=== PATIENT | female | born 1950 | race Caucasian/White ===

== ENCOUNTER → 2021-06-18 | Outpatient (CLI) | payer OTHER ==
[2021-06-18 11:56] LABS: SODIUM 138 MMOL/L (135-145)
[2021-06-18 11:59] LABS: CARBON DIOXIDE 14 MMOL/L (21-32)
== END ==
LOC: GIR 11:50
DX: Z53.9 Procedure and treatment not carried out, unspecified reason (principal)
CPT/HCPCS: 82374; 84295

== ENCOUNTER 2021-07-03 21:09 | Inpatient (IN) | payer MEDICARE, OTHER ==
[~2021-07-03] VITALS: Ht 160 cm; Wt 83.5 kg
[2021-07-03] MEDS ORDERED: VANCOMYCIN INJECTION 1,000 MG in NS (IVPB) 250 ML IV SCH (21:45)
[2021-07-03] MEDS ORDERED: MEROPENEM 1,000 MG in WATER (STERILE) FOR INJECTION 20 ML IV SCH (21:45)
--- NOTE | 2021-07-03 21:58 | Progress Note ---
Progress Note 70yoWF known to me from recent COVID [place] [facility]. She had a long course with initial N/V and dehydration and JILL and it transitioned to PNA and hypoxia requiring abx, steroids, O2 and ICU stay. Lovenox maintained along with IV abx resulted in improved status. Patient ultimately DC home in improved condition and was up ad sandy in room and PT OT did not require treating patient but she did go home on 2L/min O2. Apparently she went home and did not really ambulate and all she did was remain in bed and a chair. Her family insisted on her coming to [place] [facility] and was assessed to be profoundly dehydrated with creat 1.7 requiring IVF and hypoxia with tachycardia and elevated d-dimer and CRP and interestingly her alkaline phosphotase was 510 with ALT 46 so uncertain etiology on that elevation and I was planning on obtain ed USG in morning and order CT angiogram when creatinine had improved but she became more tachypneic and tachycardic and was unable to tolerate biPAP and was desating on Vapotherm 40L/min at 100% so I made the decision to electively intubate and called Juliann Real in who graciously provide intubation skills. I updated Ezio soon after admit and then updated him on the need to urgently intubate. I also informed him that anyone intubated had a very poor prognosis with COVID and he is aware she could pass away but remains a full code at this time. He is vaccinated and she is unvaccinated. Meropenem ordered along with Vanc and Decadron and gently IVF along with Lovenox 80mg SQ [id number]. Dr Yao has been notified and he will place central line. Very poor prognosis and I did update her on this fact multiple times. OGT in place along with Barb. NASRIN LAGUERRE DO Jul 03, 2021 21:58
[2021-07-03] MEDS: PROPOFOL DRIP (ICU) 100 ML IV SCH (22:55)
--- OUTSIDE RECORDS SUMMARY | 2021-07-03 22:58 | XMS REPORT ---
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 10/12/17 at 8 am 10/12/2017 12:00 AM Medications Active Name Start Date Estimated Completion Date SIG Co mments tramadol 50 mg oral tablet 03/05/2020 TAKE 1 TABLET BY MOUTH EVERY 4 TO 6 HOURS NEEDED pravastatin 40 mg oral tablet 07/26/2020 07/21/2021 ta ke 1 tablet (40 mg) by oral route once daily at bedtime for 90 days Pantoprazole Sodium 40 MG Oral Tablet Delayed Release 08/20/2020 11/13/2021 Take 1 tablet by mouth once daily lisinopril-hydrochlorothiazide 20-12.5 mg oral tablet 08/20/2020 11/13/2021 Take 1 tablet by mouth once daily ondansetron HCl 4 mg oral tablet 01/07/2021 take 1 tablet by oral route 3 times a day (before meals) paroxetine HCl 20 mg oral tablet 01/22/2021 10/19/2021 Take 1 tablet by mouth once daily sucralfate 1 gram tablet 05/05/2021 take 1 tablet (1 gram) by oral route 2 times per day on an empty stomach metformin 500 mg tablet 05/05/2021 04/30/2022 take 1 t ablet (500 mg) by oral route 2 times per day with morning and evening meals for 90 days ProAir HFA 90 mcg/actuation inhalation HFA aerosol inhaler 021 inhale 1 - 2 puffs (90 - 180 mcg) by inhalation route every 6 hours as needed glimepiride 2 mg tablet 05/06/2021 take 1 tablet by oral route 2 times a day promethazine-codeine 6.25-10 mg/5 mL oral syrup 06/17/2021 take 5 milliliters by oral route every 6 hours as needed, not to exceed 30 mL in 24 hours Name Start Date Expiration Date SIG Comments Zithromax Z-Kelechi 250 mg oral tablet 11/29/2011 12/04/2011 take 2 tablets (500 mg) by oral route once daily for 1 day then 1 tablet (250 mg) by oral route once daily for 4 days Flexeril 10 mg oral tablet 02/28/2012 05/28/2012 take 1 tablet by oral route 2 times a day as needed for 30 days tramadol 50 mg oral tablet 09/17/2012 10/02/2012 TAKE ONE TABLET BY MOUTH EVERY 4 TO 6 HOURS NEEDED Protonix 40 mg oral tablet,delayed release (DR/EC) 11/04/2013 12/04/2013 take 1 tablet (40 mg) by oral route once daily for 30 days Zithromax Z-Kelechi 250 mg oral tablet 11/04/2013 11/09/2013 take 2 tablets (500 mg) by oral route once daily for 1 day then 1 tablet (250 mg) by oral route once daily for 4 days Zithromax Z-Kelechi 250 mg oral tablet 05/07/2014 05/05/2014 take 2 tablets (500 mg) by oral route once daily for 1 day then 1 tablet (250 mg) by oral route once daily for 4 days azithromycin 250 mg oral tablet 05/05/2014 TAKE TWO TABLETS BY MOUTH ON DAY 1, THEN ONE TABLET ON DAYS 2-5 valacyclovir 1 gram oral tablet 06/11/2014 06/18/2014 take 1 tablet (1,000 mg) by oral route 3 times per day for 7 days prednisone 10 mg oral tablet 04/12/2015 04/17/2015 vignesh e 1 tablet (10 mg) by oral route once daily for 5 days azithromycin 250 mg oral tablet 01/21/2016 01/26/2016 take 2 tablets (500 mg) by oral route once daily for 1 day then 1 tablet (250 mg) by oral route once daily for 4 days prednisone 20 mg oral tablet 01/21/2016 01/26/2016 vignesh e 1 tablet (20 mg) by oral route once daily for 5 days sulfamethoxazole-trimethoprim 800-160 mg oral tablet 02/21/2016 02/28/2016 take 1 tablet by oral route every 12 hours for 7 days pantoprazole 40 mg oral tablet,delayed release (DR/EC) 05/12/2016 TAKE ONE TABLET BY MOUTH ONCE DAILY amitriptyline 25 mg oral tablet 10/09/2016 01/07/2017 take 1 tablet (25 mg) by oral route once daily at bedtime for 30 days promethazine-codeine 6.25-10 mg/5 mL oral syrup 11/28/2016 take 5 milliliters by oral route every 6 hours as needed, not to exceed 30 mL in 24 hours ranitidine HCl 150 mg oral capsule 02/17/2017 02/27/2017 take 1 capsule (150 mg) by oral route 2 times per day for 10 days doxycycline hyclate 100 mg oral tablet 02/17/2017 02/24/2017 take 1 tablet (100 mg) by oral route 2 times per day for 7 days paroxetine HCl 20 mg oral tablet 10/01/2017 10/01/2017 TAKE ONE TABLET BY MOUTH ONCE DAILY change to Cymbalta doxycycline hyclate 100 mg oral tablet 12/12/2017 take 1 tablet (100 mg) by oral route 2 times per day for 10 days guaifenesin 600 mg oral tablet extended release 12hr 12/12/2017 take 1 tablet (600 mg) by oral route every 12 hours as needed Bactrim DS 800-160 mg oral tablet 04/23/2018 04/30/2018 take 1 tablet by oral route every 12 hours for 7 days pantoprazole 40 mg oral tablet,delayed release (DR/EC) 07/29/2019 TAKE ONE TABLET BY MOUTH ONCE DAILY Discontinued Name Start Date Discontinued Date SIG Comments aspirin 81 mg oral tablet,delayed release (DR/EC) 02/17/2017 take 1 tablet by oral route daily Premarin 0.625 mg/gram vaginal cream 12/27/2012 apply 2 gram by topical route once weekly Lipitor 20 mg oral tablet 11/29/2011 10/07/2012 take 1 tablet (20 mg) by oral route once daily for 30 days Prevacid 15 mg oral capsule,delayed release(DR/EC) 11/29/2011 12/27/2012 take 1 capsule by oral route daily Xanax 0.25 mg oral tablet 10/07/2012 04/30/2014 take 1 tablet by oral route 3 times a day as needed paroxetine HCl 40 mg oral tablet 09/08/2015 04/05/2016 take 1 tablet (40 mg) by oral route once daily for 90 days prednisone 20 mg oral tablet 02/21/2016 04/05/2016 vignesh e 1 tablet (20 mg) by oral route once daily for 4 days then 0.5 tablet for 3 days Carafate 1 gram oral tablet 04/05/2016 05/12/2016 take 1 tablet (1 gram) by oral route 2 times per day on an empty stomach for 30 days "making her sick" Xanax 0.25 mg oral tablet 05/12/2016 07/29/2019 take 1 tablet by oral route 2 times a day as needed Dexilant 60 mg oral capsule,biphase delayed releas 05/12/2016 10/09/2016 take 1 capsule (60 mg) by oral route once daily taking pantoprazole clindamycin HCl 300 mg oral capsule 11/28/2016 11/30/2016 take 1 capsule (300 mg) by oral route 2 times per day for 7 days Vomiting promethazine-codeine 6.25-10 mg/5 mL oral syrup 02/17/2017 10/09/2017 take 5 milliliters by oral route every 6 hours as needed, not to exceed 30 mL in 24 hours Medrol (Kelechi) 4 mg oral tablets,dose pack 06/17/2017 10/09/2017 take as directed amitriptyline 25 mg oral tablet 07/29/2019 take 1 tablet (25 mg) by oral route once daily at bedtime Zyrtec-D 5-120 mg oral tablet extended release 12 hr 04/23/2018 07/29/2019 take 1 tablet by oral route every 12 hours Cymbalta 30 mg oral capsule,delayed release(DR/EC) 04/23/2018 07/29/2019 take 1 capsule (30 mg) by oral route once daily for 30 days glyburide 5 mg tablet 05/05/2021 05/06/2021 take 1 tab let (5 mg) by oral route 2 times per day before meals On [place] [employer] Problem List Description Status Onset Depression Active Gastroesophageal Reflux Active Hyperlipidemia Active Essential hypertension Active 09/08/2015 Anxiety Active 09/08/2015 Hyperlipidemia Active 09/08/2015 Gastroesophageal reflux disease without esophagitis Active 09/08/2015 Vital Signs Date Time BP-Sys(mm[Hg] BP-Teresa(mm[Hg]) HR(bpm) RR(rpm) Temp WT HT HC BMI BSA BMI Percentile O2 Sat(%) 05/05/2021 8:23:00 AM 142 mm[Hg] 84 mm[Hg] 78 {beats}/min 20 rpm 97.3 F 174 lbs 63 in 30.8224 kg/m2 1.873 m2 98 % 04/12/2021 2:41:00 PM 148 mm[Hg] 82 mm[Hg] 95 {beats}/min 20 rpm 98.1 F 174 lbs 63 in 30.82 kg/m2 1.87 m2 97 % 04/08/2021 1:35:00 PM 118 mm[Hg] 84 mm[Hg] 102 {beats}/min 18 rpm 98.2 F 171 lbs 63 in 30.291 kg/m2 1.8568 m2 98 % 07/09/2020 10:13:00 AM 130 mm[Hg] 82 mm[Hg] 78 {beats}/min 18 rpm 97.7 F 194 lbs 63 in 34.37 kg/m2 1.98 m2 98 % 09/07/2019 2:14:00 PM 136 mm[Hg] 82 mm[Hg] 77 {beats}/min 18 rpm 97.9 F 197.375 lbs 63 in 34.9631 kg/m2 1.9949 m2 98 % 07/29/2019 9:23:00 AM 144 mm[Hg] 84 mm[Hg] 61 {beats}/min 18 rpm 98.1 F 194.562 lbs 63 in 34.46 kg/m2 1.98 m2 99 % 04/23/2018 9:27:00 AM 126 mm[Hg] 68 mm[Hg] 65 {beats}/min 18 rpm 98.1 F 189 lbs 63 in 33.4795 kg/m2 1.9521 m2 99 % 12/12/2017 8:57:00 AM 132 mm[Hg] 78 mm[Hg] 67 {beats}/min 20 rpm 98 F 197 lbs 63 in 34.90 kg/m2 1.99 m2 97 % 10/09/2017 9:03:00 AM 142 mm[Hg] 70 mm[Hg] 70 {beats}/min 16 rpm 97 F 189 lbs 63 in 33.4795 kg/m2 1.9521 m2 99 % 06/17/2017 1:22:00 PM 124 mm[Hg] 70 mm[Hg] 97 {beats}/min 14 rpm 95.7 F 189.5 lbs 63 in 33.57 kg/m2 1.95 m2 96 % 06/12/2017 9:35:00 AM 130 mm[Hg] 64 mm[Hg] 73 {beats}/min 18 rpm 98.3 F 192 lbs 63 in 34.0109 kg/m2 1.9675 m2 99 % 02/17/2017 11:15:00 AM 124 mm[Hg] 84 mm[Hg] 81 {beats}/min 18 rpm 97.6 F 193.25 lbs 63 in 34.23 kg/m2 1.97 m2 97 % 11/28/2016 10:41:00 AM 142 mm[Hg] 88 mm[Hg] 104 {beats}/min 22 rpm 98.9 F 189 lbs 63 in 33.4795 kg/m2 1.9521 m2 100 % 2016 12:28:00 PM 110 mm[Hg] 76 mm[Hg] 88 {beats}/min 18 rpm 97.2 F 196 lbs 62 in 35.85 kg/m2 1.97 m2 95 % 10/09/2016 9:47:00 AM 130 mm[Hg] 76 mm[Hg] 80 {beats}/min 20 rpm 98.6 F 194 lbs 63 in 34.3652 kg/m2 1.9777 m2 96 % 05/12/2016 1:58:00 PM 130 mm[Hg] 62 mm[Hg] 85 {beats}/min 18 rpm 96.6 F 200 lbs 63 in 35.43 kg/m2 2.01 m2 98 % 04/05/2016 9:12:00 AM 142 mm[Hg] 82 mm[Hg] 80 {beats}/min 16 rpm 97.9 F 202 lbs 63 in 35.7823 kg/m2 2.0181 m2 98 % 02/21/2016 10:10:00 AM 146 mm[Hg] 82 mm[Hg] 88 {beats}/min 20 rpm 97.9 F 205 lbs 63 in 36.31 kg/m2 2.03 m2 98 % 01/21/2016 7:58:00 PM 170 mm[Hg] 62 mm[Hg] 89 {beats}/min 18 rpm 97 F 199.375 lbs 63 in 35.3173 kg/m2 2.005 m2 99 % 09/08/2015 2:44:00 PM 142 mm[Hg] 88 mm[Hg] 80 {beats}/min 18 rpm 97.2 F 199.125 lbs 63 in 35.27 kg/m2 2.00 m2 98 % 04/12/2015 8:52:00 AM 114 mm[Hg] 60 mm[Hg] 72 {beats}/min 16 rpm 96.9 F 196.5 lbs 63 in 34.8081 kg/m2 1.9904 m2 96 % 02/25/2015 2:29:00 PM 154 mm[Hg] 80 mm[Hg] 84 {beats}/min 18 rpm 97.8 F 204.5 lbs 63 in 36.23 kg/m2 2.03 m2 97 % 06/11/2014 9:49:00 AM 158 mm[Hg] 94 mm[Hg] 88 {beats}/min 18 rpm 97.8 F 206.375 lbs 63 in 36.5573 kg/m2 2.0399 m2 97 % 04/30/2014 2:19:00 PM 128 mm[Hg] 64 mm[Hg] 82 {beats}/min 18 rpm 97.2 F 205 lbs 63 in 36.31 kg/m2 2.03 m2 97 % 11/04/2013 10:24:00 AM 140 mm[Hg] 80 mm[Hg] 71 {beats}/min 16 rpm 98.1 F 198 lbs 98 % 06/24/2013 10:14:00 AM 138 mm[Hg] 76 mm[Hg] 73 {beats}/min 18 rpm 98.4 F 197 lbs 63 in 34.90 kg/m2 1.993 m2 97 % 12/27/2012 9:56:00 AM 122 mm[Hg] 70 mm[Hg] 90 {beats}/min 16 rpm 96.7 F 199.25 lbs 98 % 10/15/2012 10:11:00 AM 142 mm[Hg] 82 mm[Hg] 96 {beats}/min 16 rpm 97.4 F 195.25 lbs 96 % 10/07/2012 8:16:00 AM 139 mm[Hg] 88 mm[Hg] 79 {beats}/min 18 rpm 195.2 lbs 63 in 34.5778 kg/m2 1.9839 m2 02/28/2012 1:21:00 PM 136 mm[Hg] 72 mm[Hg] 78 {beats}/min 16 rpm 96.6 F 190.5 lbs 97 % 01/09/2012 3:16:00 PM 148 mm[Hg] 64 mm[Hg] 97 {beats}/min 16 rpm 96.2 F 187.125 lbs 97 % 11/29/2011 10:35:00 AM 182 mm[Hg] 84 mm[Hg] 96 {beats}/min 16 rpm 96.7 F 185.375 lbs 63 in 32.8374 kg/m2 1.9333 m2 97 % Social History Name Description Comments High school graduate Tobacco Never smoker Alcohol Use - Rare Denies illicit substance abuse Active but no formal exercise Homemaker Did not serve in Children Lives with spouse History of Procedures Date Ordered Description Order Status 09/08/2015 12:00 AM COMPLETE CBC W/AUTO DIFF WBC Reviewed 09/08/2015 12:00 AM COMPREHEN METABOLIC PANEL Reviewed 09/08/2015 12:00 AM ASSAY THYROID STIM HORMONE Reviewed 09/08/2015 12:00 AM ASSAY OF TROPONIN QUANT Reviewed 09/08/2015 12:00 AM ELECTROCARDIOGRAM COMPLETE Reviewed 09/08/2015 12:00 AM HT MUSCLE IMAGE SPECT MULT Reviewed 04/06/2016 12:00 AM HT MUSCLE IMAGE SPECT MULT Reviewed 11/29/2011 12:00 AM COMPREHEN METABOLIC PANEL Reviewed 11/29/2011 12:00 AM LIPID PANEL Reviewed 11/29/2011 12:00 AM ASSAY THYROID STIM HORMONE Reviewed 11/29/2011 12:00 AM COMPLETE CBC W/AUTO DIFF WBC Reviewed 2016 12:00 AM THER/PROPH/DIAG INJ SC/IM Reviewed 2016 12:00 AM Decadron 4mg Injection Reviewed 2016 12:00 AM Depo Medrol 40mg Injection, C Medicai d Reviewed 02/28/2012 12:00 AM COMPREHEN METABOLIC PANEL Reviewed 02/28/2012 12:00 AM LIPID PANEL Reviewed 02/28/2012 12:00 AM ASSAY THYROID STIM HORMONE Reviewed 02/28/2012 12:00 AM COMPLETE CBC W/AUTO DIFF WBC Reviewed 06/12/2017 12:00 AM Decadron 4mg Injection Reviewed 06/12/2017 12:00 AM Depo-Medrol 40mg Injection Reviewed 08/09/2012 12:00 AM IMMUNIZATION ADMIN Reviewed 08/09/2012 12:00 AM FLU VACCINE 3 YRS & > IM Reviewed 06/24/2013 12:00 AM THER/PROPH/DIAG INJ SC/IM Reviewed 06/24/2013 12:00 AM Decadron, Per 1 Mg [facility]# [address]-24 Re viewed 06/24/2013 12:00 AM Depo-Medrol, Per 80 Mg [facility]#5605-1169-42 Reviewed 12/13/2018 12:00 AM [facility] - flu vaccine administratio n Reviewed 12/13/2018 12:00 AM INFLUENZA VACCINE SPLT PRSRV FREE INC AN TIGEN IM Reviewed 08/05/2013 12:00 AM IMMUNIZATION ADMIN Reviewed 08/05/2013 12:00 AM FLU VACCINE 3 YRS & > IM Reviewed 07/29/2019 12:00 AM TDAP VACCINE 7 YRS/> IM Reviewed 09/07/2019 12:00 AM Decadron 4mg Injection Reviewed 09/07/2019 12:00 AM Depo-Medrol 40mg Injection Reviewed 09/07/2019 12:00 AM THER/PROPH/DIAG INJ SC/IM Reviewed 07/09/2020 12:00 AM COMPREHEN METABOLIC PANEL Reviewed 07/09/2020 12:00 AM LIPID PANEL Reviewed 07/23/2020 12:00 AM BREAST TOMOSYNTHESIS BI Reviewed 07/09/2020 12:00 AM PNEUMOCOCCAL VACC 13 ANIA IM Reviewed 04/08/2021 12:00 AM COMPLETE CBC W/AUTO DIFF WBC Reviewed 04/08/2021 12:00 AM COMPREHEN METABOLIC PANEL Reviewed 04/08/2021 12:00 AM ASSAY THYROID STIM HORMONE Reviewed 04/08/2021 12:00 AM VITAMIN B-12 Reviewed 04/08/2021 12:00 AM ASSAY OF FOLIC ACID SERUM Reviewed 04/08/2021 12:00 AM VITAMIN D 25 HYDROXY Reviewed 04/08/2021 12:00 AM ROUTINE VENIPUNCTURE Reviewed 04/08/2021 12:00 AM GLYCOSYLATED HEMOGLOBIN TEST Reviewed 06/14/2021 12:00 AM COVID-19 Testing Reviewed 04/30/2014 12:00 AM THER/PROPH/DIAG INJ SC/IM Reviewed 04/30/2014 12:00 AM Decadron, Per 1 Mg [facility]# [address]-87 Re viewed 04/30/2014 12:00 AM Depo-Medrol 40mg Reviewed 08/19/2014 12:00 AM FLU VAC NO PRSV 4 ANIA 3 YRS+ Reviewed Results Summary Date and Description Results 11/29/2011 10:45 AM Colonoscopy-Women and Men ov er 50 Declined Mammogram -Women over 40 Declined Pap Smear Negative 10/07/2012 7:44 AM GLUCOSE 108.0 mg/dLSODIUM 13 8.0 mmol/LPOTASSIUM 4.10 mmol/LCHLORIDE 106.0 mmol/LCO2 24.0 mmol/LBUN 10.0 mg/dLCREATININE 0.70 mg/dLSGOT/AST 27.0 IU/LSGPT/ALT 35.0 IU/LALK PHOS 208.0 IU/LTOTAL PROTEIN 7.80 g/dLALBUMIN 3.90 g/dLTOTAL BILI 1.20 mg/dLCALCIUM 9.20 mg/dLAGE 61 GFR NonAA 85 GFR AA 103 eGFR 60 eGFR AA* 60 WBC 5.2 RBC 4.35 HGB 12.80 g/dLHCT 39.80 %MCV 92.0 fLMCH 29.40 pgMCHC 32.20 g/dLRDW SD 45 RDW CV 13.50 %MPV 9.40 fLPLT 236 NRBC# 0.00 NRBC% 0.0 %NEUT 42.30 %%LYMP 45.70 %%MONO 6.0 %%EOS 5.80 %%BASO 0.20 %#NEUT 2.20 #LYMP 2.37 #MONO 0.31 #EOS 0.30 #BASO 0.01 MANUAL DIFF NOT IND TRIGLYCERIDES 238.0 mg/dLCHOLESTEROL 272.0 mg/dLHDL 45.0 mg/dLTOT CHOL/HDL 6.0 LDL (CALC) 179.0 mg/dLTSH 2.190 uIU/mL 09/08/2015 4:00 PM WBC 7.2 RBC 4.24 HGB 12.90 g /dLHCT 39.10 %MCV 92.0 fLMCH 30.40 pgMCHC 33.0 g/dLRDW SD 44 RDW CV 13.0 %MPV 9.0 fLPLT 224 NRBC# 0.00 NRBC% 0.0 %NEUT 53.90 %%LYMP 35.0 %%MONO 6.10 %%EOS 4.70 %%BASO 0.30 %#NEUT 3.89 #LYMP 2.52 #MONO 0.44 #EOS 0.34 #BASO 0.02 MANUAL DIFF NOT IND GLUCOSE 97.0 mg/dLSODIUM 139.0 mmol/LPOTASSIUM 3.80 mmol/LCHLORIDE 103.0 mmol/LCO2 27.0 mmol/LBUN 16.0 mg/dLCREATININE 0.80 mg/dLSGOT/AST 29.0 IU/LSGPT/ALT 48.0 IU/LALK PHOS 239.0 IU/LTOTAL PROTEIN 7.70 g/dLALBUMIN 4.0 g/dLTOTAL BILI 1.0 mg/dLCALCIUM 9.50 mg/dLAGE 64 GFR NonAA 72 GFR AA 87 eGFR >60 mL/min/1.73 m2eGFR AA* >60 TROPONIN-I AD <0.04 ng/mLTSH 1.880 uIU/mL 07/21/2020 9:39 AM WBC 6.8 RBC 4.11 HGB 12.30 g /dLHCT 38.70 %MCV 94.0 fLMCH 29.90 pgMCHC 31.80 g/dLRDW SD 44 fLRDW CV 12.60 %MPV 8.80 fLPLT 229 x10E3/uLNRBC# 0.00 NRBC% 0.0 %NEUT 55.7 %LYMP 30.3 %MONO 6.3 %EOS 7.1 %BASO 0.3 #NEUT 3.79 #LYMP 2.06 #MONO 0.43 #EOS 0.48 #BASO 0.02 MANUAL DIFF NOT IND GLUCOSE 229 SODIUM 137 POTASSIUM 4.6 CHLORIDE 103.0 mmol/LCO2 26 BUN 32.0 mg/dLCREATININE 1.560 mg/dLSGOT/AST 19 SGPT/ALT 31 ALK PHOS 246 TOTAL PROTEIN 7.5 ALBUMIN 3.9 TOTAL BILI 1.0 CALCIUM 9.30 mg/dLAGE 69 GFR NonAA 33 GFR AA 40 eGFR 33 mL/min/1.73meGFR AA* 40 mL/min/1.73mTRIGLYCERIDES 350 CHOLESTEROL 257.0 mg/dLHDL 41 TOT CHOL/HDL 6.3 LDL (CALC) 146 04/08/2021 1:54 PM HGB A1C >14.0 %Est Avg Gluco se 406.8 TSH 1.16 VITAMIN B12 509 FOLATE 12.00 VITAMIN D 17.0 GLUCOSE 761 SODIUM 127 POTASSIUM 4.7 CHLORIDE 91.0 mmol/LCO2 26 BUN 30.0 mg/dLCREATININE 1.20 mg/dLSGOT/AST 26 SGPT/ALT 33 ALK PHOS 336 TOTAL PROTEIN 7.0 ALBUMIN 3.9 TOTAL BILI 1.3 CALCIUM 9.40 mg/dLAGE 70 GFR NonAA 44 GFR AA 53 eGFR 44 mL/min/1.73meGFR AA* 53 mL/min/1.73mWBC 6.1 RBC 4.25 HGB 13.10 g/dLHCT 39.10 %MCV 92.0 fLMCH 30.80 pgMCHC 33.50 g/dLRDW SD 41 % RDW CV 12.30 %MPV 10.0 fLPLT 220 x10E3/uLNRBC# 0.00 NRBC% 0.0 %NEUT 72.5 %LYMP 16.5 %MONO 6.7 %EOS 3.6 %BASO 0.5 #NEUT 4.45 #LYMP 1.01 #MONO 0.41 #EOS 0.22 #BASO 0.03 MANUAL DIFF NOT IND 06/14/2021 2:16 PM [id number] DETECTED History Of Immunizations Name Date Admin Mfg Name Mfg Code Trade Name Lot# Route Inj Vis Given Vis Pub CVX Influenza 08/09/2012 sanofi pasteur PMC FLUZONE [id number] Intramuscular Left Deltoid 08/09/2012 05/06/2012 141 Influenza 08/05/2013 sanofi pasteur PMC FLUZONE [id number] Intramuscular Right Deltoid 08/05/2013 05/30/2013 141 Influenza 08/19/2014 sanofi pasteur PMC Fluzone Quadrivalent [id number] Intramuscular Left Deltoid 08/19/2014 06/23/2014 141 Influenza 12/13/2018 GlaxoSmithKline SKB FLUZONE-HIGH DOSE [id number] Int ramuscular Left Deltoid 12/13/2018 11/05/2021 135 Tdap 07/29/2019 Merck [employer] MSD BOOSTRIX [id number] Intramuscul ar Left Deltoid 07/29/2019 11/05/2021 115 Influenza 09/17/2019 Not Entered NE FLUZONE-HIGH DOSE Not E ntered Not Entered 11/05/2021 11/05/2021 135 Pneumococcal 07/09/[address] PREVNAR 1 3 [id number] Intramuscular Left Deltoid 07/09/2020 11/05/2021 133 History of Past Illness Name Date of Onset Comments Hyperlipidemia Gastroesophageal Reflux Depression Essential hypertension 09/08/2015 Anxiety 09/08/2015 Hyperlipidemia 09/08/2015 Gastroesophageal reflux disease without esophagitis 09/08/20 15 Hyperlipidemia Nov 29 2011 10:47AM Gastroesophageal Reflux Nov 29 2011 10:47AM Osteoarthrosis Nov 29 2011 10:47AM Depressive Disorder Nov 29 2011 10:47AM Blood Pressure Reading Elevated Without Diagnosis Of H ypertension Nov 29 2011 10:47AM Bronchitis, Acute Nov 29 2011 10:47AM Rhinitis, Allergic Jan 09 2012 3:19PM Hyperlipidemia Feb 28 2012 1:23PM Gastroesophageal Reflux Feb 28 2012 1:23PM Osteoarthrosis Feb 28 2012 1:23PM Depressive Disorder Feb 28 2012 1:23PM Blood Pressure Reading Elevated Without Diagnosis Of H ypertension Feb 28 2012 1:23PM Flu Aug 09 2012 12:37PM Anxiety Oct 07 2012 8:22AM Dizziness Oct 07 2012 8:22AM Gastroesophageal Reflux Oct 07 2012 8:22AM Seasonal Allergies Oct 07 2012 8:22AM Bilateral Ear Pressure/Effusions Oct 07 2012 8:22AM Hyperlipidemia Oct 15 2012 10:12AM Gastroesophageal Reflux Oct 15 2012 10:12AM Osteoarthrosis Oct 15 2012 10:12AM Depressive Disorder Oct 15 2012 10:12AM Blood Pressure Reading Elevated Without Diagnosis Of H ypertension Oct 15 2012 10:12AM Hyperlipidemia Dec 27 2012 9:59AM Gastroesophageal Reflux Dec 27 2012 9:59AM Osteoarthrosis Dec 27 2012 9:59AM Depressive Disorder Dec 27 2012 9:59AM Upper Respiratory Infections Jun 24 2013 10:16AM Flu Aug 05 2013 2:54PM Sinusitis Nov 04 2013 10:27AM Upper Respiratory Infection Nov 04 2013 10:27AM Gastroesophageal Reflux Nov 04 2013 10:27AM Sinusitis, Acute Apr 30 2014 2:26PM Hot flashes Jun 11 2014 9:56AM Shingles Jun 11 2014 9:56AM Depression Jun 11 2014 9:56AM Gastroesophageal Reflux Jun 11 2014 9:56AM Hyperlipidemia Jun 11 2014 9:56AM Flu Vaccine Aug 28 2014 7:01PM Back Pain Feb 25 2015 2:32PM Hypertension Feb 25 2015 2:32PM Hyperlipidemia, unspecified Feb 25 2015 2:32PM Depression Feb 25 2015 2:32PM GERD (gastroesophageal reflux disease) Feb 25 2015 2:32PM Seasonal allergies Apr 12 2015 8:58AM Chest pain, unspecified chest pain type Sep 08 2015 2:45PM Essential hypertension Sep 08 2015 2:45PM Anxiety Sep 08 2015 2:45PM Hyperlipidemia Sep 08 2015 2:45PM Gastroesophageal reflux disease without esophagitis Sep 08 015 2:45PM Shortness of breath on exertion Sep 08 2015 2:45PM Elevated liver enzymes Sep 14 2015 7:54AM Sinusitis Jan 21 2016 8:05PM Sinusitis Feb 21 2016 10:10AM Essential Hypertension Feb 21 2016 10:10AM Hyperlipidemia Feb 21 2016 10:10AM Elevated alkaline phosphatase level Feb 21 2016 10:10AM Hot flashes Feb 21 2016 10:10AM Precordial chest pain Apr 05 2016 9:13AM Reflux esophagitis Apr 05 2016 9:13AM Palpitations Apr 05 2016 9:13AM Gastroesophageal reflux disease without esophagitis May 12 2:06PM Mild episode of recurrent major depressive disorder May 12 2 016 2:06PM Allergic rhinitis 2016 12:31PM Acute non-recurrent maxillary sinusitis Oct 09 2016 9:49AM Moderate episode of recurrent major depressive disorder Oct 09 2016 9:49AM Pain in right knee Oct 09 2016 9:49AM Other chronic pain Oct 09 2016 9:49AM Bronchitis, Acute Nov 28 2016 10:43AM Sinusitis, acute maxillary Feb 17 2017 11:19AM Cough Feb 17 2017 11:19AM Contact Dermatitis Jun 12 2017 9:37AM Contact dermatitis due to poison salvador Jun 17 2017 1:23PM Pain in right shoulder Oct 09 2017 9:05AM Acute non-recurrent maxillary sinusitis Dec 12 2017 8:59AM Acute frontal sinusitis, recurrence not specified Apr 23 201 8 9:30AM Moderate episode of recurrent major depressive disorder Apr 23 2018 9:30AM Chronic pain Apr 23 2018 9:30AM Anxiety Apr 23 2018 9:30AM Gastroesophageal reflux disease without esophagitis Apr 23 9:30AM Screening for ischemic heart disease Apr 23 2018 9:30AM Fatigue Apr 23 2018 9:30AM Flu Vaccine Dec 13 2018 10:53AM Essential Hypertension Jul 29 2019 9:26AM Hyperlipidemia Jul 29 2019 9:26AM Anxiety Disorder Jul 29 2019 9:26AM Depression Jul 29 2019 9:26AM Gastroesophageal reflux disease without esophagitis Jul 29 2 019 9:26AM Need for Tdap vaccination Jul 29 2019 9:26AM Allergic otitis media of both ears Sep 07 2019 2:17PM Allergic rhinitis Sep 07 2019 2:17PM Essential Hypertension Jul 09 2020 10:15AM Hyperlipidemia Jul 09 2020 10:15AM Anxiety Disorder Jul 09 2020 10:15AM Depression Jul 09 2020 10:15AM Gastroesophageal reflux disease without esophagitis Jul 09 2 020 10:15AM Breast cancer screening by mammogram Jul 09 2020 10:15AM Need for pneumococcal vaccine Jul 09 2020 10:15AM Colon cancer screening Jul 09 2020 10:15AM Renal insufficiency Jul 23 2020 9:53AM Hyperglycemia Jul 26 2020 8:39AM Nausea with vomiting Jan 07 2021 10:14AM Fatigue Apr 08 2021 1:49PM Multiple persistent symptoms after COVID-19 Apr 08 2021 1:4 9PM Osteopenia Apr 08 2021 1:49PM Hyperglycemia Apr 08 2021 5:33PM Fatigue Apr 08 2021 1:40PM Multiple persistent symptoms after COVID-19 Apr 08 2021 1:4 0PM Diabetes mellitus type 2, uncontrolled Apr 12 2021 2:43PM Vitamin D deficiency Apr 12 2021 2:43PM Gastroesophageal Reflux May 05 2021 8:26AM Diabetes Mellitus, Type II May 05 2021 8:26AM Cough Jun 14 2021 1:43PM Sore throat Jun 14 2021 1:43PM Diarrhea Jun 14 2021 1:43PM Cough Jun 19 2021 3:43PM Sore throat Jun 19 2021 3:43PM Hypoxia Jul 01 2021 4:57PM 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 hauler Jul 01 2021 4:57PM Weakness Jul 01 2021 4:57PM Dizziness Jul 01 2021 4:57PM Oxygen dependent Jul 01 2021 4:57PM DM type 2 (diabetes mellitus, type 2) Jul 01 2021 4:57PM Hypertension Jul 01 2021 4:57PM Payers Insurance Name Company Name Plan Name Plan Number Policy Number Marcio cy Group Number Start Date Medicare RHC Medicare RHC [id number] 2015 [employer] [id number] Saturday, 2019 [employer] [place] [id number] 2011 IHC HS IHC HS [id number] N/A [employer] UNL [id number] Tuesday, 2014 Medicare Part A zzzMedicare A Secondary [id number] N/A Medicare Part B Medicare Of [place] [id number] N/A Medicare Part A Medicare Part A [id number] N/A [employer] I ns [place] [id number] N/A Medicare Part A Medicare - Lab/Xray [id number] N/A Medicare RHC Medicare RHC [id number] N/ A [employer] UNL [id number] N/A Cigna Medicare Supplement Cigna Medicare Supplement [id number] N/A History of Encounters Visit Date Visit Type Provider 07/01/2021 Office visit Xavi Moise APR N 06/14/2021 Nurse visit Alicia ETIENNE RN 06/14/2021 Office visit Tu Valerio DO 05/05/2021 Office visit Tu Valerio DO 04/12/2021 Office visit Tu Teodoro DO 04/08/2021 Office visit Xavi Moise APR N 04/08/2021 Hospital Joce Zeng MD 01/07/2021 Office visit Tu Teodoro DO 07/09/2020 Office visit Tu Teodoro DO 09/07/2019 Office visit Melinda Everett APR N 07/29/2019 Office visit Tu Teodoor DO 12/13/2018 Nurse visit Tu Teodoro DO 04/23/2018 Office visit Cristal Haider OVERAGE SHORTAGE AND DAMAGE CLERK 12/12/2017 Office visit Tu Teodoro DO 10/09/2017 Office visit Tu Teodoro DO 06/17/2017 Office visit Piyush Schaefer PA-C 06/12/2017 Office visit Tu Teodoro DO 02/17/2017 Office visit Melinda Everett APR N 11/28/2016 Office visit Tu Valerio DO 2016 Office visit Isha Odonnell OVERAGE SHORTAGE AND DAMAGE CLERK 10/09/2016 Office visit Tu Teodoro DO 05/12/2016 Office visit Xavi Moise APR N 04/05/2016 Office visit Tu Valerio DO 03/30/2016 Hospital Joce Zeng MD 02/21/2016 Office visit Tu Valerio DO 01/21/2016 Office visit Isha Blas OVERAGE SHORTAGE AND DAMAGE CLERK 09/08/2015 [facility] Destinee Zeng MD 09/08/2015 Office visit Cristal Haider OVERAGE SHORTAGE AND DAMAGE CLERK 04/12/2015 Office visit Tu Teodoro DO 02/25/2015 Office visit Cristal Vitaly OVERAGE SHORTAGE AND DAMAGE CLERK 08/19/2014 Nurse visit Xavi Moralesran APR N 06/11/2014 Office visit Xavi Moise APR N 04/30/2014 Office visit Cristal Haider OVERAGE SHORTAGE AND DAMAGE CLERK 11/04/2013 Office visit Xavi Moise APR N 08/05/2013 Nurse visit Kristen Asif MD 06/24/2013 Office visit Cristal Haider OVERAGE SHORTAGE AND DAMAGE CLERK 12/27/2012 Office visit Kirsten Asif MD 10/15/2012 Office visit Kirsten Asif MD 10/07/2012 Office visit Alicia ETIENNE RN 08/09/2012 Nurse visit Kirsten Asif MD 08/09/2012 Voided Kirsten Asif MD 02/28/2012 Office visit Kirsten Asif MD 01/09/2012 Office visit Kirsten Asif MD 11/29/2011 Office visit Kirsten Asif MD
--- OUTSIDE RECORDS SUMMARY | 2021-07-03 22:58 | XMS REPORT ---
Author Author Rosalia Enriquez [facility] Address [address] [place], [place] [address] Care Team Providers Care Etl Application Developer Name Role Phone Alicia Enriquez PCP TeodoroTu ortega PreferredProvider Allergies and Adverse Reactions Name Reaction [...] 06/24/2013 12:00 AM Decadron, Per 1 Mg [facility]# [address]-97 Re viewed 06/24/2013 12:00 AM Depo-Medrol, Per 80 Mg [facility]#7025-0128-89 Reviewed 12/13/2018 12:00 AM [facility] MEDICARE - flu vaccine administratio n Reviewed [...] 04/30/2014 12:00 AM Decadron, Per 1 Mg [facility]# [address]-58 Re viewed 04/30/2014 12:00 AM Depo-Medrol 40mg [...] MANUAL DIFF NOT IND 06/14/2021 2:16 PM [id number] DETECTED History Of Immunizations Name Date Admin Mfg Name Mfg Code Trade Name Lot# Route Inj Vis Given Vis Pub CVX Influenza 08/09/2012 sanofi pasteur PMC FLUZONE [id number] Intramuscular Left Deltoid 08/09/2012 05/06/2012 141 Influenza 08/05/2013 sanofi pasteur PMC FLUZONE [id number] Intramuscular Right Deltoid 08/05/2013 05/30/2013 141 Influenza 08/19/2014 sanofi pasteur PMC Fluzone Quadrivalent ui2 05ab Intramuscular Left Deltoid 08/19/2014 06/23/2014 141 Influenza 12/13/2018 GlaxoSmithKline SKB FLUZONE-HIGH DOSE [id number] Int ramuscular Left Deltoid 12/13/2018 11/05/2021 135 Tdap 07/29/2019 Merck & Co., Inc. MSD BOOSTRIX 3YN2L Intramuscul ar Left Deltoid 07/29/2019 11/05/2021 115 Influenza 09/17/2019 Not Entered NE FLUZONE-HIGH DOSE Not E ntered Not Entered 11/05/2021 11/05/2021 135 Pneumococcal 07/09/[address] PREVNAR 1 3 [id number] Intramuscular Left Deltoid 07/09/2020 11/05/2021 133 History [...] 3:43PM Sore throat Jun 19 2021 3:43PM Payers Insurance Name Company Name Plan Name Plan Number Policy Number Marcio cy Group Number Start Date Medicare [facility] Medicare [facility] [id number] 2015 Old Surety Life Old [employer] Life [id number] Saturday, 2019 BCBS [facility] [id number] Deleon 2011 IHC HS IHC HS [id number] N/A [facility] [id number] Tuesday, 2014 Medicare Part A zzzMedicare A Secondary [id number] N/A Medicare Part B Medicare Of [place] [id number] N/A Medicare Part A Medicare Part A [id number] N/A [employer] [place] [employer] I ns Co [id number] N/A Medicare Part A Medicare - Lab/Xray [id number] N/A Medicare RHC Medicare RHC [id number] N/ A [facility] Life UNL [id number] N/A Cigna Medicare Supplement Cigna Medicare Supplement [id number] N/A History of Encounters Visit Date Visit Type Provider 06/14/2021 Nurse visit Alicia ETIENNE RN 06/14/2021 Office visit Tu Teodoro DO 05/05/2021 Office visit Tu Teodoro DO 04/12/2021 Office visit Tu Teodoro DO 04/08/2021 Office visit Xavi Moise APR N 04/08/2021 Hospital Joce Zeng MD 01/07/2021 Office visit Tu Teodoro DO 07/09/2020 Office visit Tu Teodoro DO 09/07/2019 Office visit Melinda Everett APR N 07/29/2019 Office visit Tu Teodoro DO 12/13/2018 Nurse visit Tu Teodoro DO 04/23/2018 Office visit Cristal Haider ETL APPLICATION DEVELOPER 12/12/2017 Office visit Tu Teodoro DO 10/09/2017 Office visit Tu Teodoro DO 06/17/2017 Office visit Piyush Schaefer PA-C 06/12/2017 Office visit Tu Teodoro DO 02/17/2017 Office visit Melinda Everett APR N 11/28/2016 Office visit Tu Teodoro DO 2016 Office visit Isha Odonnell ETL APPLICATION DEVELOPER 10/09/2016 Office visit Tu Teodoro DO 05/12/2016 Office visit Xavi Moise APR N 04/05/2016 Office visit Tu Valerio DO 03/30/2016 Hospital Joce Zeng MD 02/21/2016 Office visit Tu Valerio DO 01/21/2016 Office visit Isha Odonnell ETL APPLICATION DEVELOPER 09/08/2015 [facility] Joce Zeng MD 09/08/2015 Office visit Cristal Haider ETL APPLICATION DEVELOPER 04/12/2015 Office visit Tu Valerio DO 02/25/2015 Office visit Cristal Haider ETL APPLICATION DEVELOPER 08/19/2014 Nurse visit Xavi Moise APR N 06/11/2014 Office visit Xavi Moralesran APR N 04/30/2014 Office visit Cristal Haider ETL APPLICATION DEVELOPER 11/04/2013 Office visit Xavi Moise APR N 08/05/2013 Nurse visit Kirsten Asif MD 06/24/2013 Office visit Cristal Haider ETL APPLICATION DEVELOPER 12/27/2012 Office visit Kirsten Asif MD 10/15/2012 Office visit Kirsten Asif MD 10/07/2012 Office visit Alicia ETIENNE RN 08/09/2012 Nurse visit Kirsten Asif MD 08/09/2012 Voided Kirsten Asif MD 02/28/2012 Office visit Kirsten Asif MD 01/09/2012 Office visit Kirsten Asif MD 11/29/2011 Office visit Kirsten Asif MD
--- OUTSIDE RECORDS SUMMARY | 2021-07-03 22:58 | XMS REPORT ---
Author Author Rosalia Enriquez [facility] Address [address] [place], [place] [address] Care Team Providers Care Vehicle Maintenance Supervisor Name Role Phone Alicia Enriquez PCP TeodoroTu [...] by oral route 2 times a day Name Start Date Expiration Date SIG Comments [...] 2016 12:00 AM Depo Medrol 40mg Injection, RHC Medicai d Reviewed 02/28/2012 12:00 AM COMPREHEN [...] 06/24/2013 12:00 AM Decadron, Per [address] [facility]# [address]-79 Re viewed 06/24/2013 12:00 AM Depo-Medrol, Per [address] [facility]#[id number] Reviewed 12/13/2018 12:00 AM [facility] MEDICARE - flu vaccine administratio n Reviewed [...] 04/30/2014 12:00 AM Decadron, Per [address] [facility]# [address]-17 Re viewed 04/30/2014 12:00 AM Depo-Medrol 40mg [...] MANUAL DIFF NOT IND 06/14/2021 2:16 PM [id number] DETECTED History Of Immunizations Name Date Admin Mfg Name Mfg Code Trade Name Lot# Route Inj Vis Given Vis Pub CVX Influenza 08/09/2012 sanofi pasteur PMC FLUZONE [id number] Intramuscular Left Deltoid 08/09/2012 05/06/2012 141 Influenza 08/05/2013 sanofi pasteur PMC FLUZONE [id number] Intramuscular Right Deltoid 08/05/2013 05/30/2013 141 Influenza 08/19/2014 sanofi pasteur PMC Fluzone Quadrivalent ui2 05ab Intramuscular Left Deltoid 08/19/2014 06/23/2014 141 Influenza 12/13/2018 GlaxoSmithKline SKB FLUZONE-HIGH DOSE [id number] Int ramuscular Left Deltoid 12/13/2018 11/05/2021 135 Tdap 07/29/2019 Merck & Co., Inc. MSD BOOSTRIX 3YN2L Intramuscul ar Left Deltoid 07/29/2019 11/05/2021 115 Influenza 09/17/2019 Not Entered NE FLUZONE-HIGH DOSE Not E ntered Not Entered 11/05/2021 11/05/2021 135 Pneumococcal 07/09/2020 Pryui-Hwphek-BwjjtdzMegan [facility] PREVNAR 1 3 [id number] Intramuscular Left Deltoid 07/09/2020 11/05/2021 133 History [...] of recurrent major depressive disorder May 12 2:06PM Allergic rhinitis 2016 12:31PM Acute non-recurrent [...] Gastroesophageal reflux disease without esophagitis Apr 23 018 9:30AM Screening for ischemic heart disease Apr [...] reflux disease without esophagitis Jul 09 2 10:15AM Breast cancer screening by mammogram Jul [...] 2021 1:43PM Diarrhea Jun 14 2021 1:43PM Payers Insurance Name Company Name Plan Name Plan Number Policy Number Marcio cy Group Number Start Date Medicare RHC Medicare RHC [id number] 2015 Old [employer] Life [employer] Life [id number] Saturday, 2019 BCBS [facility]bs [facility] [id number] 2011 IHC HS IHC HS [id number] N/A [employer] UNL [id number] Tuesday, 2014 Medicare Part A zzzMedicare A Secondary [id number] N/A Medicare Part B Medicare Of [place] [id number] N/A Medicare Part A Medicare Part A [id number] N/A [employer] [place] [employer] [place] [employer] I ns Co [id number] N/A Medicare Part A Medicare - Lab/Xray [id number] N/A Medicare RHC Medicare RHC [id number] N/ A [facility] [id number] N/A Cigna Medicare Supplement Cigna Medicare Supplement [id number] N/A History of Encounters Visit Date Visit Type Provider 06/14/2021 Nurse visit Alicia ETIENNE RN 06/14/2021 Office visit Tu Teodoro DO 05/05/2021 Office visit Tu Teodoro DO 04/12/2021 Office visit Tu Teodoro DO 04/08/2021 Office visit Xavi Moise APR N 04/08/2021 [facility] Joce Zeng MD 01/07/2021 Office visit Tu Teodoro DO 07/09/2020 Office visit Tu Teodoro DO 09/07/2019 Office visit Melinda Everett APR N 07/29/2019 Office visit Tu Teodoro DO 12/13/2018 Nurse visit Tu Teodoro DO 04/23/2018 Office visit Cristal Haider PULLBOAT ENGINEER 12/12/2017 Office visit Tu Teodoro DO 10/09/2017 Office visit Tu Teodoro DO 06/17/2017 Office visit Piyush Schaefer PA-C 06/12/2017 Office visit Tu Teodoro DO 02/17/2017 Office visit Melinda Everett APR N 11/28/2016 Office visit Tu Teodoro DO 2016 Office visit Isha Odonnell PULLBOAT ENGINEER 10/09/2016 Office visit Tu Teodoro DO 05/12/2016 Office visit Xavi oMise APR N 04/05/2016 Office visit Tu Teodoro DO 03/30/2016 [facility] Joce Zeng MD 02/21/2016 Office visit Tu Teodoro DO 01/21/2016 Office visit Isha Odonnell PULLBOAT ENGINEER 09/08/2015 [facility] Joce Zeng MD 09/08/2015 Office visit Cristal Haider PULLBOAT ENGINEER 04/12/2015 Office visit Tu Valerio DO 02/25/2015 Office visit Cristal Haider PULLBOAT ENGINEER 08/19/2014 Nurse visit Xavi Moise APR N 06/11/2014 Office visit Xavi Moise APR N 04/30/2014 Office visit Cristal Haider PULLBOAT ENGINEER 11/04/2013 Office visit Xavi Moise APR N 08/05/2013 Nurse visit Kirsten Aisf MD 06/24/2013 Office visit Cristal Haider PULLBOAT ENGINEER 12/27/2012 Office visit Kirsten Asif MD 10/15/2012 Office visit Kirsten Asif MD 10/07/2012 Office visit Alicia ETIENNE RN 08/09/2012 Nurse visit Kirsten Asif MD 08/09/2012 Voided Kirsten Asif MD 02/28/2012 Office visit Kirsten Asif MD 01/09/2012 Office visit Kirsten Asif MD 11/29/2011 Office visit Kirsten Asif MD
--- OUTSIDE RECORDS SUMMARY | 2021-07-03 22:58 | XMS REPORT ---
Author Author Rosalia Moise [facility] Address [address] [place], [place] [address] Care Team Providers Care Commercial Accountant Name Role Phone Xavi Moise PCP Teodoro [...] 06/24/2013 12:00 AM Decadron, Per 1 Mg [facility]# [id number] Re viewed 06/24/2013 12:00 AM Depo-Medrol, Per 80 Mg [facility]#0724-5592-53 Reviewed 12/13/2018 12:00 AM [facility] MEDICARE - flu vaccine administratio n Reviewed [...] 04/30/2014 12:00 AM Decadron, Per 1 Mg [facility]# [address]-24 Re viewed 04/30/2014 12:00 AM Depo-Medrol 40mg [...] MANUAL DIFF NOT IND 06/14/2021 2:16 PM [id number] DETECTED History Of Immunizations Name Date Admin Mfg Name Mfg Code Trade Name Lot# Route Inj Vis Given Vis Pub CVX Influenza 08/09/2012 sanofi pasteur PMC FLUZONE [id number] Intramuscular Left Deltoid 08/09/2012 05/06/2012 141 Influenza 08/05/2013 sanofi pasteur PMC FLUZONE [id number] Intramuscular Right Deltoid 08/05/2013 05/30/2013 141 Influenza 08/19/2014 sanofi pasteur PMC Fluzone Quadrivalent ui2 05ab Intramuscular Left Deltoid 08/19/2014 06/23/2014 141 Influenza 12/13/2018 GlaxoSmithKline SKB FLUZONE-HIGH DOSE [id number] Int ramuscular Left Deltoid 12/13/2018 11/05/2021 135 Tdap 07/29/2019 Merck & Co., Inc. MSD BOOSTRIX 3YN2L Intramuscul ar Left Deltoid 07/29/2019 11/05/2021 115 Influenza 09/17/2019 Not Entered NE FLUZONE-HIGH DOSE Not E ntered Not Entered 11/05/2021 11/05/2021 135 Pneumococcal 07/09/[address] PREVNAR 1 3 [id number] Intramuscular Left Deltoid 07/09/2020 11/05/2021 133 History [...] 2021 4:57PM Hypertension Jul 01 2021 4:57PM COVID-19 Jul 01 2021 6:13PM Payers Insurance Name Company Name Plan Name Plan Number Policy Number Marcio cy Group Number Start Date Medicare RHC Medicare RHC [id number] 2015 Old Surety Life Old [employer]ty Life [id number] Saturday, 2019 BCBS [facility] [id number] Deleon nday, 2011 IHC HS IHC HS [id number] N/A [employer] UNL [id number] Tuesday, 2014 Medicare Part A zzzMedicare A Secondary [id number] N/A Medicare Part B Medicare Of [place] [id number] N/A Medicare Part A Medicare Part A [id number] N/A [employer] [place] [employer] [place] [employer] I ns Co [id number] N/A Medicare Part A Medicare - Lab/Xray [id number] N/A Medicare RHC Medicare RHC [id number] N/ A [employer] UNL [id number] N/A Cigna Medicare Supplement Cigna Medicare Supplement [id number] N/A History of Encounters Visit Date Visit Type Provider 07/01/2021 Office visit Xavi Moise APR N 06/14/2021 Nurse visit Alicia ETIENNE RN 06/14/2021 Office visit Tu Valerio DO 05/05/2021 Office visit Tu Valerio DO 04/12/2021 Office visit Tu Teodoro DO 04/08/2021 Office visit Xavi Moise APR N 04/08/2021 Keven Zeng MD 01/07/2021 Office visit Tu Teodoro DO 07/09/2020 Office visit Tu Teodoro DO 09/07/2019 Office visit Melinda Everett APR N 07/29/2019 Office visit Tu Teodoro DO 12/13/2018 Nurse visit Tu Teodoro DO 04/23/2018 Office visit Cristal Haider INSURANCE ADJUSTOR 12/12/2017 Office visit Tu Teodoro DO 10/09/2017 Office visit Tu Teodoro DO 06/17/2017 Office visit Piyush Schaefer PA-C 06/12/2017 Office visit Tu Teodoro DO 02/17/2017 Office visit Melinda Everett APR N 11/28/2016 Office visit Tu Teodoro DO 2016 Office visit Isha Odonnell INSURANCE ADJUSTOR 10/09/2016 Office visit Tu Teodoro DO 05/12/2016 Office visit Xavi Moise APR N 04/05/2016 Office visit Tu Valerio DO 03/30/2016 [facility] Joce Zeng MD 02/21/2016 Office visit Tu Teodoro DO 01/21/2016 Office visit Isha Blas INSURANCE ADJUSTOR 09/08/2015 [facility] Joce Zeng MD 09/08/2015 Office visit Cristal Haider INSURANCE ADJUSTOR 04/12/2015 Office visit Tu Teodoro DO 02/25/2015 Office visit Rcistal Vitaly INSURANCE ADJUSTOR 08/19/2014 Nurse visit Xavi Moralesran APR N 06/11/2014 Office visit Xavi Moise APR N 04/30/2014 Office visit Cristal Haider INSURANCE ADJUSTOR 11/04/2013 Office visit Xavi Moise APR N 08/05/2013 Nurse visit Kirsten Asif MD 06/24/2013 Office visit Cristal Haider INSURANCE ADJUSTOR 12/27/2012 Office visit Kirsten Asif MD 10/15/2012 Office visit Kirsten Asif MD 10/07/2012 Office visit Alicia ETIENNE RN 08/09/2012 Nurse visit Kirsten Asif MD 08/09/2012 Voided Kirsten Asif MD 02/28/2012 Office visit Kirsten Asif MD 01/09/2012 Office visit Kirsten Asif MD 11/29/2011 Office visit Kirsten Asif MD
--- OUTSIDE RECORDS SUMMARY | 2021-07-03 22:58 | XMS REPORT ---
Author Author Rosalia Enriquez [facility] Address [address] [place], [place] [address] Care Team Providers Care Hatchery Man Name Role Phone Alicia Enriquez PCP TeodoroTu [...] 12:00 AM Decadron, Per 1 Mg [facility]# [address]-36 Re viewed 06/24/2013 12:00 AM Depo-Medrol, Per 80 Mg [facility]#7094-3558-75 Reviewed 12/13/2018 12:00 AM [facility] MEDICARE - flu vaccine administratio [...] 12:00 AM Decadron, Per 1 Mg [facility]# [address]-79 Re viewed 04/30/2014 12:00 AM Depo-Medrol 40mg [...] MANUAL DIFF NOT IND 06/14/2021 2:16 PM [id number] DETECTED History Of Immunizations Name Date Admin Mfg Name Mfg Code Trade Name Lot# Route Inj Vis Given Vis Pub CVX Influenza 08/09/2012 sanofi pasteur PMC FLUZONE [id number] Intramuscular Left Deltoid 08/09/2012 05/06/2012 141 Influenza 08/05/2013 sanofi pasteur PMC FLUZONE [id number] Intramuscular Right Deltoid 08/05/2013 05/30/2013 141 Influenza 08/19/2014 sanofi pasteur PMC Fluzone Quadrivalent ui2 05ab Intramuscular Left Deltoid 08/19/2014 06/23/2014 141 Influenza 12/13/2018 GlaxoSmithKline SKB FLUZONE-HIGH DOSE [id number] Int ramuscular Left Deltoid 12/13/2018 11/05/2021 135 Tdap 07/29/2019 Merck & Co., Inc. MSD BOOSTRIX 3YN2L Intramuscul ar Left Deltoid 07/29/2019 11/05/2021 115 Influenza 09/17/2019 Not Entered NE FLUZONE-HIGH DOSE Not E ntered Not Entered 11/05/2021 11/05/2021 135 Pneumococcal 07/09/[address] PREVNAR 1 3 [id number] Intramuscular Left Deltoid 07/09/2020 11/05/2021 133 History [...] Marcio cy Group Number Start Date Medicare [facility] Medicare [facility] [id number] 2015 Old [employer]ty Life [employer] Life [id number] Saturday, 2019 BCBS [facility] [id number] Deleon 2011 IHC HS IHC HS [id number] N/A [employer] [facility] [id number] Tuesday, 2014 Medicare Part A zzzMedicare A Secondary [id number] N/A Medicare Part B Medicare Of [place] [id number] N/A Medicare Part A Medicare Part A [id number] N/A [employer] [place] [employer] I ns Co [id number] N/A Medicare Part A Medicare - Lab/Xray [id number] N/A Medicare RHC Medicare RHC [id number] N/ A [facility] [employer] UNL [id number] N/A Cigna Medicare Supplement Cigna Medicare Supplement [id number] N/A History of Encounters Visit Date Visit [...] Teodoro DO 04/23/2018 Office visit Cristal Haider LIBRARY MANAGER 12/12/2017 Office visit Tu Teodoro DO 10/09/2017 Office visit Tu Teodoro DO 06/17/2017 Office visit Piyush Schaefer PA-C 06/12/2017 Office visit Tu Teodoro DO 02/17/2017 Office visit Melinda Everett APR N 11/28/2016 Office visit Tu Teodoro DO 2016 Office visit Isha Odonnell LIBRARY MANAGER 10/09/2016 Office visit Tu Teodoro DO 05/12/2016 Office visit Xavi Moise APR N 04/05/2016 Office visit Tu Teodoro DO 03/30/2016 Hospital Joce Zeng MD 02/21/2016 Office visit Tu Teodoro DO 01/21/2016 Office visit Isha Odonnell LIBRARY MANAGER 09/08/2015 Hospital Joce Zeng MD 09/08/2015 Office visit Cristal Haider LIBRARY MANAGER 04/12/2015 Office visit Tu Valerio DO 02/25/2015 Office visit Cristal Haider LIBRARY MANAGER 08/19/2014 Nurse visit Xavi Moise APR N 06/11/2014 Office visit Xavi Moise APR N 04/30/2014 Office visit Cristal Haider LIBRARY MANAGER 11/04/2013 Office visit Xavi Moise APR N 08/05/2013 Nurse visit Kirsten Asif MD 06/24/2013 Office visit Cristal Haider LIBRARY MANAGER 12/27/2012 Office visit Kirsten Asif MD 10/15/2012 Office visit Kirsten Asif MD 10/07/2012 Office visit Alicia ETIENNE RN 08/09/2012 Nurse visit Kirsten Asif MD 08/09/2012 Voided Kirsten Asif MD 02/28/2012 Office visit Kirsten Asif MD 01/09/2012 Office visit Kirsten Asif MD 11/29/2011 Office visit Kirsten Asif MD
--- OUTSIDE RECORDS SUMMARY | 2021-07-03 22:58 | XMS REPORT ---
Author Author Rosalia Enriquez [facility] Physicians oup Address [address] [place], [place] [id number] Care Team Providers Care Engineering Vice President Name Role Phone Alicia Enriquez PCP TeodoroTu [...] 06/24/2013 12:00 AM Decadron, Per 1 Mg [facility]# [address]-00 Re viewed 06/24/2013 12:00 AM Depo-Medrol, Per 80 Mg [facility]#[id number] Reviewed 12/13/2018 12:00 AM [facility] MEDICARE - flu vaccine administratio n [...] 04/30/2014 12:00 AM Decadron, Per 1 Mg [facility]# [address]-69 Re viewed 04/30/2014 12:00 AM Depo-Medrol 40mg [...] MANUAL DIFF NOT IND 06/14/2021 2:16 PM [id number] DETECTED History Of Immunizations Name Date Admin Mfg Name Mfg Code Trade Name Lot# Route Inj Vis Given Vis Pub CVX Influenza 08/09/2012 sanofi pasteur PMC FLUZONE [id number] Intramuscular Left Deltoid 08/09/2012 05/06/2012 141 Influenza 08/05/2013 sanofi pasteur PMC FLUZONE [id number] Intramuscular Right Deltoid 08/05/2013 05/30/2013 141 Influenza 08/19/2014 sanofi pasteur PMC Fluzone Quadrivalent ui2 05ab Intramuscular Left Deltoid 08/19/2014 06/23/2014 141 Influenza 12/13/2018 GlaxoSmithKline SKB FLUZONE-HIGH DOSE [id number] Int ramuscular Left Deltoid 12/13/2018 11/05/2021 135 Tdap 07/29/2019 Merck & Co., Inc. MSD BOOSTRIX 3YN2L Intramuscul ar Left Deltoid 07/29/2019 11/05/2021 115 Influenza 09/17/2019 Not Entered NE FLUZONE-HIGH DOSE Not E ntered Not Entered 11/05/2021 11/05/2021 135 Pneumococcal 07/09/2020 Qxcai-Kdgvhm-DtgevwlMegan [facility] PREVNAR 1 3 [id number] Intramuscular Left Deltoid 07/09/2020 11/05/2021 133 History [...] Number Start Date Medicare RHC Medicare RHC [id number] 2015 Old Surety Life Old Surety Life [id number] Saturday, 2019 BCBS Bcbs [facility] [id number] 2011 IHC HS IHC HS [id number] N/A [employer] Life UNL [id number] Tuesday, 2014 Medicare Part A zzzMedicare A Secondary [id number] N/A Medicare Part B Medicare Of [place] [id number] N/A Medicare Part A Medicare Part A [id number] N/A [employer] I ns Co [id number] N/A Medicare Part A Medicare - Lab/Xray [id number] N/A Medicare RHC Medicare RHC [id number] N/ A [facility] [id number] N/A Cigna Medicare Supplement Cigna Medicare Supplement [id number] N/A History of Encounters Visit Date Visit Type Provider 06/14/2021 Nurse visit Alicia ETIENNE RN 06/14/2021 Office visit Tu Teodoro DO 05/05/2021 Office visit Tu Teodoro DO 04/12/2021 Office visit Tu Teodoro DO 04/08/2021 Office visit Xavi Moise APR N 04/08/2021 [facility] Joce Zeng MD 01/07/2021 Office visit Tu Teodoro DO 07/09/2020 Office visit Tu Teodoro DO 09/07/2019 Office visit Melinda Everett APR N 07/29/2019 Office visit Tu Teodoro DO 12/13/2018 Nurse visit Tu Teodoro DO 04/23/2018 Office visit Cristal Haider PROFESSOR OF BUSINESS ADMINISTRATION 12/12/2017 Office visit Tu Teodoro DO 10/09/2017 Office visit Tu Teodoro DO 06/17/2017 Office visit Piyush Schaefer PA-C 06/12/2017 Office visit Tu Teodoro DO 02/17/2017 Office visit Melinda Everett APR N 11/28/2016 Office visit Tu Teodoro DO 2016 Office visit Isha Odonnell PROFESSOR OF BUSINESS ADMINISTRATION 10/09/2016 Office visit Tu Teodoro DO 05/12/2016 Office visit Xavi Moise APR N 04/05/2016 Office visit Tu Teodoro DO 03/30/2016 [facility] Joce Zeng MD 02/21/2016 Office visit Tu Teodoro DO 01/21/2016 Office visit Isha Odonnell PROFESSOR OF BUSINESS ADMINISTRATION 09/08/2015 [facility] Joce Zeng MD 09/08/2015 Office visit Cristal Haider PROFESSOR OF BUSINESS ADMINISTRATION 04/12/2015 Office visit Tu Valerio DO 02/25/2015 Office visit Cristal Haider PROFESSOR OF BUSINESS ADMINISTRATION 08/19/2014 Nurse visit Xavi Moise APR N 06/11/2014 Office visit Xavi Moise APR N 04/30/2014 Office visit Cristal Haider PROFESSOR OF BUSINESS ADMINISTRATION 11/04/2013 Office visit Xavi Moise APR N 08/05/2013 Nurse visit Kirsten Asif MD 06/24/2013 Office visit Cristal Haider PROFESSOR OF BUSINESS ADMINISTRATION 12/27/2012 Office visit Kirsten Asif MD 10/15/2012 Office visit Kirsten Asif MD 10/07/2012 Office visit Alicia ETIENNE RN 08/09/2012 Nurse visit Kirsten Asif MD 08/09/2012 Voided Kirsten Asif MD 02/28/2012 Office visit Kirsten Asif MD 01/09/2012 Office visit Kirsten Asif MD 11/29/2011 Office visit Kirsten Asif MD
--- OUTSIDE RECORDS SUMMARY | 2021-07-03 22:59 | XMS REPORT ---
Author Author Rosalia Enriquez [facility] oup Address [address] [place], [place] [address] Care Team Providers Care Tack Coverer Name Role Phone Alicia Enriquez PCP TeodoroTu [...] Start Date Expiration Date SIG Comments Zithromax Z-Kelehci 250 mg oral tablet 11/29/2011 12/04/2011 take [...] 06/24/2013 12:00 AM Decadron, Per 1 Mg [facility]# [address]-40 Re viewed 06/24/2013 12:00 AM Depo-Medrol, Per 80 Mg [facility]#7195-7352-83 Reviewed 12/13/2018 12:00 AM [facility] MEDICARE - flu vaccine administratio n [...] 04/30/2014 12:00 AM Decadron, Per 1 Mg [facility]# [id number] Re viewed 04/30/2014 12:00 AM Depo-Medrol 40mg [...] MANUAL DIFF NOT IND 06/14/2021 2:16 PM [id number] DETECTED History Of Immunizations Name Date Admin Mfg Name Mfg Code Trade Name Lot# Route Inj Vis Given Vis Pub CVX Influenza 08/09/2012 sanofi pasteur PMC FLUZONE [id number] Intramuscular Left Deltoid 08/09/2012 05/06/2012 141 Influenza 08/05/2013 sanofi pasteur PMC FLUZONE [id number] Intramuscular Right Deltoid 08/05/2013 05/30/2013 141 Influenza 08/19/2014 sanofi pasteur PMC Fluzone Quadrivalent ui2 05ab Intramuscular Left Deltoid 08/19/2014 06/23/2014 141 Influenza 12/13/2018 GlaxoSmithKline SKB FLUZONE-HIGH DOSE [id number] Int ramuscular Left Deltoid 12/13/2018 11/05/2021 135 Tdap 07/29/2019 Merck & Co., Inc. MSD BOOSTRIX 3YN2L Intramuscul ar Left Deltoid 07/29/2019 11/05/2021 115 Influenza 09/17/2019 Not Entered NE FLUZONE-HIGH DOSE Not E ntered Not Entered 11/05/2021 11/05/2021 135 Pneumococcal 07/09/2020 Pbduv-Xmoagd-LmvaqonMegan [facility] PREVNAR 1 3 [id number] Intramuscular Left Deltoid 07/09/2020 11/05/2021 133 History [...] Number Start Date Medicare RHC Medicare RHC [id number] 2015 Old Surety Life [employer] Life [id number] Saturday, 2019 BCBS Bcbs [facility] [id number] 2011 IHC HS IHC HS [id number] N/A [employer] Life UNL [id number] Tuesday, 2014 Medicare Part A zzzMedicare A Secondary [id number] N/A Medicare Part B Medicare Of [place] [id number] N/A Medicare Part A Medicare Part A [id number] N/A [employer] I ns Co [id number] N/A Medicare Part A Medicare - Lab/Xray [id number] N/A Medicare RHC Medicare RHC [id number] N/ A [facility] [id number] N/A Cigna Medicare Supplement Cigna Medicare Supplement [id number] N/A History of Encounters Visit Date Visit Type Provider 06/14/2021 Nurse visit Alicia ETIENNE RN 06/14/2021 Office visit Tu Teodoro DO 05/05/2021 Office visit Tu Teodoro DO 04/12/2021 Office visit Tu Teodoro DO 04/08/2021 Office visit Xavi Moise APR N 04/08/2021 [facility] Joce Zeng MD 01/07/2021 Office visit Tu Teodoro DO 07/09/2020 Office visit Tu Teodoro DO 09/07/2019 Office visit Melinda Everett APR N 07/29/2019 Office visit Tu Teodoro DO 12/13/2018 Nurse visit Tu Teodoro DO 04/23/2018 Office visit Cristal Haider HITCHER 12/12/2017 Office visit Tu Teodoro DO 10/09/2017 Office visit Tu Teodoro DO 06/17/2017 Office visit Piyush Schaefer PA-C 06/12/2017 Office visit Tu Teodoro DO 02/17/2017 Office visit Melinda Everett APR N 11/28/2016 Office visit Tu Teodoro DO 2016 Office visit Isha Odonnell HITCHER 10/09/2016 Office visit Tu Teodoro DO 05/12/2016 Office visit Xavi Moise APR N 04/05/2016 Office visit Tu Teodoro DO 03/30/2016 [facility] Joce Zeng MD 02/21/2016 Office visit Tu Teodoro DO 01/21/2016 Office visit Isha Odonnell HITCHER 09/08/2015 [facility] Joce Zeng MD 09/08/2015 Office visit Cristal Haider HITCHER 04/12/2015 Office visit Tu Valerio DO 02/25/2015 Office visit Cristal Haider HITCHER 08/19/2014 Nurse visit Xavi Moise APR N 06/11/2014 Office visit Xavi Moise APR N 04/30/2014 Office visit Cristal Haider HITCHER 11/04/2013 Office visit Xavi Moise APR N 08/05/2013 Nurse visit Kirsten Asif MD 06/24/2013 Office visit Cristal Haider HITCHER 12/27/2012 Office visit Kirsten Asif MD 10/15/2012 Office visit Kirsten Asif MD 10/07/2012 Office visit Alicia ETIENNE RN 08/09/2012 Nurse visit Kirsten Asif MD 08/09/2012 Voided Kirsten Asif MD 02/28/2012 Office visit Kirsten Asif MD 01/09/2012 Office visit Kirsten Asif MD 11/29/2011 Office visit Kirsten Asif MD
--- OUTSIDE RECORDS SUMMARY | 2021-07-03 22:59 | XMS REPORT ---
Author Author Rosalia Valerio [facility] Physicians oup Address [address] [place], [place] [id number] Care Team Providers Care Channel Marketing Program Manager Name Role Phone Tu Valerio PCP Tu Valerio PreferredProvider Allergies and Adverse Reactions Name Reaction [...] guaifenesin 600 mg oral tablet extended release 1212/12/2017 take 1 tablet (600 mg) by oral [...] 06/24/2013 12:00 AM Decadron, Per 1 Mg [facility] 2]# [id number] Re viewed 06/24/2013 12:00 AM Depo-Medrol, Per 80 Mg [facility]NOTE 2]#[id number] Reviewed 12/13/2018 12:00 AM [facility] MEDICARE - flu vaccine administratio [...] 04/08/2021 12:00 AM GLYCOSYLATED HEMOGLOBIN TEST Reviewed 04/30/2014 12:00 AM THER/PROPH/DIAG INJ SC/IM Reviewed 04/30/2014 12:00 AM Decadron, Per 1 Mg [facility]NOTE 2]# [id number] Re viewed 04/30/2014 12:00 AM Depo-Medrol 40mg [...] 0.22 #BASO 0.03 MANUAL DIFF NOT IND History Of Immunizations Name Date Admin Mfg Name Mfg Code Trade Name Lot# Route Inj Vis Given Vis Pub CVX Influenza 08/09/2012 sanofi pasteur PMC FLUZONE [id number] Intramuscular Left Deltoid 08/09/2012 05/06/2012 141 Influenza 08/05/2013 sanofi pasteur PMC FLUZONE [id number] Intramuscular Right Deltoid 08/05/2013 05/30/2013 141 Influenza 08/19/2014 sanofi pasteur PMC Fluzone Quadrivalent ui2 05ab Intramuscular Left Deltoid 08/19/2014 06/23/2014 141 Influenza 12/13/2018 GlaxoSmithKline SKB FLUZONE-HIGH DOSE [id number] Int ramuscular Left Deltoid 12/13/2018 11/05/2021 135 Tdap 07/29/2019 Merck & Co., Inc. MSD BOOSTRIX 3YN2L Intramuscul ar Left Deltoid 07/29/2019 11/05/2021 115 Influenza 09/17/2019 Not Entered NE FLUZONE-HIGH DOSE Not E ntered Not Entered 11/05/2021 11/05/2021 135 Pneumococcal 07/09/2020 Razrh-Gktslo-Lmlqzfu-Praalvin WAL PREVNAR 1 3 [id number] Intramuscular Left Deltoid 07/09/2020 11/05/2021 133 History [...] Gastroesophageal reflux disease without esophagitis Jul 29 019 9:26AM Need for Tdap vaccination Jul [...] Mellitus, Type II May 05 2021 8:26AM Payers Insurance Name Company Name Plan Name Plan Number Policy Number Marcio cy Group Number Start Date Medicare [facility] Medicare [facility] [id number] 2015 Old Surety Life Old [employer] Life [id number] Saturday, 2019 BCBS Bcbs [facility] [id number] Deleon 2011 IHC HS IHC HS [id number] N/A [employer] UNL [id number] Tuesday, 2014 Medicare Part A zzzMedicare A Secondary [id number] N/A Medicare Part B Medicare Of [place] [id number] N/A Medicare Part A Medicare Part A [id number] N/A [employer] I ns Co [id number] N/A Medicare Part A Medicare - Lab/Xray [id number] N/A Medicare [facility] Medicare [facility] [id number] N/A [employer] UNL [id number] N/A Cigna Medicare Supplement Cigna Medicare Supplement [id number] N/A History of Encounters Visit Date Visit Type Provider 05/05/2021 Office visit Tu Valerio DO 04/12/2021 Office visit Tu Valerio DO 04/08/2021 Office visit Xavi Moralesran APR N 04/08/2021 Hospital Joce Zeng MD 01/07/2021 Office visit Tu Teodoro DO 07/09/2020 Office visit Tu Teodoro DO 09/07/2019 Office visit Melinda Everett APR N 07/29/2019 Office visit Tu Teodoro DO 12/13/2018 Nurse visit Tu Teodoro DO 04/23/2018 Office visit Cristal Vitaly SACK KEEPER 12/12/2017 Office visit Tu Teodoro DO 10/09/2017 Office visit Tu Teodoro DO 06/17/2017 Office visit Piyush Schaefer PA-C 06/12/2017 Office visit Tu Teodoro DO 02/17/2017 Office visit Melinda Everett APR N 11/28/2016 Office visit Tu Teodoro DO 2016 Office visit Isha Odonnell SACK KEEPER 10/09/2016 Office visit Tu Teodoro DO 05/12/2016 Office visit Xavi Moise APR N 04/05/2016 Office visit Tu Teodoro DO 03/30/2016 Hospital Joce Zeng MD 02/21/2016 Office visit Tu Teodoro DO 01/21/2016 Office visit Isha Odonnell SACK KEEPER 09/08/2015 Hospital Joce Zeng MD 09/08/2015 Office visit Cristal Haider SACK KEEPER 04/12/2015 Office visit Tu Teodoro DO 02/25/2015 Office visit Cristal Haider SACK KEEPER 08/19/2014 Nurse visit Xavi Moralesran APR N 06/11/2014 Office visit Xavi Moise APR N 04/30/2014 Office visit Cristal Haider SACK KEEPER 11/04/2013 Office visit Xavi Moise APR N 08/05/2013 Nurse visit Kirsten Asif MD 06/24/2013 Office visit Cristal Haider SACK KEEPER 12/27/2012 Office visit Kirsten Asif MD 10/15/2012 Office visit Kirsten Asif MD 10/07/2012 Office visit Alicia ETIENNE RN 08/09/2012 Nurse visit Kirsten Asif MD 08/09/2012 Voided Kirsten Asif MD 02/28/2012 Office visit Kirsten Asif MD 01/09/2012 Office visit Kirsten Asif MD 11/29/2011 Office visit Kirsten Asif MD
--- OUTSIDE RECORDS SUMMARY | 2021-07-03 22:59 | XMS REPORT ---
Author Author Rosalia Valerio [facility] Physicians oup Address [address] [place], [place] [address] Care Team Providers Care Haulage Engine Operator Name Role Phone Tu Valerio PCP Tu [...] 12:00 AM Decadron, Per 1 Mg [facility][NOTE 3]# [id number] Re viewed 06/24/2013 12:00 AM Depo-Medrol, Per 80 Mg [facility][NOTE 3]#[id number] Reviewed 12/13/2018 12:00 AM [facility] MEDICARE - flu vaccine administratio n Reviewed [...] 12:00 AM Decadron, Per 1 Mg [facility][NOTE 3]# [id number] Re viewed 04/30/2014 12:00 AM Depo-Medrol 40mg [...] CVX Influenza 08/09/2012 sanofi pasteur PMC FLUZONE [id number] Intramuscular Left Deltoid 08/09/2012 05/06/2012 141 Influenza 08/05/2013 sanofi pasteur PMC FLUZONE or236ep Intramuscular Right Deltoid 08/05/2013 05/30/2013 141 Influenza 08/19/2014 sanofi pasteur PMC Fluzone Quadrivalent ui2 05ab Intramuscular Left Deltoid 08/19/2014 06/23/2014 141 Influenza 12/13/2018 GlaxoSmithKline SKB FLUZONE-HIGH DOSE [id number] Int ramuscular Left Deltoid 12/13/2018 11/05/2021 135 Tdap 07/29/2019 Merck & Co., Inc. MSD BOOSTRIX 3YN2L Intramuscul ar Left Deltoid 07/29/2019 11/05/2021 115 Influenza 09/17/2019 Not Entered NE FLUZONE-HIGH DOSE Not E ntered Not Entered 11/05/2021 11/05/2021 135 Pneumococcal 07/09/2020 Dbaab-Zmcugi-Yojbnit-Praalvin WAL PREVNAR 1 3 [id number] Intramuscular Left Deltoid 07/09/2020 11/05/2021 133 History [...] Number Start Date Medicare RHC Medicare RHC [id number] 2015 Old Surety Life Old [employer] Life [id number] Saturday, 2019 [id number] Deleon 2011 IHC HS IHC HS [id number] N/A [employer] UNL [id number] Tuesday, 2014 Medicare Part A zzzMedicare A Secondary [id number] N/A Medicare Part B Medicare Of [place] [id number] N/A Medicare Part A Medicare Part A [id number] N/A [employer] I ns Co [id number] N/A Medicare Part A Medicare - Lab/Xray [id number] N/A Medicare RHC Medicare RHC [id number] N/ A [employer] UNL [id number] N/A Cigna Medicare Supplement Cigna Medicare Supplement [id number] N/A History of Encounters Visit Date Visit Type Provider 06/14/2021 Office visit Tu Teodoro DO 05/05/2021 Office visit Tu Teodoro DO 04/12/2021 Office visit Tu Teodoro DO 04/08/2021 Office visit Xavi Moise APR N 04/08/2021 [facility] Joce Zeng MD 01/07/2021 Office visit Tu Teodoro DO 07/09/2020 Office visit Tu Teodoro DO 09/07/2019 Office visit [place]inda [place] APR N 07/29/2019 Office visit Tu Teodoro DO 12/13/2018 Nurse visit Tu Teodoro DO 04/23/2018 Office visit Cristal Haider AIRPLANE GASTANK LINER ASSEMBLER 12/12/2017 Office visit Tu Teodoro DO 10/09/2017 Office visit Tu Teodoro DO 06/17/2017 Office visit Piyush Schaefer PA-C 06/12/2017 Office visit Tu Teodoro DO 02/17/2017 Office visit Melinda Pittmanong APR N 11/28/2016 Office visit Tu Teodoro DO 2016 Office visit Isha Odonnell AIRPLANE GASTANK LINER ASSEMBLER 10/09/2016 Office visit Tu Teodoro DO 05/12/2016 Office visit Xavi Mroalesran APR N 04/05/2016 Office visit Tu Teodoro DO 03/30/2016 [facility] Joce Zeng MD 02/21/2016 Office visit Tu Teodoro DO 01/21/2016 Office visit Isha Odonnell AIRPLANE GASTANK LINER ASSEMBLER 09/08/2015 [facility] Joce Zeng MD 09/08/2015 Office visit Cristal Haider AIRPLANE GASTANK LINER ASSEMBLER 04/12/2015 Office visit Tu Valerio DO 02/25/2015 Office visit Cristal Haider AIRPLANE GASTANK LINER ASSEMBLER 08/19/2014 Nurse visit Xavi Moralesran APR N 06/11/2014 Office visit Xavi Moise APR N 04/30/2014 Office visit Cristal Haider AIRPLANE GASTANK LINER ASSEMBLER 11/04/2013 Office visit Xavi Moise APR N 08/05/2013 Nurse visit Kirsten Asif MD 06/24/2013 Office visit Cristal Haider AIRPLANE GASTANK LINER ASSEMBLER 12/27/2012 Office visit Kirsten Asif MD 10/15/2012 Office visit Kirsten Asif MD 10/07/2012 Office visit Alicia ETIENNE RN 08/09/2012 Nurse visit Kirsten Asif MD 08/09/2012 Voided Kirsten Asif MD 02/28/2012 Office visit Kirsten Asif MD 01/09/2012 Office visit Kirsten Asif MD 11/29/2011 Office visit Kirsten Asif MD
[2021-07-03 23:00] VITALS: BP 141/75
[2021-07-03] MEDS ORDERED: WATER (STERILE) FOR INJECTION 20 ML ONE (23:12)
[2021-07-03] MEDS ORDERED: MEROPENEM 1000 MG (MERREM) VIAL IV ONE (23:12)
[2021-07-03] MEDS ORDERED: NS IV 1000 ML 1,000 ML ONE (23:13)
--- NOTE | 2021-07-03 23:52 | Consultation - Surgery ---
History of Present Illness History of Present Illness Patient Consulted On(bri/time) 07/03/21 23:47 Time Seen by Provider: 23:01 History of Present Illness Surgery asked to consult regarding Covid -19 Respiratory failure and Venous insufficiency. HPI per IM: 70yoWF known to me from recent COVID + hospital stay at [facility] from 06/17/21 until 06/27/21. She had a long course with initial N/V and dehydration and JILL and it transitioned to PNA and hypoxia requiring abx, steroids, O2 and ICU stay. Lovenox maintained along with IV abx resulted in improved status. Patient ultimately DC home in improved condition and was up ad sandy in room and PT OT did not require treating patient but she did go home on 2L/min O2. Apparently she went home and did not really ambulate and all she did was remain in bed and a chair. Her family insisted on her coming to ER at [facility] and was assessed to be profoundly dehydrated with creat 1.7 requiring IVF and hypoxia with tachycardia and elevated d-dimer and CRP and interestingly her alkaline phosphotase was 510 with ALT 46 so uncertain etiology on that elevation and I was planning on obtained USG in morning and order CT angiogram when creatinine had improved but she became more tachypneic and tachycardic and was unable to tolerate biPAP and was desating on Vapotherm 40L/min at 100% so I made the decision to electively intubate and called Juliann Real in who graciously provide intubation skills. I updated Ezio soon after admit and then updated him on the need to urgently intubate. I also informed him that anyone intubated had a very poor prognosis with COVID and he is aware she could pass away but remains a full code at this time. He is vaccinated and she is unvaccinated. Meropenem ordered along with Vanc and Decadron and gently IVF along with Lovenox 80mg SQ [id number]. Dr Yao has been notified and he will place central line. Very poor prognosis and I did update her on this fact multiple times. OGT in place along with Barb. Pt is intubated and sedated, no family available. Allergies and Home Medications Allergies Coded Allergies: Penicillins (Verified Allergy, Unknown, 07/03/21) erythromycin base (Verified Allergy, Unknown, 07/03/21) Patient Home Medication List Home Medication List Reviewed: No Past Yfrhqgq-Ywdzer-Ogicyw Hx Family Medical History Significant Family History: Other Conditions/Hx (unknown, no charting available) Review of Systems-General ROS-Unable to Obtain: pt intubated and sedated, no family at bedside Physical Exam-General Problems Physical Exam Vital Signs Vital Signs - First Documented 07/03/21 22:53 Pulse 125 Capillary Refill : General Appearance: other (intubated and sedate) Eyes: Bilateral Eye PERRL, Bilateral Eye EOMI HEENT: No scleral icterus (R), No scleral icterus (L); other (ET tube in place) Respiratory: decreased breath sounds, crackles, rhonchi Cardiovascular: no murmur, tachycardia Gastrointestinal: soft, no organomegaly Extremities: no pedal edema, normal capillary refill Neurologic/Psychiatric: other (intubated and sedated) Skin: normal color, warm/dry Lymphatic: no adenopathy (neck, axilla) Assessment/Plan Assessment/Plan Assessment/Plan Covid -19 Respiratory Failure Venous Insufficiency Plan for central line placement for IV access, pt will need multiple meds. IAIN YAO DO Jul 03, 2021 23:52
[2021-07-03 23:55] LABS: ABG BASE EXCESS -5.3 MMOL/L (-2.5-2.5); ABG OXYGEN SATURATION 73 % (94-100); ABG PCO2 47 MMHG (35-45); ABG PO2 46 MMHG (79-93)
--- NOTE | 2021-07-03 23:56 | Progress Note-Post Operative ---
Post-Operative Progess Note Surgeon (s)/Account Services Associate (s) Surgeon IAIN TRIMBLE DO Account Services Associate: none Pre-Operative Diagnosis Covid -19 Resp failure, venous insufficiency Post-Operative Diagnosis same Procedure & Operative Findings Date of Procedure 07/03/21 Procedure Performed/Findings The patient was in their bed in the ICU, was prepped and draped in the sterile fashion. A surgical pause was performed. Ultrasound was used to locate the internal jugular vein. Using an 18 gauge finder needle and watching with the US; the left internal jugular vein was accessed. Dark nonpulsatile blood was withdrawn. The wire was inserted. US assured proper placement, could see the wire going down IJ. The needle was removed. A [#11] blade scalpel was used to make a stab incision along the guidewire. Dilator sheath was then advanced over the wire using Seldinger technique and the dilator was removed. The Groshong catheter was inserted over the guide wire using the Seldinger technique.The Groshong wire was removed. The catheter was then accessed in all three ports without difficulty. Good flash of blood was seen and each port was then flushed with saline. The catheter was sutured in place with 3-0 silk on a dk needle. The areas were then washed and dried. Sterile dressing was placed over incision, mild oozing so a pressure dressing was also placed. The patient tolerated the procedure well without complication. Anesthesia Type pt intubated and sedated with propofol Estimated Blood Loss Estimated blood loss (mL): scant Specimens/Packing Specimens Removed IAIN Parr DO Jul 03, 2021 23:56
[2021-07-04] VITALS (7 sets, daily range): BP systolic 92–155; BP diastolic 52–99
[2021-07-04] LABS: ALLENS TEST YES-POS; INSPIRED O2 100%; PATIENT TEMP 36.9; VENTILATOR YES
[2021-07-04 00:04] LABS: ABG PH 7.27 (7.37-7.43)
[2021-07-04 00:09] LABS: BASOPHILS % (AUTO) 0 % (0-10); EOSINOPHILS % (AUTO) 0 % (0-10); HEMATOCRIT 35 % (35-52); LYMPHOCYTES # (AUTO) 0.5 10^3/uL (1.0-4.0); LYMPHOCYTES % (AUTO) 7 % (12-44); MEAN CORPUSCULAR HEMOGLOBIN 30 pg (25-34); MEAN CORPUSCULAR HGB CONC 32 g/dL (32-36); MEAN CORPUSCULAR VOLUME 95 fL (80-99); MEAN PLATELET VOLUME 9.1 fL (9.0-12.2); MONOCYTES # (AUTO) 0.1 10^3/uL (0.0-1.0); MONOCYTES % (AUTO) 1 % (0-12); NEUTROPHILS % (AUTO) 91 % (42-75); PLATELET COUNT 184 10^3/uL (130-400); WHITE BLOOD COUNT 7.7 10^3/uL (4.3-11.0)
--- NOTE | 2021-07-04 00:23 | Diagnostic Imaging Report ---
EXAMINATION: Portable erect AP chest at 1121 PM INDICATION: Respiratory distress, Covid There are no prior studies available for comparison. There are diffuse dense alveolar/interstitial pulmonary infiltrates bilaterally. This appearance does suggest pneumonia/atelectasis and may well be secondary to the patient's diagnosis of Covid-19. The heart is partially obscured by the alveolar/interstitial pulmonary infiltrates but does appear to be within normal limits. The patient has been intubated and the tip of the ET tube overlies the distal tracheal air shadow approximately 2.2 cm cephalad to the gurpreet. The tip could be retracted approximately 1 cm. There has also been insertion of an enteric tube. The tip overlies the gastric body and seems to be in good position. A central venous catheter has also been inserted on the left with the tip overlying the midportion of the superior vena cava. There is no pneumothorax identified. The mediastinum is not widened. There is no acute bony abnormality noted. Healed fractures of the right 2nd and 3rd ribs are noted. There are also 5 orthopedic fixation wires traversing the right humeral neck. IMPRESSION: 1. There are diffuse dense alveolar/interstitial pulmonary infiltrates bilaterally. This appearance does suggest pneumonia/atelectasis and may well be related to the patient's diagnosis of Covid-19. 2. The supportive tubes and lines seem to be in good position. However, the ET tube tip could be retracted approximately 1 cm. Dictated by: Dictated on workstation # [id number]
[2021-07-04 00:44] LABS: ALBUMIN 2.4 GM/DL (3.2-4.5); POTASSIUM 4.6 MMOL/L (3.6-5.0)
[2021-07-04 00:46] LABS: CALCIUM 8.3 MG/DL (8.5-10.1)
[2021-07-04 00:47] LABS: TOTAL PROTEIN 6.4 GM/DL (6.4-8.2)
[2021-07-04 00:49] LABS: BILIRUBIN,TOTAL 0.6 MG/DL (0.1-1.0)
[2021-07-04 00:50] LABS: CREATININE SERUM 1.36 MG/DL (0.60-1.30)
[2021-07-04] MEDS: fentaNYL INJ 100 MCG/2 ML AMP IVP PRN ×3 (00:53→12:58)
[2021-07-04] MEDS: VANCOMYCIN 750 MG/NS 250 ML IVPB IV SCH ×2 (00:55)
[2021-07-04 01:01] LABS: LYMPHOCYTES % (MANUAL) 8 %; MONOCYTES % (MANUAL) 3 %; NEUTROPHILS % (MANUAL) 89 %
[2021-07-04] MEDS ORDERED: ROCURONIUM 10 MG/ML 5 ML SYRINGE IV ONE ×2 (01:27→01:30)
--- NOTE | 2021-07-04 01:38 | Tele-ICU Progress Note ---
Progress Note Rocuronium 75 mg x 1 for vent synchrony ordered. Pt received abx, Blood cultures and Lactic acid ordered, Norepinephrine standby for hypotension . No fluid resuscitation given the CXR. d/w the bedside RN . Focused Exam Height, Weight, BMI Height: '" Weight: lbs. oz. kg; 30.31 BMI Method: EULALIA TYLER MD Jul 04, 2021 01:38
[2021-07-04] MEDS ORDERED: RT-ALBUTEROL HFA 8.5 GM INHALER IH PRN (01:45)
[2021-07-04] MEDS: RT-ALBUTEROL HFA 8.5 GM INHALER IH SCH ×6 (01:53→22:43)
[2021-07-04] MEDS: NOREPINEPHRINE 8 MG/250 ML 250 ML IV SCH ×2 (03:36→18:50)
[2021-07-04] MEDS: MEROPENEM 500 MG/SWFI 10 ML IV PUSH IV SCH ×6 (03:37→18:51)
[2021-07-04] MEDS: PROPOFOL DRIP (ICU) 100 ML IV SCH ×5 (04:01→20:23)
[2021-07-04 04:20] LABS: BASOPHILS % (AUTO) 0 % (0-10); EOSINOPHILS % (AUTO) 0 % (0-10); HEMATOCRIT 31 % (35-52); HEMOGLOBIN 9.9 g/dL (11.5-16.0); LYMPHOCYTES # (AUTO) 0.6 10^3/uL (1.0-4.0); LYMPHOCYTES % (AUTO) 9 % (12-44); MEAN CORPUSCULAR HEMOGLOBIN 30 pg (25-34); MEAN CORPUSCULAR HGB CONC 32 g/dL (32-36); MEAN CORPUSCULAR VOLUME 96 fL (80-99); MEAN PLATELET VOLUME 9.4 fL (9.0-12.2); MONOCYTES # (AUTO) 0.1 10^3/uL (0.0-1.0); MONOCYTES % (AUTO) 2 % (0-12); NEUTROPHILS # (AUTO) 5.6 10^3/uL (1.8-7.8); NEUTROPHILS % (AUTO) 88 % (42-75); PLATELET COUNT 170 10^3/uL (130-400); WHITE BLOOD COUNT 6.4 10^3/uL (4.3-11.0)
[2021-07-04 04:31] LABS: ALBUMIN 2.2 GM/DL (3.2-4.5); POTASSIUM 4.7 MMOL/L (3.6-5.0)
[2021-07-04 04:33] LABS: TOTAL PROTEIN 5.8 GM/DL (6.4-8.2)
[2021-07-04 04:35] LABS: BILIRUBIN,TOTAL 0.4 MG/DL (0.1-1.0)
[2021-07-04 04:36] LABS: PHOSPHORUS 5.3 MG/DL (2.3-4.7)
[2021-07-04 04:37] LABS: CREATININE SERUM 1.25 MG/DL (0.60-1.30)
[2021-07-04 04:53] LABS: ABG BASE EXCESS -4.7 MMOL/L (-2.5-2.5); ABG OXYGEN SATURATION 70 % (94-100); ABG PCO2 48 MMHG (35-45); ABG PO2 42 MMHG (79-93); ABG TCO2 22.6 MMOL/L (21.0-31.0); ALLENS TEST YES-POS; INSPIRED O2 95%; PATIENT TEMP 37; VENTILATOR YES
[2021-07-04 04:54] LABS: ABG PH 7.27 (7.37-7.43)
[2021-07-04] MEDS: MAGNESIUM 1 GM/100 ML IVPB 100 ML IV SCH (05:52)
[2021-07-04] MEDS: KCL 20 MEQ TAB (K-DUR) PO SCH (05:52)
[2021-07-04] MEDS: POTASSIUM CL 10MEQ/50ML IVPB 50 ML IV SCH (05:52)
[2021-07-04] MEDS: inSUlin ASPART (NovoLOG) 1 UNIT/0.01 ML (CHARGE PER UNIT) SC SCH ×3 (06:24→17:43)
--- NOTE | 2021-07-04 06:53 | Occ Therapy Progress Note ---
Therapy Progress Note Orders received. Pt is currently intubated. OT will continue to monitor pt status and initiate treatment when pt is medically stable and able to actively participate in skilled therapy. LYNDA WILLINGHAM Jul 04, 2021 06:53
--- NOTE | 2021-07-04 07:47 | Physical Therapy Progress Note ---
Therapy Progress Note Patient currently sedated and intubated. PT will continue to follow patient status and initiate treatment when patient is medically stable and able to actively participate with skilled therapy. JERMAINE MELO PT Jul 04, 2021 07:47
[2021-07-04] MEDS: ENOXAPARIN 80 MG/0.8 ML (LOVENOX) SYR SC SCH ×2 (08:05→20:23)
[2021-07-04] MEDS ORDERED: FAMOTIDINE 20MG/2ML IV (PEPCID) IVP SCH (09:00)
--- NOTE | 2021-07-04 11:31 | History & Physical ---
HCRIS MONGE MED STUDENT 07/04/21 1131: History of Present Illness History of Present Illness Reason for visit/HPI 70yoWF known to me from recent COVID + hospital stay at [facility] from 06/17/21 until 06/27/21. She had a long course with initial N/V and dehydration and JILL and it transitioned to PNA and hypoxia requiring abx, steroids, O2 and ICU stay. Lovenox maintained along with IV abx resulted in improved status. Patient ultimately DC home in improved condition and was up ad sandy in room and PT OT did not require treating patient but she did go home on 2L/min O2. Apparently she we nt home and did not really ambulate and all she did was remain in bed and a chair. Her family insisted on her coming to ER at [facility] and was assessed to be profoundly dehydrated with creat 1.7 requiring IVF and hypoxia with tachycardia and elevated d-dimer and CRP and interestingly her alkaline phosphotase was 510 with ALT 46 so uncertain etiology on that elevation and I was planning on obtained USG in morning and order CT angiogram when creatinine had improved but she became more tachypneic and tachycardic and was unable to tolerate biPAP and was desating on Vapotherm 40L/min at 100% so I made the decision to electively intubate and called Juliann Real in who graciously provide intubation skills. I updated Ezio soon after admit and then updated him on the need to urgently intubate. I also informed him that anyone intubated had a very poor prognosis with COVID and he is aware she could pass away but remains a full code at this time. He is vaccinated and she is unvaccinated. Meropenem ordered along with Vanc and Decadron and gently IVF along with Lovenox 80mg SQ [id number]. Dr Yao has been notified and he will place central line. Very poor prognosis and I did update her on this fact multiple times. OGT in place along with Barb. Date of Admission Jul 03, 2021 at 22:47 Date Seen by a Provider: Jul 04, 2021 Time Seen by a Provider: 09:30 I consulted on this patient on 07/04/21 11:31 Attending Physician Anya Laguerre DO Admitting Physician Consult Allergies and Home Medications Allergies Coded Allergies: Penicillins (Verified Allergy, Unknown, 07/03/21) erythromycin base (Verified Allergy, Unknown, 07/03/21) Home Medications Albuterol Sulfate 18 Gm Hfa.aer.ad, 2 PUFF INH Q6H PRN for SHORTNESS OF BREATH, (Reported) Last Action: Reviewed Aspirin 81 Mg Tablet.dr, 81 MG PO DAILY, (Reported) Last Action: Reviewed Glimepiride 2 Mg Tablet, 2 MG PO BID, (Reported) Last Action: Reviewed Guaifenesin/Codeine Phosphate 473 Ml Liquid, 5 ML PO Q4H PRN for COUGH, (Reported) Last Action: Reviewed Lisinopril/Hydrochlorothiazide 1 Each Tablet, 1 EA PO DAILY, (Reported) Last Action: Reviewed Metformin HCl 500 Mg Tablet, 500 MG PO BID, (Reported) Last Action: Reviewed Pantoprazole Sodium 40 Mg Tablet.dr, 40 MG PO DAILY, (Reported) Last Action: Reviewed Paroxetine HCl 20 Mg Tablet, 20 MG PO DAILY, (Reported) Last Action: Reviewed Pravastatin Sodium 40 Mg Tablet, 40 MG PO HS, (Reported) Last Action: Reviewed Sucralfate 1 Gm Tablet, 1 GM PO BID, (Reported) Last Action: Reviewed Past Lpdjxmh-Btfwtk-Kvrzdf Hx Patient Social History Marrital Status: Employed/Student: retired Pt feels they are or have been: Unable to obtain Current Status status: No Advance Directives: Unable to obtain Communicates: Unable To Communicate Implanted or Applied Medical D: None Family Medical History Other Conditions/Hx (unknown, no charting available) Review of Systems Constitutional: other (unable to obtain due to condition) EENTM: other (unable to obtain due to condition) Respiratory: other (unable to obtain due to condition) Cardiovascular: other (unable to obtain due to condition) Gastrointestinal: other (unable to obtain due to condition) Genitourinary: other (unable to obtain due to condition) : No Musculoskeletal: other (unable to obtain due to condition) Skin: other (unable to obtain due to condition) Psychiatric/Neurological: Other (unable to obtain due to condition) All Other Systems Reviewed Negative Unless Noted: No Physical Exam Vital Signs Vital Signs - First Documented 07/03/21 07/03/21 07/03/21 22:53 22:55 23:00 Temp 36.9 Pulse 125 Resp 27 B/P (MAP) 200/86 Pulse Ox 93 O2 Delivery Mechanical Ventilator O2 Flow Rate 100.00 FiO2 100 Capillary Refill : Height, Weight, BMI Height: '" Weight: lbs. oz. kg; 30.31 BMI Method: General Appearance: Severe Distress, Other (intubated/sedated/critically ill) Eyes: Bilateral Eye Normal Inspection, Bilateral Eye PERRL HEENT: PERRL/EOMI, Moist Mucous Membranes, Other (endotracheally intubated) Neck: Normal Inspection, Non Tender, Supple Respiratory: Rhonci, Other (intubated/mechanically ventilated) Cardiovascular: Regular Rate, Rhythm, No Edema, Normal Peripheral Pulses Gastrointestinal: Normal Bowel Sounds, Soft; No Distended Rectal: Deferred Back: Normal Inspection Extremity: No Pedal Edema, Slow Capillary Refill Neurologic/Psychiatric: Other (sedated) Skin: Normal Color, Cool (bilat extremities cool to palpation) Lymphatic: No Adenopathy Assessment/Plan Assessment and Plan Acute Hypoxic Respiratory Failure COVID-19 PNA Anemia Elevated alkaline phosphatase Continue ventilatory support IVF's Antibiotics Sedation and pressors abdominal ultrasound results pending lovenox pepcid Admission Diagnosis Acute hypoxic respiratory failure COVID-19 PNA Admission Status: Inpatient Order (span 2 midnights) Reason for Inpatient Admission: Requires mechanical ventilation ANYA LAGUERRE 07/05/21 0529: History of Present Illness History of Present Illness Reason for visit/HPI CC: Respiratory failure HPI: This is a 75yoWF who was moved over from [facility] for higher level pulmonary critical care EICU who contracted Covid, that swab was positive on 06/17/21, remained in the hospital at [facility] until 06/27/21, discharged on home oxygen and did very well but apparently she declined and went into respiratory failure requiring intubation at [facility] yesterday and transferred over. Currently her ABG is 7.27/48/42 and I did attempt to call her , there was no answer. Nurse did talk to her gzwfie-lo-hol. Allergies and Home Medications Allergies Coded Allergies: Penicillins (Verified Allergy, Unknown, 07/03/21) erythromycin base (Verified Allergy, Unknown, 07/03/21) Home Medications Albuterol Sulfate 18 Gm Hfa.aer.ad, 2 PUFF INH Q6H PRN for SHORTNESS OF BREATH, (Reported) Last Action: Reviewed Aspirin 81 Mg Tablet.dr, 81 MG PO DAILY, (Reported) Last Action: Reviewed Glimepiride 2 Mg Tablet, 2 MG PO BID, (Reported) Last Action: Reviewed Guaifenesin/Codeine Phosphate 473 Ml Liquid, 5 ML PO Q4H PRN for COUGH, (Reported) Last Action: Reviewed Lisinopril/Hydrochlorothiazide 1 Each Tablet, 1 EA PO DAILY, (Reported) Last Action: Reviewed Metformin HCl 500 Mg Tablet, 500 MG PO BID, (Reported) Last Action: Reviewed Pantoprazole Sodium 40 Mg Tablet.dr, 40 MG PO DAILY, (Reported) Last Action: Reviewed Paroxetine HCl 20 Mg Tablet, 20 MG PO DAILY, (Reported) Last Action: Reviewed Pravastatin Sodium 40 Mg Tablet, 40 MG PO HS, (Reported) Last Action: Reviewed Sucralfate 1 Gm Tablet, 1 GM PO BID, (Reported) Last Action: Reviewed Patient Home Medication List Home Medication List Reviewed: Yes Past Zfhgzsw-Izvgpe-Zbgbzy Hx Patient Social History Marrital Status: Employed/Student: retired Smoking Status: Never a Smoker Past Medical History Hypertension Gastroesophageal Reflux Review of Systems Constitutional: see HPI Physical Exam General Appearance: Other (intubated/sedated/critically ill) Respiratory: No Accessory Muscle Use, No Respiratory Distress, Decreased Breath Sounds Cardiovascular: Regular Rate, Rhythm Assessment/Plan Assessment and Plan Maintain intubation Very poor prognosis Tried to update today but no answer so suspecting avoidance of discussion Problems: (1) COVID-19 (2) Respiratory failure (3) Alkaline phosphatase elevation (4) Acute kidney injury Admission Diagnosis Admission Status: Inpatient Order (span 2 midnights) Reason for Inpatient Admission: Respiratory failure Supervisory-Addendum Brief Verification & Attestation Participated in pt care: history, MDM, physical Personally performed: exam, history, MDM, supervision of care Care discussed with: Medical Student Procedures: n/a Results interpretation: Verified all documentation Verification and Attestation of Medical Student E/M Service A medical student performed and documented this service in my presence. I reviewed and verified all information documented by the medical student and made modifications to such information, when appropriate. I personally performed the physical exam and medical decision making. Anya Laguerre, Jul 05, 2021,05:29 CHRIS MONGE MED STUDENT Jul 04, 2021 11:31 ANYA LAGUERRE DO Jul 05, 2021 05:29
[2021-07-04] MEDS: NS IV 1000 ML 1,000 ML IV SCH ×3 (13:08→13:56)
--- NOTE | 2021-07-04 13:26 | Diagnostic Imaging Report ---
PROCEDURE: US Abdomen, limited. TECHNIQUE: Multiple realtime grayscale images were obtained over the abdomen in various projections. INDICATION: Covid positive, respiratory failure, elevated AP. COMPARISON: None FINDINGS: The head and portion of the body of the pancreas appear normal. Part of the body and tail are obscured by bowel gas. The imaged portions of the aorta and IVC are unremarkable. The liver has normal echogenicity. No focal hepatic lesions are seen. There is no biliary dilatation. The common bile duct measures 5 mm in diameter, which is normal. The main portal vein is hepatopetal. The gallbladder is absent. Sonographic Corral sign is negative. The right kidney has a simple appearing cyst measuring up to 2.3 cm in diameter. The kidney measures 10.8 cm in length. There is no hydronephrosis. No free fluid is seen. IMPRESSION: 1. No liver lesions or biliary dilatation. The gallbladder is absent. Dictated by: Dictated on workstation # [id number]
[2021-07-04] MEDS ORDERED: LORazepam INJ 2 MG/ML (ATIVAN) VIAL IVP PRN (13:45)
[2021-07-04] MEDS: fentaNYL DRIP PRE-MIX 250 ML IV SCH (13:53)
--- NOTE | 2021-07-04 13:53 | Tele-ICU Progress Note ---
Subjective Date Seen by a Provider: Jul 04, 2021 Time Seen by a Provider: 09:52 Sepsis Event Evaluation Height, Weight, BMI Height: '" Weight: lbs. oz. kg; 30.31 BMI Method: Focused Exam Lactate Level 07/04/21 03:43: Lactic Acid Level 0.79 Exam Exam Patient acknowledged, consented, and participated in this virtual visit which was conducted using real time audio/video Vital Signs Date Time Temp Pulse Resp B/P (MAP) Pulse Ox O2 Delivery O2 Flow Rate FiO2 07/04/21 13:01 147/46 07/04/21 12:57 106 07/04/21 12:00 99 Mechanical Ventilator 80 07/04/21 12:00 83 23 107/63 (78) 95 Mechanical Ventilator 80.00 07/04/21 11:30 36.2 07/04/21 11:04 81 24 92 80 07/04/21 11:00 82 49 103/56 (72) 94 Mechanical Ventilator 80.00 07/04/21 10:00 84 25 107/61 (76) 95 Mechanical Ventilator 80.00 07/04/21 09:00 85 59 99/54 (69) 94 Mechanical Ventilator 80.00 07/04/21 08:10 35.6 07/04/21 08:08 110/62 07/04/21 08:00 92 49 110/62 (78) 94 Mechanical Ventilator 80.00 07/04/21 08:00 35.7 07/04/21 08:00 96 Mechanical Ventilator 80 07/04/21 07:21 92 27 89 80 07/04/21 07:12 Mechanical Ventilator 80.00 07/04/21 07:00 90 27 109/60 (76) 95 Mechanical Ventilator 90.00 07/04/21 06:55 85 07/04/21 06:00 90 34 131/66 (87) 97 Mechanical Ventilator 90.00 07/04/21 05:00 85 22 130/63 (85) 96 Mechanical Ventilator 90.00 07/04/21 04:12 97 Mechanical Ventilator 90.00 07/04/21 04:01 121/59 07/04/21 04:00 96 Mechanical Ventilator 85 07/04/21 04:00 92 21 121/59 (79) 95 Mechanical Ventilator 95.00 07/04/21 03:45 35.7 Mechanical Ventilator 95.00 8/30/21 03:36 96/54 07/04/21 03:00 95 21 98/55 (69) 94 Mechanical Ventilator 100.00 07/04/21 02:30 99 21 92/51 (65) 93 Mechanical Ventilator 100.00 07/04/21 01:35 103 29 87 100 07/04/21 01:27 107 93 100 07/04/21 01:00 105 07/04/21 01:00 105 24 109/80 (90) 88 Mechanical Ventilator 100.00 07/04/21 00:45 108 24 122/93 (113) 93 Mechanical Ventilator 100.00 07/04/21 00:30 111 20 141/75 (89) 94 Mechanical Ventilator 100.00 07/04/21 00:15 112 16 152/76 (105) 94 Mechanical Ventilator 100.00 07/04/21 00:00 112 20 152/76 (95) 94 Mechanical Ventilator 100.00 07/03/21 23:45 117 21 167/74 (101) 95 Mechanical Ventilator 100.00 07/03/21 23:30 116 17 168/91 (120) 94 Mechanical Ventilator 100.00 07/03/21 23:15 125 17 163/81 (105) 94 Mechanical Ventilator 100.00 07/03/21 23:00 92 Mechanical Ventilator 100 07/03/21 23:00 36.9 125 20 155/75 (101) 94 Mechanical Ventilator 100.00 07/03/21 23:00 107 27 93 100 07/03/21 22:55 200/86 07/03/21 22:53 125 I & O 07/04/21 07:00 Intake Total 360 ml Output Total 450 ml Balance -90 ml Height & Weight Height: '" Weight: lbs. oz. kg; 30.31 BMI Method: General Appearance: Severe Distress, Other (intubated/sedated/critically ill) HEENT: PERRL/EOMI, Moist Mucous Membranes, Other (endotracheally intubated) Neck: Normal Inspection, Non Tender, Supple Respiratory: Rhonci, Other (intubated/mechanically ventilated) Cardiovascular: Regular Rate, Rhythm, No Edema, Normal Peripheral Pulses Gastrointestinal: soft, no organomegaly Extremity: No Pedal Edema, Slow Capillary Refill Neurologic/Psychiatric: Other (sedated) Skin: Normal Color, Cool (bilat extremities cool to palpation) Lymphatic: No Adenopathy Results Lab Laboratory Tests 07/03/21 23:57 8/30/21 03:43 Assessment/Plan Assessment/Plan (Tele-ICU Physician , Progress Note ) Available chart/ vitals / labs / Images reviewed Video assessment done using teleICU camera, rest of exam as per RN Discussed with RN , EXAM PER RN Events overnight : Rocuronium 75 mg x 1 for vent synchrony ordered. Afebrile I/O = Drips: Pressors: LEVO OFF 07/04 , hemodynamically stable Sedation gtt: ( RASS ) propofol VENT SETTINGS. AC 380 - 80% peep 14 ABG reviewed Not candidate for SBT today Consultants: Hospital course: recent COVID + hospital stay at [facility] from 06/17/21 until 06/27/21.- home on 2 L 07/03- transferred from other facolity Er abfter intubation for ARF A/P AHRF / ARDS due to severe COVID19 - intubated 07/03 - AC 24- 435 + 14 80 % -prone position if able - conservative fluid strategy (aim for even or negative fluid balance [id number]/COVID-19 PNA ( Not vaccinated , Dx 06/17/21 ) -Steroids IV - started -Hypercoagulable state , lovenox 80 q 12 Suspected superimposed bact PNA -empiric abx merrem and vanc o JILL - mild , improving hyperglycemia - ISS , close f/up on steroids UA abd 07/04 - pending Lines : left IJ 07/03 (Central Line Necessity Reviewed) Day: 07/03 OG: Nutrition: - Analgesia: Anxiety/ delirium VTE Prophylaxis: lovenox Stress Ulcer Prophylaxis: ppi Glycemic Control: + Plans in collaboration with bedside consultants and IM MDs. Discussed with RN to reach out if any questions or concerns A total of 40 minutes of critical care time was devoted to this patient today, required to treat and/or prevent further deterioration of critical care condition ( as above) . KEN OSPINA MD Jul 04, 2021 13:53
[2021-07-04] MEDS ORDERED: PRAV40TA2 PO (15:30)
[2021-07-04] MEDS ORDERED: PANT40TA52 PO (15:30)
[2021-07-04] MEDS ORDERED: SUCR1TAB PO (15:30)
[2021-07-04] MEDS ORDERED: METF-397 PO (15:30)
[2021-07-04] MEDS ORDERED: ALBU18HF2 INH (15:30)
[2021-07-04] MEDS ORDERED: ASPI-1238 PO (15:30)
[2021-07-04] MEDS ORDERED: LISI1TAB46 PO (15:30)
[2021-07-04] MEDS ORDERED: PARO20TA5 PO (15:30)
[2021-07-04] MEDS ORDERED: GLIM2TAB4 PO (15:30)
[2021-07-04] MEDS ORDERED: GUAI-858 PO (15:30)
[2021-07-05] MEDS: fentaNYL DRIP PRE-MIX 250 ML IV SCH ×3 (00:13→17:47)
[2021-07-05] MEDS: inSUlin ASPART (NovoLOG) 1 UNIT/0.01 ML (CHARGE PER UNIT) SC SCH ×5 (00:14→23:07)
[2021-07-05] MEDS: VANCOMYCIN 750 MG/NS 250 ML IVPB IV SCH ×2 (00:19)
[2021-07-05] MEDS: PROPOFOL DRIP (ICU) 100 ML IV SCH ×5 (00:26→23:54)
[2021-07-05] MEDS: MEROPENEM 500 MG/SWFI 10 ML IV PUSH IV SCH ×6 (02:35→17:47)
[2021-07-05 02:47] LABS: BASOPHILS % (AUTO) 0 % (0-10); EOSINOPHILS % (AUTO) 0 % (0-10); HEMATOCRIT 29 % (35-52); LYMPHOCYTES # (AUTO) 1.2 10^3/uL (1.0-4.0); LYMPHOCYTES % (AUTO) 10 % (12-44); MEAN CORPUSCULAR HEMOGLOBIN 30 pg (25-34); MEAN CORPUSCULAR HGB CONC 31 g/dL (32-36); MEAN CORPUSCULAR VOLUME 96 fL (80-99); MONOCYTES # (AUTO) 0.6 10^3/uL (0.0-1.0); MONOCYTES % (AUTO) 5 % (0-12); NEUTROPHILS # (AUTO) 9.8 10^3/uL (1.8-7.8); NEUTROPHILS % (AUTO) 84 % (42-75); PLATELET COUNT 215 10^3/uL (130-400); WHITE BLOOD COUNT 11.8 10^3/uL (4.3-11.0)
[2021-07-05 03:00] LABS: POTASSIUM 4.4 MMOL/L (3.6-5.0)
[2021-07-05 03:03] VITALS: BP 107/59
[2021-07-05] MEDS: RT-ALBUTEROL HFA 8.5 GM INHALER IH SCH ×6 (03:03→21:37)
[2021-07-05 03:06] LABS: CREATININE SERUM 0.86 MG/DL (0.60-1.30); PHOSPHORUS 3.4 MG/DL (2.3-4.7)
[2021-07-05] MEDS: NS IV 1000 ML 1,000 ML IV SCH (03:49)
[2021-07-05] MEDS: POTASSIUM CL 10MEQ/50ML IVPB 50 ML IV SCH (03:54)
[2021-07-05] MEDS: MAGNESIUM 1 GM/100 ML IVPB 100 ML IV SCH (03:54)
[2021-07-05] MEDS: KCL 20 MEQ TAB (K-DUR) PO SCH (03:55)
[2021-07-05 04:55] LABS: ABG BASE EXCESS -5.5 MMOL/L (-2.5-2.5); ABG OXYGEN SATURATION 96 % (94-100); ABG PCO2 45 MMHG (35-45); ABG PO2 84 MMHG (79-93); ABG TCO2 21.5 MMOL/L (21.0-31.0); ALLENS TEST YES-POS; INSPIRED O2 80%; PATIENT TEMP 37; VENTILATOR YES
[2021-07-05 04:56] LABS: ABG PH 7.28 (7.37-7.43)
[2021-07-05 05:44] LABS: ALBUMIN 2.1 GM/DL (3.2-4.5)
[2021-07-05 05:47] LABS: TOTAL PROTEIN 5.4 GM/DL (6.4-8.2)
[2021-07-05 05:49] LABS: BILIRUBIN,TOTAL 0.3 MG/DL (0.1-1.0)
[2021-07-05 05:53] LABS: BILIRUBIN,DIRECT 0.2 MG/DL (0.0-0.3); BILIRUBIN,INDIRECT 0.1 MG/DL
--- NOTE | 2021-07-05 06:56 | Occ Therapy Progress Note ---
Therapy Progress Note Pt is currently intubated. OT will continue to monitor pt status and initiate treatment when pt is medically stable and able to actively participate in skilled therapy. LYNDA WILLINGHAM Jul 05, 2021 06:56
--- NOTE | 2021-07-05 07:25 | Physical Therapy Progress Note ---
Therapy Progress Note Patient currently sedated and intubated. PT will continue to follow patient status and initiate treatment when patient is medically stable and able to actively participate with skilled therapy. JERMAINE MELO PT Jul 05, 2021 07:25
[2021-07-05 07:28] VITALS: BP 122/62
[2021-07-05] MEDS: PANTOPRAZOLE 40 MG (PROTONIX) VIAL IV SCH (09:01)
[2021-07-05] MEDS: ENOXAPARIN 80 MG/0.8 ML (LOVENOX) SYR SC SCH ×2 (09:02→20:30)
--- NOTE | 2021-07-05 10:40 | Tele-ICU Progress Note ---
Subjective Date Seen by a Provider: Jul 05, 2021 Time Seen by a Provider: 10:39 Sepsis Event Evaluation Height, Weight, BMI Height: '" Weight: lbs. oz. kg; 30.31 BMI Method: Focused Exam Lactate Level 07/04/21 03:43: Lactic Acid Level 0.79 Exam Exam Patient acknowledged, consented, and participated in this virtual visit which was conducted using real time audio/video Vital Signs Date Time Temp Pulse Resp B/P (MAP) Pulse Ox O2 Delivery O2 Flow Rate FiO2 07/05/21 09:06 105/49 07/05/21 08:30 35.8 Mechanical Ventilator 50.00 07/05/21 08:00 97 Mechanical Ventilator 50 07/05/21 07:37 50 07/05/21 07:28 64 22 98 60 07/05/21 06:53 76 07/05/21 06:00 86 23 94/53 (67) 97 Mechanical Ventilator 60.00 07/05/21 05:30 91 11 110/56 (74) 97 Mechanical Ventilator 60.00 07/05/21 04:30 87 20 127/61 (83) 100 Mechanical Ventilator 60.00 07/05/21 04:24 36.3 07/05/21 03:49 60 107/59 07/05/21 03:03 60 22 99 60 07/05/21 03:01 99 Mechanical Ventilator 60 07/05/21 03:00 62 22 107/59 (75) 99 Mechanical Ventilator 60.00 07/05/21 02:00 67 21 102/59 (73) 99 Mechanical Ventilator 60.00 07/05/21 01:00 74 21 106/59 (75) 99 Mechanical Ventilator 60.00 07/05/21 01:00 74 07/05/21 00:26 80 98/56 07/05/21 00:03 35.8 07/05/21 00:00 77 22 104/56 (72) 98 Mechanical Ventilator 60.00 07/04/21 23:59 99 Mechanical Ventilator 60 07/04/21 23:00 81 21 99/55 (70) 98 Mechanical Ventilator 80.00 07/04/21 22:43 80 22 100 60 07/04/21 22:00 88 32 100/58 (72) 100 Mechanical Ventilator 80.00 07/04/21 21:00 93 23 102/55 (73) 100 Mechanical Ventilator 80.00 07/04/21 20:23 104 107/58 07/04/21 20:22 36.2 07/04/21 20:00 96 105/60 (74) 100 Mechanical Ventilator 80.00 07/04/21 20:00 99 Mechanical Ventilator 80 07/04/21 19:00 103 21 111/57 (75) 100 Mechanical Ventilator 80.00 07/04/21 19:00 103 07/04/21 18:32 104 24 100 70 07/04/21 18:00 101 18 120/64 (82) 100 Mechanical Ventilator 80.00 07/04/21 17:00 103 28 126/63 (84) 100 Mechanical Ventilator 80.00 07/04/21 16:42 122/68 07/04/21 16:00 99 Mechanical Ventilator 80 07/04/21 16:00 104 16 130/62 (84) 100 Mechanical Ventilator 80.00 07/04/21 15:56 36.2 07/04/21 15:00 108 20 109/53 (71) 100 Mechanical Ventilator 80.00 07/04/21 14:34 111 27 100 80 07/04/21 14:00 116 13 122/55 (77) 99 Mechanical Ventilator 80.00 07/04/21 13:01 147/46 07/04/21 13:00 109 27 147/46 (79) 98 Mechanical Ventilator 80.00 07/04/21 12:57 106 07/04/21 12:00 99 Mechanical Ventilator 80 07/04/21 12:00 83 23 107/63 (78) 95 Mechanical Ventilator 80.00 07/04/21 11:30 36.2 07/04/21 11:04 81 24 92 80 07/04/21 11:00 82 49 103/56 (72) 94 Mechanical Ventilator 80.00 I & O 07/05/21 07:00 Intake Total 1835 ml Output Total 1325 ml Balance 510 ml Height & Weight Height: '" Weight: lbs. oz. kg; 30.31 BMI Method: General Appearance: Other (intubated/sedated/critically ill) HEENT: PERRL/EOMI, Moist Mucous Membranes, Other (endotracheally intubated) Neck: Normal Inspection, Non Tender, Supple Respiratory: No Accessory Muscle Use, No Respiratory Distress, Decreased Breath Sounds Cardiovascular: Regular Rate, Rhythm Gastrointestinal: soft, no organomegaly Extremity: No Pedal Edema, Slow Capillary Refill Neurologic/Psychiatric: Other (sedated) Skin: Normal Color, Cool (bilat extremities cool to palpation) Lymphatic: No Adenopathy Results Lab Laboratory Tests 07/03/21 23:57 07/04/21 03:43 07/05/21 02:35 Assessment/Plan Assessment/Plan (Tele-ICU Physician , Progress Note ) Available chart/ vitals / labs / Images reviewed Video assessment done using teleICU camera, rest of exam as per RN Discussed with RN , EXAM PER RN Events overnight : proned , elena - ekg Afebrile I/O = even Drips: levo Pressors: LEVO OFF 07/04 - back on levo 07/05 Sedation gtt: ( RASS ) propofol 50 fentanyl VENT SETTINGS. AC 22 380 - 50% peep 14 ABG reviewed Not candidate for SBT today Consultants: Hospital course: recent COVID + hospital stay at [facility] [place] from 06/17/21 until 06/27/21.- home on 2 L 07/03- transferred from other facolity Er abfter intubation for ARF 07/05- - 50% peep 14 A/P AHRF / ARDS due to severe COVID19 - intubated 07/03 - AC 24- 435 + 14 80 % -prone position if able - conservative fluid strategy (aim for even or negative fluid balance - STOP IVF [id number]-8/COVID-19 PNA ( Not vaccinated , Dx 06/17/21 ) -Steroids IV - started -Hypercoagulable state , lovenox 80 q 12 Suspected superimposed bact PNA -empiric abx merrem and vanc JILL - mild , improving - stop IVF hyperglycemia - ISS , close f/up on steroids UA abd 07/04 - WNL Lines : left IJ 07/03 (Central Line Necessity Reviewed) Day: 07/03 OG: Nutrition: strating TF 07/05 Analgesia: Anxiety/ delirium VTE Prophylaxis: lovenox Stress Ulcer Prophylaxis: ppi Glycemic Control: + Plans in collaboration with bedside consultants and IM MDs. Discussed with RN to reach out if any questions or concerns A total of 40 minutes of critical care time was devoted to this patient today, required to treat and/or prevent further deterioration of critical care condition ( as above) . KEN OSPINA MD Jul 05, 2021 10:40
--- NOTE | 2021-07-05 11:10 | Progress Note ---
CHRIS MONGE MED STUDENT 07/05/21 1110: Subjective Date Seen by a Provider: Jul 05, 2021 Time Seen by a Provider: 08:00 Subjective/Events-last exam Patient remains sedated and intubated. Getting propofol and fentanyl gtts for sedaton. Requiring 0.05mcg/kg/min of levophed currently. Vent at 380ml TV, 50% FIO2, PEEP 14, rate 14. Vitals stable per bedside monitor. Review of Systems General: Other (unable to obtain ) HEENT: Other (unable to obtain) Pulmonary: Other (unable to obtain) Cardiovascular: Other (unable to obtain) Gastrointestinal: Other (unable to obtain) Genitourinary: Other (unable to obtain) Musculoskeletal: other (unable to obtain) Neurological: Other (unable to obtain) Focused Exam Lactate Level 07/04/21 03:43: Lactic Acid Level 0.79 Objective Exam Last Set of Vital Signs Vital Signs Date Time Temp Pulse Resp B/P (MAP) Pulse Ox O2 Delivery O2 Flow Rate FiO2 07/05/21 09:06 105/49 07/05/21 08:30 35.8 Mechanical Ventilator 50.00 07/05/21 08:00 97 50 07/05/21 07:28 64 22 Capillary Refill : I&O Intake and Output 07/05/21 00:00 Intake Total 1460 ml Output Total 1425 ml Balance 35 ml Intake Oral 0 ml IV Total 1460 ml Output Urine Total 1425 ml General: Other (Sedated/Intubated/Requiring High PEEP and levophed/critically ill) HEENT: Other (Endotracheally intubated/ OG present/ Pupils 3mm and react sluggishly bilateally. ) Neck: Supple, No LAD Lungs: Other (Rhonchorous throughout) Heart: Regular Rate, Normal S1, Normal S2 Abdomen: Normal Bowel Sounds, Soft Extremities: No Clubbing, No Cyanosis, Normal Pulses, Other (Bilateral hands and feet cool to palpation/ No mottling noted. ) Skin: Other (Cool to palpation) Neuro: Other (Sedated) Psych/Mental Status: Other (Sedated) Results Lab Laboratory Tests 07/04/21 11:32: Glucometer 210H 07/04/21 16:39: Glucometer 237H 07/05/21 00:03: Glucometer 188H 07/05/21 02:35: White Blood Count 11.8H, Red Blood Count 3.04L, Hemoglobin 9.0L, Hematocrit 29L, Mean Corpuscular Volume 96, Mean Corpuscular Hemoglobin 30, Mean Corpuscular Hemoglobin Concent 31L, Red Cell Distribution Width 13.5, Platelet Count 215, Mean Platelet Volume 9.0, Immature Granulocyte % (Auto) 1, Neutrophils (%) (Auto) 84H, Lymphocytes (%) (Auto) 10L, Monocytes (%) (Auto) 5, Eosinophils (%) (Auto) 0, Basophils (%) (Auto) 0, Neutrophils # (Auto) 9.8H, Lymphocytes # (Auto) 1.2, Monocytes # (Auto) 0.6, Eosinophils # (Auto) 0.0, Basophils # (Auto) 0.0, Immature Granulocyte # (Auto) 0.1, Sodium Level 139, Potassium Level 4.4, Chloride Level 112H, Carbon Dioxide Level 19L, Anion Gap 8, Blood Urea Nitrogen 18, Creatinine 0.86, Estimat Glomerular Filtration Rate 65, BUN/Creatinine Ratio 21, Glucose Level 194H, Calcium Level 8.0L, Phosphorus Level 3.4, Magnesium Level 2.0, Total Bilirubin 0.3, Direct Bilirubin 0.2, Indirect Bilirubin 0.1, Aspartate Amino Transf (AST/SGOT) 11, Alanine Aminotransferase (ALT/SGPT) 27, Alkaline Phosphatase 411H, Total Protein 5.4L, Albumin 2.1L, Triglycerides Level 241H 07/05/21 04:46: Blood Gas Puncture Site LEFT RAD, Blood Gas Patient Temperature 37, Arterial Blood pH 7.28*L, Arterial Blood Partial Pressure CO2 45, Arterial Blood Partial Pressure O2 84, Arterial Blood HCO3 20L, Arterial Blood Total CO2 21.5, Arterial Blood Oxygen Saturation 96, Arterial Blood Base Excess -5.5L, Masoud Test YES- POS, Blood Gas Ventilator Setting YES, Blood Gas Inspired Oxygen 80% 07/05/21 06:03: Glucometer 176H Microbiology 07/04/21 MRSA Screen - Final, Complete MRSA not isolated Assessment/Plan Assessment/Plan Assess & Plan/Chief Complaint Acute Hypoxic Respiratory Failure COVID-19 PNA Leukocytosis Anemia Elevated alkaline phosphatase Continue ventilatory support, wean as tolerated Oxygen requirements have decreased since yesterday Daily sedation vacation IVF's Get nutrition consult for tube feeds meropenem and vancomycin elevated wbc probably from decadron Hgb stable at 9.0 Decadron Sedation and pressors abdominal ultrasound showed no liver lesions or biliary dilatation. Gallbladder is absent. Simple cyst present on right kidney. Alk phos trending down, continue to monitor lovenox protonix Repeat chest xray tomorrow Clinical Quality Measures Admission Status Admission Dx Acute Hypoxic Respiratory Failure COVID-19 PNA Anemia Elevated alkaline phosphatase Continue ventilatory support IVF's Antibiotics Sedation and pressors abdominal ultrasound results pending lovenox pepcid ANYA LAGUERRE DO 07/06/21 0559: Subjective Subjective/Events-last exam ICU 8 WBC today is 11.8 Normal Saline at 70 Tidal volume is 380 at 50% and PEEP of 14 ABG is 7.23// Alk-Phos is now 411 Ultrasound of liver was negative Objective Exam General: Other (Sedated/Intubated/Requiring High PEEP and levophed/critically ill) Lungs: Normal Air Movement, Other (Rhonchorous throughout) Heart: Regular Rate Assessment/Plan Assessment/Plan Assess & Plan/Chief Complaint Supportive care Prognosis guarded Antibiotics Supervisory-Addendum Brief Verification & Attestation Participated in pt care: history, MDM, physical Personally performed: exam, history, MDM, supervision of care Care discussed with: Medical Student Procedures: n/a Results interpretation: Verified all documentation Verification and Attestation of Medical Student E/M Service A medical student performed and documented this service in my presence. I reviewed and verified all information documented by the medical student and made modifications to such information, when appropriate. I personally performed the physical exam and medical decision making. Anya Laguerre Jul 06, 2021,05:59 CHRIS MONGE MED STUDENT Jul 05, 2021 11:10 ANYA LAGUERRE DO Jul 06, 2021 05:59
[2021-07-05 11:11] VITALS: BP 113/56
[2021-07-05] MEDS: NOREPINEPHRINE 8 MG/250 ML 250 ML IV SCH (12:07)
[2021-07-05 14:54] VITALS: BP 113/51
[2021-07-05 18:40] VITALS: BP 119/58
--- NOTE | 2021-07-05 18:57 | Progress Note - Surgery ---
Subjective Date Seen by a Provider: Jul 05, 2021 Time Seen by a Provider: 16:42 Subjective/Events-last exam Patient is a 70-year-old female who is intubated and sedated. Respiratory failure with COVID-19 pneumonia. Patient had her NG tube withdrawn a significant amount therefore nursing removed and was going to reinsert the NG tube. Multiple attempts of reinserting the NG tube were unsuccessful. It was tried to be placed nasogastric and orogastric. Unable to get to be placed successfully and began having some bleeding. I have been called and asked to try to place. Focused Exam Lactate Level 07/04/21 03:43: Lactic Acid Level 0.79 Objective Exam Vital Signs Date Time Temp Pulse Resp B/P (MAP) Pulse Ox O2 Delivery O2 Flow Rate FiO2 07/05/21 18:40 83 24 100 40 07/05/21 18:00 74 23 91/51 98 Mechanical Ventilator 40.00 07/05/21 17:46 111/54 07/05/21 17:00 63 23 101/54 100 Mechanical Ventilator 40.00 07/05/21 16:33 Mechanical Ventilator 40.00 07/05/21 16:00 36.3 07/05/21 16:00 68 12 112/51 100 Mechanical Ventilator 60.00 07/05/21 16:00 97 Mechanical Ventilator 40 07/05/21 15:00 75 23 100/48 97 Mechanical Ventilator 60.00 07/05/21 14:54 78 24 99 40 07/05/21 14:00 73 24 88/43 (58) 97 Mechanical Ventilator 60.00 07/05/21 13:00 60 24 107/52 (70) 98 Mechanical Ventilator 60.00 07/05/21 13:00 61 24 111/55 98 Mechanical Ventilator 50.00 07/05/21 12:48 62 07/05/21 12:01 35.9 07/05/21 12:00 100 Mechanical Ventilator 50 07/05/21 12:00 69 23 109/45 (66) 97 Mechanical Ventilator 60.00 07/05/21 11:11 60 24 99 50 07/05/21 11:00 64 21 113/54 (73) 99 Mechanical Ventilator 60.00 07/05/21 10:00 74 43 106/49 (68) 97 Mechanical Ventilator 60.00 07/05/21 09:06 105/49 07/05/21 09:00 84 42 105/49 (67) 98 Mechanical Ventilator 60.00 07/05/21 08:30 35.8 Mechanical Ventilator 50.00 07/05/21 08:00 86 107/54 (71) 94 Mechanical Ventilator 60.00 07/05/21 08:00 97 Mechanical Ventilator 50 07/05/21 07:37 50 07/05/21 07:28 64 22 98 60 07/05/21 07:00 63 22 134/64 (87) 99 Mechanical Ventilator 60.00 07/05/21 06:53 76 07/05/21 06:00 86 23 94/53 (67) 97 Mechanical Ventilator 60.00 07/05/21 05:30 91 11 110/56 (74) 97 Mechanical Ventilator 60.00 07/05/21 04:30 87 20 127/61 (83) 100 Mechanical Ventilator 60.00 07/05/21 04:24 36.3 07/05/21 03:49 60 107/59 07/05/21 03:03 60 22 99 60 07/05/21 03:01 99 Mechanical Ventilator 60 07/05/21 03:00 62 22 107/59 (75) 99 Mechanical Ventilator 60.00 07/05/21 02:00 67 21 102/59 (73) 99 Mechanical Ventilator 60.00 07/05/21 01:00 74 21 106/59 (75) 99 Mechanical Ventilator 60.00 07/05/21 01:00 74 07/05/21 00:26 80 98/56 07/05/21 00:03 35.8 07/05/21 00:00 77 22 104/56 (72) 98 Mechanical Ventilator 60.00 07/04/21 23:59 99 Mechanical Ventilator 60 07/04/21 23:00 81 21 99/55 (70) 98 Mechanical Ventilator 80.00 07/04/21 22:43 80 22 100 60 07/04/21 22:00 88 32 100/58 (72) 100 Mechanical Ventilator 80.00 07/04/21 21:00 93 23 102/55 (73) 100 Mechanical Ventilator 80.00 07/04/21 20:23 104 107/58 07/04/21 20:22 36.2 07/04/21 20:00 96 105/60 (74) 100 Mechanical Ventilator 80.00 07/04/21 20:00 99 Mechanical Ventilator 80 07/04/21 19:00 103 21 111/57 (75) 100 Mechanical Ventilator 80.00 07/04/21 19:00 103 I & O 07/05/21 07:00 Intake Total 1835 ml Output Total 1325 ml Balance 510 ml Capillary Refill : General Appearance: Other (intubated/sedated) HEENT: PERRL/EOMI, Moist Mucous Membranes, Other (endotracheally intubated, blood in nares and oropharynx) Neck: Non Tender, Supple, Other (Some slight swelling left-sided neck and slight oozing from central line.) Respiratory: No Accessory Muscle Use, No Respiratory Distress, Decreased Breath Sounds, Other (Intubated) Cardiovascular: Regular Rate, Rhythm, No JVD Gastrointestinal: soft, no organomegaly Extremity: No Pedal Edema, Slow Capillary Refill Neurologic/Psychiatric: No Alert, No Oriented x3; Other (sedated) Skin: Normal Color, Cool (bilat extremities cool to palpation) Lymphatic: No Adenopathy Results Lab Laboratory Tests 07/05/21 00:03: Glucometer 188H 07/05/21 02:35: White Blood Count 11.8H, Red Blood Count 3.04L, Hemoglobin 9.0L, Hematocrit 29L, Mean Corpuscular Volume 96, Mean Corpuscular Hemoglobin 30, Mean Corpuscular Hemoglobin Concent 31L, Red Cell Distribution Width 13.5, Platelet Count 215, Mean Platelet Volume 9.0, Immature Granulocyte % (Auto) 1, Neutrophils (%) (Auto) 84H, Lymphocytes (%) (Auto) 10L, Monocytes (%) (Auto) 5, Eosinophils (%) (Auto) 0, Basophils (%) (Auto) 0, Neutrophils # (Auto) 9.8H, Lymphocytes # (Auto) 1.2, Monocytes # (Auto) 0.6, Eosinophils # (Auto) 0.0, Basophils # (Auto) 0.0, Immature Granulocyte # (Auto) 0.1, Sodium Level 139, Potassium Level 4.4, Chloride Level 112H, Carbon Dioxide Level 19L, Anion Gap 8, Blood Urea Nitrogen 18, Creatinine 0.86, Estimat Glomerular Filtration Rate 65, BUN/Creatinine Ratio 21, Glucose Level 194H, Calcium Level 8.0L, Phosphorus Level 3.4, Magnesium Level 2.0, Total Bilirubin 0.3, Direct Bilirubin 0.2, Indirect Bilirubin 0.1, Aspartate Amino Transf (AST/SGOT) 11, Alanine Aminotransferase (ALT/SGPT) 27, Alkaline Phosphatase 411H, Total Protein 5.4L, Albumin 2.1L, Triglycerides Level 241H 07/05/21 04:46: Blood Gas Puncture Site LEFT RAD, Blood Gas Patient Temperature 37, Arterial Blood pH 7.28*L, Arterial Blood Partial Pressure CO2 45, Arterial Blood Partial Pressure O2 84, Arterial Blood HCO3 20L, Arterial Blood Total CO2 21.5, Arterial Blood Oxygen Saturation 96, Arterial Blood Base Excess -5.5L, Masoud Test YES- POS, Blood Gas Ventilator Setting YES, Blood Gas Inspired Oxygen 80% 07/05/21 06:03: Glucometer 176H 07/05/21 11:59: Glucometer 165H 07/05/21 17:41: Glucometer 213H Microbiology 07/04/21 Gram Stain - Final, Resulted 07/04/21 Sputum Culture - Preliminary, Resulted No growth 07/04/21 Blood Culture - Preliminary, Resulted No growth Assessment/Plan Assessment/Plan Assessment/Plan Acute Hypoxic Respiratory Failure COVID-19 PNA Leukocytosis Anemia Elevated alkaline phosphatase Patient with nasogastric tube removed multiple attempts of having it replaced by nursing unsuccessful. Having some bleeding from the nasogastric and into the oropharynx area. Patient I then attempted to have nasogastric and orogastric tube placed without success. Needed to place gastric tube and will under visualization of a scope therefore did esophagogastroscopy with bronchoscope. Will sign off, call if needed. PROCEDURE: Esophagogastroscopy and placement of orogastric tube. Scope was inserted into the mouth into the esophagus with a orogastric tube continue to be inserted under visualization of the bronchoscope. The scope was continue to watch the tube down into the esophagus until it entered the stomach. Stomach had normal appearance. Scope was then slowly retracted back leaving the orogastric tube in place. OG tube was secured. Scope was then slowly retracted till completely removed. CATALINO BISHOP DO Jul 05, 2021 18:57
[2021-07-05 21:37] VITALS: BP 111/53
[2021-07-06] MEDS ORDERED: TROUGH ORDER-PHARMACY XX NR
[2021-07-06] MEDS: VANCOMYCIN 750 MG/NS 250 ML IVPB IV SCH ×2 (01:58)
[2021-07-06] MEDS: MEROPENEM 500 MG/SWFI 10 ML IV PUSH IV SCH ×6 (02:00→18:13)
[2021-07-06] MEDS: fentaNYL DRIP PRE-MIX 250 ML IV SCH ×3 (02:01→17:03)
[2021-07-06] MEDS: NOREPINEPHRINE 8 MG/250 ML 250 ML IV SCH ×2 (02:01→08:33)
[2021-07-06 02:25] VITALS: BP 107/50
[2021-07-06] MEDS: RT-ALBUTEROL HFA 8.5 GM INHALER IH SCH ×6 (02:25→22:20)
[2021-07-06 02:28] LABS: BASOPHILS % (AUTO) 0 % (0-10); EOSINOPHILS % (AUTO) 0 % (0-10); HEMATOCRIT 29 % (35-52); LYMPHOCYTES # (AUTO) 1.3 10^3/uL (1.0-4.0); LYMPHOCYTES % (AUTO) 13 % (12-44); MEAN CORPUSCULAR HEMOGLOBIN 30 pg (25-34); MEAN CORPUSCULAR HGB CONC 31 g/dL (32-36); MEAN CORPUSCULAR VOLUME 97 fL (80-99); MEAN PLATELET VOLUME 9.1 fL (9.0-12.2); MONOCYTES # (AUTO) 0.7 10^3/uL (0.0-1.0); MONOCYTES % (AUTO) 7 % (0-12); NEUTROPHILS # (AUTO) 7.6 10^3/uL (1.8-7.8); NEUTROPHILS % (AUTO) 79 % (42-75); PLATELET COUNT 227 10^3/uL (130-400); WHITE BLOOD COUNT 9.7 10^3/uL (4.3-11.0)
[2021-07-06 02:38] LABS: POTASSIUM 4.2 MMOL/L (3.6-5.0)
[2021-07-06 02:39] LABS: CALCIUM 8.3 MG/DL (8.5-10.1)
[2021-07-06 02:44] LABS: CREATININE SERUM 0.8 MG/DL (0.60-1.30); PHOSPHORUS 2.5 MG/DL (2.3-4.7)
[2021-07-06 02:46] LABS: MAGNESIUM 2.1 MG/DL (1.6-2.4)
[2021-07-06] MEDS: MAGNESIUM 1 GM/100 ML IVPB 100 ML IV SCH (02:50)
[2021-07-06] MEDS: POTASSIUM CL 10MEQ/50ML IVPB 50 ML IV SCH (02:50)
[2021-07-06] MEDS: KCL 20 MEQ TAB (K-DUR) PO SCH (02:50)
[2021-07-06] MEDS: inSUlin ASPART (NovoLOG) 1 UNIT/0.01 ML (CHARGE PER UNIT) SC SCH ×4 (05:57→23:45)
[2021-07-06] MEDS: PROPOFOL DRIP (ICU) 100 ML IV SCH ×4 (06:07→22:55)
--- NOTE | 2021-07-06 06:55 | Occ Therapy Progress Note ---
Therapy Progress Note Pt is currently intubated. OT will continue to monitor pt status and initiate treatment when pt is medically stable and able to actively participate in skilled therapy. LYNDA WILLINGHAM Jul 06, 2021 06:55
[2021-07-06 07:20] VITALS: BP 109/84
[2021-07-06] MEDS: PANTOPRAZOLE 40 MG (PROTONIX) VIAL IV SCH (08:35)
[2021-07-06] MEDS: ENOXAPARIN 80 MG/0.8 ML (LOVENOX) SYR SC SCH ×2 (08:35→22:24)
--- NOTE | 2021-07-06 10:21 | Physical Therapy Progress Note ---
Therapy Progress Note Patient currently sedated and intubated. PT will continue to follow patient status and initiate treatment when patient is medically stable and able to actively participate with skilled therapy. NEVAEH WEISS PT Jul 06, 2021 10:21
[2021-07-06 10:49] VITALS: BP 93/42
[2021-07-06 11:09] LABS: ALBUMIN 2.2 GM/DL (3.2-4.5)
[2021-07-06 11:12] LABS: TOTAL PROTEIN 5.4 GM/DL (6.4-8.2)
[2021-07-06 11:14] LABS: BILIRUBIN,TOTAL 0.3 MG/DL (0.1-1.0)
[2021-07-06 11:18] LABS: BILIRUBIN,DIRECT 0.2 MG/DL (0.0-0.3); BILIRUBIN,INDIRECT 0.1 MG/DL
--- NOTE | 2021-07-06 11:53 | Tele-ICU Progress Note ---
Subjective Date Seen by a Provider: Jul 06, 2021 Time Seen by a Provider: 11:00 Subjective/Events-last exam This virtual visit was conducted using real time audio/video. Thank you for asking us to see this patient for respiratory insufficiency and distress due to Covid pna.. HPC: Recent events: Peep down to +5. FiO2 40% PE: Obese. VSS O2 sat 95% on 40%/+5. HEENT: No obvious masses, adenopathy or JVD. Chest: clear to auscultation. CV: RRR S1 S2 No murmur or added sounds. Abd: Non-tender. Bowel sounds Y. : Unremarkable. Day Y. 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 No obvious focal findings. Extremities: No edema. Capillary refill < 3 seconds. Skin: unremarkable. Results: Decreased Hb 9.0, BUN 20, BG 201. A/P: Respiratory insufficiency/distress: Cont vent., Fentanyl, Propofol. Available chart/ vitals / labs /images reviewed. Video assessment done using teleICU camera, rest of exam as per RN Monitor for increasing oxygenation needs. Critical Care: critically ill patient. Cont Dex., Lovenox, insulin, meropenem, Vanco. Discussed with ALLAN Musa. Asked RN to reach out to eICU if any questions or concerns later. Time spent with patient/coordination of care with other health professionals (mins): 27 Review of Systems General: Other Sepsis Event Evaluation Height, Weight, BMI Height: '" Weight: lbs. oz. kg; 30.31 BMI Method: Focused Exam Lactate Level 07/04/21 03:43: Lactic Acid Level 0.79 Exam Exam Patient acknowledged, consented, and participated in this virtual visit which was conducted using real time audio/video Vital Signs Date Time Temp Pulse Resp B/P (MAP) Pulse Ox O2 Delivery O2 Flow Rate FiO2 07/06/21 11:20 36.0 07/06/21 11:00 71 24 98/47 97 Mechanical Ventilator 40.00 07/06/21 10:49 72 24 97 40 07/06/21 10:43 99/48 07/06/21 10:00 68 24 101/48 100 Mechanical Ventilator 40.00 07/06/21 09:00 70 24 95/46 100 Mechanical Ventilator 40.00 07/06/21 08:33 98/45 07/06/21 08:00 99 Mechanical Ventilator 40 07/06/21 08:00 70 23 101/47 100 Mechanical Ventilator 40.00 07/06/21 07:30 35.9 07/06/21 07:20 69 24 100 40 07/06/21 07:00 62 24 107/53 100 Mechanical Ventilator 40.00 07/06/21 06:07 80 107/50 07/06/21 06:00 68 24 100/50 100 Mechanical Ventilator 40.00 07/06/21 05:00 68 24 99/51 100 Mechanical Ventilator 40.00 07/06/21 04:00 97 Mechanical Ventilator 40 07/06/21 04:00 73 23 104/48 100 Mechanical Ventilator 40.00 07/06/21 03:00 80 24 111/51 99 Mechanical Ventilator 40.00 07/06/21 02:25 80 24 99 40 07/06/21 02:00 79 24 108/52 99 Mechanical Ventilator 40.00 07/06/21 01:00 90 07/06/21 01:00 90 24 106/50 97 Mechanical Ventilator 40.00 07/06/21 00:00 80 24 103/45 97 Mechanical Ventilator 40.00 07/05/21 23:56 35.8 07/05/21 23:54 59 111/53 07/05/21 23:05 97 Mechanical Ventilator 40 07/05/21 23:00 57 24 124/58 100 Mechanical Ventilator 40.00 07/05/21 22:00 58 23 117/55 100 Mechanical Ventilator 40.00 07/05/21 21:37 59 24 100 40 07/05/21 21:00 60 23 106/53 100 Mechanical Ventilator 40.00 07/05/21 20:00 36.2 07/05/21 20:00 97 Mechanical Ventilator 40 07/05/21 20:00 64 24 97/50 99 Mechanical Ventilator 40.00 07/05/21 19:00 61 24 112/56 99 Mechanical Ventilator 40.00 07/05/21 19:00 61 07/05/21 18:40 83 24 100 40 07/05/21 18:00 74 23 91/51 98 Mechanical Ventilator 40.00 07/05/21 17:46 111/54 07/05/21 17:00 63 23 101/54 100 Mechanical Ventilator 40.00 07/05/21 16:33 Mechanical Ventilator 40.00 07/05/21 16:00 36.3 8/31/21 16:00 68 12 112/51 100 Mechanical Ventilator 60.00 07/05/21 16:00 97 Mechanical Ventilator 40 07/05/21 15:00 75 23 100/48 97 Mechanical Ventilator 60.00 07/05/21 14:54 78 24 99 40 07/05/21 14:00 73 24 88/43 (58) 97 Mechanical Ventilator 60.00 07/05/21 13:00 60 24 107/52 (70) 98 Mechanical Ventilator 60.00 07/05/21 13:00 61 24 111/55 98 Mechanical Ventilator 50.00 07/05/21 12:48 62 07/05/21 12:01 35.9 07/05/21 12:00 100 Mechanical Ventilator 50 07/05/21 12:00 69 23 109/45 (66) 97 Mechanical Ventilator 60.00 I & O 07/06/21 07:00 Intake Total 710 ml Output Total 875 ml Balance -165 ml Height & Weight Height: '" Weight: lbs. oz. kg; 30.31 BMI Method: General Appearance: Other (intubated/sedated) HEENT: PERRL/EOMI, Moist Mucous Membranes, Other (endotracheally intubated, blood in nares and oropharynx) Neck: Non Tender, Supple, Other (Some slight swelling left-sided neck and slight oozing from central line.) Respiratory: No Accessory Muscle Use, No Respiratory Distress, Decreased Breath Sounds, Other (Intubated) Cardiovascular: Regular Rate, Rhythm, No JVD Gastrointestinal: soft, no organomegaly Extremity: No Pedal Edema, Slow Capillary Refill Neurologic/Psychiatric: No Alert, No Oriented x3; Other (sedated) Skin: Normal Color, Cool (bilat extremities cool to palpation) Lymphatic: No Adenopathy Results Lab Laboratory Tests 07/05/21 02:35 07/06/21 01:57 Assessment/Plan Assessment/Plan See free text. Critical Care: Ventilator Management Time spent on discussion(mins): 0 ANILA CASIANO MD Jul 06, 2021 11:53
[2021-07-06 14:53] VITALS: BP 115/54
[2021-07-06 15:59] LABS: FIBRIN DEGRADATION PRODUCTS 1.85 UG/ML (0.00-0.49); PROTHROMBIN TIME PATIENT 13.9 SEC (12.2-14.7)
--- NOTE | 2021-07-06 16:53 | Progress Note ---
Subjective Date Seen by a Provider: Jul 06, 2021 Time Seen by a Provider: 10:30 Subjective/Events-last exam Pt doing really well considering the Covid residual Intubated at PEEP of 5 and 40% Denies any other significant problems OG tube was replaced and will obtained picc line and DC the IJ central line due to bleeding of the central line Focused Exam Lactate Level 07/04/21 03:43: Lactic Acid Level 0.79 Objective Exam Last Set of Vital Signs Vital Signs Date Time Temp Pulse Resp B/P (MAP) Pulse Ox O2 Delivery O2 Flow Rate FiO2 07/06/21 16:00 97 Mechanical Ventilator 40 07/06/21 15:00 67 24 107/53 40.00 07/06/21 11:20 36.0 Capillary Refill : I&O Intake and Output 07/06/21 00:00 Intake Total 835 ml Output Total 975 ml Balance -140 ml Intake Oral 0 ml IV Total 835 ml Output Urine Total 975 ml General: Other (Sedated and intubated) Lungs: Other (Coarse breath sounds all rangel) Heart: Regular Rate Results Lab Laboratory Tests 07/05/21 17:41: Glucometer 213H 07/05/21 23:04: Glucometer 181H 07/06/21 00:30: Vancomycin Level Trough 10.8 07/06/21 01:57: White Blood Count 9.7, Red Blood Count 3.00L, Hemoglobin 9.0L, Hematocrit 29L, Mean Corpuscular Volume 97, Mean Corpuscular Hemoglobin 30, Mean Corpuscular Hemoglobin Concent 31L, Red Cell Distribution Width 13.8, Platelet Count 227, Mean Platelet Volume 9.1, Immature Granulocyte % (Auto) 1, Neutrophils (%) (Auto) 79H, Lymphocytes (%) (Auto) 13, Monocytes (%) (Auto) 7, Eosinophils (%) (Auto) 0, Basophils (%) (Auto) 0, Neutrophils # (Auto) 7.6, Lymphocytes # (Auto) 1.3, Monocytes # (Auto) 0.7, Eosinophils # (Auto) 0.0, Basophils # (Auto) 0.0, Immature Granulocyte # (Auto) 0.1, Sodium Level 137, Potassium Level 4.2, Chloride Level 110H, Carbon Dioxide Level 18L, Anion Gap 9, Blood Urea Nitrogen 20H, Creatinine 0.80, Estimat Glomerular Filtration Rate 71, BUN/Creatinine Ratio 25, Glucose Level 201H, Calcium Level 8.3L, Phosphorus Level 2.5, Magnesium Level 2.1 07/06/21 05:56: Glucometer 176H 07/06/21 10:38: Glucometer 196H 07/06/21 10:50: Total Bilirubin 0.3, Direct Bilirubin 0.2, Indirect Bilirubin 0.1, Aspartate Amino Transf (AST/SGOT) 13, Alanine Aminotransferase (ALT/SGPT) 24, Alkaline Phosphatase 363H, Total Protein 5.4L, Albumin 2.2L 07/06/21 15:35: Prothrombin Time 13.9, INR Comment 1.0, Activated Partial Thromboplast Time 41H, Fibrinogen 618H, D-Dimer 1.85H Microbiology 07/04/21 Gram Stain - Final, Complete 07/04/21 Sputum Culture - Final, Complete No growth 07/04/21 Blood Culture - Preliminary, Resulted No growth Assessment/Plan Assessment/Plan Assess & Plan/Chief Complaint Vent management PICC line Replaced OG tube Supportive care Prognosis guarded Antibiotics Diagnosis/Problems Diagnosis/Problems (1) COVID-19 (2) Respiratory failure (3) Alkaline phosphatase elevation (4) Acute kidney injury Clinical Quality Measures Admission Status Admission Dx Maintain intubation Very poor prognosis Tried to update today but no answer so suspecting avoidance of discussion NASRIN LAGUERRE DO Jul 06, 2021 16:53
[2021-07-06 18:52] VITALS: BP 100/53
[2021-07-06 22:20] VITALS: BP 100/49
[2021-07-07] MEDS ORDERED: VANCOMYCIN 1 GM/NS 250 ML IVPB IV SCH ×2 (01:00)
[2021-07-07] MEDS: fentaNYL DRIP PRE-MIX 250 ML IV SCH ×2 (01:24→05:39)
[2021-07-07 02:52] VITALS: BP 100/49
[2021-07-07] MEDS: RT-ALBUTEROL HFA 8.5 GM INHALER IH SCH ×6 (02:52→22:20)
[2021-07-07 03:55] LABS: BASOPHILS % (AUTO) 0 % (0-10); EOSINOPHILS % (AUTO) 1 % (0-10); HEMATOCRIT 24 % (35-52); HEMOGLOBIN 7.7 g/dL (11.5-16.0); LYMPHOCYTES # (AUTO) 2.2 10^3/uL (1.0-4.0); LYMPHOCYTES % (AUTO) 28 % (12-44); MEAN CORPUSCULAR HEMOGLOBIN 30 pg (25-34); MEAN CORPUSCULAR HGB CONC 32 g/dL (32-36); MEAN CORPUSCULAR VOLUME 96 fL (80-99); MEAN PLATELET VOLUME 9.4 fL (9.0-12.2); MONOCYTES # (AUTO) 0.7 10^3/uL (0.0-1.0); MONOCYTES % (AUTO) 9 % (0-12); NEUTROPHILS # (AUTO) 4.8 10^3/uL (1.8-7.8); NEUTROPHILS % (AUTO) 61 % (42-75); PLATELET COUNT 211 10^3/uL (130-400); WHITE BLOOD COUNT 7.9 10^3/uL (4.3-11.0)
[2021-07-07] MEDS: MEROPENEM 500 MG/SWFI 10 ML IV PUSH IV SCH ×6 (04:00→18:13)
[2021-07-07] MEDS: PROPOFOL DRIP (ICU) 100 ML IV SCH (04:08)
[2021-07-07 04:16] LABS: CALCIUM 7.9 MG/DL (8.5-10.1); CREATININE SERUM 0.74 MG/DL (0.60-1.30); MAGNESIUM 2.1 MG/DL (1.6-2.4); PHOSPHORUS 2.1 MG/DL (2.3-4.7); POTASSIUM 4.4 MMOL/L (3.6-5.0)
[2021-07-07 04:33] LABS: ABG BASE EXCESS -1.1 MMOL/L (-2.5-2.5); ABG OXYGEN SATURATION 83 % (94-100); ABG PCO2 33 MMHG (35-45); ABG PH 7.44 (7.37-7.43); ABG PO2 48 MMHG (79-93); ABG TCO2 23.7 MMOL/L (21.0-31.0)
[2021-07-07 04:37] LABS: ALLENS TEST POSITIVE; INSPIRED O2 80; PATIENT TEMP 36.2; VENTILATOR YES
[2021-07-07] MEDS: MAGNESIUM 1 GM/100 ML IVPB 100 ML IV SCH (04:59)
[2021-07-07] MEDS: POTASSIUM CL 10MEQ/50ML IVPB 50 ML IV SCH (04:59)
[2021-07-07] MEDS: KCL 20 MEQ TAB (K-DUR) PO SCH (04:59)
[2021-07-07] MEDS: inSUlin ASPART (NovoLOG) 1 UNIT/0.01 ML (CHARGE PER UNIT) SC SCH ×4 (05:39→23:34)
--- NOTE | 2021-07-07 06:55 | Occ Therapy Progress Note ---
Therapy Progress Note Pt is currently intubated. OT will continue to monitor pt status and initiate treatment when pt is medically stable and able to actively participate in skilled therapy. LYNDA WILLINGHAM Jul 07, 2021 06:55
[2021-07-07 07:15] VITALS: BP 104/46
[2021-07-07] MEDS: ENOXAPARIN 80 MG/0.8 ML (LOVENOX) SYR SC SCH ×2 (07:17→20:54)
--- NOTE | 2021-07-07 07:30 | Physical Therapy Progress Note ---
Therapy Progress Note Patient currently sedated and intubated. PT will continue to follow patient status and initiate treatment when patient is medically stable and able to actively participate with skilled therapy. JERMAINE MELO PT Jul 07, 2021 07:30
--- NOTE | 2021-07-07 08:36 | Tele-ICU Progress Note ---
Subjective Date Seen by a Provider: Jul 07, 2021 Time Seen by a Provider: 08:36 Sepsis Event Evaluation Height, Weight, BMI Height: '" Weight: lbs. oz. kg; 30.31 BMI Method: Exam Exam Patient acknowledged, consented, and participated in this virtual visit which was conducted using real time audio/video Vital Signs Date Time Temp Pulse Resp B/P (MAP) Pulse Ox O2 Delivery O2 Flow Rate FiO2 07/07/21 08:00 35.9 07/07/21 07:15 59 24 96 30 07/07/21 06:00 56 23 119/50 96 Mechanical Ventilator 40.00 07/07/21 05:00 58 23 109/48 96 Mechanical Ventilator 40.00 07/07/21 04:08 85 100/49 07/07/21 04:00 58 24 118/51 98 Mechanical Ventilator 40.00 07/07/21 04:00 97 Mechanical Ventilator 40 07/07/21 04:00 36.2 07/07/21 03:00 64 24 103/47 95 Mechanical Ventilator 40.00 07/07/21 02:52 85 24 97 30 07/07/21 02:00 62 24 102/45 97 Mechanical Ventilator 40.00 07/07/21 01:00 67 07/07/21 01:00 67 24 105/49 97 Mechanical Ventilator 40.00 07/07/21 00:00 67 24 104/48 95 Mechanical Ventilator 40.00 07/06/21 23:59 97 Mechanical Ventilator 40 07/06/21 23:00 70 21 99/45 94 Mechanical Ventilator 40.00 07/06/21 22:55 71 104/46 07/06/21 22:20 89 24 98 30 07/06/21 22:00 90 25 108/49 95 Mechanical Ventilator 40.00 07/06/21 21:00 59 23 104/48 99 Mechanical Ventilator 40.00 07/06/21 20:12 36.1 07/06/21 20:00 97 Mechanical Ventilator 40 07/06/21 20:00 60 24 111/54 98 Mechanical Ventilator 40.00 07/06/21 19:00 68 24 109/53 96 Mechanical Ventilator 40.00 07/06/21 19:00 68 07/06/21 18:52 64 24 98 35 07/06/21 18:00 61 23 119/56 99 Mechanical Ventilator 40.00 07/06/21 17:03 116/54 9/1/21 17:00 64 24 116/54 99 Mechanical Ventilator 40.00 07/06/21 16:00 97 Mechanical Ventilator 40 07/06/21 16:00 64 24 117/57 100 Mechanical Ventilator 40.00 07/06/21 15:00 67 24 107/53 99 Mechanical Ventilator 40.00 07/06/21 14:53 65 24 100 40 07/06/21 14:00 75 23 103/46 100 Mechanical Ventilator 40.00 07/06/21 13:00 62 23 113/54 100 Mechanical Ventilator 40.00 07/06/21 12:39 62 07/06/21 12:00 67 24 110/51 99 Mechanical Ventilator 40.00 07/06/21 12:00 99 Mechanical Ventilator 40 07/06/21 11:20 36.0 07/06/21 11:00 71 24 98/47 97 Mechanical Ventilator 40.00 07/06/21 10:49 72 24 97 40 07/06/21 10:43 99/48 07/06/21 10:00 68 24 101/48 100 Mechanical Ventilator 40.00 07/06/21 09:00 70 24 95/46 100 Mechanical Ventilator 40.00 I & O 07/07/21 07:00 Intake Total 1930 ml Output Total 1460 ml Balance 470 ml Height & Weight Height: '" Weight: lbs. oz. kg; 30.31 BMI Method: General Appearance: Other (intubated/sedated) HEENT: PERRL/EOMI, Moist Mucous Membranes, Other (endotracheally intubated, blood in nares and oropharynx) Neck: Non Tender, Supple, Other (Some slight swelling left-sided neck and slight oozing from central line.) Respiratory: No Accessory Muscle Use, No Respiratory Distress, Decreased Breath Sounds, Other (Intubated) Cardiovascular: Regular Rate, Rhythm, No JVD Gastrointestinal: soft, no organomegaly Extremity: No Pedal Edema, Slow Capillary Refill Neurologic/Psychiatric: No Alert, No Oriented x3; Other (sedated) Skin: Normal Color, Cool (bilat extremities cool to palpation) Lymphatic: No Adenopathy Results Lab Laboratory Tests 07/06/21 01:57 07/07/21 03:45 Assessment/Plan Assessment/Plan (Tele-ICU Physician , Progress Note ) Available chart/ vitals / labs / Images reviewed Video assessment done using teleICU camera, rest of exam as per RN Discussed with RN , EXAM PER RN Events overnight : proned , elena - ekg Afebrile I/O = pos 600 Drips: levo Pressors: LEVO OFF 07/04 - back on levo 07/05 Sedation gtt: ( RASS ) propofol 50 fentanyl VENT SETTINGS. AC 22 380 - 50% peep 14 ABG reviewed Not candidate for SBT today Consultants: Hospital course: recent COVID + hospital stay at [facility] [place] from 06/17/21 until 06/27/21.- home on 2 L 07/03- [facility] abfter intubation for ARF 07/05- - 50% peep 14 07/07 - AC 24- 435 + 5 30 % A/P AHRF / ARDS due to severe COVID19 - intubated 07/03 - AC 24- 435 + 5 30 % -candidate for SBT today NO Contraindications: Cardiovascular Stability / Sedation Score / FI02/PEEP / ABG / CXR [id number]/COVID-19 PNA ( Not vaccinated , Dx 06/17/21 ) -Steroids IV - started -Hypercoagulable state , lovenox 80 q 12 - ON HOLD 07/07 with bleeding around central line - repeat d dimer - might resume with proph dose Suspected superimposed bact PNA -empiric abx merrem ( and vanc stopped JILL - mild , improving - stop IVF hyperglycemia - ISS , close f/up on steroids UA abd 07/04 - WNL Lines : left IJ 07/03 (Central Line Necessity Reviewed) Day: 07/03 OG: Nutrition: strating TF 07/05 Analgesia: Anxiety/ delirium VTE Prophylaxis: lovenox Stress Ulcer Prophylaxis: ppi Glycemic Control: + Plans in collaboration with bedside consultants and IM MDs. Discussed with RN to reach out if any questions or concerns A total of 40 minutes of critical care time was devoted to this patient today, required to treat and/or prevent further deterioration of critical care condition ( as above) . KEN OSPINA MD Jul 07, 2021 08:36
[2021-07-07] MEDS: PANTOPRAZOLE 40 MG (PROTONIX) VIAL IV SCH (09:28)
[2021-07-07 09:49] VITALS: BP 138/62
[2021-07-07 10:23] LABS: ABG BASE EXCESS -1.4 MMOL/L (-2.5-2.5); ABG OXYGEN SATURATION 90 % (94-100); ABG PCO2 37 MMHG (35-45); ABG PO2 61 MMHG (79-93); ABG TCO2 23.8 MMOL/L (21.0-31.0)
[2021-07-07 10:24] LABS: ALLENS TEST YES-POS; INSPIRED O2 30%; PATIENT TEMP 98.2; VENTILATOR YES
--- NOTE | 2021-07-07 10:31 | Tele-ICU Progress Note ---
Progress Note Spontaneous Breathing Trial ( vitals /Cardiovascular Stability/Sedation Score/FI02/PEEP/ABG/CXR reviewed: No contraindications) SBT DATA: Duration 30 min, meet all required criteria Extubated without complications Monitored via camera ( additional CCT 10 min ) Focused Exam Height, Weight, BMI Height: '" Weight: lbs. oz. kg; 30.31 BMI Method: KEN OSPINA MD Jul 07, 2021 10:31
[2021-07-07 11:17] LABS: BILIRUBIN,DIRECT 0.2 MG/DL (0.0-0.3); BILIRUBIN,INDIRECT 0.1 MG/DL; BILIRUBIN,TOTAL 0.3 MG/DL (0.1-1.0); TOTAL PROTEIN 4.7 GM/DL (6.4-8.2)
--- NOTE | 2021-07-07 14:16 | Progress Note ---
YONG ZAPIEN 07/07/21 1416: Subjective Date Seen by a Provider: Jul 07, 2021 Time Seen by a Provider: 08:00 Subjective/Events-last exam HPI limited d/t intubation. Vent at FiO2 30% / TV 380 / PEEP 5 / RR 16 Rosalia Azul has had continuous slow bleeding since yesterday from her neck at the site of the central line which was pulled. A PICC was placed in the left arm today. She has also had a small amount of blood in the oropharynx, possibly related to difficulty with the OG tube on 07/05. Anticoagulation was given yesterday morning but held since. Objective Exam Last Set of Vital Signs Vital Signs Date Time Temp Pulse Resp B/P (MAP) Pulse Ox O2 Delivery O2 Flow Rate FiO2 07/07/21 12:00 92 29 140/60 90 High Flow N/C 5.00 07/07/21 09:49 30 07/07/21 08:00 35.9 Capillary Refill : I&O Intake and Output 07/07/21 00:00 Intake Total 1900 ml Output Total 1300 ml Balance 600 ml Intake Oral 0 ml IV Total 710 ml Tube Feeding 390 ml Other 800 ml Output Urine Total 1300 ml General: Other (intubated, sedated) HEENT: Other (dried blood apparent in the oropharynx. Minimal amount of newer blood visualized. ) Neck: Other (oozing blood from under bandage at left neck. ) Lungs: Clear to Auscultation, Normal Air Movement, Other (intubated, on ventillator) Heart: Regular Rate, No Murmurs Abdomen: Normal Bowel Sounds, Soft Skin: No Rashes, Other (PICC in place left forearm. IV in right forearm. ) Neuro: Other (sedated) Results Lab Laboratory Tests 07/06/21 15:35: Prothrombin Time 13.9, INR Comment 1.0, Activated Partial Thromboplast Time 41H, Fibrinogen 618H, D-Dimer 1.85H 07/06/21 17:01: Glucometer 216H 07/06/21 23:32: Glucometer 178H 07/07/21 03:45: White Blood Count 7.9, Red Blood Count 2.53L, Hemoglobin 7.7L, Hematocrit 24L, Mean Corpuscular Volume 96, Mean Corpuscular Hemoglobin 30, Mean Corpuscular Hemoglobin Concent 32, Red Cell Distribution Width 13.6, Platelet Count 211, Mean Platelet Volume 9.4, Immature Granulocyte % (Auto) 2, Neutrophils (%) (Auto) 61, Lymphocytes (%) (Auto) 28, Monocytes (%) (Auto) 9, Eosinophils (%) (Auto) 1, Basophils (%) (Auto) 0, Neutrophils # (Auto) 4.8, Lymphocytes # (Auto) 2.2, Monocytes # (Auto) 0.7, Eosinophils # (Auto) 0.0, Basophils # (Auto) 0.0, Immature Granulocyte # (Auto) 0.2H, Sodium Level 138, Potassium Level 4.4, Chloride Level 112H, Carbon Dioxide Level 19L, Anion Gap 7, Blood Urea Nitrogen 24H, Creatinine 0.74, Estimat Glomerular Filtration Rate 78, BUN/Creatinine Ratio 32, Glucose Level 211H, Calcium Level 7.9L, Phosphorus Level 2.1L, Magnesium Level 2.1, Total Bilirubin 0.3, Direct Bilirubin 0.2, Indirect Bilirubin 0.1, Aspartate Amino Transf (AST/SGOT) 13, Alanine Aminotransferase (ALT/SGPT) 21, Alkaline Phosphatase 288H, Total Protein 4.7L, Albumin 2.0L, Triglycerides Level 310H 07/07/21 04:24: Blood Gas Puncture Site RIGHT RADIAL, Blood Gas Patient Temperature 36.2, Arterial Blood pH 7.44H, Arterial Blood Partial Pressure CO2 33L, Arterial Blood Partial Pressure O2 48L, Arterial Blood HCO3 23, Arterial Blood Total CO2 23.7, Arterial Blood Oxygen Saturation 83L, Arterial Blood Base Excess -1.1, Masoud Test POSITIVE, Blood Gas Ventilator Setting YES, Blood Gas Inspired Oxygen 80 07/07/21 10:10: Blood Gas Puncture Site RT RAD, Blood Gas Patient Temperature 98.2, Arterial Blood pH 7.40, Arterial Blood Partial Pressure CO2 37, Arterial Blood Partial Pressure O2 61L, Arterial Blood HCO3 23, Arterial Blood Total CO2 23.8, Arterial Blood Oxygen Saturation 90L, Arterial Blood Base Excess -1.4, Masoud Test YES- POS, Blood Gas Ventilator Setting YES, Blood Gas Inspired Oxygen 30% 07/07/21 10:41: Glucometer 173H Microbiology 07/04/21 Gram Stain - Final, Complete 07/04/21 Sputum Culture - Final, Complete No growth 07/04/21 Blood Culture - Preliminary, Resulted No growth Assessment/Plan Assessment/Plan Assess & Plan/Chief Complaint COVID-19 Intubated, sedated Fio2 30% / TV 380 / Peep 5/ RR 16 -trial weaning off vent, extubation -continue therapies for COVID anemia, HGB 7.7 from 9.0 bleed left former central line site, possible upper GI bleed -monitor and transfuse if HGB <7.0 ANYA LAGUERRE DO 07/08/21 0609: Subjective Subjective/Events-last exam Patient is extubated Monitor closely Supportive care Review of Systems General: Fatigue, Malaise Objective Exam General: Alert, Oriented X3, Cooperative, No Acute Distress Lungs: Clear to Auscultation, Normal Air Movement Heart: Regular Rate, Normal S1, Normal S2, No Murmurs Psych/Mental Status: Mental Status NL Assessment/Plan Assessment/Plan Assess & Plan/Chief Complaint Extubation Supportive care Supervisory-Addendum Brief Verification & Attestation Participated in pt care: history, MDM, physical Personally performed: exam, history, MDM, supervision of care Care discussed with: Medical Student Procedures: n/a Results interpretation: Verified all documentation Verification and Attestation of Medical Student E/M Service A medical student performed and documented this service in my presence. I reviewed and verified all information documented by the medical student and made modifications to such information, when appropriate. I personally performed the physical exam and medical decision making. Anya Laguerre, Jul 08, 2021,06:06 YONG ZAPIEN Jul 07, 2021 14:16 ANYA LAGUERRE DO Jul 08, 2021 06:09
[2021-07-07] MEDS: NOREPINEPHRINE 8 MG/250 ML 250 ML IV SCH (15:40)
[2021-07-08 02:40] LABS: ABG BASE EXCESS 0.5 MMOL/L (-2.5-2.5); ABG OXYGEN SATURATION 94 % (94-100); ABG PCO2 29 MMHG (35-45); ABG PH 7.51 (7.37-7.43); ABG PO2 62 MMHG (79-93); ABG TCO2 24.3 MMOL/L (21.0-31.0); BASOPHILS % (AUTO) 0 % (0-10); EOSINOPHILS # (AUTO) 0.1 10^3/uL (0.0-0.3); EOSINOPHILS % (AUTO) 1 % (0-10); HEMATOCRIT 25 % (35-52); LYMPHOCYTES # (AUTO) 1.8 10^3/uL (1.0-4.0); LYMPHOCYTES % (AUTO) 27 % (12-44); MEAN CORPUSCULAR HEMOGLOBIN 30 pg (25-34); MEAN CORPUSCULAR HGB CONC 32 g/dL (32-36); MEAN CORPUSCULAR VOLUME 95 fL (80-99); MEAN PLATELET VOLUME 9.3 fL (9.0-12.2); MONOCYTES # (AUTO) 0.5 10^3/uL (0.0-1.0); MONOCYTES % (AUTO) 8 % (0-12); NEUTROPHILS # (AUTO) 4.2 10^3/uL (1.8-7.8); NEUTROPHILS % (AUTO) 62 % (42-75); PLATELET COUNT 189 10^3/uL (130-400); WHITE BLOOD COUNT 6.7 10^3/uL (4.3-11.0)
[2021-07-08 02:41] LABS: ALLENS TEST YES-POS; INSPIRED O2 40%; PATIENT TEMP 36.6; VENTILATOR NO
[2021-07-08 02:46] VITALS: BP 145/68
[2021-07-08] MEDS: RT-ALBUTEROL HFA 8.5 GM INHALER IH SCH ×6 (02:46→22:42)
[2021-07-08 02:50] LABS: POTASSIUM 4.5 MMOL/L (3.6-5.0)
[2021-07-08 02:51] LABS: CALCIUM 8.4 MG/DL (8.5-10.1)
[2021-07-08 02:55] LABS: PHOSPHORUS 2.9 MG/DL (2.3-4.7)
[2021-07-08 02:56] LABS: CREATININE SERUM 0.72 MG/DL (0.60-1.30)
[2021-07-08 02:58] LABS: MAGNESIUM 2.1 MG/DL (1.6-2.4)
[2021-07-08] MEDS: POTASSIUM CL 10MEQ/50ML IVPB 50 ML IV SCH (03:07)
[2021-07-08] MEDS: KCL 20 MEQ TAB (K-DUR) PO SCH (03:07)
[2021-07-08] MEDS: MAGNESIUM 1 GM/100 ML IVPB 100 ML IV SCH (03:07)
[2021-07-08] MEDS: inSUlin ASPART (NovoLOG) 1 UNIT/0.01 ML (CHARGE PER UNIT) SC SCH ×3 (03:08→17:55)
[2021-07-08] MEDS: NOREPINEPHRINE 8 MG/250 ML 250 ML IV SCH (05:59)
--- NOTE | 2021-07-08 07:21 | Diagnostic Imaging Report ---
INDICATION: Respiratory distress, extubated COMPARISON: 07/03/2021 FINDINGS: Single view of the chest demonstrates persistent but decreased bilateral pulmonary infiltrates. Support devices have been removed. There is new left entering PICC line with the tip of the catheter possibly within the right atrium. IMPRESSION: Improving aeration. Dictated by: Dictated on workstation # [id number]
[2021-07-08 07:54] VITALS: BP 151/74
[2021-07-08] MEDS: ENOXAPARIN 80 MG/0.8 ML (LOVENOX) SYR SC SCH ×2 (09:32→20:15)
[2021-07-08] MEDS: PANTOPRAZOLE 40 MG (PROTONIX) VIAL IV SCH (09:32)
--- NOTE | 2021-07-08 09:37 | Progress Note ---
YONG ZAPIEN 07/08/21 0937: Subjective Date Seen by a Provider: Jul 08, 2021 Time Seen by a Provider: 08:50 Subjective/Events-last exam Rosalia Azul was extubated yesterday and is on bipap at FiO2 70% PIP 16 expiratory pressure 10. No visible external bleeds, HGB has stabilized at 8.0 from 7.7. HPI limited due to bipap. Objective Exam Last Set of Vital Signs Vital Signs Date Time Temp Pulse Resp B/P (MAP) Pulse Ox O2 Delivery O2 Flow Rate FiO2 07/08/21 09:00 96 29 127/52 94 NIV Bilevel 70.00 07/08/21 07:55 70 07/08/21 07:52 36.4 Capillary Refill : Less Than 3 Seconds I&O Intake and Output 07/08/21 00:00 Intake Total 1060 ml Output Total 1860 ml Balance -800 ml Intake Oral 100 ml Tube Feeding 360 ml Other 600 ml Output Urine Total 1860 ml Results Lab Laboratory Tests 07/07/21 10:10: Blood Gas Puncture Site RT RAD, Blood Gas Patient Temperature 98.2, Arterial Blood pH 7.40, Arterial Blood Partial Pressure CO2 37, Arterial Blood Partial Pressure O2 61L, Arterial Blood HCO3 23, Arterial Blood Total CO2 23.8, Arterial Blood Oxygen Saturation 90L, Arterial Blood Base Excess -1.4, Masoud Test YES- POS, Blood Gas Ventilator Setting YES, Blood Gas Inspired Oxygen 30% 07/07/21 10:41: Glucometer 173H 07/07/21 17:43: Glucometer 244H 07/07/21 23:22: Glucometer 166H 07/08/21 02:20: White Blood Count 6.7, Red Blood Count 2.64L, Hemoglobin 8.0L, Hematocrit 25L, Mean Corpuscular Volume 95, Mean Corpuscular Hemoglobin 30, Mean Corpuscular Hemoglobin Concent 32, Red Cell Distribution Width 13.6, Platelet Count 189, Mean Platelet Volume 9.3, Immature Granulocyte % (Auto) 3, Neutrophils (%) (Auto) 62, Lymphocytes (%) (Auto) 27, Monocytes (%) (Auto) 8, Eosinophils (%) (Auto) 1, Basophils (%) (Auto) 0, Neutrophils # (Auto) 4.2, Lymphocytes # (Auto) 1.8, Monocytes # (Auto) 0.5, Eosinophils # (Auto) 0.1, Basophils # (Auto) 0.0, Immature Granulocyte # (Auto) 0.2H, D-Dimer 3.28H, Blood Gas Puncture Site LEFT RADIAL, Blood Gas Patient Temperature 36.6, Arterial Blood pH 7.51H, Arterial Blood Partial Pressure CO2 29L, Arterial Blood Partial Pressure O2 62L, Arterial Blood HCO3 23, Arterial Blood Total CO2 24.3, Arterial Blood Oxygen Saturation 94, Arterial Blood Base Excess 0.5, Masoud Test YES-POS, Blood Gas Ventilator Setting NO, Blood Gas Inspired Oxygen 40%, Sodium Level 139, Potassium Level 4.5, Chloride Level 109H, Carbon Dioxide Level 21, Anion Gap 9, Blood Urea Nitrogen 24H, Creatinine 0.72, Estimat Glomerular Filtration Rate 80, BUN/Creatinine Ratio 33, Glucose Level 135H, Calcium Level 8.4L, Phosphorus Level 2.9, Magnesium Level 2.1 Microbiology 07/04/21 Gram Stain - Final, Complete 07/04/21 Sputum Culture - Final, Complete No growth 07/04/21 Blood Culture - Preliminary, Resulted No growth Assessment/Plan Assessment/Plan Assess & Plan/Chief Complaint COVID-19 on BIPAP Fio2 70%, IPAP 16, EPAP 10, RR set at 12 but patient is breathing more frequently than this -ABG indicates no hypercapnia. Mild respiratory alkalosis when ABG was drawn. -continue therapies for COVID -prognosis still guarded anemia, HGB 8.0 from 7.7 -external bleeding stabilized. -anticoagulation restarted. ANYA LAGUERRE DO 07/09/21 0538: Subjective Subjective/Events-last exam Patient extubated On BiPAP due to desat Patient appears to be lethargic Labs reviewed Overall she appears to be " giving up" Out of isolation now so we will have come up to see her Review of Systems General: Fatigue, Malaise Neurological: Weakness Objective Exam General: Alert, No Acute Distress, Other Lungs: Clear to Auscultation, Normal Air Movement Heart: Regular Rate, Normal S1, Normal S2, No Murmurs Neuro: Normal Tone Assessment/Plan Assessment/Plan Assess & Plan/Chief Complaint BiPAP DC isolation visit Hopefully will help her rally Supervisory-Addendum Brief Verification & Attestation Participated in pt care: history, MDM, physical Personally performed: exam, history, MDM, supervision of care Care discussed with: Medical Student Procedures: n/a Results interpretation: Verified all documentation Verification and Attestation of Medical Student E/M Service A medical student performed and documented this service in my presence. I reviewed and verified all information documented by the medical student and made modifications to such information, when appropriate. I personally performed the physical exam and medical decision making. Anya Laguerre, Jul 09, 2021,05:36 YONG ZAPIEN Jul 08, 2021 09:37 ANYA LAGUERRE DO Jul 09, 2021 05:38
[2021-07-08 10:39] VITALS: BP 151/74
--- NOTE | 2021-07-08 11:24 | Physical Therapy Evaluation ---
PT Evaluation-General Medical Diagnosis Admission Date Jul 03, 2021 at 22:47 Medical Diagnosis: covid 19 debility Onset Date: Jul 03, 2021 Therapy Diagnosis Therapy Diagnosis: impaired mobility, strength, endurance Precautions Precautions/Isolations: Airborne Isolation, Fall Prevention, Standard Precautions Referral Physician: Anya Bowen DO Reason for Referral: Evaluation/Treatment Social History Patient is on bipap and very drowsy, cannot answer questions. Prior Prior Level of Function SCALE: Activities may be completed with or without assistive devices. 2-Dkoeflsqox-hlpxlrr completes the activity by him/herself with no assistance from a helper. 5-Set-up or Clean-up Assistance-helper sets up or cleans up; patient completes activity. [place] assists only prior to or following the activity. 4-Supervision or Touching Assistance-helper provides verbal cues and/or touching/steadying and/or contact guard assistance as patient completes activity. Assistance may be provided throughout the activity or intermittently. 3-Partial/Moderate Assistance-helper does LESS THAN HALF the effort. [place] lifts, holds or supports trunk or limbs, but provides less than half the effort. 2-Substantial/Maximal Assistance-helper does MORE THAN HALF the effort. [place] lifts or holds trunk or limbs and provides more than half the effort. 3-Lmehrxins-jtnhxo does ALL the effort. Patient does none of the effort to complete the activity. Or, the assistance of 2 or more helpers is required for the patient to complete the activity. If activity was not attempted, code reason: 7-Patient Refused. 9-Not Applicable-not attempted and the patient did not perform the activity before the current illness, exacerbation or injury. 10-Not Attempted due to Environmental Limitations-(lack of equipment, weather restraints, etc.). 88-Not Attempted due to Medical Conditions or Safety Concerns. Patient shakes her head no when asked if she used a cane or walker previously. PT Evaluation-Current Subjective Patient in bed pre tx, drowsy, is able to shake head yes and no. Nurse states she tried to sit patient up but she immediately desated. Pt/Family Goals none stated Objective Patient Orientation: Person Attachments: Oxygen (bipap), Day Catheter, IV ROM/Strength ROM Lower Extremities Unable to test due to pain, patient yells in pain with more than a touch of her legs, her ankles less so and she has full ROM in them. Strength Lower Extremities unable to test Sensory Hearing: Functional Treatment BLE PROM. Patient encouraged to participate. She yells out in pain with any pressure exerted on her legs, just minimal PROM performed on her legs. She was able to perform ankle pumps and performed 20 of those. Assessment/Needs Patient in bed post tx with nurse call, phone, tray, all needs met. Laying on left side with pillow support and heel protectors on. Patient has impaired mobility,strength, endurance. She didn't participate much and was very drowsy, yells out in pain with more than a touch of her legs. Rehab Potential: Guarded PT Video Control Engineer Goals Video Control Engineer Goals PT Video Control Engineer Goals Time Frame: Jul 15, 2021 Roll Left & Right (QC): 2 Sit to Lying (QC): 2 Lying-Sitting on Side/Bed(QC): 2 Sit to Stand (QC): 2 PT Plan Problem List Problem List: Activity Tolerance, Functional Strength, Safety, Balance, Gait, Transfer, Bed Mobility, ROM Treatment/Plan Treatment Plan: Continue Plan of Care Treatment Plan: Bed Mobility, Education, Functional Activity [place], Functional Strength, Gait, Safety, Therapeutic Exercise, Transfers Treatment Duration: Jul 15, 2021 Frequency: 6 times per week Estimated Hrs Per Day: .25 hour per day Patient and/or Family Agrees t: Yes Safety Risks/Education Patient Education: Correct Positioning, Safety Issues Teaching Recipient: Patient Teaching Methods: Demonstration, Discussion Response to Teaching: Reinforcement Needed Discharge Recommendations Plan Patient will perform bed mobility and transfer training, balance and endurance training, functional strengthening, gait training, and education, to improve functional mobility and independence at home. Therapy Discharge Recommendati: 24 Hour Supervision Time/GCodes Time In: 1056 Time Out: 1108 Total Billed Treatment Time: 12 Total Billed Treatment 1 visit DAVID HENDERSON PT Jul 08, 2021 11:24
--- NOTE | 2021-07-08 12:16 | Occupational Therapy Eval ---
OT Evaluation-General/PLF Medical Diagnosis Admission Date Jul 03, 2021 at 22:47 Medical Diagnosis: covid 19 debility Onset Date: Jul 03, 2021 Therapy Diagnosis Therapy Diagnosis: debility Precautions Precautions/Isolations: Airborne Isolation, Fall Prevention, Standard Precautions Referral Physician: Anya Bowen DO Referral Reason: Evaluation/Treatment Medical History Current History recent admit to [facility] from 06/17/21 to 06/27/21 due to COVID-19. Pt discharged home with O2 but didn't really ambulate or get out of bed/chair. Family insisted she return to [facility] ED, assessed and found dehydrated, hypoxic and tacycardic. Pt desating on Vapotherm, unable to tolerate BiPAP, so electively intubated. Pt extubated 07/07/21 ADL-Prior Level of Function SCALE: Activities may be completed with or without assistive devices. 0-Flgllpqmpu-nvcxciw completes the activity by him/herself with no assistance from a helper. 5-Set-up or Clean-up Assistance-helper sets up or cleans up; patient completes activity. [place] assists only prior to or following the activity. 4-Supervision or Touching Assistance-helper provides verbal cues and/or touching/steadying and/or contact guard assistance as patient completes activity. Assistance may be provided throughout the activity or intermittently. 3-Partial/Moderate Assistance-helper does LESS THAN HALF the effort. [place] lifts, holds or supports trunk or limbs, but provides less than half the effort. 2-Substantial/Maximal Assistance-helper does MORE THAN HALF the effort. [place] lifts or holds trunk or limbs and provides more than half the effort. 4-Qjsjeokht-tsqhkz does ALL the effort. Patient does none of the effort to complete the activity. Or, the assistance of 2 or more helpers is required for the patient to complete the activity. If activity was not attempted, code reason: 7-Patient Refused. 9-Not Applicable-not attempted and the patient did not perform the activity before the current illness, exacerbation or injury. 10-Not Attempted due to Environmental Limitations-(lack of equipment, weather restraints, etc.). 88-Not Attempted due to Medical Conditions or Safety Concerns. ADL PLOF Comments Pt unable to provide infomation on PLOF and home set up due to BiPAP. With shaking/nodding her head, pt indicated she needed some assistance with ADLs at [facility]. Self Care: Needed Some Help Functional Cognition: Unknown OT Current Status Subjective Pt in bed, BiPAP on. Agreeable to OT tx. Pt nodded head when asked if she had pain, unable to verbalize pain rating. Mental Status/Objective Attachments: Day Catheter, IV, Oxygen (BiPAP), Telemetry Current Upper Extremity ROM decreased, shoulder flexion to approx 20 degrees bilaterally, pt had full finger and wrist movements, slightly decreased at elbow due to weakness. Full PROM all joints. Upper Extremity Coordination decreased due to weakness. Upper Extremity Sensation unable to assess Upper Extremity Strength grossly 2/5 BUEs ADL-Treatment Eating (QC): 88 Oral Hygiene (QC): 88 Lower Body Dressing (QC): 1 (based on clincial judgment) On/Off Footwear (QC): 1 (based on clincial judgment) Toileting Hygiene (QC): 1 (catheter) Other Treatments Pt laying in bed. OT introduced self and educated pt on purpose and benefit of OT. Pt's history limited due to BiPAP. OT tx with focus on increasing BUE strength and activity tolerance, pt completed BUE shoulder flexion x2 reps ~20 degrees. Pt completed x5 reps elbow flexion, difficulty controlling with extension due to weakness. Pt completed x5 reps finger flexion/extension, and x5 reps wrist flexion/extension. OT then performed x10 reps each BUE for PROM, all planes. Post tx, pt laying in bed, call light in reach and all needs met. Education OT Patient Education: Correct positioning, Energy conservation, Modified ADL techniques, Progress toward Goal/Update tx plan, Purpose of tx/functional activities, Rehab process Teaching Recipient: Patient Teaching Methods: Demonstration, Discussion Response to Teaching: Return Demonstration OT [facility] Goals [facility] Goals Time Frame: Jul 29, 2021 Eating (QC): 5 Oral Hygiene (QC): 5 Toileting Hygiene (QC): 4 Shower/Bathe Self (QC): 4 Upper Body Dressing (QC): 5 Lower Body Dressing (QC): 4 On/Off Footwear (QC): 4 Additional Goals: 1-Demonstrate ADL Tasks, 2-Verbalize Understanding, 3- ImproveStrength/Yamilka 1=Demonstrate adherence to instructed precautions during ADL tasks. 2=Patient will verbalize/demonstrate understanding of assistive devices/modifications for ADL. 3=Patient will improve strength/tolerance for activity to enable patient to perform ADL's. OT Education/Plan Problem List/Assessment Assessment: Decreased Activ Tolerance, Decreased UE Strength, Impaired Bed Mobility, Impaired Funct Balance, Impaired I ADL's, Impaired Self-Care Skills, Restricted Funct UE ROM Discharge Recommendations Plan/Recommendations: Continue POC Treatment Plan/Plan of Care Patient would benefit from OT for education, treatment and training to promote independence in ADL's, mobility, safety and/or upper extremity function for ADL's. Plan of Care: ADL Retraining, Functional Mobility, UE Funct Exercise/Act Treatment Duration: Jul 29, 2021 Frequency: 5 times per week Estimated Hrs Per Day: .25 hour per day Rehab Potential: Guarded Time/GCodes Start Time: 11:28 Stop Time: 11:40 Total Time Billed (hr/min): 12 Billed Treatment Time 1, GERARDO ROCA OT Jul 08, 2021 12:16
--- NOTE | 2021-07-08 12:23 | Tele-ICU Progress Note ---
Subjective Date Seen by a Provider: Jul 08, 2021 Time Seen by a Provider: 12:23 Sepsis Event Evaluation Height, Weight, BMI Height: '" Weight: lbs. oz. kg; 30.31 BMI Method: Exam Exam Patient acknowledged, consented, and participated in this virtual visit which was conducted using real time audio/video Vital Signs Date Time Temp Pulse Resp B/P (MAP) Pulse Ox O2 Delivery O2 Flow Rate FiO2 07/08/21 12:00 101 27 146/69 96 NIV Bilevel 70.00 07/08/21 11:00 96 34 116/63 98 NIV Bilevel 70.00 07/08/21 10:39 98 35 93 70.00 07/08/21 10:00 92 29 120/50 93 NIV Bilevel 70.00 07/08/21 09:00 96 29 127/52 94 NIV Bilevel 70.00 07/08/21 08:00 100 33 139/64 93 NIV Bilevel 70.00 07/08/21 07:55 95 NIV Bilevel 70 07/08/21 07:54 98 35 93 70.00 07/08/21 07:52 36.4 07/08/21 07:00 101 35 151/74 95 NIV Bilevel 70.00 07/08/21 07:00 101 07/08/21 06:00 100 31 145/65 97 NIV Bilevel 70.00 07/08/21 05:59 NIV Bilevel 70.00 07/08/21 05:00 96 30 154/86 93 NIV Bilevel 80.00 07/08/21 04:03 NIV Bilevel 80.00 07/08/21 04:00 95 NIV Bilevel 100 07/08/21 04:00 85 28 151/77 96 NIV Bilevel 100.00 07/08/21 04:00 36.6 NIV Bilevel 100.00 07/08/21 03:00 94 37 144/71 96 NIV Bilevel 100.00 07/08/21 02:46 96 36 96 100.00 07/08/21 02:39 NIV Bilevel 100.00 07/08/21 02:27 High Flow N/C 15.00 07/08/21 02:10 89 High Flow N/C 8.00 07/08/21 02:00 92 27 145/68 90 High Flow N/C 6.00 07/08/21 01:00 105 19 142/68 91 High Flow N/C 6.00 07/08/21 01:00 90 07/08/21 00:00 96 29 139/60 92 High Flow N/C 6.00 07/07/21 23:35 92 High Flow N/C 6.00 07/07/21 23:35 36.7 High Flow N/C 6.00 07/07/21 23:00 98 31 134/61 93 High Flow N/C 4.00 07/07/21 22:20 95 High Flow N/C 4.00 07/07/21 22:00 99 26 131/63 92 High Flow N/C 4.00 07/07/21 21:00 101 33 143/69 97 High Flow N/C 4.00 07/07/21 20:00 96 32 125/64 95 High Flow N/C 4.00 07/07/21 19:41 36.4 High Flow N/C 4.00 07/07/21 19:40 High Flow N/C 4.00 07/07/21 19:30 High Flow N/C 4.00 07/07/21 19:00 High Flow N/C 4.00 07/07/21 19:00 99 31 145/58 94 High Flow N/C 4.00 07/07/21 19:00 99 07/07/21 18:28 97 High Flow N/C 5.00 07/07/21 18:00 97 26 146/67 96 High Flow N/C 5.00 07/07/21 17:00 96 29 141/67 96 High Flow N/C 5.00 07/07/21 16:00 105 20 143/66 95 High Flow N/C 5.00 07/07/21 15:56 94 High Flow N/C 5.00 07/07/21 15:50 36.2 07/07/21 15:00 105 22 145/62 94 High Flow N/C 5.00 07/07/21 14:34 95 High Flow N/C 5.00 07/07/21 14:00 94 30 145/62 93 High Flow N/C 5.00 07/07/21 13:00 93 07/07/21 13:00 94 26 147/64 92 High Flow N/C 5.00 I & O 07/08/21 07:00 Intake Total 420 ml Output Total 1975 ml Balance -1555 ml Height & Weight Height: '" Weight: lbs. oz. kg; 30.31 BMI Method: General Appearance: Other (intubated/sedated) HEENT: PERRL/EOMI, Moist Mucous Membranes, Other (endotracheally intubated, blood in nares and oropharynx) Neck: Non Tender, Supple, Other (Some slight swelling left-sided neck and slight oozing from central line.) Respiratory: No Accessory Muscle Use, No Respiratory Distress, Decreased Breath Sounds, Other (Intubated) Cardiovascular: Regular Rate, Rhythm, No JVD Capillary Refill: Less Than 3 Seconds Gastrointestinal: soft, no organomegaly Extremity: No Pedal Edema, Slow Capillary Refill Neurologic/Psychiatric: No Alert, No Oriented x3; Other (sedated) Skin: Normal Color, Cool (bilat extremities cool to palpation) Lymphatic: No Adenopathy Results Lab Laboratory Tests 07/07/21 03:45 07/08/21 02:20 Assessment/Plan Assessment/Plan (Tele-ICU Physician , Progress Note ) Available chart/ vitals / labs / Images reviewed Video assessment done using teleICU camera, rest of exam as per RN Discussed with RN , EXAM PER RN Events overnight : proned , elena - ekg Afebrile I/O = neg 800 levo Pressors: LEVO OFF 07/04 - back on levo 07/05 Sedation gtt: ( RASS ) propofol 50 fentanyl Consultants: Hospital course: recent COVID + hospital stay at [facility] from 06/17/21 until 06/27/21.- home on 2 L 07/03- transferred from other faculty Er abfter intubation for ARF 07/05- - 50% peep 14 07/07 - AC 24- 435 + 5 30 % 07/07 EXTUBATED to 3 L NC 07/08 - back to BIPAP A/P AHRF / ARDS due to severe COVID19 - intubated 07/03 - 07/07 EXTUBATED to 3 L - overnight back to BIPAP - BIPAP 20/08 70% tt 32 tv 400 MV 12 L - will try vapothem day , bipap night [id number]/COVID-19 PNA ( Not vaccinated , Dx 06/17/21 ) -Steroids IV - started -Hypercoagulable state , lovenox 80 q 12 - ON HOLD 07/07 with bleeding around central line - repeat d dimer - might resume with proph dose Suspected superimposed bact PNA -empiric abx merrem and vanc - FINISHED COURSE JILL - mild , improving - stop IVF hyperglycemia - ISS , close f/up on steroids reportedly difficult NG placement after intubation - NOW NG IS OUT - WILL ASSESS SWALLOW - NUTRITIONS ROUTE ? UA abd 07/04 - WNL Lines : left IJ 07/03 (Central Line Necessity Reviewed) Day: 07/03 OG: OUT Nutrition: strating TF 07/05- off 07/07 with intubation Analgesia: Anxiety/ delirium VTE Prophylaxis: lovenox Stress Ulcer Prophylaxis: ppi Glycemic Control: + Plans in collaboration with bedside consultants and IM MDs. Discussed with RN to reach out if any questions or concerns A total of 40 minutes of critical care time was devoted to this patient today, required to treat and/or prevent further deterioration of critical care condition ( as above) KEN OSPINA MD Jul 08, 2021 12:23
--- NOTE | 2021-07-08 14:11 | ST Dysphagia Evaluation ---
Speech Evaluation-General Medical Diagnosis covid 19 debility Onset Date: Jul 03, 2021 Social History Current Living Status: Spouse Speech PLF/Current-Dysphagia Subjective Pt switched from bi-pap to vapotherm by respiratory prior to EDITORIAL CLERK entering room. Pt able to follow simple directions, but lacked motivation. When asked if she would like a drink or bite the pt verbalized no. Encouragement provided for drink. Oral Motor Skills Dentition: Natural Ability to Follow Directions: Fair Voice Voice Phonatory-Based Quality: Weak Voice Pitch: Normal Face Facial Symmetry: Symmetrical Oral-Facial Assessment Oral-Facial Dentition: Normal Labial Seal Description: Normal Lingual Protrusion: Normal Volitional Dry Swallow: Yes Dysphagia Evaluation Consistencies Presented: Thin Liquid, Hedrick Thick Liquid, Pureed Pharyngeal Phase: Delayed Swallow Dietary Recommendations: Pureed Liquid Recommendations: Thin Swallowing Precautions: Chin Tuck, Oral Supervision Staff Pt took 5 bites of applesauce with timely swallow, slight reduced laryngeal elevation upon palpation but no coughing or s/s of dysphagia. Pt refused further trials for soft. Thin liquids trialed via spoon x5 with no vocal changes or s/s of aspiration/penetration. Pt indicated she did not want anymore to eat/drink and refused further trials. Pt presents with funcitonal oropharyngeal phase of swallow with slight delay but appears functional for recommended diet. EDITORIAL CLERK recommends puree/thin liquids via spoon with small bites/sips, chin tuck, and supervision/assistance for intake. Speech Short Term Goals Short Term Goals Short Term Goals 1. The pt will follow compensatory swallow strategies during observed snack wit 90% accy. Speech Mcc Goals Mcc Goals 1. The pt will tolerate least restrictive diet with no overt s/s of aspiration/penetration with 10/10 trials. Speech-Plan Treatment Plan Speech Therapy Treatment Plan: Continue Plan of Care Frequency: 3 times per week Estimated Hrs Per Day: .25 hour per day Rehab Potential: Fair Time Speech Therapy Time In: 13:25 Speech Therapy Time Out: 13:45 Billed Treatment Time 1nery 20 min LETICIA AGUILAR Jul 08, 2021 14:10
[2021-07-08] MEDS ORDERED: DOCUSATE SODIUM 100 MG (COLACE) CAP PO PRN (17:45)
[2021-07-08] MEDS ORDERED: ONDANSETRON 4 MG/2 ML (SDV) Z0FRAN IVP PRN (17:45)
[2021-07-08] MEDS ORDERED: LOPERAMIDE 2 MG (IMODIUM) TABLET PO PRN (17:45)
[2021-07-08] MEDS ORDERED: CALCIUM CARBONATE 500 MG (TUMS) TAB.CHEW PO PRN (17:45)
[2021-07-08] MEDS ORDERED: ONDANSETRON 4 MG (ZOFRAN) ORAL DISSOLVE TAB PO PRN (17:45)
[2021-07-08] MEDS ORDERED: ALPRAZolam 0.25 MG (XANAX) TAB PO PRN (17:45)
[2021-07-08] MEDS ORDERED: diphenhydrAMINE 25 MG TAB (BENADRYL) PO PRN (17:45)
[2021-07-08] MEDS ORDERED: MELATONIN 3 MG TABLET PO PRN (17:45)
[2021-07-08] MEDS ORDERED: ACETAMINOPHEN 325 MG TABLET ONE (17:48)
[2021-07-08] MEDS: ACETAMINOPHEN 500 MG TAB (TYLENOL) PO PRN (17:59)
[2021-07-08] MEDS: SENNA W/DOCUSATE (SENOKOT S) TABLET PO SCH (20:15)
[2021-07-08] MEDS: polyethylene glycoL POWDER 17 GM (MIRALAX) PACK PO SCH (20:15)
[2021-07-08] MEDS: HYDROcodone/APAP 5 MG/325 MG (LORTAB) TAB PO PRN (20:23)
[2021-07-09] MEDS: NOREPINEPHRINE 8 MG/250 ML 250 ML IV SCH (02:02)
[2021-07-09] MEDS: RT-ALBUTEROL HFA 8.5 GM INHALER IH SCH ×4 (03:02→21:00)
[2021-07-09] MEDS: HYDROcodone/APAP 5 MG/325 MG (LORTAB) TAB PO PRN (04:54)
[2021-07-09 05:00] LABS: BASOPHILS % (AUTO) 0 % (0-10); EOSINOPHILS # (AUTO) 0.3 10^3/uL (0.0-0.3); EOSINOPHILS % (AUTO) 4 % (0-10); HEMATOCRIT 24 % (35-52); HEMOGLOBIN 7.3 g/dL (11.5-16.0); LYMPHOCYTES % (AUTO) 31 % (12-44); MEAN CORPUSCULAR HEMOGLOBIN 30 pg (25-34); MEAN CORPUSCULAR HGB CONC 31 g/dL (32-36); MEAN CORPUSCULAR VOLUME 96 fL (80-99); MEAN PLATELET VOLUME 9.2 fL (9.0-12.2); MONOCYTES # (AUTO) 0.4 10^3/uL (0.0-1.0); MONOCYTES % (AUTO) 7 % (0-12); NEUTROPHILS # (AUTO) 3.6 10^3/uL (1.8-7.8); NEUTROPHILS % (AUTO) 55 % (42-75); PLATELET COUNT 214 10^3/uL (130-400); WHITE BLOOD COUNT 6.5 10^3/uL (4.3-11.0)
[2021-07-09 05:04] LABS: POTASSIUM 4.3 MMOL/L (3.6-5.0)
[2021-07-09 05:06] LABS: CALCIUM 8.3 MG/DL (8.5-10.1)
[2021-07-09 05:10] LABS: CREATININE SERUM 0.75 MG/DL (0.60-1.30); PHOSPHORUS 3.9 MG/DL (2.3-4.7)
[2021-07-09 05:12] LABS: MAGNESIUM 2.1 MG/DL (1.6-2.4)
[2021-07-09] MEDS: inSUlin ASPART (NovoLOG) 1 UNIT/0.01 ML (CHARGE PER UNIT) SC SCH ×4 (05:40→20:34)
[2021-07-09] MEDS: KCL 20 MEQ TAB (K-DUR) PO SCH (05:40)
[2021-07-09] MEDS: POTASSIUM CL 10MEQ/50ML IVPB 50 ML IV SCH (05:40)
[2021-07-09] MEDS: MAGNESIUM 1 GM/100 ML IVPB 100 ML IV SCH (05:40)
--- NOTE | 2021-07-09 07:42 | Progress Note ---
Subjective Date Seen by a Provider: Jul 09, 2021 Time Seen by a Provider: 11:00 Subjective/Events-last exam Patient awake and alert Very flat affect Terrible apathy at the bedside struggling to increase her motivation Patient appears to have given up Moving to the floor Effexor 75 started PT and OT will be ordered Check meds labs Review of Systems General: Fatigue, Malaise Pulmonary: Dyspnea Neurological: Other (Depression) Objective Exam Last Set of Vital Signs Vital Signs Date Time Temp Pulse Resp B/P (MAP) Pulse Ox O2 Delivery O2 Flow Rate FiO2 07/09/21 07:00 91 07/09/21 06:51 91 Vapotherm 25.00 45 07/09/21 06:00 21 128/60 07/09/21 00:17 36.0 Capillary Refill : Less Than 3 Seconds I&O Intake and Output 07/09/21 00:00 Intake Total 100 ml Output Total 1262 ml Balance -1162 ml Intake Oral 100 ml Output Urine Total 1260 ml Urine/Stool Mix 2 ml General: Alert, Oriented X3, Cooperative, No Acute Distress Lungs: Clear to Auscultation, Normal Air Movement Heart: Regular Rate, Normal S1, Normal S2, No Murmurs Psych/Mental Status: Mental Status NL, Other (Depressed with apathy) Results Lab Laboratory Tests 07/08/21 11:41: Glucometer 177H 07/08/21 17:20: Glucometer 253H 07/09/21 04:50: White Blood Count 6.5, Red Blood Count 2.44L, Hemoglobin 7.3L, Hematocrit 24L, Mean Corpuscular Volume 96, Mean Corpuscular Hemoglobin 30, Mean Corpuscular Hemoglobin Concent 31L, Red Cell Distribution Width 13.6, Platelet Count 214, Mean Platelet Volume 9.2, Immature Granulocyte % (Auto) 3, Neutrophils (%) (Auto) 55, Lymphocytes (%) (Auto) 31, Monocytes (%) (Auto) 7, Eosinophils (%) (Auto) 4, Basophils (%) (Auto) 0, Neutrophils # (Auto) 3.6, Lymphocytes # (Auto) 2.0, Monocytes # (Auto) 0.4, Eosinophils # (Auto) 0.3, Basophils # (Auto) 0.0, Immature Granulocyte # (Auto) 0.2H, Sodium Level 141, Potassium Level 4.3, Chloride Level 111H, Carbon Dioxide Level 22, Anion Gap 8, Blood Urea Nitrogen 30H, Creatinine 0.75, Estimat Glomerular Filtration Rate 76, BUN/Creatinine Rat io 40, Glucose Level 153H, Calcium Level 8.3L, Phosphorus Level 3.9, Magnesium Level 2.1, Triglycerides Level 246H Microbiology 07/04/21 Gram Stain - Final, Complete 07/04/21 Sputum Culture - Final, Complete No growth 07/04/21 Blood Culture - Preliminary, Resulted No growth Assessment/Plan Assessment/Plan Assess & Plan/Chief Complaint Assessment: Acute Hypoxic Respiratory Failure status post intubation now extubated COVID-19 PNA diagnosed 06/17/2021 Anemia acute blood loss from left central line IJ Elevated alkaline phosphatase Severe depression and apathy Fibromyalgia Diabetes mellitus Hypertension as an outpatient Plan: PT and OT Effexor addition Monitor closely Diagnosis/Problems Diagnosis/Problems (1) COVID-19 (2) Respiratory failure (3) Alkaline phosphatase elevation (4) Acute kidney injury Clinical Quality Measures Admission Status Admission Dx Maintain intubation Very poor prognosis Tried to update today but no answer so suspecting avoidance of discussion NASRIN LAGUERRE DO Jul 09, 2021 07:42
[2021-07-09] MEDS: SENNA W/DOCUSATE (SENOKOT S) TABLET PO SCH ×2 (08:05→20:31)
[2021-07-09] MEDS: polyethylene glycoL POWDER 17 GM (MIRALAX) PACK PO SCH ×2 (08:05→20:31)
[2021-07-09] MEDS: PANTOPRAZOLE 40 MG (PROTONIX) VIAL IV SCH (08:19)
[2021-07-09] MEDS: ENOXAPARIN 80 MG/0.8 ML (LOVENOX) SYR SC SCH ×2 (08:19→20:16)
--- NOTE | 2021-07-09 09:10 | Diagnostic Imaging Report ---
EXAMINATION: Chest radiograph, portable AP view. DATE: 07/09/2021 8:40 AM INDICATION: 70-year-old female, hypoxia. COMPARISON: July 08, 2021. FINDINGS: Heart size and mediastinal contours are unchanged. There is left-sided PICC line overlying the mid SVC. There is redemonstrated multifocal bilateral lung consolidation. IMPRESSION: 1. Redemonstrated multifocal bilateral lung consolidation without significant interval change. 2. Stable positioning of the left-sided PIC line. Dictated by: Dictated on workstation # [id number]
[2021-07-09 09:11] VITALS: BP 127/56
--- NOTE | 2021-07-09 10:29 | Tele-ICU Progress Note ---
Subjective Date Seen by a Provider: Jul 09, 2021 Time Seen by a Provider: 10:29 Sepsis Event Evaluation Height, Weight, BMI Height: '" Weight: lbs. oz. kg; 30.31 BMI Method: Exam Exam Patient acknowledged, consented, and participated in this virtual visit which was conducted using real time audio/video Vital Signs Date Time Temp Pulse Resp B/P (MAP) Pulse Ox O2 Delivery O2 Flow Rate FiO2 07/09/21 10:00 91 27 130/60 95 Vapotherm 40.00 60.00 07/09/21 09:11 96 91 50 07/09/21 09:00 91 130/60 96 Vapotherm 40.00 60.00 07/09/21 08:37 90 07/09/21 08:36 86 Vapotherm 40.00 60.00 07/09/21 08:16 36.1 07/09/21 08:00 96 18 127/56 91 Vapotherm 25.00 50.00 07/09/21 07:50 95 Vapotherm 25.00 50 07/09/21 07:00 91 07/09/21 07:00 89 12 110/56 92 Vapotherm 25.00 50.00 07/09/21 06:51 91 Vapotherm 25.00 45 07/09/21 06:00 93 21 128/60 93 Vapotherm 25.00 50.00 07/09/21 05:00 101 21 124/61 90 Vapotherm 25.00 50.00 07/09/21 04:00 95 Vapotherm 25.00 50 07/09/21 04:00 98 20 117/58 93 Vapotherm 25.00 50.00 07/09/21 03:02 93 Vapotherm 25.00 45 07/09/21 03:00 92 21 133/60 94 Vapotherm 25.00 50.00 07/09/21 02:09 Vapotherm 25.00 50.00 07/09/21 02:00 99 18 107/51 94 Vapotherm 20.00 45.00 07/09/21 01:00 87 07/09/21 01:00 86 15 111/48 93 Vapotherm 20.00 45.00 07/09/21 00:17 36.0 07/09/21 00:00 89 16 110/61 93 Vapotherm 20.00 45.00 07/09/21 00:00 95 Vapotherm 20.00 45 07/08/21 23:00 92 19 121/56 94 Vapotherm 20.00 45.00 07/08/21 22:43 95 Vapotherm 20.00 45 07/08/21 22:16 Vapotherm 20.00 45.00 07/08/21 22:00 90 23 109/53 94 Vapotherm 25.00 50.00 07/08/21 21:00 95 26 122/54 94 Vapotherm 25.00 50.00 07/08/21 20:57 36.5 07/08/21 20:00 95 Vapotherm 25.00 50 07/08/21 20:00 98 28 129/58 93 Vapotherm 25.00 50.00 07/08/21 19:28 Vapotherm 25.00 50.00 07/08/21 19:25 96 07/08/21 19:24 100 Vapotherm 25.00 50 07/08/21 19:00 93 17 138/60 99 Vapotherm 30.00 60.00 07/08/21 19:00 107 07/08/21 18:00 89 30 161/74 95 Vapotherm 30.00 60.00 07/08/21 16:59 Vapotherm 30.00 60.00 07/08/21 16:39 36.5 07/08/21 16:00 87 17 100 NIV Bilevel 70.00 07/08/21 16:00 95 NIV Bilevel 35.00 70 07/08/21 15:00 96 25 98 NIV Bilevel 70.00 07/08/21 14:00 99 29 136/67 100 NIV Bilevel 70.00 07/08/21 13:39 100 Vapotherm 40.00 100 07/08/21 13:00 92 28 137/61 99 NIV Bilevel 70.00 07/08/21 12:38 94 07/08/21 12:00 36.9 07/08/21 12:00 95 NIV Bilevel 70 07/08/21 12:00 101 27 146/69 96 NIV Bilevel 70.00 07/08/21 11:00 96 34 116/63 98 NIV Bilevel 70.00 07/08/21 10:39 98 35 93 70.00 I & O 07/09/21 07:00 Intake Total 125 ml Output Total 947 ml Balance -822 ml Height & Weight Height: '" Weight: lbs. oz. kg; 30.31 BMI Method: General Appearance: Other (intubated/sedated) HEENT: PERRL/EOMI, Moist Mucous Membranes, Other (endotracheally intubated, blood in nares and oropharynx) Neck: Non Tender, Supple, Other (Some slight swelling left-sided neck and slight oozing from central line.) Respiratory: No Accessory Muscle Use, No Respiratory Distress, Decreased Breath Sounds, Other (Intubated) Cardiovascular: Regular Rate, Rhythm, No JVD Capillary Refill: Less Than 3 Seconds Gastrointestinal: soft, no organomegaly Extremity: No Pedal Edema, Slow Capillary Refill Neurologic/Psychiatric: No Alert, No Oriented x3; Other (sedated) Skin: Normal Color, Cool (bilat extremities cool to palpation) Lymphatic: No Adenopathy Results Lab Laboratory Tests 07/08/21 02:20 07/09/21 04:50 Assessment/Plan Assessment/Plan (Tele-ICU Physician , Progress Note ) Available chart/ vitals / labs / Images reviewed Video assessment done using teleICU camera, rest of exam as per RN Discussed with RN , EXAM PER RN Events overnight : Afebrile I/O = neg 1100 levo Pressors: LEVO OFF 07/04 - back on levo 07/05 Sedation gtt: ( RASS ) propofol 50 fentanyl Consultants: Hospital course: recent COVID + hospital stay at [facility] [place] from 06/17/21 until 06/27/21.- home on 2 L 07/03- transferred from other faculty Er abfter intubation for ARF 07/05- - 50% peep 14 07/07 - AC 24- 435 + 5 30 % 07/07 EXTUBATED to 3 L NC 07/08 - back to BIPAP 07/09 - tolerates vapothem , chelsie richards eval A/P chest prt AHRF / ARDS due to severe COVID19 - intubated 07/03 - 07/07 EXTUBATED to 3 L - overnight back to BIPAP - BIPAP / 70% tt 32 tv 400 MV 12 L - will try vapothem day , bipap night - IS , CHEST PT [id number]-5/COVID-19 PNA ( Not vaccinated , Dx 06/17/21 ) -Steroids IV - started -Hypercoagulable state , lovenox 80 q 12 - ON HOLD 07/07 with bleeding around central line -FOLLOW D dimer Suspected superimposed bact PNA -empiric abx merrem and vanc - FINISHED COURSE JILL - mild , improved hyperglycemia - ISS , close f/up on steroids reportedly difficult NG placement after intubation - NOW NG IS OUT - passes swallow - POOR APPETITE - follow with nutrit recom Anemia - was bleeding at IJ site - out now - follow ( on full AC UA abd 07/04 - WNL Lines : left IJ 07/03 -out , LUE PICC 07/07 (Central Line Necessity Reviewed) Day: 07/03 OG: OUT Nutrition: po Analgesia: Anxiety/ delirium VTE Prophylaxis: lovenox Stress Ulcer Prophylaxis: ppi Glycemic Control: + Plans in collaboration with bedside consultants and IM MDs. Discussed with RN to reach out if any questions or concerns A total of 40 minutes of critical care time was devoted to this patient today, r equired to treat and/or prevent further deterioration of critical care condition ( as above) KEN OSPINA MD Jul 09, 2021 10:29
--- NOTE | 2021-07-09 11:04 | Physical Therapy Daily Note ---
PT Daily Note-Current Subjective Pt supine in bed with present at bedside. Pt reluctantly agreeable to PT session. Reports R knee pain with exercises, not rated Appearance Following session, pt supine in bed with B boots on and heels elevated. Call light and phone wihtin reach. All needs met Mental Status Patient Orientation: Confused Attachments: SCD's, Oxygen (vapotherm 60%), Day Catheter, IV Transfers SCALE: Activities may be completed with or without assistive devices. 7-Wdejkgbmsi-souneyz completes the activity by him/herself with no assistance from a helper. 5-Set-up or Clean-up Assistance-helper sets up or cleans up; patient completes activity. [place] assists only prior to or following the activity. 4-Supervision or Touching Assistance-helper provides verbal cues and/or touching/steadying and/or contact guard assistance as patient completes act ivity. Assistance may be provided throughout the activity or intermittently. 3-Partial/Moderate Assistance-helper does LESS THAN HALF the effort. [place] lifts, holds or supports trunk or limbs, but provides less than half the effort. 2-Substantial/Maximal Assistance-helper does MORE THAN HALF the effort. [place] lifts or holds trunk or limbs and provides more than half the effort. 7-Ctvnadwbd-jwvsdk does ALL the effort. Patient does none of the effort to complete the activity. Or, the assistance of 2 or more helpers is required for the patient to complete the activity. If activity was not attempted, code reason: 7-Patient Refused. 9-Not Applicable-not attempted and the patient did not perform the activity before the current illness, exacerbation or injury. 10-Not Attempted due to Environmental Limitations-(lack of equipment, weather restraints, etc.). 88-Not Attempted due to Medical Conditions or Safety Concerns. Exercises Supine Ex: Ankle pumps, Quad Set, Glut sets, Heel Slides, Hip abd/add (15) Treatments AAROM/AROM this date, able to follow cueing to complete active exercises in bed. Moans and yells in pain with right knee flexion Assessment Current Status: Fair Progress Able to complete more active exercises this date PT Penitentiary Goals Penitentiary Goals PT Dumping Machine Operator Goals Time Frame: Jul 15, 2021 Roll Left & Right (QC): 2 Sit to Lying (QC): 2 Lying-Sitting on Side/Bed(QC): 2 Sit to Stand (QC): 2 PT Plan Problem List Problem List: Activity Tolerance, Functional Strength, Safety, Balance, Gait, Transfer, Bed Mobility, ROM Treatment/Plan Treatment Plan: Continue Plan of Care Treatment Plan: Bed Mobility, Education, Functional Activity [place], Functional Strength, Gait, Safety, Therapeutic Exercise, Transfers Treatment Duration: Jul 15, 2021 Frequency: 6 times per week Estimated Hrs Per Day: .25 hour per day Patient and/or Family Agrees t: Yes Time/GCodes Time In: 1035 Time Out: 1045 Total Billed Treatment 1 visit FA (10') YIMI SCHROEDER PT Jul 09, 2021 11:04
[2021-07-09] MEDS: VENlafaxine XR 75 MG (EFFEXOR XR) CAP PO SCH (12:38)
[2021-07-09 16:00] VITALS: BP 138/72
[2021-07-09] MEDS ORDERED: inSUlin (REGULAR) HUMAN 1 UNIT/0.01 ML (CHARGE PER UNIT) SC ONE (16:15)
[2021-07-09 19:47] VITALS: BP 153/74
[2021-07-09] MEDS: ACETAMINOPHEN 500 MG TAB (TYLENOL) PO PRN (20:15)
[2021-07-10 00:29] VITALS: BP 111/57
[2021-07-10] MEDS: RT-ALBUTEROL HFA 8.5 GM INHALER IH SCH ×4 (03:00→21:42)
[2021-07-10 04:00] VITALS: BP 132/81
[2021-07-10] MEDS: VENlafaxine XR 75 MG (EFFEXOR XR) CAP PO SCH (06:07)
[2021-07-10] MEDS: dexAMETHasone 6 MG TAB (DECADRON) PO SCH (06:07)
[2021-07-10] MEDS: inSUlin ASPART (NovoLOG) 1 UNIT/0.01 ML (CHARGE PER UNIT) SC SCH ×4 (06:14→20:32)
[2021-07-10 06:23] LABS: BASOPHILS % (AUTO) 0 % (0-10); EOSINOPHILS # (AUTO) 0.3 10^3/uL (0.0-0.3); EOSINOPHILS % (AUTO) 5 % (0-10); HEMATOCRIT 23 % (35-52); HEMOGLOBIN 7.4 g/dL (11.5-16.0); LYMPHOCYTES # (AUTO) 2.2 10^3/uL (1.0-4.0); LYMPHOCYTES % (AUTO) 30 % (12-44); MEAN CORPUSCULAR HEMOGLOBIN 31 pg (25-34); MEAN CORPUSCULAR HGB CONC 32 g/dL (32-36); MEAN CORPUSCULAR VOLUME 96 fL (80-99); MEAN PLATELET VOLUME 9.3 fL (9.0-12.2); MONOCYTES # (AUTO) 0.6 10^3/uL (0.0-1.0); MONOCYTES % (AUTO) 8 % (0-12); NEUTROPHILS % (AUTO) 55 % (42-75); PLATELET COUNT 245 10^3/uL (130-400); WHITE BLOOD COUNT 7.4 10^3/uL (4.3-11.0)
[2021-07-10 06:36] LABS: ALBUMIN 2.3 GM/DL (3.2-4.5)
[2021-07-10 06:38] LABS: CALCIUM 8.4 MG/DL (8.5-10.1)
[2021-07-10 06:39] LABS: TOTAL PROTEIN 5.2 GM/DL (6.4-8.2)
[2021-07-10 06:41] LABS: BILIRUBIN,TOTAL 0.4 MG/DL (0.1-1.0)
[2021-07-10 06:43] LABS: CREATININE SERUM 0.73 MG/DL (0.60-1.30)
[2021-07-10 08:00] VITALS: BP 147/82
--- NOTE | 2021-07-10 08:19 | Progress Note ---
Subjective Date Seen by a Provider: Jul 10, 2021 Time Seen by a Provider: 12:00 Subjective/Events-last exam Patient doing remarkably well Now feeding herself Sat on the side of the bed today at the bedside Patient feels much better Overall doing very well Review of Systems General: Fatigue, Malaise Objective Exam Last Set of Vital Signs Vital Signs Date Time Temp Pulse Resp B/P (MAP) Pulse Ox O2 Delivery O2 Flow Rate FiO2 07/10/21 04:00 36.0 82 18 132/81 (98) 95 High Flow N/C 5.00 07/09/21 09:11 50 Capillary Refill : Less Than 3 Seconds I&O Intake and Output 07/10/21 00:00 Intake Total 1215 ml Output Total 610 ml Balance 605 ml Intake Oral 1215 ml Output Urine Total 610 ml # Voids 1 # Bowel Movements 1 General: Alert, Oriented X3, Cooperative, No Acute Distress Lungs: Clear to Auscultation, Normal Air Movement Heart: Regular Rate, Normal S1, Normal S2, No Murmurs Psych/Mental Status: Mental Status NL, Mood NL Results Lab Laboratory Tests 07/09/21 10:52: Glucometer 272H 07/09/21 15:42: Glucometer 258H 07/09/21 20:30: Glucometer 79 07/10/21 06:11: Glucometer 98 07/10/21 06:13: White Blood Count 7.4, Red Blood Count 2.43L, Hemoglobin 7.4L, Hematocrit 23L, Mean Corpuscular Volume 96, Mean Corpuscular Hemoglobin 31, Mean Corpuscular Hemoglobin Concent 32, Red Cell Distribution Width 13.5, Platelet Count 245, Mean Platelet Volume 9.3, Immature Granulocyte % (Auto) 2, Neutrophils (%) (Auto) 55, Lymphocytes (%) (Auto) 30, Monocytes (%) (Auto) 8, Eosinophils (%) (Auto) 5, Basophils (%) (Auto) 0, Neutrophils # (Auto) 4.0, Lymphocytes # (Auto) 2.2, Monocytes # (Auto) 0.6, Eosinophils # (Auto) 0.3, Basophils # (Auto) 0.0, Immature Granulocyte # (Auto) 0.1, Sodium Level 139, Potassium Level 4.0, Chloride Level 107, Carbon Dioxide Level 22, Anion Gap 10, Blood Urea Nitrogen 25H, Creatinine 0.73, Estimat Glomerular Filtration Rate 79, BUN/Creatinine Ratio 34, Glucose Level 102, Calcium Level 8.4L, Corrected Calcium 9.8, Total Bilirubin 0.4, Aspartate Amino Transf (AST/SGOT) 14, Alanine Aminotransferase (ALT/SGPT) 23, Alkaline Phosphatase 248H, Total Protein 5.2L, Albumin 2.3L Microbiology 07/04/21 Gram Stain - Final, Complete 07/04/21 Sputum Culture - Final, Complete No growth 07/04/21 Blood Culture - Final, Complete No growth Assessment/Plan Assessment/Plan Assess & Plan/Chief Complaint Assessment: Acute Hypoxic Respiratory Failure status post intubation now extubated COVID-19 PNA diagnosed 06/17/2021 Anemia acute blood loss from left central line IJ Elevated alkaline phosphatase Severe depression and apathy Fibromyalgia Diabetes mellitus Hypertension as an outpatient Plan: PT and OT Effexor addition Monitor closely 07/10/2021: Dramatic improvement PT and OT Inpatient rehab consult Diagnosis/Problems Diagnosis/Problems (1) COVID-19 (2) Respiratory failure (3) Alkaline phosphatase elevation (4) Acute kidney injury Clinical Quality Measures Admission Status Admission Dx Maintain intubation Very poor prognosis Tried to update today but no answer so suspecting avoidance of discussion NASRIN LAGUERRE DO Jul 10, 2021 08:19
[2021-07-10] MEDS: polyethylene glycoL POWDER 17 GM (MIRALAX) PACK PO SCH ×2 (08:23→19:49)
[2021-07-10] MEDS: SENNA W/DOCUSATE (SENOKOT S) TABLET PO SCH ×2 (08:23→19:49)
[2021-07-10] MEDS: HYDROcodone/APAP 5 MG/325 MG (LORTAB) TAB PO PRN (08:23)
[2021-07-10] MEDS: PANTOPRAZOLE 40 MG (PROTONIX) TAB PO SCH (08:23)
[2021-07-10] MEDS: ENOXAPARIN 80 MG/0.8 ML (LOVENOX) SYR SC SCH ×2 (08:24→20:32)
[2021-07-10 11:38] VITALS: BP 129/76
[2021-07-10] MEDS ORDERED: CYANOCOBALAMIN INJ 1000 MCG/ML IM ONE (13:15)
[2021-07-10] MEDS: IRON SUCROSE 200 MG/10 ML (VENOFER) VIAL IV SCH (13:43)
[2021-07-10] MEDS: ACETAMINOPHEN 500 MG TAB (TYLENOL) PO PRN (14:59)
[2021-07-10 16:03] VITALS: BP 139/65
[2021-07-10 19:22] VITALS: BP 135/69
[2021-07-11 00:48] VITALS: BP 119/65
[2021-07-11] MEDS: RT-ALBUTEROL HFA 8.5 GM INHALER IH SCH ×4 (02:33→20:45)
[2021-07-11 03:15] VITALS: BP 125/60
[2021-07-11 04:03] LABS: BASOPHILS % (AUTO) 0 % (0-10); EOSINOPHILS # (AUTO) 0.5 10^3/uL (0.0-0.3); EOSINOPHILS % (AUTO) 6 % (0-10); HEMATOCRIT 23 % (35-52); HEMOGLOBIN 7.3 g/dL (11.5-16.0); LYMPHOCYTES # (AUTO) 2.6 10^3/uL (1.0-4.0); LYMPHOCYTES % (AUTO) 34 % (12-44); MEAN CORPUSCULAR HEMOGLOBIN 30 pg (25-34); MEAN CORPUSCULAR HGB CONC 32 g/dL (32-36); MEAN CORPUSCULAR VOLUME 96 fL (80-99); MEAN PLATELET VOLUME 9.5 fL (9.0-12.2); MONOCYTES # (AUTO) 0.7 10^3/uL (0.0-1.0); MONOCYTES % (AUTO) 9 % (0-12); NEUTROPHILS # (AUTO) 3.7 10^3/uL (1.8-7.8); NEUTROPHILS % (AUTO) 49 % (42-75); PLATELET COUNT 274 10^3/uL (130-400); WHITE BLOOD COUNT 7.5 10^3/uL (4.3-11.0)
[2021-07-11 04:12] LABS: ALBUMIN 2.3 GM/DL (3.2-4.5); POTASSIUM 3.9 MMOL/L (3.6-5.0)
[2021-07-11 04:13] LABS: CALCIUM 8.3 MG/DL (8.5-10.1)
[2021-07-11 04:14] LABS: TOTAL PROTEIN 5.2 GM/DL (6.4-8.2)
[2021-07-11 04:16] LABS: BILIRUBIN,TOTAL 0.4 MG/DL (0.1-1.0)
[2021-07-11 04:18] LABS: CREATININE SERUM 0.73 MG/DL (0.60-1.30)
[2021-07-11] MEDS: inSUlin ASPART (NovoLOG) 1 UNIT/0.01 ML (CHARGE PER UNIT) SC SCH ×4 (06:44→21:09)
[2021-07-11] MEDS: dexAMETHasone 6 MG TAB (DECADRON) PO SCH (06:59)
[2021-07-11] MEDS: VENlafaxine XR 75 MG (EFFEXOR XR) CAP PO SCH (06:59)
--- NOTE | 2021-07-11 07:10 | Progress Note ---
Subjective Date Seen by a Provider: Jul 11, 2021 Time Seen by a Provider: 12:00 Subjective/Events-last exam Patient dramatically improved Still very weak Sister at the bedside Tongue is sore and has sores on the inner part of her cheeks Diagnosed with thrush will start nystatin swish and swallow and Diflucan Inpatient rehab candidate in my opinion PT and OT ordered Labs remained stable DC Decadron Incentive spirometer will be ordered 4 L of oxygen at rest Bowels are loose Review of Systems General: Fatigue Pulmonary: Dyspnea Objective Exam Last Set of Vital Signs Vital Signs Date Time Temp Pulse Resp B/P (MAP) Pulse Ox O2 Delivery O2 Flow Rate FiO2 07/11/21 03:15 36.4 83 20 125/60 (81) 94 High Flow N/C 5.00 07/09/21 09:11 50 Capillary Refill : Less Than 3 Seconds I&O Intake and Output 07/11/21 00:00 Intake Total 850 ml Balance 850 ml Intake Oral 850 ml # Voids 6 General: Alert, Oriented X3, Cooperative, No Acute Distress Lungs: Clear to Auscultation, Normal Air Movement, Other (Diminished in bases) Heart: Regular Rate, Normal S1, Normal S2, No Murmurs Psych/Mental Status: Mental Status NL, Mood NL Results Lab Laboratory Tests 07/10/21 10:49: Glucometer 208H 07/10/21 14:15: 07/10/21 15:43: Glucometer 171H 07/10/21 20:08: Glucometer 184H 07/11/21 03:55: White Blood Count 7.5, Red Blood Count 2.40L, Hemoglobin 7.3L, Hematocrit 23L, Mean Corpuscular Volume 96, Mean Corpuscular Hemoglobin 30, Mean Corpuscular Hemoglobin Concent 32, Red Cell Distribution Width 14.1, Platelet Count 274, Mean Platelet Volume 9.5, Immature Granulocyte % (Auto) 2, Neutrophils (%) (Auto) 49, Lymphocytes (%) (Auto) 34, Monocytes (%) (Auto) 9, Eosinophils (%) (Auto) 6, Basophils (%) (Auto) 0, Neutrophils # (Auto) 3.7, Lymphocytes # (Auto) 2.6, Monocytes # (Auto) 0.7, Eosinophils # (Auto) 0.5H, Basophils # (Auto) 0.0, Immature Granulocyte # (Auto) 0.2H, Sodium Level 136, Potassium Level 3.9, Chloride Level 103, Carbon Dioxide Level 24, Anion Gap 9, Blood Urea Nitrogen 21H, Creatinine 0.73, Estimat Glomerular Filtration Rate 79, BUN/Creatinine Rat io 29, Glucose Level 89, Calcium Level 8.3L, Corrected Calcium 9.7, Total Bilirubin 0.4, Aspartate Amino Transf (AST/SGOT) 20, Alanine Aminotransferase (ALT/SGPT) 31, Alkaline Phosphatase 273H, Total Protein 5.2L, Albumin 2.3L Microbiology 07/04/21 Gram Stain - Final, Complete 07/04/21 Sputum Culture - Final, Complete No growth 07/04/21 Blood Culture - Final, Complete No growth Assessment/Plan Assessment/Plan Assess & Plan/Chief Complaint Assessment: Acute Hypoxic Respiratory Failure status post intubation now extubated COVID-19 PNA diagnosed 06/17/2021 Anemia acute blood loss from left central line IJ Elevated alkaline phosphatase Severe depression and apathy Fibromyalgia Diabetes mellitus Hypertension as an outpatient Situational depression Iron deficiency placed on iron infusions Oral thrush Plan: PT and OT Effexor addition Monitor closely 07/10/2021: Dramatic improvement PT and OT Inpatient rehab consult 07/11/2021: Iron infusions PT and OT Inpatient rehab Wean oxygen Thrush treatment DC Decadron Diagnosis/Problems Diagnosis/Problems (1) COVID-19 (2) Respiratory failure (3) Alkaline phosphatase elevation (4) Acute kidney injury Clinical Quality Measures Admission Status Admission Dx Maintain intubation Very poor prognosis Tried to update today but no answer so suspecting avoidance of discussion NASRIN LAGUERRE DO Jul 11, 2021 07:10
[2021-07-11 07:45] VITALS: BP 109/67
[2021-07-11] MEDS: SENNA W/DOCUSATE (SENOKOT S) TABLET PO SCH ×2 (08:36→21:09)
[2021-07-11] MEDS: HYDROcodone/APAP 5 MG/325 MG (LORTAB) TAB PO PRN ×2 (08:36→15:13)
[2021-07-11] MEDS: ENOXAPARIN 80 MG/0.8 ML (LOVENOX) SYR SC SCH ×2 (08:36→21:09)
[2021-07-11] MEDS: polyethylene glycoL POWDER 17 GM (MIRALAX) PACK PO SCH ×2 (08:36→19:31)
[2021-07-11] MEDS: PANTOPRAZOLE 40 MG (PROTONIX) TAB PO SCH (08:36)
--- NOTE | 2021-07-11 09:23 | Occupational Ther Daily Note ---
OT Current Status-Daily Note Subjective Pt in recliner, family member present throughout tx and encouraging pt to participate. Mental Status/Objective Patient Orientation: Person, Situation Attachments: Oxygen, Other-See Comments (elsie) ADL-Treatment Therapy Code Descriptions/Definitions Functional [place] Measure: 0=Not Assessed/NA 4=Minimal Assistance 1=Total Assistance 5=Supervision or Setup 2=Maximal Assistance 6=Modified [place] 3=Moderate Assistance 7=Complete IndependenceSCALE: Activities may be completed with or without assistive devices. 6-Vnuhydboqe-saybrka completes the activity by him/herself with no assistance from a helper. 5-Set-up or Clean-up Assistance-helper sets up or cleans up; patient completes activity. [place] assists only prior to or following the activity. 4-Supervision or Touching Assistance-helper provides verbal cues and/or touching/steadying and/or contact guard assistance as patient completes activity. Assistance may be provided throughout the activity or intermittently. 3-Partial/Moderate Assistance-helper does LESS THAN HALF the effort. [place] lifts, holds or supports trunk or limbs, but provides less than half the effort. 2-Substantial/Maximal Assistance-helper does MORE THAN HALF the effort. [place] lifts or holds trunk or limbs and provides more than half the effort. 4-Ojwpvhvnj-nqllyy does ALL the effort. Patient does none of the effort to complete the activity. Or, the assistance of 2 or more helpers is required for the patient to complete the activity. If activity was not attempted, code reason: 7-Patient Refused. 9-Not Applicable-not attempted and the patient did not perform the activity before the current illness, exacerbation or injury. 10-Not Attempted due to Environmental Limitations-(lack of equipment, weather restraints, etc.). 88-Not Attempted due to Medical Conditions or Safety Concerns. Toileting Hygiene (QC): 1 (assist x2 per nursing staff to [facility], assist with all parts) Toilet Transfer (QC): 1 (assist x2 per nursing staff.) Other Treatment Pt in recliner, agreeable to therapy tx at this time. Pt indicates she is worn out as she just got up to the chair a little bit ago. Pt stood from chair, assist x2, then took a couple steps forward and back. Pt had difficulty stepping backwards, shuffling her feet. She abruptly sat in the chair prior to getting all the way back to the chair. O2 dropped to 87%, but came up to 90% with cues for pursed lip breathing. Post tx, pt in recliner, call light in reach and all needs met. PureWick in place. Education OT Patient Education: Correct positioning, Modified ADL techniques, Progress t oward Goal/Update tx plan, Purpose of tx/functional activities, Rehab process Teaching Recipient: Patient Teaching Methods: Discussion Response to Teaching: Verbalize Understanding OT Fpc Goals Performance Improvement Coordinator Goals Time Frame: Jul 29, 2021 Eating (QC): 5 Oral Hygiene (QC): 5 Toileting Hygiene (QC): 4 Shower/Bathe Self (QC): 4 Upper Body Dressing (QC): 5 Lower Body Dressing (QC): 4 On/Off Footwear (QC): 4 Additional Goals: 1-Demonstrate ADL Tasks, 2-Verbalize Understanding, 3- ImproveStrength/[place] 1=Demonstrate adherence to instructed precautions during ADL tasks. 2=Patient will verbalize/demonstrate understanding of assistive devices/modifications for ADL. 3=Patient will improve strength/tolerance for activity to enable patient to perform ADL's. OT Education/Plan Problem List/Assessment Assessment: Decreased Activ Tolerance, Decreased UE Strength, Dependent Transfers, Impaired Funct Balance, Impaired I ADL's, Impaired Self-Care Skills Discharge Recommendations Plan/Recommendations: Continue POC Treatment Plan/Plan of Care Patient would benefit from OT for education, treatment and training to promote independence in ADL's, mobility, safety and/or upper extremity function for ADL's. Plan of Care: ADL Retraining, Functional Mobility, UE Funct Exercise/Act Treatment Duration: Jul 29, 2021 Frequency: 5 times per week Estimated Hrs Per Day: .25 hour per day Rehab Potential: Fair Time/GCodes Start Time: 09:00 Stop Time: 09:10 Total Time Billed (hr/min): 10 Billed Treatment Time 1, GERARDO MARTINEZ OT Jul 11, 2021 09:23
--- NOTE | 2021-07-11 09:42 | Physical Therapy Daily Note ---
PT Daily Note-Current Subjective Patient in recliner pre tx, agrees to PT, has 8/10 pain in low back and both legs. Appearance Patient in recliner post tx with nurse call, phone, tray, all needs met. Mental Status Patient Orientation: Person, Confused Attachments: Oxygen Transfers SCALE: Activities may be completed with or without assistive devices. 1-Lebbnifshm-nhwwvza completes the activity by him/herself with no assistance from a helper. 5-Set-up or Clean-up Assistance-helper sets up or cleans up; patient completes activity. [place] assists only prior to or following the activity. 4-Supervision or Touching Assistance-helper provides verbal cues and/or touching/steadying and/or contact guard assistance as patient completes activity. Assistance may be provided throughout the activity or intermittently. 3-Partial/Moderate Assistance-helper does LESS THAN HALF the effort. [place] lifts, holds or supports trunk or limbs, but provides less than half the effort. 2-Substantial/Maximal Assistance-helper does MORE THAN HALF the effort. [place] lifts or holds trunk or limbs and provides more than half the effort. 9-Rlijlvtuf-gsnqyz does ALL the effort. Patient does none of the effort to complete the activity. Or, the assistance of 2 or more helpers is required for the patient to complete the activity. If activity was not attempted, code reason: 7-Patient Refused. 9-Not Applicable-not attempted and the patient did not perform the activity before the current illness, exacerbation or injury. 10-Not Attempted due to Environmental Limitations-(lack of equipment, weather restraints, etc.). 88-Not Attempted due to Medical Conditions or Safety Concerns. Sit to Stand (QC): 3 mod assist for sit to stand Gait Training Distance: 3' Gait Persons Needed: 1 Gait Assistive Device: FWW Patient was able to take a couple of steps forward and a couple of steps back, she was not able to ambulate completely back to the recliner and had to be guided back to the chair when sitting, very slumped posture, pain in legs with bearing weight, her O2 dropped to 87% but came back up to 90% fairly fast with purse lip breathing Exercises Seated Therapy Exercises: Ankle pumps Seated Reps: 20 Treatments standing, ambulation, LE ROM Assessment Current Status: Fair Progress Patient could really only do one LE exercise due to fatigue, overall improved functional mobility PT [place] Goals Shelter Goals PT Shelter Goals Time Frame: Jul 15, 2021 Roll Left & Right (QC): 2 Sit to Lying (QC): 2 Lying-Sitting on Side/Bed(QC): 2 Sit to Stand (QC): 2 PT Plan Problem List Problem List: Activity Tolerance, Functional Strength, Safety, Balance, Gait, T ransfer, Bed Mobility, ROM Treatment/Plan Treatment Plan: Continue Plan of Care Treatment Plan: Bed Mobility, Education, Functional Activity [place], Functional Strength, Gait, Safety, Therapeutic Exercise, Transfers Treatment Duration: Jul 15, 2021 Frequency: 6 times per week Estimated Hrs Per Day: .25 hour per day Patient and/or Family Agrees t: Yes Safety Risks/Education Patient Education: Gait Training, Transfer Techniques, Correct Positioning, Safety Issues Teaching Recipient: Patient Teaching Methods: Demonstration, Discussion Response to Teaching: Reinforcement Needed Time/GCodes Time In: 0900 Time Out: 09 Total Billed Treatment Time: 10 Total Billed Treatment 1 visit FA DAVID QUIGLEY PT Jul 11, 2021 09:42
[2021-07-11 11:26] VITALS: BP 110/65
[2021-07-11] MEDS: NYSTATIN ORAL SUSP 5 ML UDC PO SCH ×2 (12:13→17:25)
[2021-07-11] MEDS ORDERED: TROUGH ORDER-PHARMACY XX NR (13:00)
[2021-07-11 15:52] VITALS: BP 125/60
[2021-07-11 20:20] VITALS: BP 131/61
[2021-07-12] VITALS: BP 117/67
[2021-07-12] MEDS: NYSTATIN ORAL SUSP 5 ML UDC PO SCH ×2 (00:51→06:12)
[2021-07-12] MEDS: RT-ALBUTEROL HFA 8.5 GM INHALER IH SCH ×2 (02:46→07:35)
[2021-07-12 03:46] VITALS: BP 106/65
[2021-07-12 04:26] LABS: BASOPHILS % (AUTO) 0 % (0-10); EOSINOPHILS # (AUTO) 0.5 10^3/uL (0.0-0.3); EOSINOPHILS % (AUTO) 5 % (0-10); HEMATOCRIT 23 % (35-52); HEMOGLOBIN 7.2 g/dL (11.5-16.0); LYMPHOCYTES # (AUTO) 2.7 10^3/uL (1.0-4.0); LYMPHOCYTES % (AUTO) 27 % (12-44); MEAN CORPUSCULAR HEMOGLOBIN 31 pg (25-34); MEAN CORPUSCULAR HGB CONC 32 g/dL (32-36); MEAN CORPUSCULAR VOLUME 96 fL (80-99); MEAN PLATELET VOLUME 9.3 fL (9.0-12.2); MONOCYTES # (AUTO) 1.1 10^3/uL (0.0-1.0); MONOCYTES % (AUTO) 10 % (0-12); NEUTROPHILS # (AUTO) 5.7 10^3/uL (1.8-7.8); NEUTROPHILS % (AUTO) 56 % (42-75); PLATELET COUNT 303 10^3/uL (130-400); WHITE BLOOD COUNT 10.3 10^3/uL (4.3-11.0)
[2021-07-12 04:34] LABS: ALBUMIN 2.3 GM/DL (3.2-4.5)
[2021-07-12 04:35] LABS: POTASSIUM 3.8 MMOL/L (3.6-5.0)
[2021-07-12 04:36] LABS: CALCIUM 8.3 MG/DL (8.5-10.1)
[2021-07-12 04:37] LABS: TOTAL PROTEIN 5.2 GM/DL (6.4-8.2)
[2021-07-12 04:39] LABS: BILIRUBIN,TOTAL 0.4 MG/DL (0.1-1.0)
[2021-07-12 04:41] LABS: CREATININE SERUM 0.74 MG/DL (0.60-1.30)
[2021-07-12] MEDS: inSUlin ASPART (NovoLOG) 1 UNIT/0.01 ML (CHARGE PER UNIT) SC SCH ×2 (05:32→11:15)
[2021-07-12] MEDS: VENlafaxine XR 75 MG (EFFEXOR XR) CAP PO SCH (06:12)
[2021-07-12] MEDS ORDERED: BETHANECHOL 25 MG (URECHOLINE) TAB PO SCH (06:15)
[2021-07-12 06:43] LABS: BILIRUBIN,URINE NEGATIVE (NEGATIVE); CLARITY,URINE CLEAR; COLOR,URINE YELLOW; GLUCOSE, URINE (UA) NEGATIVE (NEGATIVE); KETONES,URINE NEGATIVE (NEGATIVE); LEUKOCYTE ESTERASE ,URINE NEGATIVE (NEGATIVE); NITRITE,URINE NEGATIVE (NEGATIVE); PH,URINE 5.5 (5-9); PROTEIN,URINE NEGATIVE (NEGATIVE)
[2021-07-12 06:54] LABS: BACTERIA,URINE TRACE /HPF; SQUAMOUS EPITHELIAL CELL,UR RARE /HPF
[2021-07-12 08:00] VITALS: BP 105/63
[2021-07-12] MEDS ORDERED: fluCOnazole (DIFLUCAN) 100 MG TAB PO SCH (09:00)
[2021-07-12] MEDS: SENNA W/DOCUSATE (SENOKOT S) TABLET PO SCH (09:32)
[2021-07-12] MEDS: ENOXAPARIN 80 MG/0.8 ML (LOVENOX) SYR SC SCH (09:32)
[2021-07-12] MEDS: polyethylene glycoL POWDER 17 GM (MIRALAX) PACK PO SCH (09:32)
[2021-07-12] MEDS: PANTOPRAZOLE 40 MG (PROTONIX) TAB PO SCH (09:32)
[2021-07-12] MEDS: IRON SUCROSE 200 MG/10 ML (VENOFER) VIAL IV SCH (09:32)
--- NOTE | 2021-07-12 09:39 | Discharge Summary ---
Diagnosis/Chief Complaint Date of Admission Jul 03, 2021 at 22:47 Date of Discharge Discharge Date: Jul 12, 2021 Discharge Diagnosis Assessment: Acute Hypoxic Respiratory Failure status post intubation now extubated COVID-19 PNA diagnosed 06/17/2021 Anemia acute blood loss from left central line IJ Elevated alkaline phosphatase Severe depression and apathy Fibromyalgia Diabetes mellitus Hypertension as an outpatient Situational depression Iron deficiency placed on iron infusions Oral thrush Plan: PT and OT Effexor addition Monitor closely 07/10/2021: Dramatic improvement PT and OT Inpatient rehab consult 07/11/2021: Iron infusions PT and OT Inpatient rehab Wean oxygen Thrush treatment DC Decadron Reason Hospital Visit CC: Respiratory failure HPI: This is a 75yoWF who was moved over from [facility] for higher level pulmonary critical care EICU who contracted Covid, that swab was positive on 06/17/21, r emained in the hospital at [facility] until 06/27/21, discharged on home oxygen and did very well but apparently she declined and went into respiratory failure requiring intubation at [facility] yesterday and transferred over. Currently her ABG is 7.27/48/42 and I did attempt to call her , there was no answer. Nurse did talk to her [id number]. Discharge Summary Discharge Physical Examination Allergies: Coded Allergies: Penicillins (Verified Allergy, Unknown, 07/03/21) erythromycin base (Verified Allergy, Unknown, 07/03/21) Vitals & I&Os Vital Signs Date Time Temp Pulse Resp B/P (MAP) Pulse Ox O2 Delivery O2 Flow Rate FiO2 07/12/21 11:17 07/12/21 09:00 High Flow N/C 3.00 07/12/21 08:00 36.7 94 20 94 07/09/21 09:11 50 General Appearance: Alert, Oriented X3, Cooperative Respiratory: Clear to Auscultation Cardiovascular: Regular Rate Psych/Mental Status: Mental Status NL, Other (flat) Hospital Course Was the Problem List Reviewed?: Yes Hospital course: Pt had a lengthy hospital course, she was admitted from [place] ICU due to Covid-19 respiratory failure, she was intubated for six days, ultimately extubated, had good response, transferred to fourth floor, very weak and now in need of inpatient rehab. Labs (last 24 hrs) Laboratory Tests 07/03/21 22:47: Lab Scanned Report Referred Lab Report 07/03/21 23:48: Blood Gas Puncture Site left radial, Blood Gas Patient Temperature 36.9, Arterial Blood pH 7.27*L, Arterial Blood Partial Pressure CO2 47H, Arterial Blood Partial Pressure O2 46L, Arterial Blood HCO3 21L, Arterial Blood Total CO2 22.0, Arterial Blood Oxygen Saturation 73L, Arterial Blood Base Excess -5.3L, Masoud Test YES-POS, Blood Gas Ventilator Setting YES, Blood Gas Inspired Oxygen 100% 07/03/21 23:57: White Blood Count 7.7, Red Blood Count 3.64L, Hemoglobin 11.0L, Hematocrit 35, Mean Corpuscular Volume 95, Mean Corpuscular Hemoglobin 30, Mean Corpuscular Hemoglobin Concent 32, Red Cell Distribution Width 13.2, Platelet Count 184, Mean Platelet Volume 9.1, Immature Granulocyte % (Auto) 1, Neutrophils (%) (Auto) 91H, Lymphocytes (%) (Auto) 7L, Monocytes (%) (Auto) 1, Eosinophils (%) (Auto) 0, Basophils (%) (Auto) 0, Neutrophils # (Auto) 7.0, Lymphocytes # (Auto) 0.5L, Monocytes # (Auto) 0.1, Eosinophils # (Auto) 0.0, Basophils # (Auto) 0.0, Immature Granulocyte # (Auto) 0.1, Neutrophils % (Manual) 89, Lymphocytes % (Manual) 8, Monocytes % (Manual) 3, Sodium Level 137, Potassium Level 4.6, Chloride Level 108H, Carbon Dioxide Level 18L, Anion Gap 11, Blood Urea Nitrogen 26H, Creatinine 1.36H, Estimat Glomerular Filtration Rate 38, BUN/Creatinine Ratio 19, Glucose Level 266H, Calcium Level 8.3L, Corrected Calcium 9.6, Total Bilirubin 0.6, Aspartate Amino Transf (AST/SGOT) 24, Alanine Aminotransferase (ALT/SGPT) 43, Alkaline Phosphatase 516H, Total Protein 6.4, Albumin 2.4L, Triglycerides Level 195H 07/04/21 03:43: White Blood Count 6.4, Red Blood Count 3.26L, Hemoglobin 9.9L, Hematocrit 31L, Mean Corpuscular Volume 96, Mean Corpuscular Hemoglobin 30, Mean Corpuscular Hemoglobin Concent 32, Red Cell Distribution Width 13.2, Platelet Count 170, Mean Platelet Volume 9.4, Immature Granulocyte % (Auto) 1, Neutrophils (%) ( Auto) 88H, Lymphocytes (%) (Auto) 9L, Monocytes (%) (Auto) 2, Eosinophils (%) (Auto) 0, Basophils (%) (Auto) 0, Neutrophils # (Auto) 5.6, Lymphocytes # (Auto) 0.6L, Monocytes # (Auto) 0.1, Eosinophils # (Auto) 0.0, Basophils # (Auto) 0.0, Immature Granulocyte # (Auto) 0.1, Sodium Level 135, Potassium Level 4.7, Chloride Level 107, Carbon Dioxide Level 19L, Anion Gap 9, Blood Urea Nitrogen 25H, Creatinine 1.25, Estimat Glomerular Filtration Rate 42, BUN/Creatinine Ratio 20, Glucose Level 256H, Calcium Level 8.0L, Corrected Calcium 9.4, Total Bilirubin 0.4, Aspartate Amino Transf (AST/SGOT) 18, Alanine Aminotransferase (ALT/SGPT) 37, Alkaline Phosphatase 455H, Total Protein 5.8L, Albumin 2.2L, Lactic Acid Level 0.79, Phosphorus Level 5.3H, Magnesium Level 2.0 07/04/21 03:55: Blood Gas Puncture Site RR, Blood Gas Patient Temperature 37, Arterial Blood pH 7.27*L, Arterial Blood Partial Pressure CO2 48H, Arterial Blood Partial Pressure O2 42L, Arterial Blood HCO3 21L, Arterial Blood Total CO2 22.6, Arterial Blood Oxygen Saturation 70L, Arterial Blood Base Excess -4.7L, Masoud Test YES-POS, Blood Gas Ventilator Setting YES, Blood Gas Inspired Oxygen 95% 07/04/21 11:32: Glucometer 210H 07/04/21 16:39: Glucometer 237H 07/05/21 00:03: Glucometer 188H 07/05/21 02:35: White Blood Count 11.8H, Red Blood Count 3.04L, Hemoglobin 9.0L, Hematocrit 29L, Mean Corpuscular Volume 96, Mean Corpuscular Hemoglobin 30, Mean Corpuscular Hemoglobin Concent 31L, Red Cell Distribution Width 13.5, Platelet Count 215, Mean Platelet Volume 9.0, Immature Granulocyte % (Auto) 1, Neutrophils (%) (Auto) 84H, Lymphocytes (%) (Auto) 10L, Monocytes (%) (Auto) 5, Eosinophils (%) (Auto) 0, Basophils (%) (Auto) 0, Neutrophils # (Auto) 9.8H, Lymphocytes # (Auto) 1.2, Monocytes # (Auto) 0.6, Eosinophils # (Auto) 0.0, Basophils # (Auto) 0.0, Immature Granulocyte # (Auto) 0.1, Sodium Level 139, Potassium Level 4.4, Chloride Level 112H, Carbon Dioxide Level 19L, Anion Gap 8, Blood Urea Nitrogen 18, Creatinine 0.86, Estimat Glomerular Filtration Rate 65, BUN/Creatinine Ratio 21, Glucose Level 194H, Calcium Level 8.0L, Phosphorus Level 3.4, Magnesium Level 2.0, Total Bilirubin 0.3, Direct Bilirubin 0.2, Indirect Bilirubin 0.1, Aspartate Amino Transf (AST/SGOT) 11, Alanine Aminotransferase (ALT/SGPT) 27, Alkaline Phosphatase 411H, Total Protein 5.4L, Albumin 2.1L, Triglycerides Level 241H 07/05/21 04:46: Blood Gas Puncture Site LEFT RAD, Blood Gas Patient Temperature 37, Arterial Blood pH 7.28*L, Arterial Blood Partial Pressure CO2 45, Arterial Blood Partial Pressure O2 84, Arterial Blood HCO3 20L, Arterial Blood Total CO2 21.5, Arterial Blood Oxygen Saturation 96, Arterial Blood Base Excess -5.5L, Masoud Test YES- POS, Blood Gas Ventilator Setting YES, Blood Gas Inspired Oxygen 80% 07/05/21 06:03: Glucometer 176H 07/05/21 11:59: Glucometer 165H 07/05/21 17:41: Glucometer 213H 07/05/21 23:04: Glucometer 181H 07/06/21 00:30: Vancomycin Level Trough 10.8 07/06/21 01:57: White Blood Count 9.7, Red Blood Count 3.00L, Hemoglobin 9.0L, Hematocrit 29L, Mean Corpuscular Volume 97, Mean Corpuscular Hemoglobin 30, Mean Corpuscular Hemoglobin Concent 31L, Red Cell Distribution Width 13.8, Platelet Count 227, Mean Platelet Volume 9.1, Immature Granulocyte % (Auto) 1, Neutrophils (%) (Auto) 79H, Lymphocytes (%) (Auto) 13, Monocytes (%) (Auto) 7, Eosinophils (%) (Auto) 0, Basophils (%) (Auto) 0, Neutrophils # (Auto) 7.6, Lymphocytes # (Auto) 1.3, Monocytes # (Auto) 0.7, Eosinophils # (Auto) 0.0, Basophils # (Auto) 0.0, Immature Granulocyte # (Auto) 0.1, Sodium Level 137, Potassium Level 4.2, Chloride Level 110H, Carbon Dioxide Level 18L, Anion Gap 9, Blood Urea Nitrogen 20H, Creatinine 0.80, Estimat Glomerular Filtration Rate 71, BUN/Creatinine Ratio 25, Glucose Level 201H, Calcium Level 8.3L, Phosphorus Level 2.5, Magnesium Level 2.1 07/06/21 05:56: Glucometer 176H 07/06/21 10:38: Glucometer 196H 07/06/21 10:50: Total Bilirubin 0.3, Direct Bilirubin 0.2, Indirect Bilirubin 0.1, Aspartate Amino Transf (AST/SGOT) 13, Alanine Aminotransferase (ALT/SGPT) 24, Alkaline Phosphatase 363H, Total Protein 5.4L, Albumin 2.2L 07/06/21 15:35: Prothrombin Time 13.9, INR Comment 1.0, Activated Partial Thromboplast Time 41H, Fibrinogen 618H, D-Dimer 1.85H 07/06/21 17:01: Glucometer 216H 07/06/21 23:32: Glucometer 178H 07/07/21 03:45: White Blood Count 7.9, Red Blood Count 2.53L, Hemoglobin 7.7L, Hematocrit 24L, Mean Corpuscular Volume 96, Mean Corpuscular Hemoglobin 30, Mean Corpuscular Hemoglobin Concent 32, Red Cell Distribution Width 13.6, Platelet Count 211, Mean Platelet Volume 9.4, Immature Granulocyte % (Auto) 2, Neutrophils (%) (Auto) 61, Lymphocytes (%) (Auto) 28, Monocytes (%) (Auto) 9, Eosinophils (%) (Auto) 1, Basophils (%) (Auto) 0, Neutrophils # (Auto) 4.8, Lymphocytes # (Auto) 2.2, Monocytes # (Auto) 0.7, Eosinophils # (Auto) 0.0, Basophils # (Auto) 0.0, Immature Granulocyte # (Auto) 0.2H, Sodium Level 138, Potassium Level 4.4, Chloride Level 112H, Carbon Dioxide Level 19L, Anion Gap 7, Blood Urea Nitrogen 24H, Creatinine 0.74, Estimat Glomerular Filtration Rate 78, BUN/Creatinine Ratio 32, Glucose Level 211H, Calcium Level 7.9L, Phosphorus Level 2.1L, Magnesium Level 2.1, Total Bilirubin 0.3, Direct Bilirubin 0.2, Indirect Bilirubin 0.1, Aspartate Amino Transf (AST/SGOT) 13, Alanine Aminotransferase (ALT/SGPT) 21, Alkaline Phosphatase 288H, Total Protein 4.7L, Albumin 2.0L, Triglycerides Level 310H 07/07/21 04:24: Blood Gas Puncture Site RIGHT RADIAL, Blood Gas Patient Temperature 36.2, Arterial Blood pH 7.44H, Arterial Blood Partial Pressure CO2 33L, Arterial Blood Partial Pressure O2 48L, Arterial Blood HCO3 23, Arterial Blood Total CO2 23.7, Arterial Blood Oxygen Saturation 83L, Arterial Blood Base Excess -1.1, Masoud Test POSITIVE, Blood Gas Ventilator Setting YES, Blood Gas Inspired Oxygen 80 07/07/21 10:10: Blood Gas Puncture Site RT RAD, Blood Gas Patient Temperature 98.2, Arterial Blood pH 7.40, Arterial Blood Partial Pressure CO2 37, Arterial Blood Partial Pressure O2 61L, Arterial Blood HCO3 23, Arterial Blood Total CO2 23.8, Arterial Blood Oxygen Saturation 90L, Arterial Blood Base Excess -1.4, Masoud Test YES- POS, Blood Gas Ventilator Setting YES, Blood Gas Inspired Oxygen 30% 07/07/21 10:41: Glucometer 173H 07/07/21 17:43: Glucometer 244H 07/07/21 23:22: Glucometer 166H 07/08/21 02:20: White Blood Count 6.7, Red Blood Count 2.64L, Hemoglobin 8.0L, Hematocrit 25L, Mean Corpuscular Volume 95, Mean Corpuscular Hemoglobin 30, Mean Corpuscular Hemoglobin Concent 32, Red Cell Distribution Width 13.6, Platelet Count 189, Mean Platelet Volume 9.3, Immature Granulocyte % (Auto) 3, Neutrophils (%) (Auto) 62, Lymphocytes (%) (Auto) 27, Monocytes (%) (Auto) 8, Eosinophils (%) (Auto) 1, Basophils (%) (Auto) 0, Neutrophils # (Auto) 4.2, Lymphocytes # (Auto) 1.8, Monocytes # (Auto) 0.5, Eosinophils # (Auto) 0.1, Basophils # (Auto) 0.0, Immature Granulocyte # (Auto) 0.2H, D-Dimer 3.28H, Blood Gas Puncture Site LEFT RADIAL, Blood Gas Patient Temperature 36.6, Arterial Blood pH 7.51H, Arterial Blood Partial Pressure CO2 29L, Arterial Blood Partial Pressure O2 62L, Arterial Blood HCO3 23, Arterial Blood Total CO2 24.3, Arterial Blood Oxygen Saturation 94, Arterial Blood Base Excess 0.5, Masoud Test YES-POS, Blood Gas Ventilator Setting NO, Blood Gas Inspired Oxygen 40%, Sodium Level 139, Potassium Level 4.5, Chloride Level 109H, Carbon Dioxide Level 21, Anion Gap 9, Blood Urea Nitrogen 24H, Creatinine 0.72, Estimat Glomerular Filtration Rate 80, BUN/Creatinine Ratio 33, Glucose Level 135H, Calcium Level 8.4L, Phosphorus Level 2.9, Magnesium Level 2.1 07/08/21 11:41: Glucometer 177H 07/08/21 17:20: Glucometer 253H 07/09/21 04:50: White Blood Count 6.5, Red Blood Count 2.44L, Hemoglobin 7.3L, Hematocrit 24L, Mean Corpuscular Volume 96, Mean Corpuscular Hemoglobin 30, Mean Corpuscular Hemoglobin Concent 31L, Red Cell Distribution Width 13.6, Platelet Count 214, Mean Platelet Volume 9.2, Immature Granulocyte % (Auto) 3, Neutrophils (%) (Auto) 55, Lymphocytes (%) (Auto) 31, Monocytes (%) (Auto) 7, Eosinophils (%) (Auto) 4, Basophils (%) (Auto) 0, Neutrophils # (Auto) 3.6, Lymphocytes # (Auto) 2.0, Monocytes # (Auto) 0.4, Eosinophils # (Auto) 0.3, Basophils # (Auto) 0.0, Immature Granulocyte # (Auto) 0.2H, Sodium Level 141, Potassium Level 4.3, Chloride Level 111H, Carbon Dioxide Level 22, Anion Gap 8, Blood Urea Nitrogen 30H, Creatinine 0.75, Estimat Glomerular Filtration Rate 76, BUN/Creatinine Ratio 40, Glucose Level 153H, Calcium Level 8.3L, Phosphorus Level 3.9, Magnesium Level 2.1, Triglycerides Level 246H 07/09/21 10:52: Glucometer 272H 07/09/21 15:42: Glucometer 258H 07/09/21 20:30: Glucometer 79 9/5/21 06:11: Glucometer 98 07/10/21 06:13: White Blood Count 7.4, Red Blood Count 2.43L, Hemoglobin 7.4L, Hematocrit 23L, Mean Corpuscular Volume 96, Mean Corpuscular Hemoglobin 31, Mean Corpuscular Hemoglobin Concent 32, Red Cell Distribution Width 13.5, Platelet Count 245, Mean Platelet Volume 9.3, Immature Granulocyte % (Auto) 2, Neutrophils (%) (Auto) 55, Lymphocytes (%) (Auto) 30, Monocytes (%) (Auto) 8, Eosinophils (%) (Auto) 5, Basophils (%) (Auto) 0, Neutrophils # (Auto) 4.0, Lymphocytes # (Auto) 2.2, Monocytes # (Auto) 0.6, Eosinophils # (Auto) 0.3, Basophils # (Auto) 0.0, Immature Granulocyte # (Auto) 0.1, Sodium Level 139, Potassium Level 4.0, Chloride Level 107, Carbon Dioxide Level 22, Anion Gap 10, Blood Urea Nitrogen 25H, Creatinine 0.73, Estimat Glomerular Filtration Rate 79, BUN/Creatinine Ratio 34, Glucose Level 102, Calcium Level 8.4L, Corrected Calcium 9.8, Total Bilirubin 0.4, Aspartate Amino Transf (AST/SGOT) 14, Alanine Aminotransferase (ALT/SGPT) 23, Alkaline Phosphatase 248H, Total Protein 5.2L, Albumin 2.3L 07/10/21 10:49: Glucometer 208H 07/10/21 14:15: Iron Level 421H, Vitamin B12 Level >2000H 07/10/21 15:43: Glucometer 171H 07/10/21 20:08: Glucometer 184H 07/11/21 03:55: White Blood Count 7.5, Red Blood Count 2.40L, Hemoglobin 7.3L, Hematocrit 23L, Mean Corpuscular Volume 96, Mean Corpuscular Hemoglobin 30, Mean Corpuscular Hemoglobin Concent 32, Red Cell Distribution Width 14.1, Platelet Count 274, Mean Platelet Volume 9.5, Immature Granulocyte % (Auto) 2, Neutrophils (%) (Auto) 49, Lymphocytes (%) (Auto) 34, Monocytes (%) (Auto) 9, Eosinophils (%) (Auto) 6, Basophils (%) (Auto) 0, Neutrophils # (Auto) 3.7, Lymphocytes # (Auto) 2.6, Monocytes # (Auto) 0.7, Eosinophils # (Auto) 0.5H, Basophils # (Auto) 0.0, Immature Granulocyte # (Auto) 0.2H, Sodium Level 136, Potassium Level 3.9, Chloride Level 103, Carbon Dioxide Level 24, Anion Gap 9, Blood Urea Nitrogen 21H, Creatinine 0.73, Estimat Glomerular Filtration Rate 79, BUN/Creatinine Ratio 29, Glucose Level 89, Calcium Level 8.3L, Corrected Calcium 9.7, Total Bilirubin 0.4, Aspartate Amino Transf (AST/SGOT) 20, Alanine Aminotransferase (ALT/SGPT) 31, Alkaline Phosphatase 273H, Total Protein 5.2L, Albumin 2.3L 07/11/21 11:31: Glucometer 185H 07/11/21 15:44: Glucometer 144H 07/11/21 20:06: Glucometer 185H 07/12/21 04:20: White Blood Count 10.3, Red Blood Count 2.34L, Hemoglobin 7.2L, Hematocrit 23L, Mean Corpuscular Volume 96, Mean Corpuscular Hemoglobin 31, Mean Corpuscular Hemoglobin Concent 32, Red Cell Distribution Width 14.3, Platelet Count 303, Mean Platelet Volume 9.3, Immature Granulocyte % (Auto) 3, Neutrophils (%) (Auto) 56, Lymphocytes (%) (Auto) 27, Monocytes (%) (Auto) 10, Eosinophils (%) (Auto) 5, Basophils (%) (Auto) 0, Neutrophils # (Auto) 5.7, Lymphocytes # (Auto) 2.7, Monocytes # (Auto) 1.1H, Eosinophils # (Auto) 0.5H, Basophils # (Auto) 0.0, Immature Granulocyte # (Auto) 0.3H, Sodium Level 136, Potassium Level 3.8, Chloride Level 103, Carbon Dioxide Level 25, Anion Gap 8, Blood Urea Nitrogen 17, Creatinine 0.74, Estimat Glomerular Filtration Rate 78, BUN/Creatinine Ratio 23, Glucose Level 91, Calcium Level 8.3L, Corrected Calcium 9.7, Total Bilirubin 0.4, Aspartate Amino Transf (AST/SGOT) 28, Alanine Aminotransferase (ALT/SGPT) 41, Alkaline Phosphatase 289H, Total Protein 5.2L, Albumin 2.3L 07/12/21 06:25: Urine Color YELLOW, Urine Clarity CLEAR, Urine pH 5.5, Urine Specific [place] <=1.005, Urine Protein NEGATIVE, Urine Glucose (UA) NEGATIVE, Urine Ketones NEGATIVE, Urine Nitrite NEGATIVE, Urine Bilirubin NEGATIVE, Urine Urobilinogen 0.2, Urine Leukocyte Esterase NEGATIVE, Urine RBC (Auto) NEGATIVE, Urine RBC NONE, Urine WBC NONE, Urine Squamous Epithelial Cells RARE, Urine Crystals NONE, Urine Bacteria TRACE, Urine Casts NONE, Urine Mucus NEGATIVE, Urine Culture Indicated NO 07/12/21 11:06: Glucometer 127H Microbiology 07/04/21 Gram Stain - Final, Complete 07/04/21 Sputum Culture - Final, Complete No growth 07/04/21 Blood Culture - Final, Complete No growth Pending Labs Microbiology Date/Time Source Procedure Growth Status 07/04/21 14:37 Sputum Endotracheal Gram Stain - Final Complete 07/04/21 14:37 Sputum Endotracheal Sputum Culture - Final No growth Complete 07/04/21 03:43 Port Not Otherwise Specified Blood Culture - Final No growth Complete 07/04/21 00:30 Nasal MRSA Screen - Final MRSA not isolated Complete Laboratory Tests 07/03/21 22:47: Lab Scanned Report Referred Lab Report 07/03/21 23:48: Blood Gas Puncture Site left radial, Blood Gas Patient Temperature 36.9, Arterial Blood pH 7.27, Arterial Blood Partial Pressure CO2 47, Arterial Blood Partial Pressure O2 46, Arterial Blood HCO3 21, Arterial Blood Total CO2 22.0, Arterial Blood Oxygen Saturation 73, Arterial Blood Base Excess -5.3, Masoud Test YES-POS, Blood Gas Ventilator Setting YES, Blood Gas Inspired Oxygen 100% 07/03/21 23:57: White Blood Count 7.7, Red Blood Count 3.64, Hemoglobin 11.0, Hematocrit 35, Mean Corpuscular Volume 95, Mean Corpuscular Hemoglobin 30, Mean Corpuscular Hemoglobin Concent 32, Red Cell Distribution Width 13.2, Platelet Count 184, Mean Platelet Volume 9.1, Immature Granulocyte % (Auto) 1, Neutrophils (%) (A uto) 91, Lymphocytes (%) (Auto) 7, Monocytes (%) (Auto) 1, Eosinophils (%) (Auto) 0, Basophils (%) (Auto) 0, Neutrophils # (Auto) 7.0, Lymphocytes # (Auto) 0.5, Monocytes # (Auto) 0.1, Eosinophils # (Auto) 0.0, Basophils # (Auto) 0.0, Immature Granulocyte # (Auto) 0.1, Neutrophils % (Manual) 89, Lymphocytes % (Manual) 8, Monocytes % (Manual) 3, Sodium Level 137, Potassium Level 4.6, Chloride Level 108, Carbon Dioxide Level 18, Anion Gap 11, Blood Urea Nitrogen 26, Creatinine 1.36, Estimat Glomerular Filtration Rate 38, BUN/Creatinine Ratio 19, Glucose Level 266, Calcium Level 8.3, Corrected Calcium 9.6, Total Bilirubin 0.6, Aspartate Amino Transf (AST/SGOT) 24, Alanine Aminotransferase (ALT/SGPT) 43, Alkaline Phosphatase 516, Total Protein 6.4, Albumin 2.4, Triglycerides Level 195 07/04/21 03:43: White Blood Count 6.4, Red Blood Count 3.26, Hemoglobin 9.9, Hematocrit 31, Mean Corpuscular Volume 96, Mean Corpuscular Hemoglobin 30, Mean Corpuscular Hemoglobin Concent 32, Red Cell Distribution Width 13.2, Platelet Count 170, Mean Platelet Volume 9.4, Immature Granulocyte % (Auto) 1, Neutrophils (%) (Auto) 88, Lymphocytes (%) (Auto) 9, Monocytes (%) (Auto) 2, Eosinophils (%) (Auto) 0, Basophils (%) (Auto) 0, Neutrophils # (Auto) 5.6, Lymphocytes # (Auto) 0.6, Monocytes # (Auto) 0.1, Eosinophils # (Auto) 0.0, Basophils # (Auto) 0.0, Immature Granulocyte # (Auto) 0.1, Sodium Level 135, Potassium Level 4.7, Chloride Level 107, Carbon Dioxide Level 19, Anion Gap 9, Blood Urea Nitrogen 25, Creatinine 1.25, Estimat Glomerular Filtration Rate 42, BUN/Creatinine Ratio 20, Glucose Level 256, Calcium Level 8.0, Corrected Calcium 9.4, Total Bilirubin 0.4, Aspartate Amino Transf (AST/SGOT) 18, Alanine Aminotransferase (ALT/SGPT) 37, Alkaline Phosphatase 455, Total Protein 5.8, Albumin 2.2, Lactic Acid Level 0.79, Phosphorus Level 5.3, Magnesium Level 2.0 07/04/21 03:55: Blood Gas Puncture Site RR, Blood Gas Patient Temperature 37, Arterial Blood pH 7.27, Arterial Blood Partial Pressure CO2 48, Arterial Blood Partial Pressure O2 42, Arterial Blood HCO3 21, Arterial Blood Total CO2 22.6, Arterial Blood Oxygen Saturation 70, Arterial Blood Base Excess -4.7, Masoud Test YES-POS, Blood Gas Ventilator Setting YES, Blood Gas Inspired Oxygen 95% 07/04/21 11:32: Glucometer 210 07/04/21 16:39: Glucometer 237 07/05/21 00:03: Glucometer 188 07/05/21 02:35: White Blood Count 11.8, Red Blood Count 3.04, Hemoglobin 9.0, Hematocrit 29, Mean Corpuscular Volume 96, Mean Corpuscular Hemoglobin 30, Mean Corpuscular Hemoglobin Concent 31, Red Cell Distribution Width 13.5, Platelet Count 215, Mean Platelet Volume 9.0, Immature Granulocyte % (Auto) 1, Neutrophils (%) (Auto) 84, Lymphocytes (%) (Auto) 10, Monocytes (%) (Auto) 5, Eosinophils (%) (Auto) 0, Basophils (%) (Auto) 0, Neutrophils # (Auto) 9.8, Lymphocytes # (Auto) 1.2, Monocytes # (Auto) 0.6, Eosinophils # (Auto) 0.0, Basophils # (Auto) 0.0, Immature Granulocyte # (Auto) 0.1, Sodium Level 139, Potassium Level 4.4, Chloride Level 112, Carbon Dioxide Level 19, Anion Gap 8, Blood Urea Nitrogen 18, Creatinine 0.86, Estimat Glomerular Filtration Rate 65, BUN/Creatinine Ratio 21, Glucose Level 194, Calcium Level 8.0, Phosphorus Level 3.4, Magnesium Level 2.0, Total Bilirubin 0.3, Direct Bilirubin 0.2, Indirect Bilirubin 0.1, Aspartate Amino Transf (AST/SGOT) 11, Alanine Aminotransferase (ALT/SGPT) 27, Alkaline Phosphatase 411, Total Protein 5.4, Albumin 2.1, Triglycerides Level 241 07/05/21 04:46: Blood Gas Puncture Site LEFT RAD, Blood Gas Patient Temperature 37, Arterial Blood pH 7.28, Arterial Blood Partial Pressure CO2 45, Arterial Blood Partial Pressure O2 84, Arterial Blood HCO3 20, Arterial Blood Total CO2 21.5, Arterial Blood Oxygen Saturation 96, Arterial Blood Base Excess -5.5, Masoud Test YES-POS, Blood Gas Ventilator Setting YES, Blood Gas Inspired Oxygen 80% 07/05/21 06:03: Glucometer 176 07/05/21 11:59: Glucometer 165 07/05/21 17:41: Glucometer 213 07/05/21 23:04: Glucometer 181 07/06/21 00:30: Vancomycin Level Trough 10.8 07/06/21 01:57: White Blood Count 9.7, Red Blood Count 3.00, Hemoglobin 9.0, Hematocrit 29, Mean Corpuscular Volume 97, Mean Corpuscular Hemoglobin 30, Mean Corpuscular Hemoglobin Concent 31, Red Cell Distribution Width 13.8, Platelet Count 227, Mean Platelet Volume 9.1, Immature Granulocyte % (Auto) 1, Neutrophils (%) (Auto) 79, Lymphocytes (%) (Auto) 13, Monocytes (%) (Auto) 7, Eosinophils (%) (Auto) 0, Basophils (%) (Auto) 0, Neutrophils # (Auto) 7.6, Lymphocytes # (Auto) 1.3, Monocytes # (Auto) 0.7, Eosinophils # (Auto) 0.0, Basophils # (Auto) 0.0, Immature Granulocyte # (Auto) 0.1, Sodium Level 137, Potassium Level 4.2, Chloride Level 110, Carbon Dioxide Level 18, Anion Gap 9, Blood Urea Nitrogen 20, Creatinine 0.80, Estimat Glomerular Filtration Rate 71, BUN/Creatinine Ratio 25, Glucose Level 201, Calcium Level 8.3, Phosphorus Level 2.5, Magnesium Level 2.1 07/06/21 05:56: Glucometer 176 07/06/21 10:38: Glucometer 196 07/06/21 10:50: Total Bilirubin 0.3, Direct Bilirubin 0.2, Indirect Bilirubin 0.1, Aspartate Amino Transf (AST/SGOT) 13, Alanine Aminotransferase (ALT/SGPT) 24, Alkaline Phosphatase 363, Total Protein 5.4, Albumin 2.2 07/06/21 15:35: Prothrombin Time 13.9, INR Comment 1.0, Activated Partial Thromboplast Time 41, Fibrinogen 618, D-Dimer 1.85 07/06/21 17:01: Glucometer 216 07/06/21 23:32: Glucometer 178 07/07/21 03:45: White Blood Count 7.9, Red Blood Count 2.53, Hemoglobin 7.7, Hematocrit 24, Mean Corpuscular Volume 96, Mean Corpuscular Hemoglobin 30, Mean Corpuscular Hemoglobin Concent 32, Red Cell Distribution Width 13.6, Platelet Count 211, Mean Platelet Volume 9.4, Immature Granulocyte % (Auto) 2, Neutrophils (%) (Auto) 61, Lymphocytes (%) (Auto) 28, Monocytes (%) (Auto) 9, Eosinophils (%) (Auto) 1, Basophils (%) (Auto) 0, Neutrophils # (Auto) 4.8, Lymphocytes # (Auto) 2.2, Monocytes # (Auto) 0.7, Eosinophils # (Auto) 0.0, Basophils # (Auto) 0.0, Immature Granulocyte # (Auto) 0.2, Sodium Level 138, Potassium Level 4.4, C hloride Level 112, Carbon Dioxide Level 19, Anion Gap 7, Blood Urea Nitrogen 24, Creatinine 0.74, Estimat Glomerular Filtration Rate 78, BUN/Creatinine Ratio 32, Glucose Level 211, Calcium Level 7.9, Phosphorus Level 2.1, Magnesium Level 2.1, Total Bilirubin 0.3, Direct Bilirubin 0.2, Indirect Bilirubin 0.1, Aspartate Amino Transf (AST/SGOT) 13, Alanine Aminotransferase (ALT/SGPT) 21, Alkaline Phosphatase 288, Total Protein 4.7, Albumin 2.0, Triglycerides Level 310 07/07/21 04:24: Blood Gas Puncture Site RIGHT RADIAL, Blood Gas Patient Temperature 36.2, Arterial Blood pH 7.44, Arterial Blood Partial Pressure CO2 33, Arterial Blood Partial Pressure O2 48, Arterial Blood HCO3 23, Arterial Blood Total CO2 23.7, Arterial Blood Oxygen Saturation 83, Arterial Blood Base Excess -1.1, Masoud Test POSITIVE, Blood Gas Ventilator Setting YES, Blood Gas Inspired Oxygen 80 07/07/21 10:10: Blood Gas Puncture Site RT RAD, Blood Gas Patient Temperature 98.2, Arterial Blood pH 7.40, Arterial Blood Partial Pressure CO2 37, Arterial Blood Partial Pressure O2 61, Arterial Blood HCO3 23, Arterial Blood Total CO2 23.8, Arterial Blood Oxygen Saturation 90, Arterial Blood Base Excess -1.4, Masoud Test YES-POS, Blood Gas Ventilator Setting YES, Blood Gas Inspired Oxygen 30% 07/07/21 10:41: Glucometer 173 07/07/21 17:43: Glucometer 244 07/07/21 23:22: Glucometer 166 07/08/21 02:20: White Blood Count 6.7, Red Blood Count 2.64, Hemoglobin 8.0, Hematocrit 25, Mean Corpuscular Volume 95, Mean Corpuscular Hemoglobin 30, Mean Corpuscular Hemoglobin Concent 32, Red Cell Distribution Width 13.6, Platelet Count 189, Mean Platelet Volume 9.3, Immature Granulocyte % (Auto) 3, Neutrophils (%) (Auto) 62, Lymphocytes (%) (Auto) 27, Monocytes (%) (Auto) 8, Eosinophils (%) (Auto) 1, Basophils (%) (Auto) 0, Neutrophils # (Auto) 4.2, Lymphocytes # (Auto) 1.8, Monocytes # (Auto) 0.5, Eosinophils # (Auto) 0.1, Basophils # (Auto) 0.0, Immature Granulocyte # (Auto) 0.2, D-Dimer 3.28, Blood Gas Puncture Site LEFT RADIAL, Blood Gas Patient Temperature 36.6, Arterial Blood pH 7.51, Arterial Blood Partial Pressure CO2 29, Arterial Blood Partial Pressure O2 62, Arterial Blood HCO3 23, Arterial Blood Total CO2 24.3, Arterial Blood Oxygen Saturation 94, Arterial Blood Base Excess 0.5, Masoud Test YES-POS, Blood Gas Ventilator Setting NO, Blood Gas Inspired Oxygen 40%, Sodium Level 139, Potassium Level 4.5, Chloride Level 109, Carbon Dioxide Level 21, Anion Gap 9, Blood Urea Nitrogen 24, Creatinine 0.72, Estimat Glomerular Filtration Rate 80, BUN/Creatinine Ratio 33, Glucose Level 135, Calcium Level 8.4, Phosphorus Level 2.9, Magnesium Level 2.1 07/08/21 11:41: Glucometer 177 07/08/21 17:20: Glucometer 253 07/09/21 04:50: White Blood Count 6.5, Red Blood Count 2.44, Hemoglobin 7.3, Hematocrit 24, Mean Corpuscular Volume 96, Mean Corpuscular Hemoglobin 30, Mean Corpuscular Hemoglobin Concent 31, Red Cell Distribution Width 13.6, Platelet Count 214, Mean Platelet Volume 9.2, Immature Granulocyte % (Auto) 3, Neutrophils (%) (Auto) 55, Lymphocytes (%) (Auto) 31, Monocytes (%) (Auto) 7, Eosinophils (%) (Auto) 4, Basophils (%) (Auto) 0, Neutrophils # (Auto) 3.6, Lymphocytes # (Auto) 2.0, Monocytes # (Auto) 0.4, Eosinophils # (Auto) 0.3, Basophils # (Auto) 0.0, Immature Granulocyte # (Auto) 0.2, Sodium Level 141, Potassium Level 4.3, Chloride Level 111, Carbon Dioxide Level 22, Anion Gap 8, Blood Urea Nitrogen 3 0, Creatinine 0.75, Estimat Glomerular Filtration Rate 76, BUN/Creatinine Ratio 40, Glucose Level 153, Calcium Level 8.3, Phosphorus Level 3.9, Magnesium Level 2.1, Triglycerides Level 246 07/09/21 10:52: Glucometer 272 07/09/21 15:42: Glucometer 258 07/09/21 20:30: Glucometer 79 07/10/21 06:11: Glucometer 98 07/10/21 06:13: White Blood Count 7.4, Red Blood Count 2.43, Hemoglobin 7.4, Hematocrit 23, Mean Corpuscular Volume 96, Mean Corpuscular Hemoglobin 31, Mean Corpuscular Hemoglobin Concent 32, Red Cell Distribution Width 13.5, Platelet Count 245, Mean Platelet Volume 9.3, Immature Granulocyte % (Auto) 2, Neutrophils (%) (Auto) 55, Lymphocytes (%) (Auto) 30, Monocytes (%) (Auto) 8, Eosinophils (%) (Auto) 5, Basophils (%) (Auto) 0, Neutrophils # (Auto) 4.0, Lymphocytes # (Auto) 2.2, Monocytes # (Auto) 0.6, Eosinophils # (Auto) 0.3, Basophils # (Auto) 0.0, Immature Granulocyte # (Auto) 0.1, Sodium Level 139, Potassium Level 4.0, Chloride Level 107, Carbon Dioxide Level 22, Anion Gap 10, Blood Urea Nitrogen 25, Creatinine 0.73, Estimat Glomerular Filtration Rate 79, BUN/Creatinine Ratio 34, Glucose Level 102, Calcium Level 8.4, Corrected Calcium 9.8, Total Bilirubin 0.4, Aspartate Amino Transf (AST/SGOT) 14, Alanine Aminotransferase (ALT/SGPT) 23, Alkaline Phosphatase 248, Total Protein 5.2, Albumin 2.3 07/10/21 10:49: Glucometer 208 07/10/21 14:15: Iron Level 421, Vitamin B12 Level >2000 07/10/21 15:43: Glucometer 171 07/10/21 20:08: Glucometer 184 07/11/21 03:55: White Blood Count 7.5, Red Blood Count 2.40, Hemoglobin 7.3, Hematocrit 23, Mean Corpuscular Volume 96, Mean Corpuscular Hemoglobin 30, Mean Corpuscular Hemoglobin Concent 32, Red Cell Distribution Width 14.1, Platelet Count 274, Mean Platelet Volume 9.5, Immature Granulocyte % (Auto) 2, Neutrophils (%) (Auto) 49, Lymphocytes (%) (Auto) 34, Monocytes (%) (Auto) 9, Eosinophils (%) (Auto) 6, Basophils (%) (Auto) 0, Neutrophils # (Auto) 3.7, Lymphocytes # (Auto) 2.6, Monocytes # (Auto) 0.7, Eosinophils # (Auto) 0.5, Basophils # (Auto) 0.0, Immature Granulocyte # (Auto) 0.2, Sodium Level 136, Potassium Level 3.9, Chlo ride Level 103, Carbon Dioxide Level 24, Anion Gap 9, Blood Urea Nitrogen 21, Creatinine 0.73, Estimat Glomerular Filtration Rate 79, BUN/Creatinine Ratio 29, Glucose Level 89, Calcium Level 8.3, Corrected Calcium 9.7, Total Bilirubin 0.4, Aspartate Amino Transf (AST/SGOT) 20, Alanine Aminotransferase (ALT/SGPT) 31, Alkaline Phosphatase 273, Total Protein 5.2, Albumin 2.3 07/11/21 11:31: Glucometer 185 07/11/21 15:44: Glucometer 144 07/11/21 20:06: Glucometer 185 07/12/21 04:20: White Blood Count 10.3, Red Blood Count 2.34, Hemoglobin 7.2, Hematocrit 23, Me an Corpuscular Volume 96, Mean Corpuscular Hemoglobin 31, Mean Corpuscular Hemoglobin Concent 32, Red Cell Distribution Width 14.3, Platelet Count 303, Mean Platelet Volume 9.3, Immature Granulocyte % (Auto) 3, Neutrophils (%) (Auto) 56, Lymphocytes (%) (Auto) 27, Monocytes (%) (Auto) 10, Eosinophils (%) (Auto) 5, Basophils (%) (Auto) 0, Neutrophils # (Auto) 5.7, Lymphocytes # (Auto) 2.7, Monocytes # (Auto) 1.1, Eosinophils # (Auto) 0.5, Basophils # (Auto) 0.0, Immature Granulocyte # (Auto) 0.3, Sodium Level 136, Potassium Level 3.8, Chloride Level 103, Carbon Dioxide Level 25, Anion Gap 8, Blood Urea Nitrogen 17, Creatinine 0.74, Estimat Glomerular Filtration Rate 78, BUN/Creatinine Ratio 23, Glucose Level 91, Calcium Level 8.3, Corrected Calcium 9.7, Total Bilirubin 0.4, Aspartate Amino Transf (AST/SGOT) 28, Alanine Aminotransferase (ALT/SGPT) 41, Alkaline Phosphatase 289, Total Protein 5.2, Albumin 2.3 07/12/21 06:25: Urine Color YELLOW, Urine Clarity CLEAR, Urine pH 5.5, Urine Specific [place] <=1.005, Urine Protein NEGATIVE, Urine Glucose (UA) NEGATIVE, Urine Ketones NEGATIVE, Urine Nitrite NEGATIVE, Urine Bilirubin NEGATIVE, Urine Urobilinogen 0.2, Urine Leukocyte Esterase NEGATIVE, Urine RBC (Auto) NEGATIVE, Urine RBC NONE, Urine WBC NONE, Urine Squamous Epithelial Cells RARE, Urine Crystals NONE, Urine Bacteria TRACE, Urine Casts NONE, Urine Mucus NEGATIVE, Urine Culture Indicated NO 07/12/21 11:06: Glucometer 127 Discharge Home Medications: Active Scripts Active Reported Aspirin EC (Aspirin) 81 Mg Tablet.dr 81 Mg PO DAILY Pantoprazole Sodium 40 Mg Tablet.dr 40 Mg PO DAILY Lisinopril-Hctz 20-12.5 mg Tab (Lisinopril/Hydrochlorothiazide) 1 Each Tablet 1 Ea PO DAILY Paroxetine HCl 20 Mg Tablet 20 Mg PO DAILY Ventolin Hfa (Albuterol Sulfate) 18 Gm Hfa.aer.ad 2 Puff INH Q6H PRN Metformin HCl 500 Mg Tablet 500 Mg PO BID Sucralfate 1 Gm Tablet 1 Gm PO BID Glimepiride 2 Mg Tablet 2 Mg PO BID Pravastatin Sodium 40 Mg Tablet 40 Mg PO HS Coditussin AC Liquid (Guaifenesin/Codeine Phosphate) 473 Ml Liquid 5 Ml PO Q4H PRN Instructions to patient/family Please see electronic discharge instructions given to patient. Diagnosis/Problems Diagnosis/Problems (1) COVID-19 (2) Respiratory failure (3) Alkaline phosphatase elevation (4) Acute kidney injury NASRIN LAGUERRE DO Jul 12, 2021 09:39
--- NOTE | 2021-07-12 12:08 | Progress Note ---
ROBIN DONOHUE MED STUDENT 07/12/21 1208: Progress Note Hospital Course: Rosalia Azul is a 70 y.o. F with history of DM2 and recent hospitalization at [facility] 06/17-06/27/21 brought to [facility] on 07/03 for escalation of symptoms from dehydrational JILL to pneumonia with hypoxia. The patient was intubated and given steroids and antibiotics. She experienced slow venous bleeding from her central line site causing anemia during her ICU stay. The bleeding was stabilized and the patient improved respiratory function, was extubated and stable for discharge to IRF for strengthening. ANYA LAGUERRE DO 07/13/21 0525: Supervisory-Addendum Brief Verification & Attestation Participated in pt care: history, MDM, physical Personally performed: exam, history, MDM, supervision of care Care discussed with: Medical Student Procedures: n/a Results interpretation: Verified all documentation Verification and Attestation of Medical Student E/M Service A medical student performed and documented this service in my presence. I reviewed and verified all information documented by the medical student and made modifications to such information, when appropriate. I personally performed the physical exam and medical decision making. Anya Laguerre, Jul 13, 2021,05:25 ROBIN DONOHUE MED STUDENT Jul 12, 2021 12:08 ANYA LAGUERRE DO Jul 13, 2021 05:25
== END 2021-07-12 11:17 | DRG 208 ==
LOC: ICU 22:47 → 4TH 07-09 15:06
PROVIDERS: ADMIT Internal Medicine; ATTEND Internal Medicine
PROC: 5A1945Z Respiratory Ventilation, 24-96 Consecutive Hours (ICD-10-PCS; principal; 2021-07-03)
PROC: 0DH63UZ Insertion of Feeding Device into Stomach, Percutaneous Approach (ICD-10-PCS; 2021-07-03)
PROC: 02PYX3Z Removal of Infusion Device from Great Vessel, External Approach (ICD-10-PCS; 2021-07-03)
PROC: 02HV33Z Insertion of Infusion Device into Superior Vena Cava, Percutaneous Approach (ICD-10-PCS; 2021-07-03)
PROC: 0BH17EZ Insertion of Endotracheal Airway into Trachea, Via Natural or Artificial Opening (ICD-10-PCS; 2021-07-03)
PROC: 5A09357 Assistance with Respiratory Ventilation, Less than 24 Consecutive Hours, Continuous Positive Airway Pressure (ICD-10-PCS; 2021-07-08)
DX: U07.1 COVID-19 (principal); J12.82 Pneumonia due to coronavirus disease 2019; J80 Acute respiratory distress syndrome; J15.9 Unspecified bacterial pneumonia; N17.9 Acute kidney failure, unspecified; T82.838A Hemorrhage due to vascular prosthetic devices, implants and grafts, initial encounter; D62 Acute posthemorrhagic anemia; B37.0 Candidal stomatitis; Z79.82 Long term (current) use of aspirin; Z79.84 Long term (current) use of oral hypoglycemic drugs; Z79.899 Other long term (current) drug therapy; Z88.0 Allergy status to penicillin; Z88.1 Allergy status to other antibiotic agents; D64.9 Anemia, unspecified; Z73.0 Burn-out; D72.829 Elevated white blood cell count, unspecified; E11.65 Type 2 diabetes mellitus with hyperglycemia; E86.0 Dehydration; F32.9 Major depressive disorder, single episode, unspecified; R45.3 Demoralization and apathy; M79.7 Fibromyalgia; I10 Essential (primary) hypertension; E61.1 Iron deficiency; I87.2 Venous insufficiency (chronic) (peripheral)
CPT/HCPCS: 36415; 36569; 71045; 76705; 76937; 80048; 80053; 80076; 80202; 81000; 82607; 82805; 82947; 83540; 83605; 83735; 84100; 84478; 85007; 85025; 85027; 85379; 85384; 85610; 85730; 87040; 87070; 87081; 87205; 93005; 94002; 94003; 94640; 94660; 94760; 94799

== ENCOUNTER 2021-07-12 09:44 | Inpatient (IN) | payer MEDICARE, OTHER ==
[~2021-07-12] VITALS: Ht 157.5 cm; Wt 79.1 kg
[~2021-07-12 09:44] MED LIST: ALBU18HF2 INH; ASPI-1238 PO; GLIM2TAB4 PO; GUAI-858 PO; LISI1TAB46 PO; METF-397 PO; PANT40TA52 PO; PARO20TA5 PO; PRAV40TA2 PO; SUCR1TAB PO
[2021-07-12 11:05] VITALS: BP 138/63
--- NOTE | 2021-07-12 11:40 | PM&R Post Admission Assessment ---
PM&R Date of Visit: Jul 12, 2021 Time of Visit: 12:00 History of Present Illness Chief complaint: COVID-19 pneumonia debility History of present illness: Hospital course from [facility]: Hospital course: Pt had a lengthy hospital course, she was admitted from [facility] ICU due to Covid-19 respiratory failure, she was intubated for six days, ultimately extubated, had good response, transferred to fourth floor, very weak and now in need of inpatient rehab. Patient currently has thrush nystatin swish and swallow and Diflucan for treatment. Patient was started on Effexor to help energize and resolve apathy. Hemoglobin remains low at 7.3 but iron infusions will be maintained. Aggressive rehab will be required. Prior level of functioning was ambulatory without the use of assistive devices and fully independent with ADLs. Past Mwhabiv-Oeqilx-Yfeqai Hx Past Med/Social Hx: Reviewed Nursing Past Med/Soc Hx, Reviewed and Corrections made Patient Social History Marrital Status: Employed/Student: retired Alcohol Use: Denies Use Smoking Status: Never a Smoker Past Medical History COVID-19 pneumonia 06/17/2021 required intubation Cardiac: Hypertension Gastrointestinal: Gastroesophageal Reflux Musculoskeletal: Fibromyalgia Endocrine: Diabetes, Non-Insulin dep Psychosocial: Depression Family History Other Conditions/Hx PM&R Allergy/Meds/Data Review Allergies Coded Allergies: Penicillins (Verified Allergy, Unknown, 07/03/21) erythromycin base (Verified Allergy, Unknown, 07/03/21) Home Medications Scheduled Aspirin (Aspirin EC), 81 MG PO DAILY, (Reported) Glimepiride (Glimepiride), 2 MG PO BID, (Reported) Lisinopril/Hydrochlorothiazide (Lisinopril-Hctz 20-12.5 mg Tab), 1 EA PO DAILY, (Reported) Metformin HCl (Metformin HCl), 500 MG PO BID, (Reported) Pantoprazole Sodium (Pantoprazole Sodium), 40 MG PO DAILY, (Reported) Paroxetine HCl (Paroxetine HCl), 20 MG PO DAILY, (Reported) Pravastatin Sodium (Pravastatin Sodium), 40 MG PO HS, (Reported) Sucralfate (Sucralfate), 1 GM PO BID, (Reported) Scheduled PRN Albuterol Sulfate (Ventolin Hfa), 2 PUFF INH Q6H PRN for SHORTNESS OF BREATH, (Reported) Guaifenesin/Codeine Phosphate (Coditussin AC Liquid), 5 ML PO Q4H PRN for COUGH, (Reported) Current Medications Current Medications Reviewed Review of Systems Constitutional: see HPI, malaise, weakness EENTM: mouth pain (From thrush) Respiratory: dyspnea on exertion Cardiovascular: no symptoms reported Gastrointestinal: no symptoms reported Genitourinary: no symptoms reported Musculoskeletal: back pain, joint pain, neck pain Skin: no symptoms reported Psychiatric/Neurological: Depressed All Other Systems Reviewed Negative Unless Noted: Yes Physical Exam Physical Exam Vital Signs Capillary Refill : Height, Weight, BMI Height: '" Weight: lbs. oz. kg; 30.31 BMI Method: General Appearance: No Apparent Distress, WD/WN, Chronically ill Eyes: Bilateral Eye Normal Inspection, Bilateral Eye PERRL HEENT: PERRL/EOMI, Normal ENT Inspection, Pharynx Normal Neck: Full Range of Motion, Normal Inspection, Non Tender, Supple, Carotid Bruit Respiratory: Chest Non Tender, Lungs Clear, Normal Breath Sounds, No Accessory Muscle Use, No Respiratory Distress, Decreased Breath Sounds Cardiovascular: Regular Rate, Rhythm, No Edema, No Gallop, No JVD, No Murmur, Normal Peripheral Pulses Gastrointestinal: Normal Bowel Sounds, No Organomegaly, No Pulsatile Mass, Non Tender, Soft Back: Normal Inspection, No CVA Tenderness, No Vertebral Tenderness Extremity: Normal Capillary Refill, Normal Inspection, Normal Range of Motion, Non Tender, No Calf Tenderness, No Pedal Edema Neurologic/Psychiatric: Alert, Oriented x3, No Motor/Sensory Deficits, Normal Mood/Affect, assembly hand II-XII Norm as Tested, Depressed Affect, Motor Weakness (All extremities 3/5) Skin: Normal Color, Warm/Dry Lymphatic: No Adenopathy PM&R Medical Assessment & Plan REHAB/MEDICAL ASSESSMENT AND PLAN: REHAB IMPAIRMENT GROUP: COVID-19 pneumonia debility ETIOLOGIC DIAGNOSIS: COVID-19 pneumonia debility The comorbidities that impact the patients function and/or functional outcome by: Severe depression, fibromyalgia, diabetes, thrush, severe weakness from intubation REHAB PLAN: The patient is being admitted to our comprehensive inpatient rehabilitation facility and can tolerate the intensity of service consisting of at least: 180 minutes of therapy a day, 5 out of 7 days a week Rehab treatment will consist of: PT and OT will focus on regaining function and increase ADL independence and ambulatory ability The patient/family has a good understanding of our discharge process and will benefit from an interdisciplinary inpatient rehabilitation program. The patient has potential to make improvement and is in need of at least two of the following multidisciplinary therapies including but not limited to physical, occupational, speech, and prosthetics and orthotics. Additionally the patient will need services from respiratory, nutritional services, wound care, psychology, etc. (Customize this to each patient). Given the patients complex condition and risk of further medical complications, rehabilitation services cannot be safely or effectively provided at a lower level of care such as a detention facility. BARRIERS TO DISCHARGE: Depression ESTIMATED LOS: 12 days DISPOSITION: Home RELEVANT CHANGES SINCE PREADMISSION SCREENING: I have compared the patients medical and functional status at the time of the preadmission screening and there are: No changes PROGNOSIS: Good REHABILITATION GOALS: 1. PT and OT will focus on regaining function and increase ADL independence and ambulatory ability All the above goals were reviewed with the patient and he/she is in agreement. By signing this document, I acknowledge that I have personally performed a full physical examination on this patient within 24 hours of admission to this inpatient rehabilitation facility and have determined the patient to be able to tolerate the above course of treatment at an intensive level for a reasonable period of time. I will be completing a detailed individualized Plan of Care for this patient by day #4 of the patients stay based upon the Preadmission Screen, the Post-Admission Evaluation, and the therapy evaluations. Admission Dx/Comorbidities: (1) COVID-19 ICD Codes: U07.1 - COVID-19 (2) Thrush ICD Codes: B37.0 - Candidal stomatitis (3) Hypertension ICD Codes: I10 - Essential (primary) hypertension (4) Diabetes ICD Codes: E11.9 - Type 2 diabetes mellitus without complications (5) Fibromyalgia ICD Codes: M79.7 - Fibromyalgia (6) Anemia associated with acute blood loss ICD Codes: D62 - Acute posthemorrhagic anemia (7) Acute kidney injury ICD Codes: N17.9 - Acute kidney failure, unspecified (8) Alkaline phosphatase elevation ICD Codes: R74.8 - Abnormal levels of other serum enzymes (9) Respiratory failure ICD Codes: J96.90 - Respiratory failure, unspecified, unspecified whether with hypoxia or hypercapnia Assessment/Plan Assessment and Plan Assess & Plan/Chief Complaint Assessment: COVID-19 pneumonia residual status post intubation for 6 days Status post acute kidney injury Elevated alkaline phosphatase improving Fibromyalgia Diabetes [id number] from steroids Acute blood loss anemia Hypertension Severe depression delaying recovery Plan: Inpatient rehab protocol Effexor Home meds Monitor hemoglobin Iron infusions NASRIN LAGUERRE DO Jul 12, 2021 11:40
[2021-07-12] MEDS ORDERED: LORazepam INJ 2 MG/ML (ATIVAN) VIAL IVP PRN (11:45)
[2021-07-12] MEDS ORDERED: MELATONIN 3 MG TABLET PO PRN ×2 (11:45)
[2021-07-12] MEDS ORDERED: ALPRAZolam 0.25 MG (XANAX) TAB PO PRN ×2 (11:45)
[2021-07-12] MEDS ORDERED: DOCUSATE SODIUM 100 MG (COLACE) CAP PO PRN ×2 (11:45)
[2021-07-12] MEDS ORDERED: ONDANSETRON 4 MG/2 ML (SDV) Z0FRAN IVP PRN (11:45)
[2021-07-12] MEDS ORDERED: BISACODYL 10 MG SUPP (DULCOLAX) PR PRN (11:45)
[2021-07-12] MEDS ORDERED: diphenhydrAMINE 25 MG TAB (BENADRYL) PO PRN ×2 (11:45)
[2021-07-12] MEDS ORDERED: FLEET ENEMA ADULT 1 EA BTL PR PRN (11:45)
[2021-07-12] MEDS ORDERED: LOPERAMIDE 2 MG (IMODIUM) TABLET PO PRN ×2 (11:45)
[2021-07-12] MEDS ORDERED: CALCIUM CARBONATE 500 MG (TUMS) TAB.CHEW PO PRN ×2 (11:45)
[2021-07-12] MEDS ORDERED: guaiFENesin/CODEINE (ROBITUSSIN AC) 10ML UDC PO PRN (11:45)
[2021-07-12] MEDS ORDERED: ONDANSETRON 4 MG (ZOFRAN) ORAL DISSOLVE TAB PO PRN ×2 (11:45)
--- OUTSIDE RECORDS SUMMARY | 2021-07-12 11:58 | XMS REPORT ---
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 Role Phone Xavi Moise PCP Teodoro [...] 06/24/2013 12:00 AM Decadron, Per 1 Mg [facility]# [address]-60 Re viewed 06/24/2013 12:00 AM Depo-Medrol, Per 80 Mg [facility]#7519-5695-12 Reviewed 12/13/2018 12:00 AM [facility] MEDICARE - flu vaccine administratio n [...] 04/08/2021 12:00 AM GLYCOSYLATED HEMOGLOBIN TEST Reviewed 07/01/2021 12:00 AM COVID-19 Testing Returned 06/14/2021 12:00 AM COVID-19 Testing Reviewed 04/30/2014 12:00 AM THER/PROPH/DIAG INJ SC/IM Reviewed 04/30/2014 12:00 AM Decadron, Per 1 Mg [facility]# [id number] Re viewed 04/30/2014 12:00 AM Depo-Medrol 40mg [...] MANUAL DIFF NOT IND 06/14/2021 2:16 PM [id number] DETECTED History Of Immunizations Name Date Admin Mfg Name Mfg Code Trade Name Lot# Route Inj Vis Given Vis Pub CVX Influenza 08/09/2012 sanofi pasteur PMC FLUZONE [id number] Intramuscular Left Deltoid 08/09/2012 05/06/2012 141 Influenza 08/05/2013 sanofi pasteur PMC FLUZONE [id number] Intramuscular Right Deltoid 08/05/2013 05/30/2013 141 Influenza 08/19/2014 sanofi pasteur PMC Fluzone Quadrivalent [id number] Intramuscular Left Deltoid 08/19/2014 06/23/2014 141 Influenza 12/13/2018 GlaxoSmithKline SKB FLUZONE-HIGH DOSE [id number] Int ramuscular Left Deltoid 12/13/2018 11/05/2021 135 Tdap 07/29/2019 Merck & Co[employer] MSD [id number] Intramuscul ar Left Deltoid 07/29/2019 11/05/2021 115 Influenza 09/17/2019 Not Entered NE FLUZONE-HIGH DOSE Not E ntered Not Entered 11/05/2021 11/05/2021 135 Pneumococcal 07/09/[address] PREVNAR 1 3 [id number] Intramuscular Left Deltoid 07/09/2020 11/05/2021 133 History [...] Gastroesophageal reflux disease without esophagitis Sep 08 2:45PM Shortness of breath on exertion Sep [...] Gastroesophageal reflux disease without esophagitis May 12 016 2:06PM Mild episode of recurrent major depressive disorder May 12 016 2:06PM Allergic rhinitis 2016 12:31PM Acute [...] Gastroesophageal reflux disease without esophagitis Jul 29 9:26AM Need for Tdap vaccination Jul 29 [...] Marcio cy Group Number Start Date Medicare [facility] Medicare [facility] [id number] 2015 [employer] [id number] Saturday, 2019 BCBS [employer] [place] [id number] Deleon 2011 IHC HS IHC HS [id number] N/A [employer] UNL [id number] Tuesday, 2014 Medicare Part A zzzMedicare A Secondary [id number] N/A Medicare Part B Medicare Of [place] [id number] N/A Medicare Part A Medicare Part A [id number] N/A [employer] [place] [employer] I ns Co [id number] N/A Medicare Part A Medicare - Lab/Xray [id number] N/A Medicare RHC Medicare RHC [id number] N/ A [employer] UNL [id number] N/A Cigna Medicare Supplement Cigna Medicare Supplement [id number] N/A History of Encounters Visit Date Visit Type Provider 07/01/2021 Office visit Xavi Moise APR N 06/14/2021 Nurse visit Alicia ETIENNE RN 06/14/2021 Office visit Tu Valerio DO 05/05/2021 Office visit Tu Valerio DO 04/12/2021 Office visit Tu Valerio DO 04/08/2021 Office visit Xavi Moise APR N 04/08/2021 [facility] Joce Zeng MD 01/07/2021 Office visit Tu Teodoro DO 07/09/2020 Office visit Tu Valerio DO 09/07/2019 Office visit Melinda Everett APR N 07/29/2019 Office visit Tu Valerio DO 12/13/2018 Nurse visit Tu Teodoro DO 04/23/2018 Office visit Cristal Haider TICK SEWER 12/12/2017 Office visit Tu Teodoro DO 10/09/2017 Office visit Tu Teodoro DO 06/17/2017 Office visit Piyush Schaefer PA-C 06/12/2017 Office visit Tu Teodoro DO 02/17/2017 Office visit Melinda Everett APR N 11/28/2016 Office visit Tu Valerio DO 2016 Office visit Isha Odonnell TICK SEWER 10/09/2016 Office visit Tu Teodoro DO 05/12/2016 Office visit Xavi Moise APR N 04/05/2016 Office visit Tu Dumonthite DO 03/30/2016 Hospital Joce Zeng MD 02/21/2016 Office visit Tu Teodoro DO 01/21/2016 Office visit Isha Blas TICK SEWER 09/08/2015 [facility] Joce Zeng MD 09/08/2015 Office visit Cristal Haider TICK SEWER 04/12/2015 Office visit Tu Dumonthite DO 02/25/2015 Office visit Cristal Haider TICK SEWER 08/19/2014 Nurse visit Xavi Moise APR N 06/11/2014 Office visit Xavi Moralesran APR N 04/30/2014 Office visit Cristal Vitaly TICK SEWER 11/04/2013 Office visit Xavi Moise APR N 08/05/2013 Nurse visit Kirsten Asif MD 06/24/2013 Office visit Cristal Haider TICK SEWER 12/27/2012 Office visit Kirsten Asif MD 10/15/2012 Office visit Kirsten Asif MD 10/07/2012 Office visit Alicia ETIENNE RN 08/09/2012 Nurse visit Kirsten Asif MD 08/09/2012 Voided Kirsten Asif MD 02/28/2012 Office visit Kirsten Asif MD 01/09/2012 Office visit Kirsten Asif MD 11/29/2011 Office visit Kirsten Asif MD
--- OUTSIDE RECORDS SUMMARY | 2021-07-12 11:58 | XMS REPORT ---
Author Author Rosalia Moise [facility] oup Address [address] [place], [place] [address] Care Team Providers Care Zoning Administrator Name Role Phone Xavi Moise PCP Teodoro [...] 06/24/2013 12:00 AM Decadron, Per 1 Mg [facility]# [id number] Re viewed 06/24/2013 12:00 AM Depo-Medrol, Per 80 Mg [facility]#3231-8489-06 Reviewed 12/13/2018 12:00 AM [facility] MEDICARE - flu vaccine administratio n Reviewed [...] 04/30/2014 12:00 AM Decadron, Per 1 Mg [facility]# [address]-53 Re viewed 04/30/2014 12:00 AM Depo-Medrol 40mg [...] MANUAL DIFF NOT IND 06/14/2021 2:16 PM [id number] DETECTED History Of Immunizations Name Date Admin Mfg Name Mfg Code Trade Name Lot# Route Inj Vis Given Vis Pub CVX Influenza 08/09/2012 sanofi pasteur PMC FLUZONE [id number] Intramuscular Left Deltoid 08/09/2012 05/06/2012 141 Influenza 08/05/2013 sanofi pasteur PMC FLUZONE [id number] Intramuscular Right Deltoid 08/05/2013 05/30/2013 141 Influenza 08/19/2014 sanofi pasteur PMC Fluzone Quadrivalent ui2 05ab Intramuscular Left Deltoid 08/19/2014 06/23/2014 141 Influenza 12/13/2018 GlaxoSmithKline SKB FLUZONE-HIGH DOSE [id number] Int ramuscular Left Deltoid 12/13/2018 11/05/2021 135 Tdap 07/29/2019 Merck & Co., Inc. MSD BOOSTRIX 3YN2L Intramuscul ar Left Deltoid 07/29/2019 11/05/2021 115 Influenza 09/17/2019 Not Entered NE FLUZONE-HIGH DOSE Not E ntered Not Entered 11/05/2021 11/05/2021 135 Pneumococcal 07/09/[address] PREVNAR 1 3 [id number] Intramuscular Left Deltoid 07/09/2020 11/05/2021 133 History [...] Marcio cy Group Number Start Date Medicare [facility] Medicare [facility] [id number] 2015 Old [employer] Life [employer] Life [id number] Saturday, 2019 BCBS [employer] [place] [id number] Deleon 2011 IHC HS IHC HS [id number] N/A [employer] UNL [id number] Tuesday, 2014 Medicare Part A zzzMedicare A Secondary [id number] N/A Medicare Part B Medicare Of [place] [id number] N/A Medicare Part A Medicare Part A [id number] N/A [employer] [place] [employer] ns Co [id number] N/A Medicare Part A Medicare - Lab/Xray [id number] N/A Medicare RHC Medicare RHC [id number] N/ A [employer] UNL [id number] N/A Cigna Medicare Supplement Cigna Medicare Supplement [id number] N/A History of Encounters Visit Date Visit Type Provider 07/01/2021 Office visit Xavi Moise APR N 06/14/2021 Nurse visit Alicia ETIENNE RN 06/14/2021 Office visit Tu Valerio DO 05/05/2021 Office visit Tu Valerio DO 04/12/2021 Office visit Tu Valerio DO 04/08/2021 Office visit Xavi Moise APR N 04/08/2021 [facility] Joce Zeng MD 01/07/2021 Office visit Tu Teodoro DO 07/09/2020 Office visit Tu Valerio DO 09/07/2019 Office visit Melinda Everett APR N 07/29/2019 Office visit Tu Valerio DO 12/13/2018 Nurse visit Tu Teodoro DO 04/23/2018 Office visit Cristal Haider INSPECTOR PLATING 12/12/2017 Office visit Tu Teodoro DO 10/09/2017 Office visit Tu Teodoro DO 06/17/2017 Office visit Piyush Schaefer PA-C 06/12/2017 Office visit Tu Teodoro DO 02/17/2017 Office visit Melinda Everett APR N 11/28/2016 Office visit Tu Valerio DO 2016 Office visit Isha Odonnell INSPECTOR PLATING 10/09/2016 Office visit Tu Teodoro DO 05/12/2016 Office visit Xavi Moise APR N 04/05/2016 Office visit Tu Dumonthite DO 03/30/2016 Hospital Joce Zneg MD 02/21/2016 Office visit Tu Teodoro DO 01/21/2016 Office visit Isha Blas INSPECTOR PLATING 09/08/2015 [facility] Joce Zeng MD 09/08/2015 Office visit Cristal Haider INSPECTOR PLATING 04/12/2015 Office visit Tu Dumonthite DO 02/25/2015 Office visit Cristal Haider INSPECTOR PLATING 08/19/2014 Nurse visit Xavi Moise APR N 06/11/2014 Office visit Xavi Moralesran APR N 04/30/2014 Office visit Cristal Vitaly INSPECTOR PLATING 11/04/2013 Office visit Xavi Moise APR N 08/05/2013 Nurse visit Kirsten Asif MD 06/24/2013 Office visit Cristal Haider INSPECTOR PLATING 12/27/2012 Office visit Kirsten Asif MD 10/15/2012 Office visit Kirsten Asif MD 10/07/2012 Office visit Alicia ETIENNE RN 08/09/2012 Nurse visit Kirsten Asif MD 08/09/2012 Voided Kirsten Asif MD 02/28/2012 Office visit Kirsten Asif MD 01/09/2012 Office visit Kirsten Asif MD 11/29/2011 Office visit Kirsten Asif MD
--- OUTSIDE RECORDS SUMMARY | 2021-07-12 11:59 | XMS REPORT ---
Author Author Rosalia Moise [facility] oup Address [address] [place], [place] [address] Care Team Providers Care Lead Maintenance Technician Name Role Phone Xavi Moise PCP Teodoro [...] 06/24/2013 12:00 AM Decadron, Per [address] [facility]# [id number] Re viewed 06/24/2013 12:00 AM Depo-Medrol, Per [address] [facility]#[id number] Reviewed 12/13/2018 12:00 AM [facility] MEDIC[facility] - flu vaccine administratio n [...] 04/30/2014 12:00 AM Decadron, Per [address] [facility]# [id number] Re viewed 04/30/2014 12:00 AM Depo-Medrol 40mg [...] MANUAL DIFF NOT IND 06/14/2021 2:16 PM [id number] DETECTED History Of Immunizations Name Date Admin Mfg Name Mfg Code Trade Name Lot# Route Inj Vis Given Vis Pub CVX Influenza 08/09/2012 sanofi pasteur PMC FLUZONE [id number] Intramuscular Left Deltoid 08/09/2012 05/06/2012 141 Influenza 08/05/2013 sanofi pasteur PMC FLUZONE [id number] Intramuscular Right Deltoid 08/05/2013 05/30/2013 141 Influenza 08/19/2014 sanofi pasteur PMC Fluzone Quadrivalent ui2 05ab Intramuscular Left Deltoid 08/19/2014 06/23/2014 141 Influenza 12/13/2018 GlaxoSmithKline SKB FLUZONE-HIGH DOSE [id number] Int ramuscular Left Deltoid 12/13/2018 11/05/2021 135 Tdap 07/29/2019 Merck & Co., Inc. MSD BOOSTRIX 3YN2L Intramuscul ar Left Deltoid 07/29/2019 11/05/2021 115 Influenza 09/17/2019 Not Entered NE FLUZONE-HIGH DOSE Not E ntered Not Entered 11/05/2021 11/05/2021 135 Pneumococcal 07/09/[address] PREVNAR 1 3 [id number] Intramuscular Left Deltoid 07/09/2020 11/05/2021 133 History [...] Number Start Date Medicare RHC Medicare RHC [id number] 2015 [employer] [id number] Saturday, 2019 BCBS [facility] [id number] Deleon nday, 2011 IHC HS IHC HS [id number] N/A [employer] UNL [id number] Tuesday, 2014 Medicare Part A zzzMedicare A Secondary [id number] N/A Medicare Part B Medicare Of [place] [id number] N/A Medicare Part A Medicare Part A [id number] N/A [employer] [place] [employer] ns [employer] [id number] N/A Medicare Part A Medicare - Lab/Xray [id number] N/A Medicare RHC Medicare RHC [id number] N/ A [employer] UNL [id number] N/A Cigna Medicare Supplement Cigna Medicare Supplement [id number] N/A History of Encounters Visit Date Visit [...] Teodoro DO 04/23/2018 Office visit Cristal Haider RESIDENCE MANAGER 12/12/2017 Office visit Tu Teodoro DO 10/09/2017 Office visit Tu Teodoro DO 06/17/2017 Office visit Piyush Schaefer PA-C 06/12/2017 Office visit Tu Teodoro DO 02/17/2017 Office visit Melinda Everett APR N 11/28/2016 Office visit Tu Teodoro DO 2016 Office visit Isha Odonnell RESIDENCE MANAGER 10/09/2016 Office visit Tu Teodoro DO 05/12/2016 Office visit Xavi Moise APR N 04/05/2016 Office visit Tu Valerio DO 03/30/2016 [facility] Joce Zeng MD 02/21/2016 Office visit Tu Teodoro DO 01/21/2016 Office visit Isha Blas RESIDENCE MANAGER 09/08/2015 [facility] Joce Zeng MD 09/08/2015 Office visit Cristal Haider RESIDENCE MANAGER 04/12/2015 Office visit Tu Teodoro DO 02/25/2015 Office visit Cristal Vitaly RESIDENCE MANAGER 08/19/2014 Nurse visit Xavi Moralesran APR N 06/11/2014 Office visit Xavi Moise APR N 04/30/2014 Office visit Cristal Haider RESIDENCE MANAGER 11/04/2013 Office visit Xavi Moise APR N 08/05/2013 Nurse visit Kirsten Asfi MD 06/24/2013 Office visit Cristal Haider RESIDENCE MANAGER 12/27/2012 Office visit Kirsten Asif MD 10/15/2012 Office visit Kirsten Asif MD 10/07/2012 Office visit Alicia ETIENNE RN 08/09/2012 Nurse visit Kirsten Asif MD 08/09/2012 Voided Kirsten Asif MD 02/28/2012 Office visit Kirsten Asif MD 01/09/2012 Office visit Kirsten Asif MD 11/29/2011 Office visit Kirsten Asif MD
[2021-07-12] MEDS: HYDROcodone/APAP 5 MG/325 MG (LORTAB) TAB PO PRN (12:23)
[2021-07-12] MEDS: NYSTATIN ORAL SUSP 5 ML UDC PO SCH ×2 (12:25→18:23)
--- NOTE | 2021-07-12 12:44 | Occupational Therapy Eval ---
OT Evaluation-General/PLF Medical Diagnosis Admission Date Jul 12, 2021 at 11:05 Medical Diagnosis: debility, post COVID Onset Date: Jun 17, 2021 Therapy Diagnosis Therapy Diagnosis: decreased ADL status, debility Precautions Precautions/Isolations: Fall Prevention, Standard Precautions, Pressure Ulcer Referral Physician: Andrés Henson Reason: Evaluation/Treatment Medical History Current History recent admit to [facility] from 06/17/21 to 06/27/21 due to COVID-19. Pt discharged home with O2 but didn't really ambulate or get out of bed/chair. Family insisted she return to [facility] ED, assessed and found dehydrated, hypoxic and tacycardic. Pt desating on Vapotherm, unable to tolerate BiPAP, so electively intubated. Pt extubated 07/07/21. Pt transferred to ARU 07/12/21 for continued medication management and skilled therapies. Social History Home: Single Level Current Living Status: Spouse Entry Into Home: Ramp indicates ramp is in need of repairs. ADL-Prior Level of Function SCALE: Activities may be completed with or without assistive devices. 9-Lwsyibidcy-gvgirsw completes the activity by him/herself with no assistance from a helper. 5-Set-up or Clean-up Assistance-helper sets up or cleans up; patient completes activity. Addison assists only prior to or following the activity. 4-Supervision or Touching Assistance-helper provides verbal cues and/or touching/steadying and/or contact guard assistance as patient completes activi ty. Assistance may be provided throughout the activity or intermittently. 3-Partial/Moderate Assistance-helper does LESS THAN HALF the effort. Addison lifts, holds or supports trunk or limbs, but provides less than half the effort. 2-Substantial/Maximal Assistance-helper does MORE THAN HALF the effort. Addison lifts or holds trunk or limbs and provides more than half the effort. 3-Bocjmpkum-hjhhfn does ALL the effort. Patient does none of the effort to complete the activity. Or, the assistance of 2 or more helpers is required for the patient to complete the activity. If activity was not attempted, code reason: 7-Patient Refused. 9-Not Applicable-not attempted and the patient did not perform the activity before the current illness, exacerbation or injury. 10-Not Attempted due to Environmental Limitations-(lack of equipment, weather restraints, etc.). 88-Not Attempted due to Medical Conditions or Safety Concerns. ADL PLOF Comments Pt indicates she was IND with all ADLs/IADLs at PLOF, and independent with functional mobility using FWW. she completes the cooking and cleaning Self Care: Independent Functional Cognition: Independent DME/Equipment: Tub/Shower DME/Equipment Comments walker OT Current Status Subjective Pt agreeable to OT evaluation then OT/PT cotreat. Throughout session, pt required encouragement to participate, with education provided on the purpose an d benefit of therapy. Mental Status/Objective Patient Orientation: Person, Place, Situation Attachments: Oxygen Current Glasses/Contacts: Yes Hearing Aids: No Dentures/Partials: No Hand Dominance: Right Upper Extremity ROM BUE shoulder flexion to approx 90 degrees. Upper Extremity Sensation WFL Upper Extremity Strength grossly 3+/5 BUEs ADL-Treatment Eating (QC): 5 (per pt report) Oral Hygiene (QC): 5 (based on clincial judgment, pt would require set up assistance seated.) Shower/Bathe Self (QC): 1 (assist x2 in stand to wash buttocks. Assist to wash BLE lower legs/feet.) Upper Body Dressing (QC): 3 (min assist with threading overhead) Lower Body Dressing (QC): 1 (Assist with all parts, assist x2 in stand) On/Off Footwear (QC): 2 (Pt required max A with doffing gripper socks, total assist to don) Toileting Hygiene (QC): 1 (assist x2 in stand for clothing management and hygiene, pt able to perform pericare.) Other Treatments OT evaluation complete. OT/PT cotreat due to skill of 2 clinicians required which a vocational rehabilitation teacher could not perform in order to decrease fall risk, coordinate UE/LEs, and due to pt's limitations in strength, mobility, activity tolerance, and overall debility. OT focused on UE placement, cues for sequencing and safety, and ADLs, PT focused on LE placement, gross overall movement, mobility/transfers. Pt transferred from bed to w/c, taken to therapy gym. Pt stood from w/c, encouraged to attempt taking a few steps, pt sat back in chair stating she is fatigued and unable to walk at this time. Pt performed w/c mobility to her room, then completed sponge bath and dressing at w/. Pt stood at FWW with PT, OT removed w/c and replaced with recliner, pt sat in recliner. Post tx, pt up in chair, call light in reach and all needs met. Bed mobility min A, supine to/from sit max A, sit to/from stand mod A, min A transfers, mod A car transfer. Pt required skilled cues for hand placement and position, very fearful of falling. Education OT Patient Education: Correct positioning, Energy conservation, Exercise program, Modified ADL techniques, Progress toward Goal/Update tx plan, Purpose of tx/functional activities, Rehab process Teaching Recipient: Patient Teaching Methods: Discussion Response to Teaching: Verbalize Understanding, Reinforcement Needed OT Short Term Goals Short Term Goals Time Frame: Jul 27, 2021 Shower/bathe self: 4 Lower body dressin Putting on/taking off footwear: 4 OT Penitentiary Goals Penitentiary Goals Time Frame: Aug 12, 2021 Eating (QC): 6 Oral Hygiene (QC): 6 Toileting Hygiene (QC): 6 Shower/Bathe Self (QC): 6 Upper Body Dressing (QC): 6 Lower Body Dressing (QC): 6 On/Off Footwear (QC): 6 Additional Goals: 1-Demonstrate ADL Tasks, 2-Verbalize Understanding, 3-ImproveStrength/Yamilka 1=Demonstrate adherence to instructed precautions during ADL tasks. 2=Patient will verbalize/demonstrate understanding of assistive devices/modifications for ADL. 3=Patient will improve strength/tolerance for activity to enable patient to perform ADL's. OT Education/Plan Problem List/Assessment Assessment: Decreased Activ Tolerance, Decreased Safety Aware, Decreased UE Strength, Impaired Funct Balance, Impaired I ADL's, Impaired Self-Care Skills, Restricted Funct UE ROM Discharge Recommendations Plan/Recommendations: Continue POC Equpiment Recommendations-D/C: Extended Bath Bench Treatment Plan/Plan of Care Patient would benefit from OT for education, treatment and training to promote independence in ADL's, mobility, safety and/or upper extremity function for ADL's. Plan of Care: ADL Retraining, Functional Mobility, Group Exercise/Act as Ind, UE Funct Exercise/Act Treatment Duration: Aug 12, 2021 Frequency: Modified Program (IRF) Estimated Hrs Per Day: 1 hour per day Due to a COVID-19 viral infection, the patient has deficits that warrant inpat ient acute rehab. The patient will clearly benefit from intensive PT and OT, however, due to patient's observed endurance and therapy considerations, she may not be able to tolerate the full 3 hours of scheduled therapy. Therefore, she will be scheduled for as much therapy as she can tolerate with intentional rest breaks, shortened session, including providing therapy across 6 to 7 days. As the patient tolerates, the intensity, frequency and duration of her therapy program will be increased. Time/GCodes Start Time: 11:15 Stop Time: 12:15 Total Time Billed (hr/min): 60 Billed Treatment Time OT eval [id number], cotreat [id number] 1, EVM (10'), FA (20), ADL 2 (30') GERARDO ALBARADO OT Jul 12, 2021 12:44
--- NOTE | 2021-07-12 12:51 | Physical Therapy Evaluation ---
PT Evaluation-General Medical Diagnosis Admission Date Jul 12, 2021 at 11:05 Medical Diagnosis: post covid 19 debility Onset Date: Jul 03, 2021 Therapy Diagnosis Therapy Diagnosis: impaired mobility, strength, endurance Precautions Precautions/Isolations: Fall Prevention, Standard Precautions, Pressure Ulcer Referral Physician: Anya Bowen DO Reason for Referral: Evaluation/Treatment Medical History Pertinent Medical History: DM Reviewed History: Yes Social History Home: Single Level Current Living Status: Spouse Entry Into Home: Ramp (in disrepair) Prior Prior Level of Function SCALE: Activities may be completed with or without assistive devices. 1-Udkdrvosez-pqvzgvt completes the activity by him/herself with no assistance from a helper. 5-Set-up or Clean-up Assistance-helper sets up or cleans up; patient completes activity. [place] assists only prior to or following the activity. 4-Supervision or Touching Assistance-helper provides verbal cues and/or touching/steadying and/or contact guard assistance as patient completes activity. Assistance may be provided throughout the activity or intermittently. 3-Partial/Moderate Assistance-helper does LESS THAN HALF the effort. [place] lifts, holds or supports trunk or limbs, but provides less than half the effort. 2-Substantial/Maximal Assistance-helper does MORE THAN HALF the effort. [place] lifts or holds trunk or limbs and provides more than half the effort. 5-Bcknztlyd-inxppt does ALL the effort. Patient does none of the effort to complete the activity. Or, the assistance of 2 or more helpers is required for the patient to complete the activity. If activity was not attempted, code reason: 7-Patient Refused. 9-Not Applicable-not attempted and the patient did not perform the activity before the current illness, exacerbation or injury. 10-Not Attempted due to Environmental Limitations-(lack of equipment, weather restraints, etc.). 88-Not Attempted due to Medical Conditions or Safety Concerns. Bed Mobility: 6 Transfers (B,C,W/C): 6 Gait: 6 Indoor Mobility (Ambulation): Independent Prior Devices Use: Walker PT Evaluation-Current Subjective Patient in bed pre tx, agrees reluctantly to PT, needs encouragement to participate, voices no complaints of pain. Will be co-treating with OT for part of tx due to poor patient mobility, strength, endurance, severe SOB with activity and fatigue, coordinate UE and LE during activity, safety and reduce risk of falls. Pt/Family Goals to be independent at home Objective Patient Orientation: Person, Place, Situation Attachments: Oxygen ROM/Strength ROM Lower Extremities WNL Strength Lower Extremities LLE (hip flexion 3-/5, knee flexion 3/5, knee extension 3+/5, dorsiflexion 3+/5), RLE (hip flexion 3-/5, knee flexion 3/5, knee extension 3+/5, dorsi flexion 3+/5) Sensory Hearing: Functional Sensation Right Lower Extremit: Impaired Sensation Left Lower Extremity: Impaired Sensation Lower Extremities Patient has decreased light touch sensation in her feet. Transfers Roll Left & Right (QC): 3 Sit to Lying (QC): 2 Lying to Sitting/Side of Bed(Q: 2 Sit to Stand (QC): 3 Chair/Pfj-ej-Ezdfh Xfer(QC): 3 Toilet Transfer (QC): 3 Car Transfer (QC): 3 Patient performs bed mobility with min assist, supine <-> sit max assist, sit <- > stand mod assist, transfers min assist, car transfer mod assist. Cues for hand placement and positioning, patient is very afraid of falling. Gait Does the Patient Walk?: Yes Mode of Locomotion: Both Anticipated Mode of Locomotion: Walk Walk 10 feet (QC): 88 Walk 50 ft with 2 Turns(QC): 88 Walk 150 ft (QC): 88 Walking 10ft/uneven surface-QC: 88 Distance: 4' Gait Assistive Device: FWW Comments/Gait Description Patient can ambulate 4' with a rolling walker with min assist, after 4' her knees start buckling and needs to sit. Wheelchair Training Does the Pt Use a Wheelchair?: Yes Distance: 120' Wheel 50 ft with 2 turns (QC): 3 Wheel 150 ft (QC): 88 Type of Wheelchair: Manual Stairs 1 Step (curb) (QC): 88 4 Steps (QC): 88 12 Steps (QC): 88 Balance Sitting Static: Fair Sitting Dynamic: Poor Standing Static: Poor Standing Dynamic: Poor Picking up an Object (QC): 88 Treatment Patient also dressed and bathed after getting back to her room. PT performed bed mobility and transfers, ambulation, WC mobility, standing and safety during bathing and dressing, OT performed bathing, dressing, UE positioning and safety during activity. Assessment/Needs Patient in recliner post tx with nurse call, phone, tray, all needs met. Patient has impaired mobility, strength, endurance. She is very afraid of falling, can only ambulate a few feet at this time. Rehab Potential: Fair PT Short Term Goals Short Term Goals Time Frame: Jul 19, 2021 Roll Left & Right: 4 Sit to lyin Lying to sitting on side of be: 3 Sit to stand: 4 Chair/aks-aj-nsdic transfer: 4 Walk 10 feet: 4 Walk 50 feet with two turns: 4 PT Animal Care Attendant Goals Animal Care Attendant Goals PT Correction Goals Time Frame: Aug 02, 2021 Roll Left & Right (QC): 6 Sit to Lying (QC): 4 (SBA) Lying-Sitting on Side/Bed(QC): 4 (SBA) Sit to Stand (QC): 4 (SBA) Chair/Sjo-py-Uvwlw Xfer(QC): 4 (SBA) Toilet Transfer (QC): 4 (SBA) Car Transfer (QC): 4 (SBA) Does the Patient Walk: Yes Walk 10 feet (QC): 4 (SBA) Walk 50ft with 2 Turns (QC): 4 (SBA) Walk 150 ft (QC): 4 (SBA) Walking 10ft on Uneven Surface: 4 (SBA) 1 Step (curb) (QC): 4 (SBA) 4 Steps (QC): 88 12 Steps (QC): 88 Picking up an Object (QC): 4 (SBA) Wheel 50 feet with 2 turns (QC: 6 Wheel 150 feet: 6 PT Plan Problem List Problem List: Activity Tolerance, Functional Strength, Safety, Balance, Gait, Transfer, Bed Mobility, ROM Treatment/Plan Treatment Plan: Continue Plan of Care Treatment Plan: Bed Mobility, Education, Functional Activity [place], Functional Strength, Group Therapy, Gait, Safety, Therapeutic Exercise, Transfers Treatment Duration: Aug 02, 2021 Frequency: Modified Program (IRF) Estimated Hrs Per Day: 1 hour per day Patient and/or Family Agrees t: Yes Due to a covid - 19 viral infection, the patient has deficits that warrant inpatient acute rehab. The patient will clearly benefit from intensive PT and OT, however, due to the patient's observed endurance and therapy considerations, she may not be able to tolerate the full 3 hours of scheduled therapy. Therefore, she will be scheduled for as much therapy as she can tolerate with intentional rest breaks, shortened sessions, including providing therapy across 6 to 7 days. As the patient tolerates, the intensity, frequency, and duration of his therapy program will be increased. Safety Risks/Education Patient Education: Gait Training, Transfer Techniques, Correct Positioning, W/C Management, Safety Issues Teaching Recipient: Patient Teaching Methods: Demonstration, Discussion Response to Teaching: Reinforcement Needed Discharge Recommendations Plan Patient will perform bed mobility and transfer training, balance and endurance training, functional strengthening, stair training, gait training, and edu cation, to improve functional mobility and independence at home. Therapy Discharge Recommendati: Scheduled Assistance, Home & Family, Post Acute PT Time/GCodes Time In: 1105 Time Out: 1215 Total Billed Treatment Time: 60 Total Billed Treatment 1 visit EVM 10' FA 50' PT eval from [id number], OT eval from [id number], co-treat from [id number] DAVID JERONIMO PT Jul 12, 2021 12:51
[2021-07-12] MEDS ORDERED: CATHETER FLUSH 10 ML SYR IV PRN (15:30)
[2021-07-12] MEDS: BETHANECHOL 25 MG (URECHOLINE) TAB PO SCH ×2 (16:47→21:13)
[2021-07-12] MEDS: inSUlin ASPART (NovoLOG) 1 UNIT/0.01 ML (CHARGE PER UNIT) SC SCH ×2 (16:47→21:20)
[2021-07-12 20:00] VITALS: BP 111/53
[2021-07-12] MEDS: RT-ALBUTEROL/IPRATROPIUM 3 ML (DUONEB) VIAL INH SCH (20:50)
[2021-07-12] MEDS ORDERED: polyethylene glycoL POWDER 17 GM (MIRALAX) PACK PO SCH (21:00)
[2021-07-12] MEDS ORDERED: ENOXAPARIN 80 MG/0.8 ML (LOVENOX) SYR SC SCH (21:00)
[2021-07-12] MEDS ORDERED: SENNA W/DOCUSATE (SENOKOT S) TABLET PO SCH (21:00)
[2021-07-12] MEDS: DOCUSATE SODIUM 100 MG (COLACE) CAP PO SCH (21:20)
[2021-07-12] MEDS: polyethylene glycoL POWDER 17 GM (MIRALAX) PACK PO SCH (21:20)
[2021-07-12] MEDS: SENNA W/DOCUSATE (SENOKOT S) TABLET PO SCH (21:20)
[2021-07-12] MEDS: CATHETER FLUSH 10 ML SYR IV SCH (22:33)
[2021-07-13] MEDS: RT-ALBUTEROL/IPRATROPIUM 3 ML (DUONEB) VIAL INH SCH ×4 (01:49→21:39)
[2021-07-13] MEDS: inSUlin ASPART (NovoLOG) 1 UNIT/0.01 ML (CHARGE PER UNIT) SC SCH ×4 (06:00→21:10)
[2021-07-13 06:14] LABS: BASOPHILS % (AUTO) 0 % (0-10); EOSINOPHILS # (AUTO) 0.7 10^3/uL (0.0-0.3); EOSINOPHILS % (AUTO) 7 % (0-10); HEMATOCRIT 21 % (35-52); LYMPHOCYTES # (AUTO) 1.9 10^3/uL (1.0-4.0); LYMPHOCYTES % (AUTO) 18 % (12-44); MEAN CORPUSCULAR HEMOGLOBIN 31 pg (25-34); MEAN CORPUSCULAR HGB CONC 32 g/dL (32-36); MEAN CORPUSCULAR VOLUME 97 fL (80-99); MEAN PLATELET VOLUME 9.1 fL (9.0-12.2); MONOCYTES % (AUTO) 10 % (0-12); NEUTROPHILS # (AUTO) 6.3 10^3/uL (1.8-7.8); NEUTROPHILS % (AUTO) 62 % (42-75); PLATELET COUNT 282 10^3/uL (130-400)
[2021-07-13] MEDS: CATHETER FLUSH 10 ML SYR IV SCH ×3 (06:15→21:26)
[2021-07-13] MEDS: VENlafaxine XR 75 MG (EFFEXOR XR) CAP PO SCH (06:15)
[2021-07-13] MEDS: BETHANECHOL 25 MG (URECHOLINE) TAB PO SCH ×4 (06:15→21:10)
[2021-07-13] MEDS: NYSTATIN ORAL SUSP 5 ML UDC PO SCH ×4 (06:15→17:19)
[2021-07-13 06:16] LABS: HEMOGLOBIN 6.7 g/dL (11.5-16.0)
[2021-07-13 06:22] LABS: ALBUMIN 2.3 GM/DL (3.2-4.5)
[2021-07-13 06:23] LABS: POTASSIUM 3.9 MMOL/L (3.6-5.0)
[2021-07-13 06:24] LABS: CALCIUM 8.1 MG/DL (8.5-10.1)
[2021-07-13 06:25] LABS: TOTAL PROTEIN 5.1 GM/DL (6.4-8.2)
[2021-07-13 06:27] LABS: BILIRUBIN,TOTAL 0.6 MG/DL (0.1-1.0)
[2021-07-13 06:29] LABS: CREATININE SERUM 0.75 MG/DL (0.60-1.30)
--- NOTE | 2021-07-13 06:34 | PM&R Progress Note ---
Subjective HPI/CC On Admission Date Seen by Provider: Jul 13, 2021 Time Seen by Provider: 09:00 Subjective/Events-last exam 07/13/2021: Pt doing pretty well Transfusing one unit of blood CT angiogram with abdomen and pelvis ordered today In-and-out cath required for retention Consulted Dr. Saulo Manuel maintained Review of Systems General: Fatigue, Malaise Pulmonary: Dyspnea Objective Exam Vital Signs Vital Signs Date Time Temp Pulse Resp B/P (MAP) Pulse Ox O2 Delivery O2 Flow Rate FiO2 07/14/21 01:35 91 High Flow N/C 3.00 07/13/21 20:00 37.4 101 20 115/56 (75) Capillary Refill : General Appearance: No Apparent Distress, WD/WN, Chronically ill HEENT: PERRL/EOMI, Normal ENT Inspection, Pharynx Normal Neck: Full Range of Motion, Normal Inspection, Non Tender, Supple, Carotid Bruit Respiratory: Chest Non Tender, Lungs Clear, Normal Breath Sounds, No Accessory Muscle Use, No Respiratory Distress, Decreased Breath Sounds Cardiovascular: Regular Rate, Rhythm, No Edema, No Gallop, No JVD, No Murmur, Normal Peripheral Pulses Gastrointestinal: Normal Bowel Sounds, No Organomegaly, No Pulsatile Mass, Non Tender, Soft Back: Normal Inspection, No CVA Tenderness, No Vertebral Tenderness Extremity: Normal Capillary Refill, Normal Inspection, Normal Range of Motion, Non Tender, No Calf Tenderness, No Pedal Edema Neurologic/Psychiatric: Alert, Oriented x3, No Motor/Sensory Deficits, Normal Mood/Affect, tester printed circuit boards II-XII Norm as Tested, Depressed Affect, Motor Weakness (All extremities 3/5) Skin: Normal Color, Warm/Dry Lymphatic: No Adenopathy Results/Procedures Lab Laboratory Tests 07/13/21 06:05 Patient resulted labs reviewed. FIM Transfers Therapy Code Descriptions/Definitions Functional [place] Measure: 0=Not Assessed/NA 4=Minimal Assistance 1=Total Assistance 5=Supervision or Setup 2=Maximal Assistance 6=Modified [place] 3=Moderate Assistance 7=Complete IndependenceSCALE: Activities may be completed with or without assistive devices. 1-Gcvqodllll-vuclhvm completes the activity by him/herself with no assistance from a helper. 5-Set-up or Clean-up Assistance-helper sets up or cleans up; patient completes activity. [place] assists only prior to or following the activity. 4-Supervision or Touching Assistance-helper provides verbal cues and/or t ouching/steadying and/or contact guard assistance as patient completes activity. Assistance may be provided throughout the activity or intermittently. 3-Partial/Moderate Assistance-helper does LESS THAN HALF the effort. [place] lifts, holds or supports trunk or limbs, but provides less than half the effort. 2-Substantial/Maximal Assistance-helper does MORE THAN HALF the effort. [place] lifts or holds trunk or limbs and provides more than half the effort. 8-Jxzvrfjkl-ifyuku does ALL the effort. Patient does none of the effort to complete the activity. Or, the assistance of 2 or more helpers is required for the patient to complete the activity. If activity was not attempted, code reason: 7-Patient Refused. 9-Not Applicable-not attempted and the patient did not perform the activity before the current illness, exacerbation or injury. 10-Not Attempted due to Environmental Limitations-(lack of equipment, weather restraints, etc.). 88-Not Attempted due to Medical Conditions or Safety Concerns. Roll Left to Right (QC): 3 Sit to Lying (QC): 2 Sit to Stand (QC): 3 Chair/Emn-hf-Xayqd Xfer(QC): 3 Car Transfer (QC): 3 Gait Training Does the Patient Walk?: Yes Walk 10 feet (QC): 88 Walk 50 ft with 2 Turns(QC): 88 Walk 150 ft (QC): 88 Walking 10ft/uneven surface-QC: 88 Gait Assistive Device: FWW Wheelchair Training Does the Pt Use a Wheelchair?: Yes Distance: 120' Wheel 50 ft with 2 turns (QC): 3 Wheel 150 ft (QC): 88 Type of Wheelchair: Manual Stair Training 1 Step (curb) (QC): 88 4 Steps (QC): 88 12 Steps (QC): 88 Balance Picking up an Object (QC): 88 ADL-Treatment Eating (QC): 5 (per pt report) Oral Hygiene (QC): 5 (based on clincial judgment, pt would require set up assistance seated.) Shower/Bathe Self (QC): 1 (assist x2 in stand to wash buttocks. Assist to wash BLE lower legs/feet.) Upper Body Dressing (QC): 3 (min assist with threading overhead) Lower Body Dressing (QC): 1 (Assist with all parts, assist x2 in stand) On/Off Footwear (QC): 2 (Pt required max A with doffing gripper socks, total assist to don) Toileting Hygiene (QC): 1 (assist x2 in stand for clothing management and hygiene, pt able to perform pericare.) Assessment/Plan Assessment and Plan Assess & Plan/Chief Complaint Assessment: COVID-19 pneumonia residual status post intubation for 6 days Status post acute kidney injury Elevated alkaline phosphatase improving Fibromyalgia Diabetes ixh-ox-sfzhble from steroids Acute blood loss anemia requiring transfusion on 07/13/2021 Hypertension Severe depression delaying recovery Pulmonary embolism on CT angiogram on 07/13/2021 maintain on Lovenox Plan: Inpatient rehab protocol Effexor Home meds Monitor hemoglobin Iron infusions 07/13/2021: Transfusion of 1 unit Restart Lovenox I do not suspect acute blood loss currently Pulmonary embolism management considered provoked due to COVID-19 will need 3 months of anticoagulation (1) COVID-19 (2) Thrush (3) Hypertension (4) Diabetes (5) Fibromyalgia (6) Anemia associated with acute blood loss (7) Acute kidney injury (8) Alkaline phosphatase elevation (9) Respiratory failure (10) Pulmonary embolism (11) Transfusion of blood during current hospitalisation NASRIN LAGUERRE DO Jul 13, 2021 06:34
[2021-07-13] MEDS ORDERED: NS IV 500 ML 500 ML IV SCH (06:45)
[2021-07-13 07:16] VITALS: BP 98/51
--- NOTE | 2021-07-13 09:00 | Physical Therapy Daily Note ---
PT Daily Note-Current Subjective Pt laying Supine in bed upon arrival. Pt agrees to PT/Ot co-treat due to poor patient mobility, strength, endurance, severe SOB with activity and fatigue, coordinate UE and LE during activity, safety and reduce risk of falls. Pain Location: No Pain Reported Mental Status Patient Orientation: Person, Confused, Situation Attachments: Oxygen (6L w/activity & 4L in room) Transfers SCALE: Activities may be completed with or without assistive devices. 5-Kgbuvihvzt-cudftjv completes the activity by him/herself with no assistance from a helper. 5-Set-up or Clean-up Assistance-helper sets up or cleans up; patient completes activity. [place] assists only prior to or following the activity. 4-Supervision or Touching Assistance-helper provides verbal cues and/or touching/steadying and/or contact guard assistance as patient completes activity. Assistance may be provided throughout the activity or intermittently. 3-Partial/Moderate Assistance-helper does LESS THAN HALF the effort. [place] lifts, holds or supports trunk or limbs, but provides less than half the effort. 2-Substantial/Maximal Assistance-helper does MORE THAN HALF the effort. [place] lifts or holds trunk or limbs and provides more than half the effort. 7-Exgjfwlxv-kyojgt does ALL the effort. Patient does none of the effort to complete the activity. Or, the assistance of 2 or more helpers is required for the patient to complete the activity. If activity was not attempted, code reason: 7-Patient Refused. 9-Not Applicable-not attempted and the patient did not perform the activity before the current illness, exacerbation or injury. 10-Not Attempted due to Environmental Limitations-(lack of equipment, weather restraints, etc.). 88-Not Attempted due to Medical Conditions or Safety Concerns. Lying to Sitting/Side of Bed(Q: 3 Sit to Stand (QC): 3 Chair/Xzw-gf-Upzwu Xfer(QC): 3 Weight Bearing Full Weight Bearing Full Weight Bearing Gait Training Does the Patient Walk?: Yes Distance: 3' Gait Persons Needed: 1 Gait Assistive Device: Parallel Bars Sit to stand x2 then 3rd attempt took 6 steps with encouragement. Wheelchair Training Does the Pt Use a Wheelchair?: Yes Wheel 50 ft with 2 turns (QC): 4 Type of Wheelchair: Manual Min A for turns, SBA for propelling but very slow kasia Treatments OT/PT cotreat due to skill of 2 clinicians required which a homemaking rehabilitation consultant could not perform in order to decrease fall risk, coordinate UE/LEs, and due to pt's limitations in strength, mobility, activity tolerance, and overall debility. OT focused on UE placement, cues for sequencing and safety, and ADLs, PT focused on LE placement, gross overall movement, mobility/transfers. Pt transferred supine to sit EOB, min A. OT assisted pt with donning pants, as pt fatigued at EOB, she leaned towards L side requiring mod A to stay upright. Pt transferred from EOB to w/c, then propelled w/c to therapy gym. Frequent rest breaks required and skilled cues for w/c management (Min A with turns, SBA straight but very slow). Pt taken to parallel bars, stood x2 (min-mod A sit to stand), on 3rd stand, pt ambulated 6 steps (3') before fatiguing required seated rest break. At this point, pt indicates "lights are going out" and she feels nauseous, BP 103/59 and O2 saturation at 97%. Nurse notified. Pt taken back to her room, transferring from w/c to EOB, then supine. Post tx, pt in bed, call light in reach and all needs met, nurse present. Assessment Current Status: Fair Progress Pt is limited by fatigue, and feeling off due to need for unit of blood. Blood pressure is also monitored (see tx). PT Short Term Goals Short Term Goals Time Frame: Jul 19, 2021 Roll Left & Right: 4 Sit to lyin Lying to sitting on side of be: 3 Sit to stand: 4 Chair/zoi-mk-fyfoo transfer: 4 Walk 10 feet: 4 Walk 50 feet with two turns: 4 PT Corrugated Sheet Material [place] Goals Corrugated Sheet Material [place] Goals PT Care Home Goals Time Frame: Aug 02, 2021 Roll Left & Right (QC): 6 Sit to Lying (QC): 4 (SBA) Lying-Sitting on Side/Bed(QC): 4 (SBA) Sit to Stand (QC): 4 (SBA) Chair/Uqk-bn-Mgunt Xfer(QC): 4 (SBA) Toilet Transfer (QC): 4 (SBA) Car Transfer (QC): 4 (SBA) Does the Patient Walk: Yes Walk 10 feet (QC): 4 (SBA) Walk 50ft with 2 Turns (QC): 4 (SBA) Walk 150 ft (QC): 4 (SBA) Walking 10ft on Uneven Surface: 4 (SBA) 1 Step (curb) (QC): 4 (SBA) 4 Steps (QC): 88 12 Steps (QC): 88 Picking up an Object (QC): 4 (SBA) Wheel 50 feet with 2 turns (QC: 6 Wheel 150 feet: 6 PT Plan Problem List Problem List: Activity Tolerance, Functional Strength, Safety, Balance, Gait, Transfer Treatment/Plan Treatment Plan: Continue Plan of Care Treatment Plan: Bed Mobility, Education, Functional Activity [place], Functional Strength, Group Therapy, Gait, Safety, Therapeutic Exercise, Transfers Treatment Duration: Aug 02, 2021 Frequency: Modified Program (IRF) Estimated Hrs Per Day: 1 hour per day Patient and/or Family Agrees t: Yes Safety Risks/Education Patient Education: Gait Training, Transfer Techniques, Correct Positioning, Safety Issues Teaching Recipient: Patient Teaching Methods: Discussion Response to Teaching: Verbalize Understanding Time/GCodes Time In: 800 Time Out: 900 Total Billed Treatment Time: 60 Total Billed Treatment 1, FA x2 (25m), [facility] (15m) & GT (20m) ANDREINA CELESTE DIRECTOR MEETINGS Jul 13, 2021 08:59
--- NOTE | 2021-07-13 09:02 | Occupational Ther Daily Note ---
OT Current Status-Daily Note Subjective Pt agreeable to therapy, asks therapists if she can rest for a little longer. Pt educated on benefits of therapy and rehab expectations, she was then agreeable. Nursing staff indicate pt is to receive blood today. Mental Status/Objective Patient Orientation: Person, Confused, Situation Attachments: Oxygen (4-6L) Pt thought she was in [place] ADL-Treatment Therapy Code Descriptions/Definitions Functional [place] Measure: 0=Not Assessed/NA 4=Minimal Assistance 1=Total Assistance 5=Supervision or Setup 2=Maximal Assistance 6=Modified [place] 3=Moderate Assistance 7=Complete IndependenceSCALE: Activities may be completed with or without assistive devices. 4-Ufmtgqinvs-zdzkeho completes the activity by him/herself with no assistance from a helper. 5-Set-up or Clean-up Assistance-helper sets up or cleans up; patient completes activity. [place] assists only prior to or following the activity. 4-Supervision or Touching Assistance-helper provides verbal cues and/or touching/steadying and/or contact guard assistance as patient completes activity. Assistance may be provided throughout the activity or intermittently. 3-Partial/Moderate Assistance-helper does LESS THAN HALF the effort. [place] lifts, holds or supports trunk or limbs, but provides less than half the effort. 2-Substantial/Maximal Assistance-helper does MORE THAN HALF the effort. [place] lifts or holds trunk or limbs and provides more than half the effort. 0-Khffydmib-prbcry does ALL the effort. Patient does none of the effort to complete the activity. Or, the assistance of 2 or more helpers is required for the patient to complete the activity. If activity was not attempted, code reason: 7-Patient Refused. 9-Not Applicable-not attempted and the patient did not perform the activity before the current illness, exacerbation or injury. 10-Not Attempted due to Environmental Limitations-(lack of equipment, weather restraints, etc.). 88-Not Attempted due to Medical Conditions or Safety Concerns. Lower Body Dressing (QC): 1 (assist x2, assist with all parts.) Other Treatment OT/PT cotreat due to skill of 2 clinicians required which a cardiac rehab nurse could not perform in order to decrease fall risk, coordinate UE/LEs, and due to pt's limitations in strength, mobility, activity tolerance, and overall debility. OT focused on UE placement, cues for sequencing and safety, and ADLs, PT focused on LE placement, gross overall movement, mobility/transfers. Pt transferred supine to sit EOB, min A. OT assisted pt with donning pants, as pt fatigued at EOB, she leaned towards L side requiring mod A to stay upright. Pt transferred from EOB to w/c, then propelled w/c to therapy gym. Frequent rest breaks required and skilled cues for w/c management (Min A with turns, SBA straight but very slow). Pt taken to parallel bars, stood x2 (min-mod A sit to stand), on 3rd stand, pt ambulated 6 steps (3') before fatiguing required seated rest break. At this point, pt indicates "lights are going out" and she feels nauseous, BP 103/59 and O2 saturation at 97%. Nurse notified. Pt taken back to her room, transferring from w/c to EOB, then supine. Post tx, pt in bed, call light in reach and all needs met, nurse present. BP 106/61 at start of session. O2 saturation dropped to 86% with activity, O2 increased to 6L NC. After standing, pt indicates she felt off,"lights are going out", CP at 103/59 and O2 saturation at 97% on 6L. Education OT Patient Education: Correct positioning, Energy conservation, Exercise program, Modified ADL techniques, Progress toward Goal/Update tx plan, Purpose of tx/functional activities, Rehab process, Safety issues, Transfer techniques, W/C management Teaching Recipient: Patient Teaching Methods: Discussion Response to Teaching: Verbalize Understanding, Reinforcement Needed OT Short Term Goals Short Term Goals Time Frame: Jul 27, 2021 Shower/bathe self: 4 Lower body dressin Putting on/taking off footwear: 4 OT [place] Operator Goals Longterm Goals Time Frame: Aug 12, 2021 Eating (QC): 6 Oral Hygiene (QC): 6 Toileting Hygiene (QC): 6 Shower/Bathe Self (QC): 6 Upper Body Dressing (QC): 6 Lower Body Dressing (QC): 6 On/Off Footwear (QC): 6 Additional Goals: 1-Demonstrate ADL Tasks, 2-Verbalize Understanding, 3- ImproveStrength/[place] 1=Demonstrate adherence to instructed precautions during ADL tasks. 2=Patient will verbalize/demonstrate understanding of assistive devices/modifications for ADL. 3=Patient will improve strength/tolerance for activity to enable patient to perform ADL's. OT Education/Plan Problem List/Assessment Assessment: Decreased Activ Tolerance, Decreased Safety Aware, Decreased UE Strength, Impaired Bed Mobility, Impaired Funct Balance, Impaired I ADL's, Impaired Self-Care Skills Discharge Recommendations Plan/Recommendations: Continue POC Treatment Plan/Plan of Care Patient would benefit from OT for education, treatment and training to promote independence in ADL's, mobility, safety and/or upper extremity function for ADL's. Plan of Care: ADL Retraining, Functional Mobility, Group Exercise/Act as Ind, UE Funct Exercise/Act Treatment Duration: Aug 12, 2021 Frequency: Modified Program (IRF) Estimated Hrs Per Day: 1 hour per day Rehab Potential: Fair Time/GCodes Start Time: 08:00 Stop Time: 09:00 Total Time Billed (hr/min): 60 Billed Treatment Time cotreat x60' 1, FA 4 GERARDO ALBARADO OT Jul 13, 2021 09:02
[2021-07-13] MEDS: ACETAMINOPHEN 325 MG TABLET PO PRN ×2 (09:09→21:09)
[2021-07-13 09:32] VITALS: BP 113/54
[2021-07-13 09:53] VITALS: BP 109/53
[2021-07-13] MEDS ORDERED: NS 100 ML (IVPB) BAG IV ONE (10:00)
[2021-07-13] MEDS ORDERED: HOLD METFORMIN - RECEIVED CONTRAST 20 ML VIAL IV SCH (10:00)
[2021-07-13] MEDS ORDERED: IOHEXOL 350 MG/ML 100 ML (OMNIPAQUE 350) VIAL IV ONE (10:00)
[2021-07-13 10:08] VITALS: BP 113/53
[2021-07-13] MEDS: fluCOnazole (DIFLUCAN) 100 MG TAB PO SCH (10:10)
[2021-07-13] MEDS: PANTOPRAZOLE 40 MG (PROTONIX) TAB PO SCH (10:10)
[2021-07-13] MEDS: DOCUSATE SODIUM 100 MG (COLACE) CAP PO SCH ×2 (10:11→21:10)
[2021-07-13] MEDS: polyethylene glycoL POWDER 17 GM (MIRALAX) PACK PO SCH ×2 (10:12→21:16)
[2021-07-13] MEDS: SENNA W/DOCUSATE (SENOKOT S) TABLET PO SCH ×2 (10:12→21:17)
[2021-07-13 12:39] VITALS: BP 127/58
--- NOTE | 2021-07-13 13:35 | Diagnostic Imaging Report ---
CTA chest, abdomen and pelvis. Thin axial sections through the chest, abdomen and pelvis are obtained following intravenous contrast bolus. Multiplanar MIP images were reconstructed and reviewed. All CT scans use one or more of the following dose optimizing techniques: automated exposure control, MA and/or KvP adjustment based on patient size and exam type or iterative reconstruction. INDICATION: Elevated D-dimer and elevated liver function tests. COMPARISON: No prior studies are available for comparison. CT ANGIOGRAM CHEST: Evaluation of the pulmonary arterial system does show filling defect within a left lower lobe lobar as well as segmental branches. Right lower lobe and upper lobes are unremarkable. No saddle embolus is identified. Thoracic aorta is unremarkable. There is no pericardial fluid. There are small bilateral pleural effusions. The lungs demonstrate extensive groundglass infiltrates involving bilateral upper lobes as well as bilateral lower lobes. There is a large hiatal hernia present. IMPRESSION: 1. Lobar and segmental left lower lobe pulmonary emboli. 2. Bilateral pleural effusions with extensive bilateral five-lobe groundglass pulmonary infiltrates, consistent with COVID-19 pneumonia. 3. Large hiatal hernia. CT ABDOMEN AND PELVIS: No discrete liver mass is detected. The gallbladder is surgically absent. There is no biliary ductal dilatation. Pancreas and spleen are unremarkable. No adrenal mass is detected. Kidneys contain circumscribed low-attenuation lesions, consistent with cysts. Aorta is calcified but nonaneurysmal. Colon contains moderate stool. Small bowel loops are normal in caliber. There is no obstruction. No free fluid or fluid collection is seen. The bladder and uterus are unremarkable. There is diverticulosis of the sigmoid but no evidence of acute diverticulitis. IMPRESSION: 1. No discrete liver mass or biliary ductal dilatation. 2. Bilateral renal cysts. 3. Uncomplicated diverticulosis. Dictated by: Dictated on workstation # [id number]
[2021-07-13] MEDS: TAMSULOSIN 0.4 MG (FLOMAX) CAP PO SCH (17:19)
--- NOTE | 2021-07-13 18:09 | CONSULTATION REPORT ---
DATE OF SERVICE: 07/13/2021 ATTENDING PHYSICIAN: Dr. Bowen. SUMMARY: After reviewing the patient's records, interviewing her, this is a 70-year-old white lady admitted to the inpatient rehabilitation. She is recovering from COVID and she was found to be pretty anemic and is getting blood transfusion. She also was found to have residual by scan and catheter. She was started today on Urecholine 25 mg before meals and at bedtime. She denies any kind of voiding symptoms at home including retention and incontinence. She has no gross hematuria. IMPRESSION: Urinary retention with neurogenic bladder. PLAN: 1. Continue Urecholine. 2. Add Flomax 0.4 mg daily. 3. Follow up with daily bladder scan, postvoid residual and p.r.n. and straight cath if over 400 or uncomfortable. We will manage accordingly. Job ID: [id number] DocumentID: [id number] Dictated Date: 07/13/2021 11:09:47 Wooden Fence Erector Date: 07/13/2021 12:55:06 Dictated By: PARAMJIT ROBB MD
[2021-07-13 20:00] VITALS: BP 115/56
[2021-07-13] MEDS: ENOXAPARIN 80 MG/0.8 ML (LOVENOX) SYR SC SCH (21:10)
[2021-07-14] MEDS: RT-ALBUTEROL/IPRATROPIUM 3 ML (DUONEB) VIAL INH SCH ×4 (01:35→22:42)
[2021-07-14] MEDS: NYSTATIN ORAL SUSP 5 ML UDC PO SCH ×4 (05:49→17:53)
[2021-07-14] MEDS: BETHANECHOL 25 MG (URECHOLINE) TAB PO SCH ×4 (05:49→21:17)
[2021-07-14] MEDS: VENlafaxine XR 75 MG (EFFEXOR XR) CAP PO SCH (05:49)
[2021-07-14] MEDS: CATHETER FLUSH 10 ML SYR IV SCH ×3 (05:50→21:40)
[2021-07-14] MEDS: inSUlin ASPART (NovoLOG) 1 UNIT/0.01 ML (CHARGE PER UNIT) SC SCH ×4 (05:51→21:00)
--- NOTE | 2021-07-14 05:54 | Individualized Plan of Care ---
Individualized Plan of Care Rehab Nursing IPOC Order Admission Date Jul 12, 2021 at 11:05 Current Orders Orders Admission Arrival Bed Request (07/12/21 11:24) Admission Order(Inpt,Obs,Sdc) (07/12/21 11:37) Vital Signs: Per Unit Policy ( 08,16,00 (07/12/21 11:37) Oren Farnsworth (07/12/21 11:37) Sequential Compression Device .admit (07/12/21 11:37) Bus Attendant-Inpt Rehab Con (07/12/21 11:37) Rehab Nursing Orders-Ipoc (07/12/21 11:37) Physical Therapy Rehab Orders (07/12/21 11:37) Occupational Therapy Rehab Ord (07/12/21 11:37) Speech Therapy Rehab Orders (07/12/21 11:37) Cbc With Automated Diff (07/13/21 06:00) Comprehensive Metabolic Panel (07/13/21 06:00) Precautions (Aru) (07/12/21 11:37) Weekly Weight WEEK (07/12/21 11:37) Rehab-Intensity Of Therapy (07/12/21 11:37) Initiate Admission Nursing Pro .admission (07/12/21 11:37) Alprazolam Tablet (Xanax Tablet) (07/12/21 11:45) Calcium Carbonate Chew Tablet (Antacid C (07/12/21 11:45) Diphenhydramine Tablet (Benadryl Tablet) (07/12/21 11:45) Docusate Sodium Capsule (Colace Capsule) (07/12/21 21:00) Docusate Sodium Capsule (Colace Capsule) (07/12/21 11:45) Bisacodyl Suppository (Dulcolax Supposit (07/12/21 11:45) Lactulose Oral Solution (Enulose Oral So (07/12/21 11:45) Na Phos/Na Biphos Enema (Fleet Enema Emory (07/12/21 11:45) Guaifenesin/Codeine Syrup (Robitussin Ac (07/12/21 11:45) Loperamide Tablet (Imodium Tablet) (07/12/21 11:45) Melatonin Tablet (Melatonin Tablet) (07/12/21 11:45) Polyethylene Glycol Powder Pkt (Miralax (07/12/21 21:00) Ondansetron Oral Dissolve Tab (Zofran (07/12/21 11:45) Code/Resuscitation (07/12/21 11:37) Initiate Admission Nursing Pro .admission (07/12/21 11:37) Covid-19 External Lab Results (07/12/21 11:38) Straight Cath (Urinary) (07/12/21 11:38) Cho 60g/M 1snack (16-2000 Ray) (07/12/21 Lunch) Bethanechol Tablet (Urecholine Tablet) (07/12/21 16:00) Enoxaparin Injection (Lovenox Injection) (07/12/21 21:00) Fluconazole Tablet (Diflucan Tablet) (07/13/21 09:00) Hydrocodone/Apap 5/325 Tablet (Lortab 5 (07/12/21 11:45) Iron Sucrose Injection (Venofer Injectio (07/14/21 09:00) Lorazepam Injection (Ativan Injection) (07/12/21 11:45) Nystatin Oral Suspension (Mycostatin O (07/12/21 12:00) Ondansetron Injection (Zofran Injectio (07/12/21 11:45) Pantoprazole Tablet (Protonix Tablet) (07/13/21 09:00) Senna S Tablet (Senokot S Tablet) (07/12/21 21:00) Venlafaxine Xr Capsule (Effexor Xr Capsu (07/13/21 07:00) Insulin Aspart (Novolog) (Novolog (Charg (07/12/21 16:00) Insulin Determir (Per Unit) (Levemir (Pe (07/12/21 21:00) Acetaminophen Tablet/Caplet (Tylenol T (07/12/21 12:00) Patient Visit (07/12/21 ) Pt Eval Moderate Complexity (07/12/21 ) Functional Activities, Ea 15 (07/12/21 ) Enlive Variety (07/12/21 15:00) Sodium Chloride Flush (Catheter Flush Sy (07/12/21 15:30) Sodium Chloride Flush (Catheter Flush Sy (07/12/21 22:00) Mat Initiate Protocol (07/12/21 15:58) Albuterol/Ipra Inhalation Soln (Duoneb I (07/12/21 21:00) Svn Small Volume Nebulizer (07/12/21 15:58) Albuterol Pre-Mix Nebs (Rt) (Proventil (07/12/21 16:00) Svn Small Volume Nebulizer (07/12/21 15:58) Accucheck Achs ACHS (07/12/21 18:12) Bladder Scan-Straight Cath-Pos (07/12/21 18:37) Vital Signs: Special (Order) (07/13/21 06:33) Consent-Obtain Consent For (07/13/21 06:33) Monitor S/S Transfusion Reacti (07/13/21 06:33) Ns Iv 500 Ml (Sodium Chloride 0.9%) (07/13/21 06:45) Type And Screen (07/13/21 06:33) Red Cells Leukocytes Reduced (07/13/21 06:33) Fibrin Degradation Products (07/13/21 09:36) Iohexol Injection (Omnipaque 350 Mg/Ml 1 (07/13/21 10:00) Received Contrast (Hold Metformin- Contr (07/13/21 10:00) Ns (Ivpb) (Sodium Chloride 0.9% Ivpb Bag (07/13/21 10:00) Ct Jenny Chest/Noang Abd-Pelv W (07/13/21 09:35) Patient Visit (07/13/21 ) Functional Activities, Ea 15 (07/13/21 ) Wheelchair Mgmt/Propulsn 15min (07/13/21 ) Gait Training, Ea 15 Min (07/13/21 ) Tamsulosin Capsule (Flomax Capsule) (07/13/21 18:00) Bladder Scan-Straight Cath-Pos (07/13/21 11:05) Bladder Scan-Straight Cath-Pos (07/13/21 11:05) Enoxaparin Injection (Lovenox Injection) (07/13/21 21:00) Cbc With Automated Diff (07/14/21 06:00) Comprehensive Metabolic Panel (07/14/21 06:00) Nursing Communication (Order) (07/14/21 09:07) Diabetes Education (07/14/21 11:23) Patient Visit (07/14/21 ) Functional Activities, Ea 15 (07/14/21 ) Patient Visit (07/14/21 ) Cognitive Test Per Hour (07/14/21 ) Dysphagia Evaluation Std (07/14/21 ) Venlafaxine Xr Capsule (Effexor Xr Capsu (07/15/21 07:00) Rehab Nursing Orders: Ongoing Assess. of Cognitive Status, Ongoing Assess. of Function Status, Bladder Management, Bladder Scan, Bladder Training, Bowel Management, Bowel Training, Disease Management & Educaiton, DVT Prophylaxis, Fall Prevention, Fluid/Electrolyte/Nutrition Mgmt, Infection Prevention, Medication Management & Education, Management of Risks & Complications, Nutrition Management, Pain Management, Patient/Family Support, Safety Management Intensity of Therapy to be met Patient to be seen: Min.3h per day/5 of 7d PT IPOC Problem List: Activity Tolerance, Functional Strength, Safety, Balance, Gait, Transfer Treatment Plan: Continue Plan of Care Bed Mobility, Education, Functional Activity [place], Functional Strength, Group Therapy, Gait, Safety, Therapeutic Exercise, Transfers Treatment Duration: Aug 02, 2021 Frequency: Modified Program (IRF) Estimated Hrs Per Day: 1 hour per day OT IPOC Problems: Decreased Activ Tolerance, Decreased Safety Aware, Decreased UE Strength, Impaired Bed Mobility, Impaired Funct Balance, Impaired I ADL's, Impaired Self-Care Skills OT Treatment, Training and Edu: Yes Plan of Care: ADL Retraining, Functional Mobility, Group Exercise/Act as Ind, UE Funct Exercise/Act Treatment Duration: Aug 12, 2021 Frequency: Modified Program (IRF) Estimated Hrs Per Day: [address] IPOC Speech Therapy Treatment Plan: Discontinue ST Treatment Duration: Jul 14, 2021 Frequency: Modified Program (IRF) Estimated Hrs Per Day: Other Bus Attendant/Case Mgmt Bus Attendant/Case Managemen: Discharge Planning Dietitian/Compliance Coordinator Dietitian/Compliance Coordinator to monitor nutritional status and make changes and/or recommendations as needed and work with speech pathology on dietary upgrades as the occur. Physician IPOC Medical Issues being managed closely and that require the 24 hour availability of a physician: Recent Covid then respiratory failure requiring intubation with acute blood loss anemia requiring transfusion will require close monitoring for decompensation Medical Issues: Bowel/Bladder Function, DVT Prophylaxis, Falls Precautions, Fluid/Electrolyte/Nutrition Balance, Infection Protection, Pain Management Brief Synthesis of Preadmission Screen, Post-Admission Evaluation, and Therapy Evaluations: PT and OT will focus on increasing ambulatory skills with the use of assistive devices for fall risk prevention and help increase independence in ADLs in order to return back home to live with spouse Medical Prognosis: Good Anticipated Length of Stay: 14 days NASRIN LAGUERRE DO Jul 14, 2021 05:54
[2021-07-14 06:09] LABS: ALBUMIN 2.3 GM/DL (3.2-4.5)
[2021-07-14 06:11] LABS: CALCIUM 8.3 MG/DL (8.5-10.1)
[2021-07-14 06:12] LABS: TOTAL PROTEIN 5.2 GM/DL (6.4-8.2)
[2021-07-14 06:14] LABS: BILIRUBIN,TOTAL 0.8 MG/DL (0.1-1.0)
[2021-07-14 06:15] LABS: CREATININE SERUM 0.77 MG/DL (0.60-1.30)
[2021-07-14 06:19] LABS: BASOPHILS % (AUTO) 0 % (0-10); EOSINOPHILS # (AUTO) 0.6 10^3/uL (0.0-0.3); EOSINOPHILS % (AUTO) 6 % (0-10); HEMATOCRIT 25 % (35-52); HEMOGLOBIN 7.8 g/dL (11.5-16.0); LYMPHOCYTES # (AUTO) 1.6 10^3/uL (1.0-4.0); LYMPHOCYTES % (AUTO) 15 % (12-44); MEAN CORPUSCULAR HEMOGLOBIN 28 pg (25-34); MEAN CORPUSCULAR HGB CONC 32 g/dL (32-36); MEAN CORPUSCULAR VOLUME 88 fL (80-99); MEAN PLATELET VOLUME 9.2 fL (9.0-12.2); MONOCYTES # (AUTO) 0.8 10^3/uL (0.0-1.0); MONOCYTES % (AUTO) 8 % (0-12); NEUTROPHILS # (AUTO) 7.2 10^3/uL (1.8-7.8); NEUTROPHILS % (AUTO) 69 % (42-75); PLATELET COUNT 272 10^3/uL (130-400); WHITE BLOOD COUNT 10.5 10^3/uL (4.3-11.0)
[2021-07-14 06:32] LABS: SMEAR SCAN COMMENT YES
[2021-07-14 07:44] VITALS: BP 105/53
[2021-07-14] MEDS: PANTOPRAZOLE 40 MG (PROTONIX) TAB PO SCH (08:05)
[2021-07-14] MEDS: IRON SUCROSE 200 MG/10 ML (VENOFER) VIAL IV SCH (08:05)
[2021-07-14] MEDS: fluCOnazole (DIFLUCAN) 100 MG TAB PO SCH (08:05)
[2021-07-14] MEDS: ENOXAPARIN 80 MG/0.8 ML (LOVENOX) SYR SC SCH ×2 (08:07→21:18)
[2021-07-14] MEDS: DOCUSATE SODIUM 100 MG (COLACE) CAP PO SCH ×2 (08:15→21:17)
[2021-07-14] MEDS: SENNA W/DOCUSATE (SENOKOT S) TABLET PO SCH ×2 (08:15→21:24)
[2021-07-14] MEDS: HYDROcodone/APAP 5 MG/325 MG (LORTAB) TAB PO PRN ×2 (08:16→17:56)
[2021-07-14] MEDS: polyethylene glycoL POWDER 17 GM (MIRALAX) PACK PO SCH ×2 (08:18→21:24)
--- NOTE | 2021-07-14 08:57 | Physical Therapy Daily Note ---
PT Daily Note-Current Subjective Pt in bed upon arrival and agrees to co-treat. PT/OT needed d/t pt weakness, low activity tolerance, poor balance, poor mobility, and for safety. RN at room at beginning of tx giving pt meds. Pt states pain 8/10 on L chest side, but pt states this is an ongoing pain. Pain Numeric Pain Scale: 8 Location: Left Location Body Site: Chest Pain Description: Sharp Mental Status Patient Orientation: Person, Place, Time, Situation Attachments: Oxygen (3L) Transfers SCALE: Activities may be completed with or without assistive devices. 1-Sknswdygsx-crguqlw completes the activity by him/herself with no assistance from a helper. 5-Set-up or Clean-up Assistance-helper sets up or cleans up; patient completes activity. [place] assists only prior to or following the activity. 4-Supervision or Touching Assistance-helper provides verbal cues and/or touching/steadying and/or contact guard assistance as patient completes activity. Assistance may be provided throughout the activity or intermittently. 3-Partial/Moderate Assistance-helper does LESS THAN HALF the effort. [place] lifts, holds or supports trunk or limbs, but provides less than half the effort. 2-Substantial/Maximal Assistance-helper does MORE THAN HALF the effort. [place] lifts or holds trunk or limbs and provides more than half the effort. 0-Bnfxmbkzq-gdvvtd does ALL the effort. Patient does none of the effort to complete the activity. Or, the assistance of 2 or more helpers is required for the patient to complete the activity. If activity was not attempted, code reason: 7-Patient Refused. 9-Not Applicable-not attempted and the patient did not perform the activity before the current illness, exacerbation or injury. 10-Not Attempted due to Environmental Limitations-(lack of equipment, weather restraints, etc.). 88-Not Attempted due to Medical Conditions or Safety Concerns. Lying to Sitting/Side of Bed(Q: 3 Sit to Stand (QC): 3 Chair/Oei-sz-Kafir Xfer(QC): 3 Weight Bearing Full Weight Bearing Full Weight Bearing Treatments OT/PT cotreat due to skill of 2 clinicians required which a rehab therapist could not perform in order to decrease fall risk, coordinate UE/LEs, and due to pt's li mitations in strength, mobility, activity tolerance, and overall debility. OT focused on UE placement, cues for sequencing and safety, and ADLs, PT focused on LE placement, gross overall movement, mobility/transfers. Pt in bed upon arrival, instructed to bring LE to EOB, pt able to do so w/ TC for sequencing from PT. Pt sat w/ LE EOB and torso side lying in bed and took RB. Pt able to bring torso upright while pushing on bed railing and PT Antoni sitting up. Pt sat EOB as nursing gave pt medication and pt took RB. Pt sit to stand ModA w/ FWW, and transfers to WC, as PT A pt w/ LE sequencing and OT guides pt. Pt took RB and O2 was taken, reading 78% on 3 L, O2 was brought up to 5L and pulse ox read 92% before continuing tx. Pt O2 stayed above 89% once O2 was brought up to 5L. Once in WC, pt doffs clothing (see OT note). Pt takes bed bath, able to wash torso, UE, and LE w/ Antoni. During bath, pt takes RB, O2 reading 96%. Pt dons clothing (reference O2 note). Pt sit to stand Antoni x2 from PT as OT dons pts pants. Pt returns to WC and is propelled to recliner. Pt sit to stand and transfers to recliner Antoni x2 w/ FWW. Pt O2 reading 94%, O2 brought back down to 3L and pt O2 read 96% at end of tx. Pt stays in recliner w/ all needs met, call light in hand. Assessment Current Status: Fair Progress Pt exhibits low activity tolerance, requires frequent RB and is limited by pain, weakness, and poor mobility. PT Short Term Goals Short Term Goals Time Frame: Jul 19, 2021 Roll Left & Right: 4 Sit to lyin Lying to sitting on side of be: 3 Sit to stand: 4 Chair/ytc-os-rofas transfer: 4 Walk 10 feet: 4 Walk 50 feet with two turns: 4 PT Assignment Officer Goals Prison Goals PT Prison Goals Time Frame: Aug 02, 2021 Roll Left & Right (QC): 6 Sit to Lying (QC): 4 (SBA) Lying-Sitting on Side/Bed(QC): 4 (SBA) Sit to Stand (QC): 4 (SBA) Chair/Moc-ff-Sldxc Xfer(QC): 4 (SBA) Toilet Transfer (QC): 4 (SBA) Car Transfer (QC): 4 (SBA) Does the Patient Walk: Yes Walk 10 feet (QC): 4 (SBA) Walk 50ft with 2 Turns (QC): 4 (SBA) Walk 150 ft (QC): 4 (SBA) Walking 10ft on Uneven Surface: 4 (SBA) 1 Step (curb) (QC): 4 (SBA) 4 Steps (QC): 88 12 Steps (QC): 88 Picking up an Object (QC): 4 (SBA) Wheel 50 feet with 2 turns (QC: 6 Wheel 150 feet: 6 PT Plan Problem List Problem List: Activity Tolerance, Functional Strength, Safety, Balance Treatment/Plan Treatment Plan: Continue Plan of Care Treatment Plan: Bed Mobility, Education, Functional Activity [place], Functional Strength, Group Therapy, Gait, Safety, Therapeutic Exercise, Transfers Treatment Duration: Aug 02, 2021 Frequency: Modified Program (IRF) Estimated Hrs Per Day: 1 hour per day Patient and/or Family Agrees t: Yes Time/GCodes Time In: 800 Time Out: 900 Total Billed Treatment Time: 60 Total Billed Treatment 1, FA x4 GASTON MORA COMPOSITE MECHANIC Jul 14, 2021 08:57
--- NOTE | 2021-07-14 09:02 | Occupational Ther Daily Note ---
OT Current Status-Daily Note Subjective Pt laying in bed, nurse present giving medications. Pt agreeable to OT tx, rates pain 8/10 on L side of torso/trunk. Mental Status/Objective Patient Orientation: Person, Place, Situation Attachments: Oxygen (3-5L) ADL-Treatment Therapy Code Descriptions/Definitions Functional [place] Measure: 0=Not Assessed/NA 4=Minimal Assistance 1=Total Assistance 5=Supervision or Setup 2=Maximal Assistance 6=Modified [place] 3=Moderate Assistance 7=Complete IndependenceSCALE: Activities may be completed with or without assistive devices. 2-Fcvajehuhx-hhuptzc completes the activity by him/herself with no assistance from a helper. 5-Set-up or Clean-up Assistance-helper sets up or cleans up; patient completes activity. [place] assists only prior to or following the activity. 4-Supervision or Touching Assistance-helper provides verbal cues and/or touching/steadying and/or contact guard assistance as patient completes activity. Assistance may be provided throughout the activity or intermittently. 3-Partial/Moderate Assistance-helper does LESS THAN HALF the effort. [place] lifts, holds or supports trunk or limbs, but provides less than half the effort. 2-Substantial/Maximal Assistance-helper does MORE THAN HALF the effort. [place] lifts or holds trunk or limbs and provides more than half the effort. 2-Oitszcbrb-clzrzq does ALL the effort. Patient does none of the effort to complete the activity. Or, the assistance of 2 or more helpers is required for the patient to complete the activity. If activity was not attempted, code reason: 7-Patient Refused. 9-Not Applicable-not attempted and the patient did not perform the activity before the current illness, exacerbation or injury. 10-Not Attempted due to Environmental Limitations-(lack of equipment, weather restraints, etc.). 88-Not Attempted due to Medical Conditions or Safety Concerns. Shower/Bathe Self (QC): 1 (Assist x2 in stand to wash buttocks, assist to wash BLE lower legs/feet. ) Upper Body Dressing (QC): 3 (Min A managing shirt down trunk. Pt able to thread head and UEs.) Lower Body Dressing (QC): 1 (Assist x2 in stand for pant hike, assist to thread BLEs into pants.) On/Off Footwear: 2 (Max A, assist with donning/doffing gripper socks.) Other Treatment OT/PT cotreat due to skill of 2 clinicians required which a rehab services aide could not perform in order to decrease fall risk, coordinate UE/LEs, and due to pt's limitations in strength, mobility, activity tolerance, and overall debility. OT focused on UE placement, cues for sequencing and safety, and ADLs, PT focused on LE placement, gross overall movement, mobility/transfers. Pt transferred supine to sit EOB (min A), pt states she is in pain, 8/10 on L side of trunk/torso region. Pt states she doesn't feel like she can tolerate a full shower on this date due to pain and fatigue, agreeable to sponge bath. Pt transferred from EOB to w/c (Mod A), completed sponge bath and dressing as outlined above. Assistance required to bend ankle across other knee in figure 4 position for washing lower legs/feet, and donning LE clothing. Min A x2 during stand for pant hike. Pt then transferred from w/c to recliner. Pt required frequent rest breaks throughout session. Post tx, pt up in recliner, call light in reach and all needs met. O2 at 3L NC post tx Pt required cues for UE placement with transfers. O2 increased from 3L to 5L with activity and throughout session. With activity on 3L, pt's O2 saturation dropped to 78%, O2 increased to 5L and O2 saturation returned to 90%'s within a minute. With activity on 5L, pt's O2 dropped to 89% but recovered back into the 90%'s within 5 seconds with pursed lip breathing. Education OT Patient Education: Correct positioning, Energy conservation, Exercise program, Modified ADL techniques, Progress toward Goal/Update tx plan, Purpose of tx/functional activities, Rehab process, Safety issues, Transfer techniques Teaching Recipient: Patient Teaching Methods: Discussion Response to Teaching: Verbalize Understanding OT Short Term Goals Short Term Goals Time Frame: Jul 27, 2021 Shower/bathe self: 4 Lower body dressin Putting on/taking off footwear: 4 OT Service Desk Analyst Goals Service Desk Analyst Goals Time Frame: Aug 12, 2021 Eating (QC): 6 Oral Hygiene (QC): 6 Toileting Hygiene (QC): 6 Shower/Bathe Self (QC): 6 Upper Body Dressing (QC): 6 Lower Body Dressing (QC): 6 On/Off Footwear (QC): 6 Additional Goals: 1-Demonstrate ADL Tasks, 2-Verbalize Understanding, 3-ImproveStrength/[place]amil[place] 1=Demonstrate adherence to instructed precautions during ADL tasks. 2=Patient will verbalize/demonstrate understanding of assistive devices/modifications for ADL. 3=Patient will improve strength/tolerance for activity to enable patient to perform ADL's. OT Education/Plan Problem List/Assessment Assessment: Decreased Activ Tolerance, Decreased Safety Aware, Decreased UE Strength, Impaired Funct Balance, Impaired I ADL's, Impaired Self-Care Skills Discharge Recommendations Plan/Recommendations: Continue POC Treatment Plan/Plan of Care Patient would benefit from OT for education, treatment and training to promote independence in ADL's, mobility, safety and/or upper extremity function for ADL's. Plan of Care: ADL Retraining, Functional Mobility, Group Exercise/Act as Ind, UE Funct Exercise/Act Treatment Duration: Aug 12, 2021 Frequency: Modified Program (IRF) Estimated Hrs Per Day: 1 hour per day Rehab Potential: Fair Time/GCodes Start Time: 08:00 Stop Time: 09:00 Total Time Billed (hr/min): 60 Billed Treatment Time 1, ADL 4 GERARDO ALBARADO OT Jul 14, 2021 09:02
--- NOTE | 2021-07-14 12:31 | ST Cognitive Linguistic Eval ---
Speech Evaluation-General Medical Diagnosis post covid 19 debility Onset Date: Jul 03, 2021 Medical History Pertinent Medical History: DM Reviewed History: Yes Social History Current Living Status: Spouse Speech PLF-Current Status Language Eval: Auditory Comprehends Simple Yes/No Ques: Functional Indent/Objects [place]: Functional Ident/Pics in [place]: Functional Follows 1-Step Commands: Functional Language Eval: Verbal Language Completes Spontaneous Greeting: Functional Produces Auto, Serial Info: Functional Imitates Simple Words/Phrases: Functional Word Finding: Functional Requests Basic Needs: Functional Objective Formal/Standardized Tests [facility] ([facility] Status) Examinaton was completed. Pt reports she takes care of bills, drives, shops and cooks. Results indicating min cognitive deficits. Pt states she feels tired and that she is having some trouble thinking. Speech Patient Assess Expression of Ideas/Wants: Expression (4) (Expresses complex messages) Understanding Verbal Content: Understands (4) (Clear comprehension without) Brief Interview-Mental Status: Yes (Three Words) Repetition of Three Words: Two (2) Temporal Orientation: Year: Correct (3) Temporal Orientation: Month: Accurate within 5 days(2) Temporal Orientation: Day: Correct (1) Recall : Wear to say "Sock": Yes, no cue required (2) Recall : Color: Yes, after cueing (1) Recall : Bed: Yes, no cue required (2) Memory/Recall Ability: Current season, Staff names and faces, That he or she is in a hsp/hsp unit Speech Short Term Goals Short Term Goals Short Term Goals 1. The pt will complete daily problem solving tasks with 90% accy. 2. The patient will complete memory tasks related to her daily needs at 80% accy. Speech Floatman Goals Floatman Goals Patient will improved cognitive-communication abilities so that she will require decreased assistance. Speech-Plan Treatment Plan Speech Therapy Treatment Plan: Continue Plan of Care Frequency: 3 times per week Estimated Hrs Per Day: .5 hour per day Rehab Potential: Fair Time Speech Therapy Time In: 09:30 Speech Therapy Time Out: 10:00 Billed Treatment Time 1; COGN TEST 15 mins LETICIA AGUILAR Jul 14, 2021 12:31
--- NOTE | 2021-07-14 12:43 | ST Dysphagia Evaluation ---
Speech Evaluation-General Medical Diagnosis post covid 19 debility Onset Date: Jul 03, 2021 Medical History Pertinent Medical History: DM Reviewed History: Yes Social History Current Living Status: Spouse Speech PLF/Current-Dysphagia Subjective The pt was asleep upon LEGAL ADVISER arrival. Pt reports she has had difficulty swallowing for a long time now and avoids dry foods (bread/meat). She states she takes small bites and small sips and that seems to help. Oral Motor Skills Dentition: Natural Ability to Follow Directions: Good Oral Expression Ability: No Impairment Face Facial Symmetry: Symmetrical Oral-Facial Assessment Oral-Facial Dentition: Normal Smile: Normal Puff Cheeks: Normal Lingual Protrusion: Normal Lingual ROM: Normal Lingual Strength: Normal Volitional Dry Swallow: Yes Voluntary Cough: Yes Can Clear Throat Volitionally: Yes Dysphagia Evaluation Consistencies Presented: Regular, Thin Liquid Dietary Recommendations: Mechanical Soft Liquid Recommendations: Thin Swallowing Precautions: Alternate Liquids/Solids, Small Bites and Sips, Sitting Upright 90 Degrees, Sitting 90 Degrees 30 Post Intake Dysphagia Evaluation Summary The pt presents with mild dysphagia with slight decreased a-p propulsion, decreased laryngeal elevation and multiple swallows needed to clear oral cavity. Pt currently on mechanical soft diet, but states she would like to continue with this diet as it is easier for her to chew/swallow. Speech Short Term Goals Short Term Goals Short Term Goals 1. The pt will complete daily problem solving tasks with 90% accy. 2. The patient will complete memory tasks related to her daily needs at 80% accy. 3. The pt will follow compensatory swallow strategies for safe PO intake with 90% accy. Speech Sales Associate Cashier Goals Sales Associate Cashier Goals 1.Patient will improved cognitive-communication abilities so that she will require decreased assistance. 2.Patient will tolerate least restrictive diet with no overt s/s of aspiration/penetration. Speech-Plan Treatment Plan Speech Therapy Treatment Plan: Continue Plan of Care Frequency: 3 times per week Estimated Hrs Per Day: .5 hour per day Rehab Potential: Fair Time Speech Therapy Time In: 09:45 Speech Therapy Time Out: 10:00 Billed Treatment Time 15 min Aditya nery [address] Jul 14, 2021 12:43
--- NOTE | 2021-07-14 12:45 | PM&R Progress Note ---
Subjective HPI/CC On Admission Date Seen by Provider: Jul 14, 2021 Time Seen by Provider: 12:30 Subjective/Events-last exam 07/14/2021: Patient tolerated the transfusion well yesterday K pad for left shoulder pain Flat affect continues will increase Effexor to 150 tomorrow Remains on 3 L of oxygen Repeat hemoglobin 7.8 CT angiogram confirmed left lower lobe pulmonary embolism maintain on Lovenox twice daily therapeutic dose Straight cath required x2 due to 504 75 post void residual Flomax started by Dr. Vernon Updated family at bedside 07/13/2021: Pt doing pretty well Transfusing one unit of blood CT angiogram with abdomen and pelvis ordered today In-and-out cath required for retention Consulted Dr. Vernon Urecholine maintained Review of Systems General: Fatigue Pulmonary: Dyspnea Neurological: Weakness, Incoordination Objective Exam Vital Signs Vital Signs Date Time Temp Pulse Resp B/P (MAP) Pulse Ox O2 Delivery O2 Flow Rate FiO2 07/15/21 03:15 94 High Flow N/C 3.00 07/14/21 19:34 37.2 108 16 102/60 (74) Capillary Refill : General Appearance: No Apparent Distress, WD/WN, Chronically ill HEENT: PERRL/EOMI, Normal ENT Inspection, Pharynx Normal Neck: Full Range of Motion, Normal Inspection, Non Tender, Supple, Carotid Bruit Respiratory: Chest Non Tender, Lungs Clear, Normal Breath Sounds, No Accessory Muscle Use, No Respiratory Distress, Decreased Breath Sounds Cardiovascular: Regular Rate, Rhythm, No Edema, No Gallop, No JVD, No Murmur, Normal Peripheral Pulses Gastrointestinal: Normal Bowel Sounds, No Organomegaly, No Pulsatile Mass, Non Tender, Soft Back: Normal Inspection, No CVA Tenderness, No Vertebral Tenderness Extremity: Normal Capillary Refill, Normal Inspection, Normal Range of Motion, Non Tender, No Calf Tenderness, No Pedal Edema Neurologic/Psychiatric: Alert, Oriented x3, No Motor/Sensory Deficits, 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 FIM Transfers Therapy Code Descriptions/Definitions Functional [place] Measure: 0=Not Assessed/NA 4=Minimal Assistance 1=Total Assistance 5=Supervision or Setup 2=Maximal Assistance 6=Modified [place] 3=Moderate Assistance 7=Complete IndependenceSCALE: Activities may be completed with or without assistive devices. 3-Algjxsdpno-dhlcgpv completes the activity by him/herself with no assistance from a helper. 5-Set-up or Clean-up Assistance-helper sets up or cleans up; patient completes activity. [place] assists only prior to or following the activity. 4-Supervision or Touching Assistance-helper provides verbal cues and/or touching/steadying and/or contact guard assistance as patient completes activity. Assistance may be provided throughout the activity or intermittently. 3-Partial/Moderate Assistance-helper does LESS THAN HALF the effort. [place] lifts, holds or supports trunk or limbs, but provides less than half the effort. 2-Substantial/Maximal Assistance-helper does MORE THAN HALF the effort. [place] lifts or holds trunk or limbs and provides more than half the effort. 1-Coootvajc-lrtqsm does ALL the effort. Patient does none of the effort to complete the activity. Or, the assistance of 2 or more helpers is required for the patient to complete the activity. If activity was not attempted, code reason: 7-Patient Refused. 9-Not Applicable-not attempted and the patient did not perform the activity before the current illness, exacerbation or injury. 10-Not Attempted due to Environmental Limitations-(lack of equipment, weather restraints, etc.). 88-Not Attempted due to Medical Conditions or Safety Concerns. Roll Left to Right (QC): 3 Sit to Lying (QC): 2 Sit to Stand (QC): 3 Chair/Qim-ob-Rjdxx Xfer(QC): 3 Car Transfer (QC): 3 Gait Training Does the Patient Walk?: Yes Distance: 3' Walk 10 feet (QC): 88 Walk 50 ft with 2 Turns(QC): 88 Walk 150 ft (QC): 88 Walking 10ft/uneven surface-QC: 88 Gait Persons Needed: 1 Gait Assistive Device: Parallel Bars Wheelchair Training Does the Pt Use a Wheelchair?: Yes Distance: 120' Wheel 50 ft with 2 turns (QC): 4 Wheel 150 ft (QC): 88 Type of Wheelchair: Manual Stair Training 1 Step (curb) (QC): 88 4 Steps (QC): 88 12 Steps (QC): 88 Balance Picking up an Object (QC): 88 ADL-Treatment Eating (QC): 5 (per pt report) Oral Hygiene (QC): 5 (based on clincial judgment, pt would require set up assistance seated.) Shower/Bathe Self (QC): 1 (Assist x2 in stand to wash buttocks, assist to wash BLE lower legs/feet. ) Upper Body Dressing (QC): 3 (Min A managing shirt down trunk. Pt able to thread head and UEs.) Lower Body Dressing (QC): 1 (Assist x2 in stand for pant hike, assist to thread BLEs into pants.) On/Off Footwear (QC): 2 (Max A, assist with donning/doffing gripper socks.) Toileting Hygiene (QC): 1 (assist x2 in stand for clothing management and hygiene, pt able to perform pericare.) Assessment/Plan Assessment and Plan Assess & Plan/Chief Complaint Assessment: COVID-19 pneumonia residual status post intubation for 6 days Status post acute kidney injury Elevated alkaline phosphatase improving Fibromyalgia Diabetes tuk-kz-vjvwhkj from steroids Acute blood loss anemia requiring transfusion on 07/13/2021 Hypertension Severe depression delaying recovery Pulmonary embolism on CT angiogram on 07/13/2021 maintain on Lovenox Plan: Inpatient rehab protocol Effexor Home meds Monitor hemoglobin Iron infusions 07/13/2021: Transfusion of 1 unit Restart Lovenox I do not suspect acute blood loss currently Pulmonary embolism management considered provoked due to COVID-19 will need 3 months of anticoagulation 07/14/2021: Lovenox Monitor hemoglobin 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
[2021-07-14] MEDS: TAMSULOSIN 0.4 MG (FLOMAX) CAP PO SCH (17:53)
[2021-07-14 19:34] VITALS: BP 102/60
[2021-07-15] MEDS: ACETAMINOPHEN 325 MG TABLET PO PRN (03:03)
[2021-07-15] MEDS: RT-ALBUTEROL/IPRATROPIUM 3 ML (DUONEB) VIAL INH SCH (03:15)
[2021-07-15] MEDS: inSUlin ASPART (NovoLOG) 1 UNIT/0.01 ML (CHARGE PER UNIT) SC SCH ×4 (06:00→21:59)
--- NOTE | 2021-07-15 06:06 | PM&R Progress Note ---
Subjective HPI/CC On Admission Date Seen by Provider: Jul 15, 2021 Time Seen by Provider: 12:30 Subjective/Events-last exam 07/15/2021: Patient doing about the same Working with therapy Apathy noted Increased Effexor to 150 daily We will check hemoglobin tomorrow if stable will start oral anticoagulation and DC Lovenox 80 mg twice daily Day has been placed in remains indwelling due to continued retention Lortab given for pain Eats better breakfast than any other meal 07/14/2021: Patient tolerated the transfusion well yesterday K pad for left shoulder pain Flat affect continues will increase Effexor to 150 tomorrow Remains on 3 L of oxygen Repeat hemoglobin 7.8 CT angiogram confirmed left lower lobe pulmonary embolism maintain on Lovenox twice daily therapeutic dose Straight cath required x2 due to 504 75 post void residual Flomax started by Dr. Vernon Updated family at bedside 07/13/2021: Pt doing pretty well Transfusing one unit of blood CT angiogram with abdomen and pelvis ordered today In-and-out cath required for retention Consulted Dr. Vernon Urecholine maintained Review of Systems General: Fatigue, Malaise Pulmonary: Dyspnea Objective Exam Vital Signs Vital Signs Date Time Temp Pulse Resp B/P (MAP) Pulse Ox O2 Delivery O2 Flow Rate FiO2 07/15/21 20:32 37.4 108 18 109/69 (82) 92 07/15/21 08:41 Nasal Cannula 3.00 Capillary Refill : General Appearance: No Apparent Distress, WD/WN, Chronically ill HEENT: PERRL/EOMI, Normal ENT Inspection, Pharynx Normal Neck: Full Range of Motion, Normal Inspection, Non Tender, Supple, Carotid Bruit Respiratory: Chest Non Tender, Lungs Clear, Normal Breath Sounds, No Accessory Muscle Use, No Respiratory Distress, Decreased Breath Sounds Cardiovascular: Regular Rate, Rhythm, No Edema, No Gallop, No JVD, No Murmur, Normal Peripheral Pulses Gastrointestinal: Normal Bowel Sounds, No Organomegaly, No Pulsatile Mass, Non Tender, Soft Back: Normal Inspection, No CVA Tenderness, No Vertebral Tenderness Extremity: Normal Capillary Refill, Normal Inspection, Normal Range of Motion, Non Tender, No Calf Tenderness, No Pedal Edema Neurologic/Psychiatric: Alert, Oriented x3, No Motor/Sensory Deficits, 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 FIM Transfers Therapy Code Descriptions/Definitions Functional [place] Measure: 0=Not Assessed/NA 4=Minimal Assistance 1=Total Assistance 5=Supervision or Setup 2=Maximal Assistance 6=Modified [place] 3=Moderate Assistance 7=Complete IndependenceSCALE: Activities may be completed with or without assistive devices. 8-Wngsfcapac-awhofjq completes the activity by him/herself with no assistance from a helper. 5-Set-up or Clean-up Assistance-helper sets up or cleans up; patient completes activity. [place] assists only prior to or following the activity. 4-Supervision or Touching Assistance-helper provides verbal cues and/or touching/steadying and/or contact guard assistance as patient completes activity. Assistance may be provided throughout the activity or intermittently. 3-Partial/Moderate Assistance-helper does LESS THAN HALF the effort. [place] lifts, holds or supports trunk or limbs, but provides less than half the effort. 2-Substantial/Maximal Assistance-helper does MORE THAN HALF the effort. [place] lifts or holds trunk or limbs and provides more than half the effort. 2-Cfmkxbsal-ldretu does ALL the effort. Patient does none of the effort to complete the activity. Or, the assistance of 2 or more helpers is required for the patient to complete the activity. If activity was not attempted, code reason: 7-Patient Refused. 9-Not Applicable-not attempted and the patient did not perform the activity before the current illness, exacerbation or injury. 10-Not Attempted due to Environmental Limitations-(lack of equipment, weather restraints, etc.). 88-Not Attempted due to Medical Conditions or Safety Concerns. Roll Left to Right (QC): 3 Sit to Lying (QC): 2 Sit to Stand (QC): 3 Chair/Xsh-zp-Ubgqv Xfer(QC): 3 Car Transfer (QC): 3 Gait Training Does the Patient Walk?: Yes Distance: 3' Walk 10 feet (QC): 88 Walk 50 ft with 2 Turns(QC): 88 Walk 150 ft (QC): 88 Walking 10ft/uneven surface-QC: 88 Gait Persons Needed: 1 Gait Assistive Device: Parallel Bars Wheelchair Training Does the Pt Use a Wheelchair?: Yes Distance: 120' Wheel 50 ft with 2 turns (QC): 4 Wheel 150 ft (QC): 88 Type of Wheelchair: Manual Stair Training 1 Step (curb) (QC): 88 4 Steps (QC): 88 12 Steps (QC): 88 Balance Picking up an Object (QC): 88 ADL-Treatment Eating (QC): 5 (per pt report) Oral Hygiene (QC): 5 (based on clincial judgment, pt would require set up assistance seated.) Shower/Bathe Self (QC): 1 (Assist x2 in stand to wash buttocks, assist to wash BLE lower legs/feet. ) Upper Body Dressing (QC): 3 (Min A managing shirt down trunk. Pt able to thread head and UEs.) Lower Body Dressing (QC): 1 (Assist x2 in stand for pant hike, assist to thread BLEs into pants.) On/Off Footwear (QC): 2 (Max A, assist with donning/doffing gripper socks.) Toileting Hygiene (QC): 1 (assist x2 in stand for clothing management and hygi peyton, pt able to perform pericare.) Assessment/Plan Assessment and Plan Assess & Plan/Chief Complaint Assessment: COVID-19 pneumonia residual status post intubation for 6 days Status post acute kidney injury Elevated alkaline phosphatase improving Fibromyalgia Diabetes qxz-zd-odlqflg from steroids Acute blood loss anemia requiring transfusion on 07/13/2021 Hypertension Severe depression delaying recovery Pulmonary embolism on CT angiogram on 07/13/2021 maintain on Lovenox Plan: Inpatient rehab protocol Effexor Home meds Monitor hemoglobin Iron infusions 07/13/2021: Transfusion of 1 unit Restart Lovenox I do not suspect acute blood loss currently Pulmonary embolism management considered provoked due to COVID-19 will need 3 months of anticoagulation 07/14/2021: Lovenox Monitor hemoglobin Increase Effexor due to mood disorder with apathy 07/15/2021: Increase Effexor Check hemoglobin and labs tomorrow Transition from Lovenox to oral anticoagulation soon (1) COVID-19 (2) Thrush (3) Hypertension (4) Diabetes (5) Fibromyalgia (6) Anemia associated with acute blood loss (7) Acute kidney injury (8) Alkaline phosphatase elevation (9) Respiratory failure (10) Pulmonary embolism (11) Transfusion of blood during current hospitalisation NASRIN LAGUERRE DO Jul 15, 2021 06:06
[2021-07-15] MEDS: CATHETER FLUSH 10 ML SYR IV SCH ×2 (06:16→14:11)
[2021-07-15] MEDS: VENlafaxine XR 75 MG (EFFEXOR XR) CAP PO SCH (06:17)
[2021-07-15] MEDS: BETHANECHOL 25 MG (URECHOLINE) TAB PO SCH ×4 (06:17→21:58)
[2021-07-15] MEDS: NYSTATIN ORAL SUSP 5 ML UDC PO SCH ×4 (06:17→17:42)
[2021-07-15 06:48] VITALS: BP 102/60
[2021-07-15 07:44] VITALS: BP 104/51
[2021-07-15] MEDS: fluCOnazole (DIFLUCAN) 100 MG TAB PO SCH (08:34)
[2021-07-15] MEDS: SENNA W/DOCUSATE (SENOKOT S) TABLET PO SCH ×2 (08:34→21:59)
[2021-07-15] MEDS: PANTOPRAZOLE 40 MG (PROTONIX) TAB PO SCH (08:34)
[2021-07-15] MEDS: DOCUSATE SODIUM 100 MG (COLACE) CAP PO SCH ×2 (08:34→21:59)
[2021-07-15] MEDS: ENOXAPARIN 80 MG/0.8 ML (LOVENOX) SYR SC SCH ×2 (08:35→21:59)
[2021-07-15] MEDS: HYDROcodone/APAP 5 MG/325 MG (LORTAB) TAB PO PRN ×2 (08:35→15:59)
--- NOTE | 2021-07-15 08:53 | Progress Note - Urology ---
Progress Note-Urology Progress Notes/Assess & Plan Progress/Assessment & Plan STILL HAVING RETENTION. PLAN WOOD IN OVER THE WEEKEND TO ALLOW MORE DAYS ON FLOMAX. TOSunday AND IF NEEDED WE WILL INCREASE URECHOLINE Final Diagnosis RETENTION PARAMJIT ROBB MD Jul 15, 2021 08:53
--- NOTE | 2021-07-15 10:36 | Occupational Ther Daily Note ---
OT Current Status-Daily Note Subjective Pt in bed, rates 10/10 pain in L shoulder and back. Nurse notified and provides pt with medication. Pt required moderate encouragement throughout tx to participate. Mental Status/Objective Patient Orientation: Person, Place, Situation Attachments: Oxygen (3-5L) ADL-Treatment Therapy Code Descriptions/Definitions Functional [place] Measure: 0=Not Assessed/NA 4=Minimal Assistance 1=Total Assistance 5=Supervision or Setup 2=Maximal Assistance 6=Modified [place] 3=Moderate Assistance 7=Complete IndependenceSCALE: Activities may be completed with or without assistive devices. 3-Ohlzqhqzim-tyufgml completes the activity by him/herself with no assistance from a helper. 5-Set-up or Clean-up Assistance-helper sets up or cleans up; patient completes activity. [place] assists only prior to or following the activity. 4-Supervision or Touching Assistance-helper provides verbal cues and/or touchin g/steadying and/or contact guard assistance as patient completes activity. Assistance may be provided throughout the activity or intermittently. 3-Partial/Moderate Assistance-helper does LESS THAN HALF the effort. [place] lifts, holds or supports trunk or limbs, but provides less than half the effort. 2-Substantial/Maximal Assistance-helper does MORE THAN HALF the effort. [place] lifts or holds trunk or limbs and provides more than half the effort. 0-Puwdocgik-xfvssn does ALL the effort. Patient does none of the effort to complete the activity. Or, the assistance of 2 or more helpers is required for the patient to complete the activity. If activity was not attempted, code reason: 7-Patient Refused. 9-Not Applicable-not attempted and the patient did not perform the activity before the current illness, exacerbation or injury. 10-Not Attempted due to Environmental Limitations-(lack of equipment, weather restraints, etc.). 88-Not Attempted due to Medical Conditions or Safety Concerns. Lower Body Dressing (QC): 2 (Pt required assistance threading LLE into pants/underwear, assist to thread RLE into pants, pt performed pant hike, slight assistance with pants.) Other Treatment [id number] OT tx. Pt laying in bed, nurse present to give pt medication. Pt transferred supine to sit EOB with min A, required increased time to get to EOB and moderate encouragement. Pt donned LE clothing at EOB, requiring increased time with task, she was able to thread RLE into underwear, assist LLE. She then threaded LLE into pants, assist due to threading down wrong leg hole, then assistance threading RLE. Sit to stand from EOB, min A, pt performed pant hike with brief with CGA, assistance with pant hike of pants. Pt transferred to w/c, SPT using FWW with min A. [id number]: OT/PT cotreat due to skill of 2 clinicians required which a rehab care assistant could not perform in order to decrease fall risk, coordinate UE/LEs, and due to pt's limitations in strength, mobility, activity tolerance, and overall debility. OT focused on UE placement, cues for sequencing and safety, and ADLs, PT focused on LE placement, gross overall movement, mobility/transfers. Pt taken into therapy gym, completed x3 ambulation trials with FWW. first trial ambulating 2', second and third 6'. Pt completed sit to stand, standing for 15 seconds total prior to sitting. Post tx, pt in recliner, call light in reach and all needs met. With transfers, pt required cues for UE placement, cues for positioning of body within walker, and cues to stand up straight. Pt fatigued quickly with activity. Education OT Patient Education: Correct positioning, Energy conservation, Exercise program, Modified ADL techniques, Progress toward Goal/Update tx plan, Purpose of tx/functional activities, Rehab process, Safety issues, Transfer techniques Teaching Recipient: Patient Response to Teaching: Verbalize Understanding OT Short Term Goals Short Term Goals Time Frame: Jul 27, 2021 Shower/bathe self: 4 Lower body dressin Putting on/taking off footwear: 4 OT Alf Goals Underwriting Operations Manager Goals Time Frame: Aug 12, 2021 Eating (QC): 6 Oral Hygiene (QC): 6 Toileting Hygiene (QC): 6 Shower/Bathe Self (QC): 6 Upper Body Dressing (QC): 6 Lower Body Dressing (QC): 6 On/Off Footwear (QC): 6 Additional Goals: 1-Demonstrate ADL Tasks, 2-Verbalize Understanding, 3- ImproveStrength/[place] 1=Demonstrate adherence to instructed precautions during ADL tasks. 2=Patient will verbalize/demonstrate understanding of assistive devices/modifications for ADL. 3=Patient will improve strength/tolerance for activity to enable patient to perform ADL's. OT Education/Plan Problem List/Assessment Assessment: Decreased Activ Tolerance, Decreased UE Strength, Impaired Funct Balance, Impaired I ADL's, Impaired Self-Care Skills Discharge Recommendations Plan/Recommendations: Continue POC Treatment Plan/Plan of Care Patient would benefit from OT for education, treatment and training to promote independence in ADL's, mobility, safety and/or upper extremity function for ADL's. Plan of Care: ADL Retraining, Functional Mobility, Group Exercise/Act as Ind, UE Funct Exercise/Act Treatment Duration: Aug 12, 2021 Frequency: Modified Program (IRF) Estimated Hrs Per Day: 1 hour per day Rehab Potential: Fair Time/GCodes Start Time: 09:30 Stop Time: 10:30 Total Time Billed (hr/min): 60 Billed Treatment Time [id number] OT tx, [id number] OT/PT cotreat 1, ADL 2 (30'), FA 2 (30') GERARDO ALBARADO OT Jul 15, 2021 10:36
--- NOTE | 2021-07-15 11:04 | Physical Therapy Daily Note ---
PT Daily Note-Current Subjective Pt in room w/ OT upon arrival. Pt states pain in chest on L side. PT/OT co-treat d/t pt weakness, low activity tolerance, poor mobility, and poor coordination. Pain Location: Left Location Body Site: Chest Pain Description: Stabbing Mental Status Patient Orientation: Person Attachments: Oxygen (4L) Transfers SCALE: Activities may be completed with or without assistive devices. 6-Zvzasnksds-cxxvjvx completes the activity by him/herself with no assistance from a helper. 5-Set-up or Clean-up Assistance-helper sets up or cleans up; patient completes activity. [place] assists only prior to or following the activity. 4-Supervision or Touching Assistance-helper provides verbal cues and/or touching/steadying and/or contact guard assistance as patient completes ac tivity. Assistance may be provided throughout the activity or intermittently. 3-Partial/Moderate Assistance-helper does LESS THAN HALF the effort. [place] lifts, holds or supports trunk or limbs, but provides less than half the effort. 2-Substantial/Maximal Assistance-helper does MORE THAN HALF the effort. [place] lifts or holds trunk or limbs and provides more than half the effort. 5-Gtdejsvtn-udpkxt does ALL the effort. Patient does none of the effort to complete the activity. Or, the assistance of 2 or more helpers is required for the patient to complete the activity. If activity was not attempted, code reason: 7-Patient Refused. 9-Not Applicable-not attempted and the patient did not perform the activity before the current illness, exacerbation or injury. 10-Not Attempted due to Environmental Limitations-(lack of equipment, weather restraints, etc.). 88-Not Attempted due to Medical Conditions or Safety Concerns. Sit to Lying (QC): 3 Sit to Stand (QC): 3 Chair/Oen-mc-Msfna Xfer(QC): 3 With transfers, pt required cues for UE placement, cues for positioning of body within walker, and cues to stand up straight. Weight Bearing Full Weight Bearing Full Weight Bearing Gait Training Does the Patient Walk?: Yes Distance: 6' x2, 2' Pt has slow, shuffling gait. Only advances LE approx 4" a step. Pt requires VC to have upright posture and stand within FWW. Wheelchair Training Does the Pt Use a Wheelchair?: Yes Type of Wheelchair: Manual Treatments OT/PT cotreat due to skill of 2 clinicians required which a technology program manager could not perform in order to decrease fall risk, coordinate UE/LEs, and due to pt's limitations in strength, mobility, activity tolerance, and overall debility. OT focused on UE placement, cues for sequencing and safety, and ADLs, PT focused on LE placement, gross overall movement, mobility/transfers. Pt in WC in room, propelled by OT to therapy gym. Pt given short RB, O2 taken at this time reading 95%. Pt sit to stand ModA, VC for UE/LE placement. Pt amb 2' w/ FWW and ModA. Pt followed by WC, sat down w/o placing UE on WC and no verbal warning. PT explained to pt that she should reach back for arm rest of WC and verbalize needing to break prior to sitting. Pt given RB, O2 checked reading 94%. Pt sit to stand, amb 6' followed by WC w/ FWW. Pt reached back w/ one UE and sat down w/o verbal warning. Pt has RB, O2 checked reading 96%. Pt sit to stand and amb another 6', when pt fatigues she reaches back w/ one UE for WC and states she needs to sit down. Pt given RB at this time. Pt sit to stand, VC to have upright posture. Pt immediately sits back down, stating she can't do it. Pt given RB and attempts again, standing for 15 secs w/ ModA. At this time OT leaves tx. Pt instructed sit to stand, standing for 15 seconds w/ ModA. Pt sits abruptly w/o verbalizing or reaching for arm rest. Pt sit to stand another 15 seconds, followed by a RB. O2 checked at this time reading 93%. Pt then edu on WC mobility, CASINO BANKER using VC and TC for UE placement on rims of WC for turning. While doing so, pt states that she "can't do it anymore" and that CASINO BANKER "is sounding like a drill [place]." CASINO BANKER explains to pt that CASINO BANKER is trying to edu pt and help her w/ mobility. Pt then takes RB, followed by propelling WC approx 8' before becoming fatigued. CASINO BANKER propels pt back to room at this time. Pt attempts sit to stand, unable to do so for transfer. Pt w/ A from CASINO BANKER perform SPT from WC into bed. Pt stays in bed w/ all needs met, call light in hand. Assessment Current Status: Poor Progress Pt limited d/t pain, weakness, and fatigue. Pt didn't tolerate extended tx times well. PT Short Term Goals Short Term Goals Time Frame: Jul 19, 2021 Roll Left & Right: 4 Sit to lyin Lying to sitting on side of be: 3 Sit to stand: 4 Chair/vdr-mq-mihcs transfer: 4 Walk 10 feet: 4 Walk 50 feet with two turns: 4 PT Barker Operator Goals Correction Goals PT Correction Goals Time Frame: Aug 02, 2021 Roll Left & Right (QC): 6 Sit to Lying (QC): 4 (SBA) Lying-Sitting on Side/Bed(QC): 4 (SBA) Sit to Stand (QC): 4 (SBA) Chair/Tht-wz-Lixdr Xfer(QC): 4 (SBA) Toilet Transfer (QC): 4 (SBA) Car Transfer (QC): 4 (SBA) Does the Patient Walk: Yes Walk 10 feet (QC): 4 (SBA) Walk 50ft with 2 Turns (QC): 4 (SBA) Walk 150 ft (QC): 4 (SBA) Walking 10ft on Uneven Surface: 4 (SBA) 1 Step (curb) (QC): 4 (SBA) 4 Steps (QC): 88 12 Steps (QC): 88 Picking up an Object (QC): 4 (SBA) Wheel 50 feet with 2 turns (QC: 6 Wheel 150 feet: 6 PT Plan Treatment/Plan Treatment Plan: Continue Plan of Care Treatment Plan: Bed Mobility, Education, Functional Activity [place], Functional Strength, Group Therapy, Gait, Safety, Therapeutic Exercise, Transfers Treatment Duration: Aug 02, 2021 Frequency: Modified Program (IRF) Estimated Hrs Per Day: 1 hour per day Patient and/or Family Agrees t: Yes Time/GCodes Time In: 1000 Time Out: 1100 Total Billed Treatment Time: 60 Total Billed Treatment 1, GT, WC, FA GASTON Desai CASINO BANKER Jul 15, 2021 11:04
--- NOTE | 2021-07-15 11:47 | Speech Therapy Daily Note ---
Speech Daily Progress Note Subjective Date Seen by Provider: Jul 15, 2021 Time Seen by Provider: 00:30 Pt was lying down in bed and constantly complained of pain during the session. Pt complied with skilled ST. Pain Numeric Pain Scale: 10-Worst Possible Pain Location Body Site: Shoulder Objective Pt participated in skilled ST targeting problem solving and memory. Problem solving tasks targeted room safety and pt was 100% accurate independently, requiring some assistance locating call light. Pt recalled personal/routine information with 80% accuracy although did not participate in conversation and required repetition in order to answer some questions. Assessment Assessment Current Status: Fair Progress Treatment Plan Continue Plan of Care Speech Short Term Goals Short Term Goals Short Term Goals 1. The pt will complete daily problem solving tasks with 90% accy. 2. The patient will complete memory tasks related to her daily needs at 80% accy. 3. The pt will follow compensatory swallow strategies for safe PO intake with 90% accy. Speech Retail Sales Advisor Goals Retail Sales Advisor Goals 1.Patient will improved cognitive-communication abilities so that she will require decreased assistance. 2.Patient will tolerate least restrictive diet with no overt s/s of aspiration/penetration. Speech-Plan Patient/Family Goals Patient/Family Goals: return to home Treatment Plan Speech Therapy Treatment Plan: Continue Plan of Care Pt completed room safety independently and recall related to self with 80% accuracy Treatment Duration: Jul 14, 2021 Frequency: Modified Program (IRF) Estimated Hrs Per Day: Other Rehab Potential: Fair Barriers to Learning: pain, cooperation Pt/Family Agrees to Plan: Yes Safety Risks/Education Teaching Recipient: Patient Teaching Methods: Discussion Response to Teaching: Verbalize Understanding Education Topics Provided: room safety and ST goals Time Speech Therapy Time In: 08:50 Speech Therapy Time Out: 09:20 Total Billed Time: 30 Billed Treatment Time 1, SLTS DAHIANA Andrade Jul 15, 2021 11:46
[2021-07-15] MEDS: polyethylene glycoL POWDER 17 GM (MIRALAX) PACK PO SCH ×2 (12:06→21:00)
[2021-07-15] MEDS: LACTULOSE SYRUP 10GM/15ML (ENULOSE) 30ML UDC PO PRN (16:00)
[2021-07-15] MEDS: TAMSULOSIN 0.4 MG (FLOMAX) CAP PO SCH (17:43)
[2021-07-15] MEDS ORDERED: HOLD METFORMIN - RECEIVED CONTRAST 20 ML VIAL IV SCH (19:15)
[2021-07-15] MEDS ORDERED: NS 100 ML (IVPB) BAG IV ONE (19:15)
[2021-07-15] MEDS ORDERED: IOHEXOL 350 MG/ML 100 ML (OMNIPAQUE 350) VIAL IV ONE (19:15)
[2021-07-15 20:32] VITALS: BP 109/69
[2021-07-16] MEDS: HYDROcodone/APAP 5 MG/325 MG (LORTAB) TAB PO PRN ×2 (03:11→07:52)
[2021-07-16] MEDS: inSUlin ASPART (NovoLOG) 1 UNIT/0.01 ML (CHARGE PER UNIT) SC SCH ×3 (06:00→16:16)
[2021-07-16] MEDS: CATHETER FLUSH 10 ML SYR IV SCH ×3 (06:31→13:17)
[2021-07-16] MEDS: BETHANECHOL 25 MG (URECHOLINE) TAB PO SCH ×3 (06:32→16:23)
[2021-07-16] MEDS: VENlafaxine XR 75 MG (EFFEXOR XR) CAP PO SCH (06:32)
[2021-07-16 06:47] LABS: BASOPHILS % (AUTO) 0 % (0-10); EOSINOPHILS # (AUTO) 0.4 10^3/uL (0.0-0.3); EOSINOPHILS % (AUTO) 3 % (0-10); HEMATOCRIT 25 % (35-52); HEMOGLOBIN 7.9 g/dL (11.5-16.0); LYMPHOCYTES # (AUTO) 1.8 10^3/uL (1.0-4.0); LYMPHOCYTES % (AUTO) 16 % (12-44); MEAN CORPUSCULAR HEMOGLOBIN 27 pg (25-34); MEAN CORPUSCULAR HGB CONC 32 g/dL (32-36); MEAN CORPUSCULAR VOLUME 87 fL (80-99); MEAN PLATELET VOLUME 8.6 fL (9.0-12.2); MONOCYTES # (AUTO) 0.9 10^3/uL (0.0-1.0); MONOCYTES % (AUTO) 9 % (0-12); NEUTROPHILS # (AUTO) 7.6 10^3/uL (1.8-7.8); NEUTROPHILS % (AUTO) 70 % (42-75); PLATELET COUNT 263 10^3/uL (130-400); WHITE BLOOD COUNT 10.8 10^3/uL (4.3-11.0)
[2021-07-16] MEDS: NYSTATIN ORAL SUSP 5 ML UDC PO SCH ×4 (06:52→17:36)
[2021-07-16 07:14] LABS: ALBUMIN 2.1 GM/DL (3.2-4.5); BILIRUBIN,TOTAL 0.7 MG/DL (0.1-1.0); CALCIUM 8.5 MG/DL (8.5-10.1); CREATININE SERUM 0.72 MG/DL (0.60-1.30); POTASSIUM 3.7 MMOL/L (3.6-5.0); TOTAL PROTEIN 5.3 GM/DL (6.4-8.2)
[2021-07-16 07:22] VITALS: BP 120/59
[2021-07-16] MEDS: DOCUSATE SODIUM 100 MG (COLACE) CAP PO SCH (07:52)
[2021-07-16] MEDS: fluCOnazole (DIFLUCAN) 100 MG TAB PO SCH (07:52)
[2021-07-16] MEDS: polyethylene glycoL POWDER 17 GM (MIRALAX) PACK PO SCH (07:53)
[2021-07-16] MEDS: SENNA W/DOCUSATE (SENOKOT S) TABLET PO SCH (07:53)
[2021-07-16] MEDS: IRON SUCROSE 200 MG/10 ML (VENOFER) VIAL IV SCH (07:53)
[2021-07-16] MEDS: PANTOPRAZOLE 40 MG (PROTONIX) TAB PO SCH (07:53)
[2021-07-16] MEDS: LACTULOSE SYRUP 10GM/15ML (ENULOSE) 30ML UDC PO PRN (07:53)
[2021-07-16] MEDS: ENOXAPARIN 80 MG/0.8 ML (LOVENOX) SYR SC SCH (07:53)
--- NOTE | 2021-07-16 08:28 | PM&R Progress Note ---
Subjective HPI/CC On Admission Date Seen by Provider: Jul 16, 2021 Time Seen by Provider: 11:00 Subjective/Events-last exam 07/16/2021: Patient essentially "giving up" Had a long talk with her and at bedside She appeared to be motivated but will wait to see Refused therapy today Consulting orthopedics 07/15/2021: Patient doing about the same Working with therapy Apathy noted Increased Effexor to 150 daily We will check hemoglobin tomorrow if stable will start oral anticoagulation and DC Lovenox 80 mg twice daily Day has been placed in remains indwelling due to continued retention Lortab given for pain Eats better breakfast than any other meal 07/14/2021: Patient tolerated the transfusion well yesterday K pad for left shoulder pain Flat affect continues will increase Effexor to 150 tomorrow Remains on 3 L of oxygen Repeat hemoglobin 7.8 CT angiogram confirmed left lower lobe pulmonary embolism maintain on Lovenox twice daily therapeutic dose Straight cath required x2 due to 504 75 post void residual Flomax started by Dr. Vernon Updated family at bedside 07/13/2021: Pt doing pretty well Transfusing one unit of blood CT angiogram with abdomen and pelvis ordered today In-and-out cath required for retention Consulted Dr. Vernon Urecholine maintained Review of Systems General: Fatigue, Malaise Objective Exam Vital Signs Vital Signs Date Time Temp Pulse Resp B/P (MAP) Pulse Ox O2 Delivery O2 Flow Rate FiO2 07/16/21 19:29 94 Vapotherm 30.00 70 07/16/21 07:22 37.2 100 16 120/59 (79) Capillary Refill : General Appearance: No Apparent Distress, WD/WN, Chronically ill HEENT: PERRL/EOMI, Normal ENT Inspection, Pharynx Normal Neck: Full Range of Motion, Normal Inspection, Non Tender, Supple, Carotid Bruit Respiratory: Chest Non Tender, Lungs Clear, Normal Breath Sounds, No Accessory Muscle Use, No Respiratory Distress, Decreased Breath Sounds Cardiovascular: Regular Rate, Rhythm, No Edema, No Gallop, No JVD, No Murmur, Normal Peripheral Pulses Gastrointestinal: Normal Bowel Sounds, No Organomegaly, No Pulsatile Mass, Non Tender, Soft Back: Normal Inspection, No CVA Tenderness, No Vertebral Tenderness Extremity: Normal Capillary Refill, Normal Inspection, Normal Range of Motion, Non Tender, No Calf Tenderness, No Pedal Edema Neurologic/Psychiatric: Alert, Oriented x3, No Motor/Sensory Deficits, ethics instructor II- XII Norm as Tested, Depressed Affect, Motor Weakness (All extremities 3/5) Skin: Normal Color, Warm/Dry Lymphatic: No Adenopathy Results/Procedures Lab Patient resulted labs reviewed. FIM Transfers Therapy Code Descriptions/Definitions Functional [place] Measure: 0=Not Assessed/NA 4=Minimal Assistance 1=Total Assistance 5=Supervision or Setup 2=Maximal Assistance 6=Modified [place] 3=Moderate Assistance 7=Complete IndependenceSCALE: Activities may be completed with or without assistive devices. 4-Tqtkvmotrt-znzyskl completes the activity by him/herself with no assistance from a helper. 5-Set-up or Clean-up Assistance-helper sets up or cleans up; patient completes activity. [place] assists only prior to or following the activity. 4-Supervision or Touching Assistance-helper provides verbal cues and/or touching/steadying and/or contact guard assistance as patient completes act ivity. Assistance may be provided throughout the activity or intermittently. 3-Partial/Moderate Assistance-helper does LESS THAN HALF the effort. [place] lifts, holds or supports trunk or limbs, but provides less than half the effort. 2-Substantial/Maximal Assistance-helper does MORE THAN HALF the effort. [place] lifts or holds trunk or limbs and provides more than half the effort. 4-Nmngwutgh-ttlxkv does ALL the effort. Patient does none of the effort to complete the activity. Or, the assistance of 2 or more helpers is required for the patient to complete the activity. If activity was not attempted, code reason: 7-Patient Refused. 9-Not Applicable-not attempted and the patient did not perform the activity before the current illness, exacerbation or injury. 10-Not Attempted due to Environmental Limitations-(lack of equipment, weather restraints, etc.). 88-Not Attempted due to Medical Conditions or Safety Concerns. Roll Left to Right (QC): 3 Sit to Lying (QC): 3 Sit to Stand (QC): 3 Chair/Lvu-eq-[place] Xfer(QC): 3 Car Transfer (QC): 3 Gait Training Does the Patient Walk?: Yes Distance: 6' x2, 2' Walk 10 feet (QC): 88 Walk 50 ft with 2 Turns(QC): 88 Walk 150 ft (QC): 88 Walking 10ft/uneven surface-QC: 88 Gait Persons Needed: 1 Gait Assistive Device: Parallel Bars Wheelchair Training Does the Pt Use a Wheelchair?: Yes Distance: 120' Wheel 50 ft with 2 turns (QC): 4 Wheel 150 ft (QC): 88 Type of Wheelchair: Manual Stair Training 1 Step (curb) (QC): 88 4 Steps (QC): 88 12 Steps (QC): 88 Balance Picking up an Object (QC): 88 ADL-Treatment Eating (QC): 5 (per pt report) Oral Hygiene (QC): 5 (based on clincial judgment, pt would require set up assistance seated.) Shower/Bathe Self (QC): 1 (Assist x2 in stand to wash buttocks, assist to wash BLE lower legs/feet. ) Upper Body Dressing (QC): 3 (Min A managing shirt down trunk. Pt able to thread head and UEs.) Lower Body Dressing (QC): 2 (Pt required assistance threading LLE into pants/underwear, assist to thread RLE into pants, pt performed pant hike, slight assistance with pants.) On/Off Footwear (QC): 2 (Max A, assist with donning/doffing gripper socks.) Toileting Hygiene (QC): 1 (assist x2 in stand for clothing management and hygiene, pt able to perform pericare.) Assessment/Plan Assessment and Plan Assess & Plan/Chief Complaint Assessment: COVID-19 pneumonia residual status post intubation for 6 days Status post acute kidney injury Elevated alkaline phosphatase improving Fibromyalgia Diabetes bvu-zw-neskrxr from steroids Acute blood loss anemia requiring transfusion on 07/13/2021 Hypertension Severe depression delaying recovery Pulmonary embolism on CT angiogram on 07/13/2021 maintain on Lovenox Left shoulder pain consulted Ortho Lack of motivation with apathy Plan: Inpatient rehab protocol Effexor Home meds Monitor hemoglobin Iron infusions 07/13/2021: Transfusion of 1 unit Restart Lovenox I do not suspect acute blood loss currently Pulmonary embolism management considered provoked due to COVID-19 will need 3 months of anticoagulation 07/14/2021: Lovenox Monitor hemoglobin Increase Effexor due to mood disorder with apathy 07/15/2021: Increase Effexor Check hemoglobin and labs tomorrow Transition from Lovenox to oral anticoagulation soon 07/16/2021: Transitioned Lovenox to oral anticoagulation Ortho consult High risk for decline due to apathy (1) COVID-19 (2) Thrush (3) Hypertension (4) Diabetes (5) Fibromyalgia (6) Anemia associated with acute blood loss (7) Acute kidney injury (8) Alkaline phosphatase elevation (9) Respiratory failure (10) Pulmonary embolism (11) Transfusion of blood during current hospitalisation NASRIN LAGUERRE DO Jul 16, 2021 08:28
--- NOTE | 2021-07-16 09:42 | Physical Therapy Daily Note ---
PT Daily Note-Current Subjective Pt in bed agreeable to treatment with much encouragment. Pt rates (L) shoulder pain 08/14. Pt reports she has had pain medication. MHP on shoulder per nursing. Mental Status Patient Orientation: Person Attachments: Oxygen, Day Catheter Transfers SCALE: Activities may be completed with or without assistive devices. 4-Fvzclvjdsx-qjlibrc completes the activity by him/herself with no assistance from a helper. 5-Set-up or Clean-up Assistance-helper sets up or cleans up; patient completes activity. [place] assists only prior to or following the activity. 4-Supervision or Touching Assistance-helper provides verbal cues and/or touching/steadying and/or contact guard assistance as patient completes activity. Assistance may be provided throughout the activity or intermittently. 3-Partial/Moderate Assistance-helper does LESS THAN HALF the effort. [place] lifts, holds or supports trunk or limbs, but provides less than half the effort. 2-Substantial/Maximal Assistance-helper does MORE THAN HALF the effort. [place] lifts or holds trunk or limbs and provides more than half the effort. 2-Lixmsnwcf-aiqrtu does ALL the effort. Patient does none of the effort to complete the activity. Or, the assistance of 2 or more helpers is required for the patient to complete the activity. If activity was not attempted, code reason: 7-Patient Refused. 9-Not Applicable-not attempted and the patient did not perform the activity before the current illness, exacerbation or injury. 10-Not Attempted due to Environmental Limitations-(lack of equipment, weather restraints, etc.). 88-Not Attempted due to Medical Conditions or Safety Concerns. Weight Bearing Full Weight Bearing Full Weight Bearing Exercises Supine Ex: Ankle pumps, Quad Set, Heel Slides, Short Arc Quads, Hip abd/add Supine Reps: 15 Assessment Current Status: Poor Progress Pt slow to respond to all vc's. Pt offered little to no conversation despite prompting. Pt required continual cueing to complete ther ex. Pt resting in bed with all needs met. Call light on stomach. PT Short Term Goals Short Term Goals Time Frame: Jul 19, 2021 Roll Left & Right: 4 Sit to lyin Lying to sitting on side of be: 3 Sit to stand: 4 Chair/jus-je-iuqib transfer: 4 Walk 10 feet: 4 Walk 50 feet with two turns: 4 PT [facility] Goals [facility] Goals PT Carpet Cutter Goals Time Frame: Aug 02, 2021 Roll Left & Right (QC): 6 Sit to Lying (QC): 4 (SBA) Lying-Sitting on Side/Bed(QC): 4 (SBA) Sit to Stand (QC): 4 (SBA) Chair/Qjm-aq-Yeqmb Xfer(QC): 4 (SBA) Toilet Transfer (QC): 4 (SBA) Car Transfer (QC): 4 (SBA) Does the Patient Walk: Yes Walk 10 feet (QC): 4 (SBA) Walk 50ft with 2 Turns (QC): 4 (SBA) Walk 150 ft (QC): 4 (SBA) Walking 10ft on Uneven Surface: 4 (SBA) 1 Step (curb) (QC): 4 (SBA) 4 Steps (QC): 88 12 Steps (QC): 88 Picking up an Object (QC): 4 (SBA) Wheel 50 feet with 2 turns (QC: 6 Wheel 150 feet: 6 PT Plan Treatment/Plan Treatment Plan: Continue Plan of Care Treatment Plan: Bed Mobility, Education, Functional Activity [place], Functional Strength, Group Therapy, Gait, Safety, Therapeutic Exercise, Transfers Treatment Duration: Aug 02, 2021 Frequency: Modified Program (IRF) Estimated Hrs Per Day: 1 hour per day Patient and/or Family Agrees t: Yes Time/GCodes Time In: 800 Time Out: 815 Total Billed Treatment Time: 15 Total Billed Treatment 1, ther ex 15' ALAN PLUMMER CPTA Jul 16, 2021 09:42
--- NOTE | 2021-07-16 14:24 | Diagnostic Imaging Report ---
INDICATION: Shoulder pain COMPARISON: None available. TECHNIQUE: 3 radiographs of the left shoulder dated 07/16/2021. FINDINGS: Left-sided PICC line is partially visualized. Mild degenerative changes of the acromioclavicular joint. Left-sided pleural effusion and pulmonary opacities are present. No acute fracture or dislocation. No suspicious radiopaque foreign body. IMPRESSION: No acute osseous abnormality with mild degenerative changes present. Left-sided pleural effusion with adjacent pulmonary opacities. Left-sided PICC line is partially visualized. Dictated by: Dictated on workstation # [id number]
[2021-07-16] MEDS: RT-ALBUTEROL SULF 2.5 MG/3 ML PRE-MIX VIAL INH PRN ×2 (17:24→19:10)
[2021-07-16] MEDS: TAMSULOSIN 0.4 MG (FLOMAX) CAP PO SCH (17:36)
[2021-07-16] MEDS ORDERED: morphine INJ 10 MG/ML 1ML (SYR OR VIAL) IVP STA (19:34)
--- NOTE | 2021-07-16 19:56 | Discharge Summary ---
Diagnosis/Chief Complaint Date of Admission Jul 12, 2021 at 11:05 Date of Discharge Discharge Date: Jul 16, 2021 Discharge Diagnosis Assessment: COVID-19 pneumonia residual status post intubation for 6 days Status post acute kidney injury Elevated alkaline phosphatase improving Fibromyalgia Diabetes [id number] from steroids Acute blood loss anemia requiring transfusion on 07/13/2021 Hypertension Severe depression delaying recovery Pulmonary embolism on CT angiogram on 07/13/2021 maintain on Lovenox Left shoulder pain consulted Ortho Lack of motivation with apathy Plan: Inpatient rehab protocol Effexor Home meds Monitor hemoglobin Iron infusions 07/13/2021: Transfusion of 1 unit Restart Lovenox I do not suspect acute blood loss currently Pulmonary embolism management considered provoked due to COVID-19 will need 3 months of anticoagulation 07/14/2021: Lovenox Monitor hemoglobin Increase Effexor due to mood disorder with apathy 07/15/2021: Increase Effexor Check hemoglobin and labs tomorrow Transition from Lovenox to oral anticoagulation soon 07/16/2021: Transitioned Lovenox to oral anticoagulation Ortho consult High risk for decline due to apathy Discharge Summary Discharge Physical Examination Allergies: Coded Allergies: Penicillins (Verified Allergy, Unknown, 07/03/21) erythromycin base (Verified Allergy, Unknown, 07/03/21) Vitals & I&Os Vital Signs Date Time Temp Pulse Resp B/P (MAP) Pulse Ox O2 Delivery O2 Flow Rate FiO2 07/16/21 19:29 94 Vapotherm 30.00 70 07/16/21 07:22 37.2 100 16 120/59 (79) General Appearance: Alert, Other (Flat affect) Respiratory: Clear to Auscultation Hospital Course Was the Problem List Reviewed?: Yes Hospital course: Patient had a brief hospital course she was admitted after improving from COVID-19 extubation and overall doing well received 1 unit of blood due to severe anemia from acute blood loss from left IJ central line during ICU course. She was doing very well but had had some severe apathy episodes during each hospital stay she has had since COVID-19 and she essentially "gave up" and became more more hypoxic and appeared to be end-stage so she was deemed comfort care protocol and sent to fourth floor. Labs (last 24 hrs) Laboratory Tests 07/12/21 16:46: Glucometer 105 07/12/21 21:10: Glucometer 154H 07/13/21 05:39: Glucometer 78 07/13/21 06:05: White Blood Count 10.0, Red Blood Count 2.19L, Hemoglobin 6.7*L, Hematocrit 21L, Mean Corpuscular Volume 97, Mean Corpuscular Hemoglobin 31, Mean Corpuscular Hemoglobin Concent 32, Red Cell Distribution Width 14.4, Platelet Count 282, Mean Platelet Volume 9.1, Immature Granulocyte % (Auto) 2, Neutrophils (%) (Auto) 62, Lymphocytes (%) (Auto) 18, Monocytes (%) (Auto) 10, Eosinophils (%) (Auto) 7, Basophils (%) (Auto) 0, Neutrophils # (Auto) 6.3, Lymphocytes # (Auto) 1.9, Monocytes # (Auto) 1.0, Eosinophils # (Auto) 0.7H, Basophils # (Auto) 0.0, Immature Granulocyte # (Auto) 0.2H, Sodium Level 134L, Potassium Level 3.9, Chloride Level 101, Carbon Dioxide Level 27, Anion Gap 6, Blood Urea Nitrogen 13, Creatinine 0.75, Estimat Glomerular Filtration Rate 76, BUN/Creatinine Ratio 17, Glucose Level 76, Calcium Level 8.1L, Corrected Calcium 9.5, Total Bilirubin 0.6, Aspartate Amino Transf (AST/SGOT) 81H, Alanine Aminotransferase (ALT/SGPT) 98H, Alkaline Phosphatase 384H, Total Protein 5.1L, Albumin 2.3L 07/13/21 10:00: D-Dimer 1.47H 07/13/21 11:13: Glucometer 185H 07/13/21 16:59: Glucometer 107 07/13/21 21:01: Glucometer 164H 07/14/21 05:25: Glucometer 79 07/14/21 06:00: White Blood Count 10.5, Red Blood Count 2.81L, Hemoglobin 7.8L, Hematocrit 25L, Mean Corpuscular Volume 88, Mean Corpuscular Hemoglobin 28, Mean Corpuscular Hemoglobin Concent 32, Red Cell Distribution Width , Platelet Count 272, Mean Platelet Volume 9.2, Immature Granulocyte % (Auto) 3, Neutrophils (%) (Auto) 69, Lymphocytes (%) (Auto) 15, Monocytes (%) (Auto) 8, Eosinophils (%) (Auto) 6, Basophils (%) (Auto) 0, Neutrophils # (Auto) 7.2, Lymphocytes # (Auto) 1.6, Monocytes # (Auto) 0.8, Eosinophils # (Auto) 0.6H, Basophils # (Auto) 0.0, Immature Granulocyte # (Auto) 0.3H, Sodium Level 135, Potassium Level 4.0, Chloride Level 101, Carbon Dioxide Level 28, Anion Gap 6, Blood Urea Nitrogen 11, Creatinine 0.77, Estimat Glomerular Filtration Rate 74, BUN/Creatinine Ratio 14, Glucose Level 77, Calcium Level 8.3L, Corrected Calcium 9.7, Total Bilirubin 0.8, Aspartate Amino Transf (AST/SGOT) 57H, Alanine Aminotransferase (ALT/SGPT) 111H, Alkaline Phosphatase 420H, Total Protein 5.2L, Albumin 2.3L, Smear Scan YES 07/14/21 11:21: Glucometer 74 07/14/21 15:59: Glucometer 169H 07/14/21 20:05: Glucometer 177H 07/15/21 05:27: Glucometer 92 07/15/21 11:59: Glucometer 98 07/15/21 15:21: Glucometer 87 07/15/21 19:58: Glucometer 188H 07/16/21 06:30: White Blood Count 10.8, Red Blood Count 2.88L, Hemoglobin 7.9L, Hematocrit 25L, Mean Corpuscular Volume 87, Mean Corpuscular Hemoglobin 27, Mean Corpuscular Hemoglobin Concent 32, Red Cell Distribution Width , Platelet Count 263, Mean Platelet Volume 8.6L, Immature Granulocyte % (Auto) 2, Neutrophils (%) (Auto) 70, Lymphocytes (%) (Auto) 16, Monocytes (%) (Auto) 9, Eosinophils (%) (Auto) 3, Basophils (%) (Auto) 0, Neutrophils # (Auto) 7.6, Lymphocytes # (Auto) 1.8, Monocytes # (Auto) 0.9, Eosinophils # (Auto) 0.4H, Basophils # (Auto) 0.0, Immature Granulocyte # (Auto) 0.2H, Sodium Level 133L, Potassium Level 3.7, Chloride Level 99, Carbon Dioxide Level 24, Anion Gap 10, Blood Urea Nitrogen 10, Creatinine 0.72, Estimat Glomerular Filtration Rate 80, BUN/Creatinine Ratio 14, Glucose Level 58*L, Calcium Level 8.5, Corrected Calcium 10.0, Total Bilirubin 0.7, Aspartate Amino Transf (AST/SGOT) 20, Alanine Aminotransferase (ALT/SGPT) 55, Alkaline Phosphatase 362H, Total Protein 5.3L, Albumin 2.1L 07/16/21 08:38: Glucometer 117H 07/16/21 10:57: Glucometer 142H 07/16/21 16:09: Glucometer 130H Pending Labs Laboratory Tests 07/12/21 16:46: Glucometer 105 07/12/21 21:10: Glucometer 154 07/13/21 05:39: Glucometer 78 07/13/21 06:05: White Blood Count 10.0, Red Blood Count 2.19, Hemoglobin 6.7, Hematocrit 21, Mean Corpuscular Volume 97, Mean Corpuscular Hemoglobin 31, Mean Corpuscular Hemoglobin Concent 32, Red Cell Distribution Width 14.4, Platelet Count 282, Mean Platelet Volume 9.1, Immature Granulocyte % (Auto) 2, Neutrophils (%) (Auto) 62, Lymphocytes (%) (Auto) 18, Monocytes (%) (Auto) 10, Eosinophils (%) (Auto) 7, Basophils (%) (Auto) 0, Neutrophils # (Auto) 6.3, Lymphocytes # (Auto) 1.9, Monocytes # (Auto) 1.0, Eosinophils # (Auto) 0.7, Basophils # (Auto) 0.0, Immature Granulocyte # (Auto) 0.2, Sodium Level 134, Potassium Level 3.9, Chloride Level 101, Carbon Dioxide Level 27, Anion Gap 6, Blood Urea Nitrogen 13, Creatinine 0.75, Estimat Glomerular Filtration Rate 76, BUN/Creatinine Ratio 17, Glucose Level 76, Calcium Level 8.1, Corrected Calcium 9.5, Total Bilirubin 0.6, Aspartate Amino Transf (AST/SGOT) 81, Alanine Aminotransferase (ALT/SGPT) 98, Alkaline Phosphatase 384, Total Protein 5.1, Albumin 2.3 07/13/21 10:00: D-Dimer 1.47 07/13/21 11:13: Glucometer 185 07/13/21 16:59: Glucometer 107 07/13/21 21:01: Glucometer 164 07/14/21 05:25: Glucometer 79 07/14/21 06:00: White Blood Count 10.5, Red Blood Count 2.81, Hemoglobin 7.8, Hematocrit 25, Mean Corpuscular Volume 88, Mean Corpuscular Hemoglobin 28, Mean Corpuscular Hemoglobin Concent 32, Red Cell Distribution Width , Platelet Count 272, Mean Platelet Volume 9.2, Immature Granulocyte % (Auto) 3, Neutrophils (%) (Auto) 69, Lymphocytes (%) (Auto) 15, Monocytes (%) (Auto) 8, Eosinophils (%) (Auto) 6, Basophils (%) (Auto) 0, Neutrophils # (Auto) 7.2, Lymphocytes # (Auto) 1.6, Monocytes # (Auto) 0.8, Eosinophils # (Auto) 0.6, Basophils # (Auto) 0.0, Immature Granulocyte # (Auto) 0.3, Sodium Level 135, Potassium Level 4.0, Chloride Level 101, Carbon Dioxide Level 28, Anion Gap 6, Blood Urea Nitrogen 11, Creatinine 0.77, Estimat Glomerular Filtration Rate 74, BUN/Creatinine Ratio 14, Glucose Level 77, Calcium Level 8.3, Corrected Calcium 9.7, Total Bilirubin 0.8, Aspartate Amino Transf (AST/SGOT) 57, Alanine Aminotransferase (ALT/SGPT) 111, Alkaline Phosphatase 420, Total Protein 5.2, Albumin 2.3, Smear Scan YES 07/14/21 11:21: Glucometer 74 07/14/21 15:59: Glucometer 169 07/14/21 20:05: Glucometer 177 07/15/21 05:27: Glucometer 92 07/15/21 11:59: Glucometer 98 07/15/21 15:21: Glucometer 87 07/15/21 19:58: Glucometer 188 07/16/21 06:30: White Blood Count 10.8, Red Blood Count 2.88, Hemoglobin 7.9, Hematocrit 25, Mean Corpuscular Volume 87, Mean Corpuscular Hemoglobin 27, Mean Corpuscular Hemoglobin Concent 32, Red Cell Distribution Width , Platelet Count 263, Mean Platelet Volume 8.6, Immature Granulocyte % (Auto) 2, Neutrophils (%) (Auto) 70, Lymphocytes (%) (Auto) 16, Monocytes (%) (Auto) 9, Eosinophils (%) (Auto) 3, Basophils (%) (Auto) 0, Neutrophils # (Auto) 7.6, Lymphocytes # (Auto) 1.8, Monocytes # (Auto) 0.9, Eosinophils # (Auto) 0.4, Basophils # (Auto) 0.0, Immature Granulocyte # (Auto) 0.2, Sodium Level 133, Potassium Level 3.7, Chloride Level 99, Carbon Dioxide Level 24, Anion Gap 10, Blood Urea Nitrogen 10, Creatinine 0.72, Estimat Glomerular Filtration Rate 80, BUN/Creatinine Ratio 14, Glucose Level 58, Calcium Level 8.5, Corrected Calcium 10.0, Total Bilirubin 0.7, Aspartate Amino Transf (AST/SGOT) 20, Alanine Aminotransferase (ALT/SGPT) 55, Alkaline Phosphatase 362, Total Protein 5.3, Albumin 2.1 07/16/21 08:38: Glucometer 117 07/16/21 10:57: Glucometer 142 07/16/21 16:09: Glucometer 130 Discharge Home Medications: Active Scripts Active Reported Aspirin EC (Aspirin) 81 Mg Tablet.dr 81 Mg PO DAILY Pantoprazole Sodium 40 Mg Tablet.dr 40 Mg PO DAILY Lisinopril-Hctz 20-12.5 mg Tab (Lisinopril/Hydrochlorothiazide) 1 Each Tablet 1 Ea PO DAILY Paroxetine HCl 20 Mg Tablet 20 Mg PO DAILY Ventolin Hfa (Albuterol Sulfate) 18 Gm Hfa.aer.ad 2 Puff INH Q6H PRN Metformin HCl 500 Mg Tablet 500 Mg PO BID Sucralfate 1 Gm Tablet 1 Gm PO BID Glimepiride 2 Mg Tablet 2 Mg PO BID Pravastatin Sodium 40 Mg Tablet 40 Mg PO HS Coditussin AC Liquid (Guaifenesin/Codeine Phosphate) 473 Ml Liquid 5 Ml PO Q4H PRN Instructions to patient/family Please see electronic discharge instructions given to patient. Diagnosis/Problems Diagnosis/Problems (1) COVID-19 (2) Thrush (3) Hypertension (4) Diabetes (5) Fibromyalgia (6) Anemia associated with acute blood loss (7) Acute kidney injury (8) Alkaline phosphatase elevation (9) Respiratory failure (10) Pulmonary embolism (11) Transfusion of blood during current hospitalisation NASRIN LAGUERRE DO Jul 16, 2021 19:56
[2021-07-16] MEDS ORDERED: MIRTAZAPINE 15 MG (REMERON) TAB PO SCH (21:00)
[2021-07-16] MEDS ORDERED: APIXABAN 5 MG (ELIQUIS) TABLET PO SCH (21:00)
[2021-07-17] MEDS ORDERED: APIXABAN 5 MG (ELIQUIS) TABLET PO SCH (13:15)
--- NOTE | 2021-07-18 15:24 | Therapy Team Discharge Summary ---
Therapy Discharge Summary Discharge Recommendations Date of Discharge Physical Therapy Patient came to rehab with post covid 19 debility. Upon evaluation patient performed bed mobility with min assist, supine <-> sit max assist, sit <-> stand mod assist, transfers min assist, car transfer mod assist, ambulated 4' with a rolling walker with min assist, and propelled a manual WC 120' with min assist. Patient has been performing bed mobility and transfer training, balance and endurance training, functional strengthening, gait training, and education. Patient was transferred from the rehab floor due to medical issues. Patient will be discharged from PT at this time. Occupational Therapy Decreased Activ Tolerance, Decreased UE Strength, Impaired Funct Balance, Impaired I ADL's, Impaired Self-Care Skills PT Well Surveying Engineer Goals Assisted Goals PT Well Surveying Engineer Goals Time Frame: Aug 02, 2021 Roll Left to Right (QC): 6 Sit to Lying (QC): 4 (SBA) Lying-Sitting on Side/Bed(QC): 4 (SBA) Sit to Stand (QC): 4 (SBA) Chair/Yiw-if-Hynyh Xfer(QC): 4 (SBA) Car Transfer (QC): 4 (SBA) Does the Patient Walk: Yes Walk 10 feet (QC): 4 (SBA) Walk 10ft-Uneven Surface(QC): 4 (SBA) Walk 50ft with 2 Turns (QC): 4 (SBA) Walk 150 ft (QC): 4 (SBA) Wheel 50 feet with 2 turns (QC: 6 1 Step (curb) (QC): 4 (SBA) 4 Steps (QC): 88 12 Steps (QC): 88 Picking up an Object (QC): 4 (SBA) OT Well Surveying Engineer Goals Assisted Goals Time Frame: Aug 12, 2021 Eating (QC): 6 Oral Hygiene (QC): 6 Shower/Bathe Self (QC): 6 Upper Body Dressing (QC): 6 Lower Body Dressing (QC): 6 On/Off Footwear (QC): 6 Toileting Hygiene (QC): 6 Toilet/Commode Transfer (QC): 4 (SBA) Additional Goals: 1-Demonstrate ADL Tasks, 2-Verbalize Understanding, 3- ImproveStrength/Yamilka 1=Demonstrate adherence to instructed precautions during ADL tasks. 2=Patient will verbalize/demonstrate understanding of assistive devices/modifications for ADL. 3=Patient will improve strength/tolerance for activity to enable patient to perform ADL's. Speech Well Surveying Engineer Goals Assisted Goals 1.Patient will improved cognitive-communication abilities so that she will require decreased assistance. 2.Patient will tolerate least restrictive diet with no overt s/s of aspiration/penetration. DAVID JERONIMO PT Jul 18, 2021 15:24
[2021-07-19] MEDS ORDERED: Bethanechol Chl PO (09:53)
[2021-07-19] MEDS ORDERED: ACHD5005 PO (09:53)
[2021-07-19] MEDS ORDERED: APIX5TAB PO (09:53)
[2021-07-19] MEDS ORDERED: INSU100V16 SC (09:53)
[2021-07-19] MEDS ORDERED: VENL75CA93 PO (09:53)
[2021-07-19] MEDS ORDERED: IRON100V2 IV (09:53)
[2021-07-19] MEDS ORDERED: NYST1000 PO (09:53)
[2021-07-19] MEDS ORDERED: SENN1TAB76 PO (09:53)
[2021-07-19] MEDS ORDERED: TMSL.4C PO (09:53)
[2021-07-19] MEDS ORDERED: MIRT-47 PO (09:53)
[2021-07-19] MEDS ORDERED: POLY17PO54 PO (09:53)
--- NOTE | 2021-07-20 14:24 | Therapy Team Discharge Summary ---
Therapy Discharge Summary Discharge Recommendations Date of Discharge Jul 16, 2021 at 19:40 Occupational Therapy Pt admitted to ARU with debility post COVID. At PLOF, pt was independent with ADLs and functional mobility using FWW. Upon initial evaluation, pt required set up assistance with eating and oral care, total assist showering, min A upper body dressing, total assist lower body dressing, max A footwear and total assist toileting. OT tx focused on increasing BUE Strength and activity tolerance and increasing independence with ADLs and functional mobility. At discharge, pt required total assistance showering, min A upper body dressing, max A lower body dressing, and max A footwear. Pt did not meet any goals, and made poor progress due to short stay. Pt transferred to 4th floor due to increased medical complexity. Pt discharged from unit, d/c from OT. Decreased Activ Tolerance, Decreased UE Strength, Impaired Funct Balance, Impaired I ADL's, Impaired Self-Care Skills PT Senior Care Goals Internal Grinding Machine Operator Goals PT Senior Care Goals Time Frame: Aug 02, 2021 Roll Left to Right (QC): 6 Sit to Lying (QC): 4 (SBA) Lying-Sitting on Side/Bed(QC): 4 (SBA) Sit to Stand (QC): 4 (SBA) Chair/Zsf-to-Tsbeg Xfer(QC): 4 (SBA) Car Transfer (QC): 4 (SBA) Does the Patient Walk: Yes Walk 10 feet (QC): 4 (SBA) Walk 10ft-Uneven Surface(QC): 4 (SBA) Walk 50ft with 2 Turns (QC): 4 (SBA) Walk 150 ft (QC): 4 (SBA) Wheel 50 feet with 2 turns (QC: 6 1 Step (curb) (QC): 4 (SBA) 4 Steps (QC): 88 12 Steps (QC): 88 Picking up an Object (QC): 4 (SBA) OT Senior Care Goals Senior Care Goals Time Frame: Aug 12, 2021 Eating (QC): 6 (not met) Oral Hygiene (QC): 6 (not met) Shower/Bathe Self (QC): 6 (not met) Upper Body Dressing (QC): 6 (not met) Lower Body Dressing (QC): 6 (not met) On/Off Footwear (QC): 6 (not met) Toileting Hygiene (QC): 6 (not met) Toilet/Commode Transfer (QC): 4 (SBA) Additional Goals: 1-Demonstrate ADL Tasks, 2-Verbalize Understanding, 3- ImproveStrength/[place] 1=Demonstrate adherence to instructed precautions during ADL tasks. 2=Patient will verbalize/demonstrate understanding of assistive devices/mod ifications for ADL. 3=Patient will improve strength/tolerance for activity to enable patient to perform ADL's. Speech Senior Care Goals Internal Grinding Machine Operator Goals 1.Patient will improved cognitive-communication abilities so that she will require decreased assistance. 2.Patient will tolerate least restrictive diet with no overt s/s of aspiration/penetration. GERARDO ALBARADO OT Jul 20, 2021 14:24
[2021-07-23] MEDS ORDERED: APIXABAN 5 MG (ELIQUIS) TABLET PO SCH (21:00)
== END 2021-07-16 19:40 | disposition short-term general hospital (02) | DRG 947 ==
LOC: UNDOLOA 07-16 19:50
PROVIDERS: ADMIT Internal Medicine; ATTEND Internal Medicine
DX: R53.81 Other malaise (principal); I26.99 Other pulmonary embolism without acute cor pulmonale; D62 Acute posthemorrhagic anemia; B37.0 Candidal stomatitis; B94.8 Sequelae of other specified infectious and parasitic diseases; R33.9 Retention of urine, unspecified; M79.7 Fibromyalgia; M25.512 Pain in left shoulder; E11.65 Type 2 diabetes mellitus with hyperglycemia; F32.9 Major depressive disorder, single episode, unspecified; I10 Essential (primary) hypertension; N31.9 Neuromuscular dysfunction of bladder, unspecified; R45.3 Demoralization and apathy; K21.9 Gastro-esophageal reflux disease without esophagitis; Z87.01 Personal history of pneumonia (recurrent); Z79.84 Long term (current) use of oral hypoglycemic drugs; Z79.52 Long term (current) use of systemic steroids; Z79.82 Long term (current) use of aspirin; Z88.1 Allergy status to other antibiotic agents; Z88.0 Allergy status to penicillin
CPT/HCPCS: 36415; 71275; 73030; 74177; 80053; 82947; 85025; 85379; 86850; 86900; 86901; 86920; 94640; 94760

== ENCOUNTER 2021-07-16 19:41 | Inpatient (IN) | payer MEDICARE, OTHER ==
[~2021-07-16] VITALS: Ht 157.5 cm; Wt 79.1 kg
[2021-07-16] MEDS ORDERED: SALIVA STIMULANT MOUTH SPRAY (BIOTENE) 1.5 OZ MM PRN (20:00)
[2021-07-16] MEDS ORDERED: CALCIUM CARBONATE 500 MG (TUMS) TAB.CHEW PO PRN (20:00)
[2021-07-16] MEDS ORDERED: RT-ALBUTEROL/IPRATROPIUM 3 ML (DUONEB) VIAL INH PRN (20:00)
[2021-07-16] MEDS ORDERED: ARTIFICAL TEARS 0.4 ML UNIT DOSE (REFRESH PLUS) OU PRN (20:00)
[2021-07-16] MEDS ORDERED: ACETAMINOPHEN 650 MG SUPP (TYLENOL) PR PRN (20:00)
[2021-07-16] MEDS ORDERED: ACETAMINOPHEN 500 MG TAB (TYLENOL) PO PRN (20:00)
[2021-07-16] MEDS ORDERED: ONDANSETRON 4 MG/2 ML (SDV) Z0FRAN IVP PRN (20:00)
[2021-07-16] MEDS ORDERED: GLYCOPYRROLATE 0.2 MG/ML (ROBINUL) 2 ML VIAL IV PRN (20:00)
[2021-07-16] MEDS ORDERED: diphenhydrAMINE 25 MG TAB (BENADRYL) PO PRN (20:00)
[2021-07-16] MEDS ORDERED: LORazepam INJ 2 MG/ML (ATIVAN) VIAL IVP PRN (20:00)
[2021-07-16] MEDS ORDERED: DOCUSATE SODIUM 100 MG (COLACE) CAP PO PRN (20:00)
[2021-07-16] MEDS ORDERED: BISACODYL 10 MG SUPP (DULCOLAX) PR PRN (20:00)
[2021-07-16 20:33] VITALS: BP 124/72
[2021-07-16] MEDS: morphine INJ 4 MG/ML 1 ML (VIAL/SYRINGE) IV PRN (21:49)
[2021-07-17] MEDS: morphine INJ 4 MG/ML 1 ML (VIAL/SYRINGE) IV PRN ×2 (02:11→08:13)
--- NOTE | 2021-07-17 07:58 | History & Physical ---
History of Present Illness HPI/Chief Complaint Chief complaint: End-of-life care but now appears to be dramatically improved History of present illness: This is a 70-year-old white female I moved from inpatient rehab yesterday evening due to acute hypoxic respiratory failure. She was deemed DO NOT RESUSCITATE required Vapotherm on inpatient rehab prior to transfer. I called in the family for possible end-of-life status and patient was placed on comfort care protocol and everyone in agreement with the plan. Patient dramatically improved starting early this morning and is now alert and oriented x3 and about to eat breakfast. I explained to her that we would take one day at a time and if she should turn around and improved by this morning we would restart treatment. It appears that that is the case here of which she has had several rapid declines and rallied in improved and turned around the last 3 weeks from COVID-19 pneumonia. We will evaluate her intake one day at a time in case she declines further. 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 Patients Allergies have been reviewed. Allergies Allergies Coded Allergies Penicillins (Verified Allergy, Unknown, 07/03/21) erythromycin base (Verified Allergy, Unknown, 07/03/21) Past [id number]-[id number] Hx Past Med/Social Hx: Reviewed Nursing Past Med/Soc Hx, Reviewed and Corrections made Patient Social History Marrital Status: Employed/Student: retired Smoking Status: Never a Smoker Past Medical History COVID-19 pneumonia 06/17/2021 required intubation Cardiac: Hypertension Gastrointestinal: Gastroesophageal Reflux Musculoskeletal: Fibromyalgia Endocrine: Diabetes, Non-Insulin dep Psychosocial: Depression Family History Other Conditions/Hx Review of Systems Constitutional: see HPI, malaise, weakness EENTM: no symptoms reported Respiratory: dyspnea on exertion Cardiovascular: no symptoms reported Gastrointestinal: no symptoms reported Genitourinary: no symptoms reported Musculoskeletal: joint pain (Left shoulder) Skin: no symptoms reported Psychiatric/Neurological: No Symptoms Reported Physical Exam Physical Exam Vital Signs Vital Signs - First Documented 07/16/21 07/16/21 20:26 20:33 Temp 37.2 Pulse 114 Resp 20 B/P (MAP) 124/72 (89) Pulse Ox 97 O2 Delivery Vapotherm O2 Flow Rate 30.00 FiO2 70 Capillary Refill : Height, Weight, BMI Height: '" Weight: lbs. oz. kg; 31.88 BMI Method: General Appearance: No Apparent Distress, WD/WN, Chronically ill Eyes: Bilateral Eye Normal Inspection, Bilateral Eye PERRL HEENT: PERRL/EOMI, Normal ENT Inspection, Pharynx Normal Neck: Full Range of Motion, Normal Inspection, Non Tender, Supple, Carotid Bruit Respiratory: Chest Non Tender, Lungs Clear, Normal Breath Sounds, Decreased Laura ath Sounds Cardiovascular: Regular Rate, Rhythm, No Edema, No Gallop, No JVD, No Murmur, Normal Peripheral Pulses Gastrointestinal: Normal Bowel Sounds, No Organomegaly, No Pulsatile Mass, Non Tender, Soft Back: Normal Inspection, No CVA Tenderness, No Vertebral Tenderness Extremity: Normal Capillary Refill, Normal Inspection, Normal Range of Motion, Non Tender, No Calf Tenderness, No Pedal Edema Neurologic/Psychiatric: Alert, Oriented x3, No Motor/Sensory Deficits, Normal Mood/Affect, Depressed Affect Skin: Normal Color, Warm/Dry Lymphatic: No Adenopathy Results Results/Procedures Labs Laboratory Tests 07/17/21 15:05 Patient resulted labs reviewed. Assessment/Plan Admission Diagnosis Assessment: Rapid acute hypoxic respiratory failure on rehab requiring Vapotherm and transfer to fourth floor for comfort care protocol on 07/16/2021 now dramatically improved COVID-19 pneumonia residual status post intubation for 6 days Status post acute kidney injury Elevated alkaline phosphatase improving Fibromyalgia Diabetes [id number] from steroids Acute blood loss anemia requiring transfusion on 07/13/2021 Hypertension Severe depression delaying recovery Pulmonary embolism on CT angiogram on 07/13/2021 maintained on Lovenox and transition to Eliquis Left shoulder pain consulted Ortho Lack of motivation with apathy we will monitor closely Plan: Inpatient rehab protocol Effexor Home meds Monitor hemoglobin Iron infusions 07/13/2021: Transfusion of 1 unit Restart Lovenox I do not suspect acute blood loss currently Pulmonary embolism management considered provoked due to COVID-19 will need 3 months of anticoagulation 07/14/2021: Lovenox Monitor hemoglobin Increase Effexor due to mood disorder with apathy 07/15/2021: Increase Effexor Check hemoglobin and labs tomorrow Transition from Lovenox to oral anticoagulation soon 07/16/2021: Transitioned Lovenox to oral anticoagulation Ortho consult High risk for decline due to apathy 07/17/2021: Restart treatment Supportive care Patient has had multiple rapid declines then dramatic recoveries in the last 3 weeks from COVID-19 pneumonia Admission Status: Inpatient Order (span 2 midnights) Reason for Inpatient Admission: Acute hypoxic respiratory failure ANYA BOWEN DO Jul 17, 2021 07:58
--- NOTE | 2021-07-17 08:41 | Consultation - Ortho ---
Consult - Ortho Subjective Date of Exam 07/17/21 Chief Complaint Left Shoulder Pain HPI/Events since last exam Has had a history of left shoulder pain. Has been ongoing during recent hospitalization. Does not localize the pain well. States she has been told she has a torn rotator cuff. Has trouble with overhead motion. She is right hand dominant and has been avoiding use of the left arm. Medical, Surgical History per H&P Social History per H&P Family History per H&P Review of Systems per H&P Allergies: Coded Allergies: Penicillins (Verified Allergy, Unknown, 07/03/21) erythromycin base (Verified Allergy, Unknown, 07/03/21) Home Meds Reported Medications Aspirin (Aspirin EC) 81 Mg Tablet.dr, 81 MG PO DAILY, TAB 07/04/21 Pantoprazole Sodium (Pantoprazole Sodium) 40 Mg Tablet.dr, 40 MG PO DAILY, TAB 07/04/21 Lisinopril/Hydrochlorothiazide (Lisinopril-Hctz 20-12.5 mg Tab) 1 Each Tablet, 1 EA PO DAILY, TAB 07/04/21 Paroxetine HCl (Paroxetine HCl) 20 Mg Tablet, 20 MG PO DAILY, TAB 07/04/21 Albuterol Sulfate (Ventolin Hfa) 18 Gm Hfa.aer.ad, 2 PUFF INH Q6H PRN for SHORTNESS OF BREATH, EA 07/04/21 Metformin HCl (Metformin HCl) 500 Mg Tablet, 500 MG PO BID, TAB 07/04/21 Sucralfate (Sucralfate) 1 Gm Tablet, 1 GM PO BID, TAB 07/04/21 Glimepiride (Glimepiride) 2 Mg Tablet, 2 MG PO BID, TAB 07/04/21 Pravastatin Sodium (Pravastatin Sodium) 40 Mg Tablet, 40 MG PO HS, TAB 07/04/21 Guaifenesin/Codeine Phosphate (Coditussin AC Liquid) 473 Ml Liquid, 5 ML PO Q4H PRN for COUGH, ML 07/04/21 Objective Exam Left Shoulder: No deformity, no swelling, no warmth, mild tenderness at AC joint, flexes: 140 degrees, abducts: 110 degrees, supraspinatus 4/5, deltoid 4/5, both muscle tests with pain, + Hawkin's, sensation grossly intact to light touch, pulses 2+ Vital Signs Vital Signs Date Time Temp Pulse Resp B/P (MAP) Pulse Ox O2 Delivery O2 Flow Rate FiO2 07/19/21 03:36 36.8 90 18 144/63 (90) 90 Nasal Cannula 2.00 07/18/21 23:28 36.9 97 18 129/61 (83) 91 Nasal Cannula 2.00 07/18/21 20:01 37.1 108 18 106/67 (80) 92 Nasal Cannula 2.00 07/18/21 20:00 Nasal Cannula 2.00 07/18/21 16:00 37.1 103 18 112/67 (82) 92 Nasal Cannula 2.00 07/18/21 12:17 36.3 103 20 129/65 (86) 92 Nasal Cannula 2.00 I & O 07/19/21 07:00 Intake Total 1220 ml Output Total 1150 ml Balance 70 ml Lab Results Laboratory Tests 07/18/21 15:50: Glucometer 105 07/18/21 20:01: Glucometer 130H 07/19/21 06:14: White Blood Count 8.3, Red Blood Count 2.67L, Hemoglobin 7.4L, Hematocrit 24L, Mean Corpuscular Volume 89, Mean Corpuscular Hemoglobin 28, Mean Corpuscular Hemoglobin Concent 31L, Red Cell Distribution Width , Platelet Count 214, Mean Platelet Volume 8.7L, Immature Granulocyte % (Auto) 1, Neutrophils (%) (Auto) 74, Lymphocytes (%) (Auto) 16, Monocytes (%) (Auto) 6, Eosinophils (%) (Auto) 3, Basophils (%) (Auto) 0, Neutrophils # (Auto) 6.1, Lymphocytes # (Auto) 1.3, Monocytes # (Auto) 0.5, Eosinophils # (Auto) 0.2, Basophils # (Auto) 0.0, Immature Granulocyte # (Auto) 0.1, Sodium Level 136, Potassium Level 3.9, Chlori de Level 100, Carbon Dioxide Level 25, Anion Gap 11, Blood Urea Nitrogen 10, Creatinine 0.76, Estimat Glomerular Filtration Rate 75, BUN/Creatinine Ratio 13, Glucose Level 99, Calcium Level 8.7, Corrected Calcium 10.3H, Total Bilirubin 0.6, Aspartate Amino Transf (AST/SGOT) 18, Alanine Aminotransferase (ALT/SGPT) 30, Alkaline Phosphatase 483H, Total Protein 5.6L, Albumin 2.0L Imaging 3 views of the left shoulder were reviewed from PACS and demonstrated normal glenohumeral joint, some mild degenerative change in the AC joint Assessment and Plan Assessment Left Shoulder Rotator Cuff Tendinopathy Problem List Left Shoulder Rotator Cuff Tendinopathy Plan Offered injection. Offered therapy. At this point, she does not know how she would like to proceed. Will be available if she decides to proceed with injection. Final Diagonsis Left Shoulder Pain Level of the visit: Level 3 VIVI POTTER MD Jul 17, 2021 08:41
[2021-07-17] MEDS: HYDROcodone/APAP 5 MG/325 MG (LORTAB) TAB PO PRN ×3 (09:05→19:19)
[2021-07-17] MEDS ORDERED: ALPRAZolam 0.25 MG (XANAX) TAB PO PRN (13:15)
[2021-07-17] MEDS ORDERED: LACTULOSE SYRUP 10GM/15ML (ENULOSE) 30ML UDC PO PRN (13:15)
[2021-07-17] MEDS ORDERED: MELATONIN 3 MG TABLET PO PRN (13:15)
[2021-07-17] MEDS ORDERED: diphenhydrAMINE 25 MG TAB (BENADRYL) PO PRN (13:15)
[2021-07-17] MEDS ORDERED: CALCIUM CARBONATE 500 MG (TUMS) TAB.CHEW PO PRN (13:15)
[2021-07-17] MEDS ORDERED: LOPERAMIDE 2 MG (IMODIUM) TABLET PO PRN (13:15)
[2021-07-17] MEDS ORDERED: ONDANSETRON 4 MG (ZOFRAN) ORAL DISSOLVE TAB PO PRN (13:15)
[2021-07-17] MEDS ORDERED: ACETAMINOPHEN 325 MG TABLET PO PRN (13:30)
[2021-07-17 15:24] LABS: BASOPHILS % (AUTO) 0 % (0-10); EOSINOPHILS # (AUTO) 0.3 10^3/uL (0.0-0.3); EOSINOPHILS % (AUTO) 3 % (0-10); HEMATOCRIT 24 % (35-52); HEMOGLOBIN 7.5 g/dL (11.5-16.0); LYMPHOCYTES # (AUTO) 1.3 10^3/uL (1.0-4.0); LYMPHOCYTES % (AUTO) 13 % (12-44); MEAN CORPUSCULAR HEMOGLOBIN 28 pg (25-34); MEAN CORPUSCULAR HGB CONC 32 g/dL (32-36); MEAN CORPUSCULAR VOLUME 87 fL (80-99); MEAN PLATELET VOLUME 8.8 fL (9.0-12.2); MONOCYTES # (AUTO) 0.7 10^3/uL (0.0-1.0); MONOCYTES % (AUTO) 7 % (0-12); NEUTROPHILS # (AUTO) 7.4 10^3/uL (1.8-7.8); NEUTROPHILS % (AUTO) 75 % (42-75); PLATELET COUNT 216 10^3/uL (130-400); WHITE BLOOD COUNT 9.9 10^3/uL (4.3-11.0)
[2021-07-17 15:25] LABS: ALBUMIN 2.1 GM/DL (3.2-4.5)
[2021-07-17 15:26] LABS: POTASSIUM 4.1 MMOL/L (3.6-5.0)
[2021-07-17 15:27] LABS: CALCIUM 8.5 MG/DL (8.5-10.1)
[2021-07-17 15:28] LABS: TOTAL PROTEIN 5.6 GM/DL (6.4-8.2)
[2021-07-17 15:30] LABS: BILIRUBIN,TOTAL 0.7 MG/DL (0.1-1.0)
[2021-07-17 15:32] LABS: CREATININE SERUM 0.79 MG/DL (0.60-1.30)
[2021-07-17] MEDS: inSUlin ASPART (NovoLOG) 1 UNIT/0.01 ML (CHARGE PER UNIT) SC SCH ×2 (16:31→20:44)
[2021-07-17] MEDS: BETHANECHOL 25 MG (URECHOLINE) TAB PO SCH ×2 (16:31→21:11)
[2021-07-17] MEDS: TAMSULOSIN 0.4 MG (FLOMAX) CAP PO SCH (17:58)
[2021-07-17] MEDS: NYSTATIN ORAL SUSP 5 ML UDC PO SCH ×2 (17:58→21:11)
[2021-07-17] MEDS: polyethylene glycoL POWDER 17 GM (MIRALAX) PACK PO SCH (20:44)
[2021-07-17] MEDS: SENNA W/DOCUSATE (SENOKOT S) TABLET PO SCH (21:11)
[2021-07-17] MEDS: DOCUSATE SODIUM 100 MG (COLACE) CAP PO SCH (21:11)
[2021-07-17] MEDS: MIRTAZAPINE 15 MG (REMERON) TAB PO SCH (21:11)
[2021-07-18 05:20] LABS: BASOPHILS % (AUTO) 0 % (0-10); EOSINOPHILS # (AUTO) 0.3 10^3/uL (0.0-0.3); EOSINOPHILS % (AUTO) 4 % (0-10); HEMATOCRIT 24 % (35-52); HEMOGLOBIN 7.5 g/dL (11.5-16.0); LYMPHOCYTES # (AUTO) 1.3 10^3/uL (1.0-4.0); LYMPHOCYTES % (AUTO) 14 % (12-44); MEAN CORPUSCULAR HEMOGLOBIN 28 pg (25-34); MEAN CORPUSCULAR HGB CONC 32 g/dL (32-36); MEAN CORPUSCULAR VOLUME 87 fL (80-99); MEAN PLATELET VOLUME 8.4 fL (9.0-12.2); MONOCYTES # (AUTO) 0.5 10^3/uL (0.0-1.0); MONOCYTES % (AUTO) 6 % (0-12); NEUTROPHILS # (AUTO) 7.1 10^3/uL (1.8-7.8); NEUTROPHILS % (AUTO) 76 % (42-75); PLATELET COUNT 220 10^3/uL (130-400); WHITE BLOOD COUNT 9.4 10^3/uL (4.3-11.0)
[2021-07-18] MEDS: inSUlin ASPART (NovoLOG) 1 UNIT/0.01 ML (CHARGE PER UNIT) SC SCH ×4 (05:20→20:38)
[2021-07-18 05:29] LABS: ALBUMIN 2.1 GM/DL (3.2-4.5); POTASSIUM 3.9 MMOL/L (3.6-5.0)
[2021-07-18 05:30] LABS: CALCIUM 8.5 MG/DL (8.5-10.1)
[2021-07-18 05:31] LABS: TOTAL PROTEIN 5.7 GM/DL (6.4-8.2)
[2021-07-18 05:33] LABS: BILIRUBIN,TOTAL 0.6 MG/DL (0.1-1.0)
[2021-07-18 05:35] LABS: CREATININE SERUM 0.75 MG/DL (0.60-1.30)
[2021-07-18] MEDS: VENlafaxine XR 75 MG (EFFEXOR XR) CAP PO SCH (06:04)
[2021-07-18] MEDS: BETHANECHOL 25 MG (URECHOLINE) TAB PO SCH ×4 (06:04→20:45)
[2021-07-18] MEDS: NYSTATIN ORAL SUSP 5 ML UDC PO SCH ×4 (08:23→20:45)
[2021-07-18] MEDS: PANTOPRAZOLE 40 MG (PROTONIX) TAB PO SCH (08:23)
[2021-07-18] MEDS: polyethylene glycoL POWDER 17 GM (MIRALAX) PACK PO SCH ×2 (08:23→20:45)
[2021-07-18] MEDS: SENNA W/DOCUSATE (SENOKOT S) TABLET PO SCH ×2 (08:23→20:44)
[2021-07-18] MEDS: DOCUSATE SODIUM 100 MG (COLACE) CAP PO SCH ×2 (08:24→20:44)
[2021-07-18] MEDS: HYDROcodone/APAP 5 MG/325 MG (LORTAB) TAB PO PRN ×2 (08:25→17:31)
[2021-07-18] MEDS ORDERED: IRON SUCROSE 200 MG/10 ML (VENOFER) VIAL IV SCH (09:00)
--- NOTE | 2021-07-18 11:40 | Progress Note ---
ROBIN DONOHUE MED STUDENT 07/18/21 1140: Subjective Date Seen by a Provider: Jul 18, 2021 Time Seen by a Provider: 07:25 Subjective/Events-last exam Rosalia Azul feels less short of breath today. She reports some fevers and chills as well as continued left shoulder pain. She is on 2L oxygen. Objective Exam Last Set of Vital Signs Vital Signs Date Time Temp Pulse Resp B/P (MAP) Pulse Ox O2 Delivery O2 Flow Rate FiO2 07/18/21 08:00 Nasal Cannula 2.00 07/17/21 11:48 91 07/16/21 20:33 37.2 114 20 124/72 (89) 07/16/21 20:26 70 Capillary Refill : I&O Intake and Output 07/18/21 00:00 Intake Total 1030 ml Output Total 1300 ml Balance -270 ml Intake Oral 1030 ml Output Urine Total 1300 ml General: Alert, Oriented X3 HEENT: Atraumatic, PERRLA Heart: Other (tachycardic, regular rhythm, +2/6 systolic murmur over pulmonic valve) Abdomen: Normal Bowel Sounds, Soft Extremities: Other (trace bilateral edema) Skin: No Rashes Results Lab Laboratory Tests 07/17/21 15:05: White Blood Count 9.9, Red Blood Count 2.73L, Hemoglobin 7.5L, Hematocrit 24L, Mean Corpuscular Volume 87, Mean Corpuscular Hemoglobin 28, Mean Corpuscular Hemoglobin Concent 32, Red Cell Distribution Width , Platelet Count 216, Mean Platelet Volume 8.8L, Immature Granulocyte % (Auto) 3, Neutrophils (%) (Auto) 75, Lymphocytes (%) (Auto) 13, Monocytes (%) (Auto) 7, Eosinophils (%) (Auto) 3, Basophils (%) (Auto) 0, Neutrophils # (Auto) 7.4, Lymphocytes # (Auto) 1.3, Monocytes # (Auto) 0.7, Eosinophils # (Auto) 0.3, Basophils # (Auto) 0.0, Immature Granulocyte # (Auto) 0.3H, Sodium Level 131L, Potassium Level 4.1, Chloride Level 96L, Carbon Dioxide Level 25, Anion Gap 10, Blood Urea Nitrogen 9, Creatinine 0.79, Estimat Glomerular Filtration Rate 72, BUN/Creatinine Ratio 11, Glucose Level 132H, Calcium Level 8.5, Corrected Calcium 10.0, Total Bilirubin 0.7, Aspartate Amino Transf (AST/SGOT) 19, Alanine Aminotransferase (ALT/SGPT) 44, Alkaline Phosphatase 393H, Total Protein 5.6L, Albumin 2.1L 07/17/21 19:39: Glucometer 147H 07/18/21 05:13: White Blood Count 9.4, Red Blood Count 2.73L, Hemoglobin 7.5L, Hematocrit 24L, Mean Corpuscular Volume 87, Mean Corpuscular Hemoglobin 28, Mean Corpuscular Hemoglobin Concent 32, Red Cell Distribution Width , Platelet Count 220, Mean Platelet Volume 8.4L, Immature Granulocyte % (Auto) 1, Neutrophils (%) (Auto) 76 H, Lymphocytes (%) (Auto) 14, Monocytes (%) (Auto) 6, Eosinophils (%) (Auto) 4, Basophils (%) (Auto) 0, Neutrophils # (Auto) 7.1, Lymphocytes # (Auto) 1.3, Monocytes # (Auto) 0.5, Eosinophils # (Auto) 0.3, Basophils # (Auto) 0.0, Immature Granulocyte # (Auto) 0.1, Sodium Level 131L, Potassium Level 3.9, Chloride Level 96L, Carbon Dioxide Level 25, Anion Gap 10, Blood Urea Nitrogen 9, Creatinine 0.75, Estimat Glomerular Filtration Rate 76, BUN/Creatinine Ratio 12, Glucose Level 117H, Calcium Level 8.5, Corrected Calcium 10.0, Total Bilirubin 0.6, Aspartate Amino Transf (AST/SGOT) 16, Alanine Aminotransferase (ALT/SGPT) 37, Alkaline Phosphatase 400H, Total Protein 5.7L, Albumin 2.1L, Ammonia 17 Assessment/Plan Assessment/Plan Assess & Plan/Chief Complaint COVID-19 s/p ventilation, extubation, recent inpatient rehab Acute Respiratory Distress -resolved, off vapotherm and on 2L NC Systolic heart murmur -cardiology to evaluate, echo and BNP ordered recent Acute Kidney Injury -resolved, creatinine 0.75 left shoulder pain -evaluated by Ortho who suspected rotator cuff tendonopathy, offered steroid injections. -patient still considering that. Pain unchanged compared to yesterday. anemia -HGB stable at 7.5 DM2 -blood sugars well controlled Continue anticoagulation ANYA LAGUERRE DO 07/19/21 0522: Subjective Subjective/Events-last exam Patient doing a lot better Severe anemia trend was concerning so anticoagulation will be restarted now since stable Patient appears to be willing to work with therapy Prefers to go to [place] swing bed but if fails need to go to jail Review of Systems General: Fatigue, Malaise Objective Exam General: Alert, Oriented X3, Cooperative HEENT: Atraumatic Lungs: Clear to Auscultation Heart: Regular Rate Assessment/Plan Assessment/Plan Assess & Plan/Chief Complaint [facility] tomorrow PT and OT Restart Eliquis Cardiology consult Echo Supervisory-Addendum Brief Verification & Attestation Participated in pt care: history, MDM, physical Personally performed: exam, history, MDM, supervision of care Care discussed with: Medical Student Procedures: n/a Results interpretation: Verified all documentation Verification and Attestation of Medical Student E/M Service A medical student performed and documented this service in my presence. I reviewed and verified all information documented by the medical student and made modifications to such information, when appropriate. I personally performed the physical exam and medical decision making. Anya Laguerre, Jul 19, 2021,05:20 ROBIN DONOHUE MED STUDENT Jul 18, 2021 11:40 ANYA LAGUERRE DO Jul 19, 2021 05:22
[2021-07-18 12:17] VITALS: BP 129/65
--- NOTE | 2021-07-18 13:41 | Occupational Therapy Eval ---
OT Evaluation-General/PLF Medical Diagnosis Admission Date Jul 16, 2021 at 19:41 Medical Diagnosis: debility post COVID-19 Onset Date: Jun 17, 2021 Therapy Diagnosis Therapy Diagnosis: debility Precautions Precautions/Isolations: Fall Prevention, Standard Precautions Referral Physician: Andrés Henson Reason: Evaluation/Treatment Medical History Pertinent Medical History: DM Current History COVID 19 06/17/21-06/27/21 admitted to OSH. Discharged home with O2, readmitted due to dehydration, hypoxia, and tachycardia. Pt electively intubated, extubated 07/07/21, transferring to ARU 07/12, then transferred to 4th floor 07/16/21 due to increased medical complexity. Social History Home: Single Level Current Living Status: Spouse Entry Into Home: Ramp (needs repairs) ADL-Prior Level of Function SCALE: Activities may be completed with or without assistive devices. 2-Iopymuylgl-arvueht completes the activity by him/herself with no assistance from a helper. 5-Set-up or Clean-up Assistance-helper sets up or cleans up; patient completes activity. [place] assists only prior to or following the activity. 4-Supervision or Touching Assistance-helper provides verbal cues and/or touching/steadying and/or contact guard assistance as patient completes activity. Assistance may be provided throughout the activity or intermittently. 3-Partial/Moderate Assistance-helper does LESS THAN HALF the effort. [place] lifts, holds or supports trunk or limbs, but provides less than half the effort. 2-Substantial/Maximal Assistance-helper does MORE THAN HALF the effort. [place] lifts or holds trunk or limbs and provides more than half the effort. 7-Jpvpekzzd-gmvtqd does ALL the effort. Patient does none of the effort to complete the activity. Or, the assistance of 2 or more helpers is required for the patient to complete the activity. If activity was not attempted, code reason: 7-Patient Refused. 9-Not Applicable-not attempted and the patient did not perform the activity before the current illness, exacerbation or injury. 10-Not Attempted due to Environmental Limitations-(lack of equipment, weather restraints, etc.). 88-Not Attempted due to Medical Conditions or Safety Concerns. ADL PLOF Comments IND with ADLs and functional mobility at PLOF, using FWW Self Care: Independent Functional Cognition: Independent DME/Equipment: Bedside Commode, Tub/Shower DME/Equipment Comments FWW OT Current Status Subjective Pt laying in bed, agreeable to OT tx. Does not rate pain. Mental Status/Objective Patient Orientation: Person, Place, Situation Attachments: Oxygen (3L at rest, 5L with activity) Current Glasses/Contacts: Yes Hearing Aids: No Dentures/Partials: No Hand Dominance: Right Upper Extremity ROM decreased, BUE shoulder flexion to approx 90 degrees. Upper Extremity Coordination decreased. Upper Extremity Strength grossly 3/5 BUE ADL-Treatment Lower Body Dressing (QC): 1 (Based on clincial judgment, pt requires 2 person assistance, assist with all parts.) On/Off Footwear (QC): 1 (based on clincial judgment.) Toileting Hygiene (QC): 1 (catheter) Other Treatments Pt laying in bed, O2 saturation at 89% on 3L. Pt's O2 increased to 5L during tx. Pt transferred supine to sit EOB, required assistance maintaining sitting balance at EOB. Pt stood at FWW, max A sit to stand. Pt stood at bedside for around 20 seconds, leaning on her forearms, pt required cues and assistance to place UEs on walker properly and cues to stand up straight. Pt sat back on bed, O2 saturation at 86% on 5L. Pt assisted supine and scooted towards HOB. Max A supine to/from sit. Pt encouraged to continue completing UE exercises as able, pt completed x5 reps shoulder flexion. Post tx, pt laying in bed, call light in reach and all needs met. Pt left on 3L, 90% O2 saturation. Education OT Patient Education: Correct positioning, Modified ADL techniques, Progress toward Goal/Update tx plan, Purpose of tx/functional activities, Rehab process Teaching Recipient: Patient Teaching Methods: Discussion Response to Teaching: Verbalize Understanding OT Leasing Manager Goals Mcfp Goals Time Frame: Aug 12, 2021 Eating (QC): 6 Oral Hygiene (QC): 5 Toileting Hygiene (QC): 3 Shower/Bathe Self (QC): 3 Upper Body Dressing (QC): 4 Lower Body Dressing (QC): 3 On/Off Footwear (QC): 3 Additional Goals: 1-Demonstrate ADL Tasks, 2-Verbalize Understanding, 3-Imp roveStrength/Yamilka 1=Demonstrate adherence to instructed precautions during ADL tasks. 2=Patient will verbalize/demonstrate understanding of assistive devices/modifications for ADL. 3=Patient will improve strength/tolerance for activity to enable patient to perform ADL's. OT Education/Plan Problem List/Assessment Assessment: Decreased Activ Tolerance, Decreased Safety Aware, Decreased UE Strength, Impaired Bed Mobility, Impaired Coordination, Impaired Funct Balance, Impaired I ADL's, Impaired Self-Care Skills, Restricted Funct UE ROM Discharge Recommendations Plan/Recommendations: Continue POC Therapy Discharge Recommendati: Other, See Comments (SNF), Post Acute OT Treatment Plan/Plan of Care Patient would benefit from OT for education, treatment and training to promote independence in ADL's, mobility, safety and/or upper extremity function for ADL's. Plan of Care: ADL Retraining, Functional Mobility, UE Funct Exercise/Act Treatment Duration: Aug 12, 2021 Frequency: 5 times per week Estimated Hrs Per Day: .25 hour per day Rehab Potential: Guarded Time/GCodes Start Time: 13:12 Stop Time: 13:27 Total Time Billed (hr/min): 15 Billed Treatment Time 1, GERARDO ROCA OT Jul 18, 2021 13:41
--- NOTE | 2021-07-18 13:41 | Physical Therapy Evaluation ---
PT Evaluation-General Medical Diagnosis Admission Date Jul 16, 2021 at 19:41 Medical Diagnosis: acute respiratory failure Onset Date: Jul 16, 2021 Therapy Diagnosis Therapy Diagnosis: impaired mobility, strength, endurance Precautions Precautions/Isolations: Fall Prevention, Standard Precautions Referral Physician: Anya Bowen DO Reason for Referral: Evaluation/Treatment Medical History Pertinent Medical History: DM Reviewed History: Yes Social History Home: Single Level Current Living Status: Spouse Entry Into Home: Ramp Prior Prior Level of Function SCALE: Activities may be completed with or without assistive devices. 4-Gojnwfsngt-wwmsaox completes the activity by him/herself with no assistance from a helper. 5-Set-up or Clean-up Assistance-helper sets up or cleans up; patient completes activity. [place] assists only prior to or following the activity. 4-Supervision or Touching Assistance-helper provides verbal cues and/or touching/steadying and/or contact guard assistance as patient completes activity. Assistance may be provided throughout the activity or intermittently. 3-Partial/Moderate Assistance-helper does LESS THAN HALF the effort. [place] lifts, holds or supports trunk or limbs, but provides less than half the effort. 2-Substantial/Maximal Assistance-helper does MORE THAN HALF the effort. [place] lifts or holds trunk or limbs and provides more than half the effort. 1-Wvluezdka-ypwptt does ALL the effort. Patient does none of the effort to complete the activity. Or, the assistance of 2 or more helpers is required for the patient to complete the activity. If activity was not attempted, code reason: 7-Patient Refused. 9-Not Applicable-not attempted and the patient did not perform the activity before the current illness, exacerbation or injury. 10-Not Attempted due to Environmental Limitations-(lack of equipment, weather restraints, etc.). 88-Not Attempted due to Medical Conditions or Safety Concerns. Bed Mobility: 6 Transfers (B,C,W/C): 6 Gait: 6 Indoor Mobility (Ambulation): Independent Prior Devices Use: Walker PT Evaluation-Current Subjective Patient in bed pre tx, agrees to PT, has no complaints of pain. At rest in bed patient's O2 is 89% on 3L Pt/Family Goals none stated Objective Patient Orientation: Person, [place] Attachments: Oxygen, Day Catheter ROM/Strength ROM Lower Extremities WNL Strength Lower Extremities 3/5 gross BLE Sensory Vision: Wears Glasses Hearing: Functional Sensation Right Lower Extremit: Impaired Sensation Left Lower Extremity: Impaired Transfers Roll Left to Right (QC): 2 Sit to Lying (QC): 2 Lying to Sitting/Side of Bed(Q: 2 Sit to Stand (QC): 2 After sitting at EOB patient needs min assist to maintain balance, her O2 drops to 86%, O2 turned up to 5L and after purse lip breathing it comes up to 90%. Patient is able to stand at bedside for about 20 seconds, very slumped posture, tries to lean on forearms on the walker. Her O2 goes down to 86% even with an increased level of O2 (5L). Patient layed back down and scooted up in bed. Balance Sitting Static: Poor Sitting Dynamic: Poor Standing Static: Poor Standing Dynamic: Poor Treatment BLE supine exercises x20 (AP, HS) Assessment/Needs Patient in bed post tx with nurse call, phone, tray, all needs met. Rehab Potential: Guarded PT Paper Bundler Goals Paper Bundler Goals PT Alf Goals Time Frame: Jul 25, 2021 Roll Left & Right (QC): 3 Sit to Lying (QC): 3 Lying-Sitting on Side/Bed(QC): 3 Sit to Stand (QC): 3 Chair/Qqf-uj-Weeyh Xfer(QC): 3 PT Plan Problem List Problem List: Activity Tolerance, Functional Strength, Safety, Balance, Gait, Transfer, Bed Mobility, ROM Treatment/Plan Treatment Plan: Continue Plan of Care Treatment Plan: Bed Mobility, Education, Functional Activity [place], Functional Strength, Gait, Safety, Therapeutic Exercise, Transfers Treatment Duration: Jul 25, 2021 Frequency: 6 times per week Estimated Hrs Per Day: .25 hour per day Patient and/or Family Agrees t: Yes Safety Risks/Education Patient Education: Transfer Techniques, Correct Positioning, Safety Issues Teaching Recipient: Patient Teaching Methods: Demonstration, Discussion Response to Teaching: Reinforcement Needed Discharge Recommendations Plan Patient will perform bed mobility and transfer training, balance and endurance training, functional strengthening, gait training, and education, to improve functional mobility and independence at home. Therapy Discharge Recommendati: 24 Hour Supervision Time/GCodes Time In: 1308 Time Out: 1324 Total Billed Treatment Time: 16 Total Billed Treatment 1 visit DAVID JAMES PT Jul 18, 2021 13:41
[2021-07-18 16:00] VITALS: BP 112/67
[2021-07-18] MEDS: TAMSULOSIN 0.4 MG (FLOMAX) CAP PO SCH (17:31)
--- NOTE | 2021-07-18 18:09 | Consultation-Cardiology ---
HPI-Cardiology Cardiology Consultation: Date of Consultation 07/18/2021 Date of Admission 07/16/2021 Attending Physician Anya Bowen DO Admitting Physician Jannette,Local Physician Consulting Physician FILIBERTO DENNEY JR, MD HPI: Time Seen by a Provider: 18:03 Chief Complaint: Reason for consultation: Dyspnea following Covid infection, rule out cardiac cause. Rosalia is a 70-year-old female with no known history of coronary artery disease. She is currently on the medical floor after a prolonged hospitalization due to Covid infection. She had been on the inpatient rehab unit and then had worsening respiratory status and was transferred back to the medical floor. She had been made comfort care but then made a remarkable turnaround within 24 hours. This morning the hospitalist requested a cardiology consultation to assess for any cardiac manifestations of Covid or dyspnea that could be related to cardiac disease. When I saw her she was sitting up in bed with a family member at the bedside. She was complaining of nausea and dry heaves as well as some abdominal discomfort. This was making her feel short of breath and have some discomfort in her chest. She denied paroxysmal nocturnal dyspnea, orthopnea, palpitations, lightheadedness, syncope, or ankle edema. She had just been given some medication for the nausea but this was not yet helping. Certain portions of this document may have been dictated utilizing voice recognition technology. Inherent to this technology, typographical and grammatical errors may exist. As much as I am diligent to identify and correct these mistakes, some errors may remain in the document. Review of Systems-Cardiology Review of Systems Other comments Review of 10 organ systems is as per the history of present illness, otherwise negative. [id number] Hx Patient Social History Marrital Status: Employed/Student: retired Smoking Status: Never a Smoker Alcohol Use?: No Pt feels they are or have been: No Past Medical History PMH As described under Assessment. Allergies and Home Medications Allergies Coded Allergies: Penicillins (Verified Allergy, Unknown, 07/03/21) erythromycin base (Verified Allergy, Unknown, 07/03/21) Patient Home Medication List Home Medication List Reviewed: Yes Albuterol Sulfate (Ventolin Hfa) 18 Gm Hfa.aer.ad, 2 PUFF INH Q6H PRN for SHORTNESS OF BREATH, (Reported) Entered as Reported by: TANYA ADAIR on 07/04/211529 Aspirin (Aspirin EC) 81 Mg Tablet.dr, 81 MG PO DAILY, (Reported) Entered as Reported by: TANYA ADAIR on 07/04/211529 Glimepiride (Glimepiride) 2 Mg Tablet, 2 MG PO BID, (Reported) Entered as Reported by: TANYA ADAIR on 07/04/211529 Guaifenesin/Codeine Phosphate (Coditussin AC Liquid) 473 Ml Liquid, 5 ML PO Q4H PRN for COUGH, (Reported) Entered as Reported by: TANYA ADAIR on 07/04/211529 Lisinopril/Hydrochlorothiazide (Lisinopril-Hctz 20-12.5 mg Tab) 1 Each Tablet, 1 EA PO DAILY, (Reported) Entered as Reported by: TANYA ADAIR on 07/04/211529 Metformin HCl (Metformin HCl) 500 Mg Tablet, 500 MG PO BID, (Reported) Entered as Reported by: TANYA ADAIR on 07/04/211529 Pantoprazole Sodium (Pantoprazole Sodium) 40 Mg Tablet.dr, 40 MG PO DAILY, (Reported) Entered as Reported by: TANYA ADAIR on 07/04/211529 Paroxetine HCl (Paroxetine HCl) 20 Mg Tablet, 20 MG PO DAILY, (Reported) Entered as Reported by: TANYA ADAIR on 07/04/211529 Pravastatin Sodium (Pravastatin Sodium) 40 Mg Tablet, 40 MG PO HS, (Reported) Entered as Reported by: TANYA ADAIR on 07/04/211529 Sucralfate (Sucralfate) 1 Gm Tablet, 1 GM PO BID, (Reported) Entered as Reported by: TANYA ADAIR on 07/04/211529 Exam Vital Signs Vital Signs Date Time Temp Pulse Resp B/P (MAP) Pulse Ox O2 Delivery O2 Flow Rate FiO2 07/18/21 16:00 37.1 103 18 112/67 (82) 92 Nasal Cannula 2.00 07/16/21 20:26 70 Physical Exam General: Alert. She appears mildly uncomfortable due to the nausea and abdominal discomfort. Well nourished and appears stated age. She is obese. Eye: Extraocular movements are intact. Conjunctivae are clear. There are no xanthelasma. HENT: Normocephalic. Atraumatic. Carotid pulsations 2/2 without bruits. Neck: Jugular venous pressure does not appear elevated. No thyromegaly appreciated. Respiratory: Lungs are clear to auscultation. Respirations are non-labored. Breath sounds are equal. Symmetrical chest wall expansion. Cardiovascular: Tachycardia. Regular rhythm. 2/6 systolic ejection murmur. No gallop. Point of maximal impulse is not appear displaced. Good pulses equal in all extremities. No edema. Gastrointestinal: Soft. Normal bowel sounds. Skin: Skin turgor is normal. There is no pallor. Musculoskeletal: No kyphosis or scoliosis appreciated. Neurologic: Alert and oriented to person, place, time. Cranial nerves 3-12 appear grossly intact. The patient has good motor tone strength in the upper and lower extremities bilaterally. Psychiatric: Cooperative. Appropriate mood & affect. Labs Laboratory Tests Test 07/17/21 19:39 07/18/21 05:13 07/18/21 15:50 Range/Units Glucometer 147 H 105 70-110 MG/DL White Blood Count 9.4 4.3-11.0 10^3/uL Red Blood Count 2.73 L 3.80-5.11 10^6/uL Hemoglobin 7.5 L 11.5-16.0 g/dL Hematocrit 24 L 35-52 % Mean Corpuscular Volume 87 80-99 fL Mean Corpuscular Hemoglobin 28 25-34 pg Mean Corpuscular Hemoglobin Concent 32 32-36 g/dL Red Cell Distribution Width 10.0-14.5 % Platelet Count 220 130-400 10^3/uL Mean Platelet Volume 8.4 L 9.0-12.2 fL Immature Granulocyte % (Auto) 1 % Neutrophils (%) (Auto) 76 H 42-75 % Lymphocytes (%) (Auto) 14 12-44 % Monocytes (%) (Auto) 6 0-12 % Eosinophils (%) (Auto) 4 0-10 % Basophils (%) (Auto) 0 0-10 % Neutrophils # (Auto) 7.1 1.8-7.8 10^3/uL Lymphocytes # (Auto) 1.3 1.0-4.0 10^3/uL Monocytes # (Auto) 0.5 0.0-1.0 10^3/uL Eosinophils # (Auto) 0.3 0.0-0.3 10^3/uL Basophils # (Auto) 0.0 0.0-0.1 10^3/uL Immature Granulocyte # (Auto) 0.1 0.0-0.1 10^3/uL Sodium Level 131 L 135-145 MMOL/L Potassium Level 3.9 3.6-5.0 MMOL/L Chloride Level 96 L 98-107 MMOL/L Carbon Dioxide Level 25 21-32 MMOL/L Anion Gap 10 5-14 MMOL/L Blood Urea Nitrogen 9 7-18 MG/DL Creatinine 0.75 0.60-1.30 MG/DL Estimat Glomerular Filtration Rate 76 BUN/Creatinine Ratio 12 Glucose Level 117 H 70-105 MG/DL Calcium Level 8.5 8.5-10.1 MG/DL Corrected Calcium 10.0 8.5-10.1 MG/DL Total Bilirubin 0.6 0.1-1.0 MG/DL Aspartate Amino Transf (AST/SGOT) 16 5-34 U/L Alanine Aminotransferase (ALT/SGPT) 37 0-55 U/L Alkaline Phosphatase 400 H 40-136 U/L Ammonia 17 11-32 UMOL/L Total Protein 5.7 L 6.4-8.2 GM/DL Albumin 2.1 L 3.2-4.5 GM/DL Diagnosis/Problems Diagnosis/Problems (1) Dyspnea Assessment & Plan: I suspect this is just residual from the Covid infection as well as the pulmonary embolism she suffered. For completeness sake, I will have her undergo an echocardiogram tomorrow. I have also ordered an electrocardiogram due to the tachycardia. (2) Primary hypertension Assessment & Plan: She is presently normotensive on no antihypertensive medication. We will continue to monitor her blood pressures in the hospital. (3) Mixed hyperlipidemia Assessment & Plan: Consider resuming statin medication. I will leave this up to the discretion of the hospitalist. (4) Pulmonary embolism Assessment & Plan: She had been on enoxaparin which was changed over to oral anticoagulation. At some point, this may not have been reordered when she was transferred from 1 unit to another. I have reached out to the hospitalist in this regard. FILIBERTO DENNEY JR, MD Jul 18, 2021 18:09
[2021-07-18 20:01] VITALS: BP 106/67
[2021-07-18] MEDS: MIRTAZAPINE 15 MG (REMERON) TAB PO SCH (20:44)
[2021-07-18] MEDS: APIXABAN 5 MG (ELIQUIS) TABLET PO SCH (20:44)
[2021-07-18] MEDS ORDERED: APIXABAN 5 MG (ELIQUIS) TABLET PO SCH (21:00)
[2021-07-18 23:28] VITALS: BP 129/61
[2021-07-19 03:36] VITALS: BP 144/63
[2021-07-19] MEDS: BETHANECHOL 25 MG (URECHOLINE) TAB PO SCH (06:00)
[2021-07-19] MEDS: VENlafaxine XR 75 MG (EFFEXOR XR) CAP PO SCH (06:00)
[2021-07-19] MEDS: inSUlin ASPART (NovoLOG) 1 UNIT/0.01 ML (CHARGE PER UNIT) SC SCH (06:01)
[2021-07-19 06:33] LABS: BASOPHILS % (AUTO) 0 % (0-10); EOSINOPHILS # (AUTO) 0.2 10^3/uL (0.0-0.3); EOSINOPHILS % (AUTO) 3 % (0-10); HEMATOCRIT 24 % (35-52); HEMOGLOBIN 7.4 g/dL (11.5-16.0); LYMPHOCYTES # (AUTO) 1.3 10^3/uL (1.0-4.0); LYMPHOCYTES % (AUTO) 16 % (12-44); MEAN CORPUSCULAR HEMOGLOBIN 28 pg (25-34); MEAN CORPUSCULAR HGB CONC 31 g/dL (32-36); MEAN CORPUSCULAR VOLUME 89 fL (80-99); MEAN PLATELET VOLUME 8.7 fL (9.0-12.2); MONOCYTES # (AUTO) 0.5 10^3/uL (0.0-1.0); MONOCYTES % (AUTO) 6 % (0-12); NEUTROPHILS # (AUTO) 6.1 10^3/uL (1.8-7.8); NEUTROPHILS % (AUTO) 74 % (42-75); PLATELET COUNT 214 10^3/uL (130-400); WHITE BLOOD COUNT 8.3 10^3/uL (4.3-11.0)
[2021-07-19 07:03] LABS: BILIRUBIN,TOTAL 0.6 MG/DL (0.1-1.0); CALCIUM 8.7 MG/DL (8.5-10.1); CREATININE SERUM 0.76 MG/DL (0.60-1.30); POTASSIUM 3.9 MMOL/L (3.6-5.0); TOTAL PROTEIN 5.6 GM/DL (6.4-8.2)
[2021-07-19 08:35] VITALS: BP 120/72
[2021-07-19] MEDS: polyethylene glycoL POWDER 17 GM (MIRALAX) PACK PO SCH (09:13)
[2021-07-19] MEDS: SENNA W/DOCUSATE (SENOKOT S) TABLET PO SCH (09:13)
[2021-07-19] MEDS: PANTOPRAZOLE 40 MG (PROTONIX) TAB PO SCH (09:13)
[2021-07-19] MEDS: APIXABAN 5 MG (ELIQUIS) TABLET PO SCH (09:13)
[2021-07-19] MEDS: DOCUSATE SODIUM 100 MG (COLACE) CAP PO SCH (09:13)
[2021-07-19] MEDS: NYSTATIN ORAL SUSP 5 ML UDC PO SCH (09:14)
--- NOTE | 2021-07-19 09:15 | Progress Note - Urology ---
Progress Note-Urology Progress Notes/Assess & Plan Progress/Assessment & Plan GOING TO [facility] BED. WE WILL MANAGE HER THERE. KEEP ON MEDS Final Diagnosis RETENTION PARAMJIT ROBB MD Jul 19, 2021 09:15
--- NOTE | 2021-07-19 09:47 | Cardiology Progress Note ---
Progress Note-Cardiology Events since last exam Date Seen by Provider: Jul 19, 2021 Time Seen by Provider: 09:44 Events since last exam I am seeing her due to chest pain and dyspnea following Covid infection. Her nausea has improved. She still has some epigastric discomfort which seems to be radiating towards her chest. She still has slight shortness of breath. She denies palpitations or syncope. She has mild ankle edema. After I saw the patient this morning, she was transferred to [facility] inpatient rehab. Certain portions of this document may have been dictated utilizing voice recognition technology. Inherent to this technology, typographical and grammatical errors may exist. As much as I am diligent to identify and correct these mistakes, some errors may remain in the document. Vitals Last set of Vitals Signs Vital Signs 07/16/21 07/19/21 20:26 08:35 Temp 35.9 Pulse 100 Resp 18 B/P (MAP) 120/72 (88) Pulse Ox 94 O2 Delivery Nasal Cannula O2 Flow Rate 2.00 FiO2 70 Labs Labs Laboratory Tests 07/19/21 06:14 Exam Vital Signs Vital Signs Date Time Temp Pulse Resp B/P (MAP) Pulse Ox O2 Delivery O2 Flow Rate FiO2 07/19/21 08:35 35.9 100 18 120/72 (88) 94 Nasal Cannula 2.00 07/16/21 20:26 70 Physical Exam General: Alert. No acute distress. Eye: No xanthelasma. HENT: Normocephalic. Neck: Jugular venous pressure does not appear elevated. Respiratory: Lungs are clear to auscultation. Respirations are non-labored. Breath sounds are equal. Symmetrical chest wall expansion. Cardiovascular: Tachycardia. Regular rhythm. No murmur. No gallop. No edema. Gastrointestinal: Soft. Normal bowel sounds. Skin: Warm. Dry. Neurologic: Alert and oriented to person, place, time. Cranial nerves 3-11 frederick ssly intact. Psychiatric: Cooperative. Appropriate mood & affect. Labs Laboratory Tests Test 07/18/21 15:50 07/18/21 20:01 07/19/21 06:14 07/19/21 10:11 Range/Units Glucometer 105 130 H 70-110 MG/DL White Blood Count 8.3 4.3-11.0 10^3/uL Red Blood Count 2.67 L 3.80-5.11 10^6/uL Hemoglobin 7.4 L 11.5-16.0 g/dL Hematocrit 24 L 35-52 % Mean Corpuscular Volume 89 80-99 fL Mean Corpuscular Hemoglobin 28 25-34 pg Mean Corpuscular Hemoglobin Concent 31 L 32-36 g/dL Red Cell Distribution Width 10.0-14.5 % Platelet Count 214 130-400 10^3/uL Mean Platelet Volume 8.7 L 9.0-12.2 fL Immature Granulocyte % (Auto) 1 % Neutrophils (%) (Auto) 74 42-75 % Lymphocytes (%) (Auto) 16 12-44 % Monocytes (%) (Auto) 6 0-12 % Eosinophils (%) (Auto) 3 0-10 % Basophils (%) (Auto) 0 0-10 % Neutrophils # (Auto) 6.1 1.8-7.8 10^3/uL Lymphocytes # (Auto) 1.3 1.0-4.0 10^3/uL Monocytes # (Auto) 0.5 0.0-1.0 10^3/uL Eosinophils # (Auto) 0.2 0.0-0.3 10^3/uL Basophils # (Auto) 0.0 0.0-0.1 10^3/uL Immature Granulocyte # (Auto) 0.1 0.0-0.1 10^3/uL Sodium Level 136 135-145 MMOL/L Potassium Level 3.9 3.6-5.0 MMOL/L Chloride Level 100 98-107 MMOL/L Carbon Dioxide Level 25 21-32 MMOL/L Anion Gap 11 5-14 MMOL/L Blood Urea Nitrogen 10 7-18 MG/DL Creatinine 0.76 0.60-1.30 MG/DL Estimat Glomerular Filtration Rate 75 BUN/Creatinine Ratio 13 Glucose Level 99 70-105 MG/DL Calcium Level 8.7 8.5-10.1 MG/DL Corrected Calcium 10.3 H 8.5-10.1 MG/DL Total Bilirubin 0.6 0.1-1.0 MG/DL Aspartate Amino Transf (AST/SGOT) 18 5-34 U/L Alanine Aminotransferase (ALT/SGPT) 30 0-55 U/L Alkaline Phosphatase 483 H 40-136 U/L Total Protein 5.6 L 6.4-8.2 GM/DL Albumin 2.0 L 3.2-4.5 GM/DL Troponin I < 0.028 <0.028 NG/ML Radiology ELECTROCARDIOGRAM: Sinus tachycardia at 106 bpm with left anterior hemiblock and right bundle branch block. No acute ST changes. ECHOCARDIOGRAM normal left ventricular chamber size with mild concentric left ventricular hypertrophy. Hyperdynamic left ventricular systolic function with an estimated ejection fraction of 65-75%. Grade 1 diastolic dysfunction. Normal right ventricular size and function. The estimated pulmonary artery pressure is 25 mmHg. Diagnosis/Problems Diagnosis/Problems (1) Chest pain Assessment & Plan: Etiology unclear. No acute ischemic changes on the electrocardiogram and a troponin level from this morning was negative. Once she completely recovers from Covid and is discharged home, we could consider a stress test if she is still having intermittent chest discomfort. (2) Dyspnea Assessment & Plan: I suspect this is just residual from the Covid infection as well as the pulmonary embolism she suffered. Her echocardiogram did not show any structural heart disease to explain dyspnea. (3) Primary hypertension Assessment & Plan: Her blood pressures were starting to trend upwards at times. She has now been discharged to an outside facility for inpatient rehab. This can be followed after discharge. (4) Mixed hyperlipidemia Assessment & Plan: Consider resuming statin medication. I will leave this up to the discretion of the hospitalist. (5) Pulmonary embolism Assessment & Plan: She had been on enoxaparin which was changed over to oral anticoagulation. She was put back on apixaban prior to discharge to the in patient rehab facility. FILIBERTO DENNEY JR, MD Jul 19, 2021 09:47
[2021-07-19] MEDS ORDERED: Bethanechol Chl PO (09:53)
[2021-07-19] MEDS ORDERED: POLY17PO54 PO (09:53)
[2021-07-19] MEDS ORDERED: IRON100V2 IV (09:53)
[2021-07-19] MEDS ORDERED: MIRT-47 PO (09:53)
[2021-07-19] MEDS ORDERED: SENN1TAB76 PO (09:53)
[2021-07-19] MEDS ORDERED: TMSL.4C PO (09:53)
[2021-07-19] MEDS ORDERED: NYST1000 PO (09:53)
[2021-07-19] MEDS ORDERED: VENL75CA93 PO (09:53)
[2021-07-19] MEDS ORDERED: ACHD5005 PO (09:53)
[2021-07-19] MEDS ORDERED: APIX5TAB PO (09:53)
[2021-07-19] MEDS ORDERED: INSU100V16 SC (09:53)
--- NOTE | 2021-07-19 09:54 | Discharge Inst-Skilled Nursing ---
Discharge Inst-Skilled NF Reconcile Patient Problems Problems Reviewed?: Yes Chief Complaint Chief complaint: End-of-life care but now appears to be dramatically improved History of present illness: This is a 70-year-old white female I moved from inpatient rehab yesterday evening due to acute hypoxic respiratory failure. She was deemed DO NOT RESUSCITATE required Vapotherm on inpatient rehab prior to transfer. I called in the family for possible end-of-life status and patient was placed on comfort care protocol and everyone in agreement with the plan. Patient dramatically improved starting early this morning and is now alert and oriented x3 and about to eat breakfast. I explained to her that we would take one day at a time and if she should turn around and improved by this morning we would restart treatment. It appears that that is the case here of which she has had several rapid declines and rallied in improved and turned around the last 3 weeks from COVID-19 pneumonia. We will evaluate her intake one day at a time in case she declines further. Patient Instructions Patient Problems: Debility following COVID Goal: [place] Consult/Follow Up/Orders Skilled NF Admit to: [facility] Certification (SNF) I certify that SNF services are required to be given on an inpatient basis because of the above named patient's need for intermediate care on a continuing basis for the conditions(s) for which he/she was receiving inpatient hospital services prior to his/her transfer to the SNF. Correction Facility Order: Nursing Services, [facility]-Evaluate & Treat, Physical Therapy-Evaluate & Treat Oxygen Delivery Method: Nasal Cannula Type of Care: Comfort Measures New & Resume Previous Orders New Medications: Apixaban (Eliquis) 5 Mg Tablet 5 MG PO BID for 14 Days, TAB [Bethanechol Chl] () 25 MG TAB 25 MG PO ACHS for 14 Days, TAB Hydrocodone Bit/Acetaminophen (HYDROcodone/APAP 5 MG/325 MG TAB) 1 Tab Tab 1 EA PO Q4H PRN for PAIN-MODERATE (5-7) for 7 Days, TAB Insulin Aspart (Novolog) 100 Unit/1 Ml Susp 0 UNIT SC ACHS for 14 Days, ML Iron Sucrose Complex (Venofer) 200 Mg/10 Ml Vial 200 MG IV Q48H@09, #2 VIAL Mirtazapine (Mirtazapine) 15 Mg Tab.rapdis 15 MG PO HS for 14 Days, TAB Nystatin (Nystatin) 100,000 Unit/1 Ml Oral.susp 5 ML PO QID for 7 Days, ML Polyethylene Glycol 3350 (Polyethylene Glycol 3350) 17 Gm Powd.pack 17 GM PO BID for 14 Days, EACH Sennosides/Docusate Sodium (Stool Softener-Laxative Tablet) 1 Each Tablet 2 EA PO BID for 14 Days, TAB Tamsulosin HCl (Flomax) 0.4 Mg Cap 0.4 MG PO DAILY@1800 for 14 Days, CAP Venlafaxine HCl (Venlafaxine HCl ER) 75 Mg Cap.er.24h 150 MG PO DAILY@0700 for 14 Days, CAP Continued Medications: Albuterol Sulfate (Ventolin Hfa) 18 Gm Hfa.aer.ad 2 PUFF INH Q6H PRN for SHORTNESS OF BREATH, EA Guaifenesin/Codeine Phosphate (Coditussin AC Liquid) 473 Ml Liquid 5 ML PO Q4H PRN for COUGH, ML Lisinopril/Hydrochlorothiazide (Lisinopril-Hctz 20-12.5 mg Tab) 1 Each Tablet 1 EA PO DAILY, TAB Metformin HCl (Metformin HCl) 500 Mg Tablet 500 MG PO BID, TAB Pantoprazole Sodium (Pantoprazole Sodium) 40 Mg Tablet.dr 40 MG PO DAILY, TAB Pravastatin Sodium (Pravastatin Sodium) 40 Mg Tablet 40 MG PO HS, TAB Sucralfate (Sucralfate) 1 Gm Tablet 1 GM PO BID, TAB Discontinued Medications: Aspirin (Aspirin EC) 81 Mg Tablet.dr 81 MG PO DAILY, TAB Glimepiride (Glimepiride) 2 Mg Tablet 2 MG PO BID, TAB Paroxetine HCl (Paroxetine HCl) 20 Mg Tablet 20 MG PO DAILY, TAB Anya Marcel Bowen Jul 19, 2021 09:53 ANYA BOWEN DO Jul 19, 2021 09:54
--- NOTE | 2021-07-19 09:54 | Discharge Summary ---
Diagnosis/Chief Complaint Date of Admission Jul 16, 2021 at 19:41 Date of Discharge Discharge Date: Jul 19, 2021 Discharge Diagnosis COVID-19 s/p ventilation, extubation, recent inpatient rehab Acute Respiratory Distress -resolved, off vapotherm and on 2L NC Systolic heart murmur -cardiology to evaluate, echo and BNP ordered recent Acute Kidney Injury -resolved, creatinine 0.75 left shoulder pain -evaluated by Ortho who suspected rotator cuff tendonopathy, offered steroid injections. -patient still considering that. Pain unchanged compared to yesterday. anemia -HGB stable at 7.5 DM2 -blood sugars well controlled Continue anticoagulation Discharge Summary Discharge Physical Examination Allergies: Coded Allergies: Penicillins (Verified Allergy, Unknown, 07/03/21) erythromycin base (Verified Allergy, Unknown, 07/03/21) Vitals & I&Os Vital Signs Date Time Temp Pulse Resp B/P (MAP) Pulse Ox O2 Delivery O2 Flow Rate FiO2 07/19/21 08:35 35.9 100 18 120/72 (88) 94 Nasal Cannula 2.00 07/16/21 20:26 70 General Appearance: Alert, Oriented X3, Cooperative Respiratory: Clear to Auscultation Cardiovascular: Regular Rate Psych/Mental Status: Mental Status NL, Other (flat affect) Hospital Course Was the Problem List Reviewed?: Yes Hospital Course: Rosalia Azul is a 70 y.o. F with history of DM2 and hospitalization at [facility] 06/17-06/27/21 brought to [facility] on 07/03 for escalation of symptoms from dehydrational JILL to pneumonia with hypoxia. The patient was intubated and given steroids and antibiotics. She experienced slow venous bleeding from her central line site causing anemia during her ICU stay. The bleeding was stabilized and the patient improved respiratory function, was extubated on 07/07/21 and brought to inpatient rehabilitation in [facility] on 07/12/21. A CTA was performed due to an elevated D-dimer and persistent oxygen demands of 3L, and a left lower lobe PE was found so her anticoagulation was increased. The patient had some urinary retention with increased post-void residual volume and urology was consulted on 07/13. She was started on Urecholine and Flomax but ultimately n eeded a Day catheter. The patient also began to show signs of apathy and depression related to physical weakness and debility and was started on Effexor on 07/14 and is also on Remeron. The patient began to experience left shoulder pain and motivation worsened. XR of the shoulder was unremarkable. Ortho was consulted and reported rotator cuff tendinopathy, but the patient refused s teroid injections. She refused therapy on 07/15 and made statements that she was "giving up". Later that day Rosalia experienced respiratory distress requiring Vapotherm and was brought to the hospital floor as a comfort care patient, however her respiratory status rapidly improved. Rosalia recognized that her depression was related to COVID and agreed to transfer to [facility] to rehabilitate at a less aggressive pace. She agreed to speak with a software qa system specialist while there. The patient was discharged to [facility] in stable condition. ROBIN DONOHUE MED STUDENT Labs (last 24 hrs) Laboratory Tests 07/17/21 15:05: White Blood Count 9.9, Red Blood Count 2.73L, Hemoglobin 7.5L, Hematocrit 24L, Mean Corpuscular Volume 87, Mean Corpuscular Hemoglobin 28, Mean Corpuscular Hemoglobin Concent 32, Red Cell Distribution Width , Platelet Count 216, Mean Platelet Volume 8.8L, Immature Granulocyte % (Auto) 3, Neutrophils (%) (Auto) 75, Lymphocytes (%) (Auto) 13, Monocytes (%) (Auto) 7, Eosinophils (%) (Auto) 3, Basophils (%) (Auto) 0, Neutrophils # (Auto) 7.4, Lymphocytes # (Auto) 1.3, Monocytes # (Auto) 0.7, Eosinophils # (Auto) 0.3, Basophils # (Auto) 0.0, Immature Granulocyte # (Auto) 0.3H, Sodium Level 131L, Potassium Level 4.1, Chloride Level 96L, Carbon Dioxide Level 25, Anion Gap 10, Blood Urea Nitrogen 9, Creatinine 0.79, Estimat Glomerular Filtration Rate 72, BUN/Creatinine Ratio 11, Glucose Level 132H, Calcium Level 8.5, Corrected Calcium 10.0, Total Bilirubin 0.7, Aspartate Amino Transf (AST/SGOT) 19, Alanine Aminotransferase (ALT/SGPT) 44, Alkaline Phosphatase 393H, Total Protein 5.6L, Albumin 2.1L 07/17/21 19:39: Glucometer 147H 07/18/21 05:13: White Blood Count 9.4, Red Blood Count 2.73L, Hemoglobin 7.5L, Hematocrit 24L, Mean Corpuscular Volume 87, Mean Corpuscular Hemoglobin 28, Mean Corpuscular Hemoglobin Concent 32, Red Cell Distribution Width , Platelet Count 220, Mean Platelet Volume 8.4L, Immature Granulocyte % (Auto) 1, Neutrophils (%) (Auto) 76H, Lymphocytes (%) (Auto) 14, Monocytes (%) (Auto) 6, Eosinophils (%) (Auto) 4, Basophils (%) (Auto) 0, Neutrophils # (Auto) 7.1, Lymphocytes # (Auto) 1.3, Monocytes # (Auto) 0.5, Eosinophils # (Auto) 0.3, Basophils # (Auto) 0.0, Immature Granulocyte # (Auto) 0.1, Sodium Level 131L, Potassium Level 3.9, Chloride Level 96L, Carbon Dioxide Level 25, Anion Gap 10, Blood Urea Nitrogen 9, Creatinine 0.75, Estimat Glomerular Filtration Rate 76, BUN/Creatinine Ratio 12, Glucose Level 117H, Calcium Level 8.5, Corrected Calcium 10.0, Total Bilirubin 0.6, Aspartate Amino Transf (AST/SGOT) 16, Alanine Aminotransferase (ALT/SGPT) 37, Alkaline Phosphatase 400H, Total Protein 5.7L, Albumin 2.1L, Ammonia 17 07/18/21 15:50: Glucometer 105 07/18/21 20:01: Glucometer 130H 07/19/21 06:14: White Blood Count 8.3, Red Blood Count 2.67L, Hemoglobin 7.4L, Hematocrit 24L, Mean Corpuscular Volume 89, Mean Corpuscular Hemoglobin 28, Mean Corpuscular Hemoglobin Concent 31L, Red Cell Distribution Width , Platelet Count 214, Mean Platelet Volume 8.7L, Immature Granulocyte % (Auto) 1, Neutrophils (%) (Auto) 74, Lymphocytes (%) (Auto) 16, Monocytes (%) (Auto) 6, Eosinophils (%) (Auto) 3, Basophils (%) (Auto) 0, Neutrophils # (Auto) 6.1, Lymphocytes # (Auto) 1.3, Monocytes # (Auto) 0.5, Eosinophils # (Auto) 0.2, Basophils # (Auto) 0.0, Immature Granulocyte # (Auto) 0.1, Sodium Level 136, Potassium Level 3.9, Chloride Level 100, Carbon Dioxide Level 25, Anion Gap 11, Blood Urea Nitrogen 10, Creatinine 0.76, Estimat Glomerular Filtration Rate 75, BUN/Creatinine Ratio 13, Glucose Level 99, Calcium Level 8.7, Corrected Calcium 10.3H, Total Bilirubin 0.6, Aspartate Amino Transf (AST/SGOT) 18, Alanine Aminotransferase (ALT/SGPT) 30, Alkaline Phosphatase 483H, Total Protein 5.6L, Albumin 2.0L 07/19/21 10:11: Troponin I < 0.028 Pending Labs Laboratory Tests 07/17/21 15:05: White Blood Count 9.9, Red Blood Count 2.73, Hemoglobin 7.5, Hematocrit 24, Mean Corpuscular Volume 87, Mean Corpuscular Hemoglobin 28, Mean Corpuscular Hemoglobin Concent 32, Red Cell Distribution Width , Platelet Count 216, Mean Platelet Volume 8.8, Immature Granulocyte % (Auto) 3, Neutrophils (%) (Auto) 75, Lymphocytes (%) (Auto) 13, Monocytes (%) (Auto) 7, Eosinophils (%) (Auto) 3, Basophils (%) (Auto) 0, Neutrophils # (Auto) 7.4, Lymphocytes # (Auto) 1.3, Monocytes # (Auto) 0.7, Eosinophils # (Auto) 0.3, Basophils # (Auto) 0.0, Immature Granulocyte # (Auto) 0.3, Sodium Level 131, Potassium Level 4.1, Chloride Level 96, Carbon Dioxide Level 25, Anion Gap 10, Blood Urea Nitrogen 9, Creatinine 0.79, Estimat Glomerular Filtration Rate 72, BUN/Creatinine Ratio 11, Glucose Level 132, Calcium Level 8.5, Corrected Calcium 10.0, Total Bilirubin 0.7, Aspartate Amino Transf (AST/SGOT) 19, Alanine Aminotransferase (ALT/SGPT) 44, Alkaline Phosphatase 393, Total Protein 5.6, Albumin 2.1 07/17/21 19:39: Glucometer 147 07/18/21 05:13: White Blood Count 9.4, Red Blood Count 2.73, Hemoglobin 7.5, Hematocrit 24, Mean Corpuscular Volume 87, Mean Corpuscular Hemoglobin 28, Mean Corpuscular Hemoglobin Concent 32, Red Cell Distribution Width , Platelet Count 220, Mean Platelet Volume 8.4, Immature Granulocyte % (Auto) 1, Neutrophils (%) (Auto) 76, Lymphocytes (%) (Auto) 14, Monocytes (%) (Auto) 6, Eosinophils (%) (Auto) 4, Basophils (%) (Auto) 0, Neutrophils # (Auto) 7.1, Lymphocytes # (Auto) 1.3, Monocytes # (Auto) 0.5, Eosinophils # (Auto) 0.3, Basophils # (Auto) 0.0, Immature Granulocyte # (Auto) 0.1, Sodium Level 131, Potassium Level 3.9, Chloride Level 96, Carbon Dioxide Level 25, Anion Gap 10, Blood Urea Nitrogen 9, Creatinine 0.75, Estimat Glomerular Filtration Rate 76, BUN/Creatinine Ratio 12, Glucose Level 117, Calcium Level 8.5, Corrected Calcium 10.0, Total Bilirubin 0.6, Aspartate Amino Transf (AST/SGOT) 16, Alanine Aminotransferase (ALT/SGPT) 37, Alkaline Phosphatase 400, Total Protein 5.7, Albumin 2.1, Ammonia 17 07/18/21 15:50: Glucometer 105 07/18/21 20:01: Glucometer 130 07/19/21 06:14: White Blood Count 8.3, Red Blood Count 2.67, Hemoglobin 7.4, Hematocrit 24, Mean Corpuscular Volume 89, Mean Corpuscular Hemoglobin 28, Mean Corpuscular Hemoglobin Concent 31, Red Cell Distribution Width , Platelet Count 214, Mean Platelet Volume 8.7, Immature Granulocyte % (Auto) 1, Neutrophils (%) (Auto) 74, Lymphocytes (%) (Auto) 16, Monocytes (%) (Auto) 6, Eosinophils (%) (Auto) 3, Basophils (%) (Auto) 0, Neutrophils # (Auto) 6.1, Lymphocytes # (Auto) 1.3, Monocytes # (Auto) 0.5, Eosinophils # (Auto) 0.2, Basophils # (Auto) 0.0, Immature Granulocyte # (Auto) 0.1, Sodium Level 136, Potassium Level 3.9, Chloride Level 100, Carbon Dioxide Level 25, Anion Gap 11, Blood Urea Nitrogen 10, Creatinine 0.76, Estimat Glomerular Filtration Rate 75, BUN/Creatinine Ratio 13, Glucose Level 99, Calcium Level 8.7, Corrected Calcium 10.3, Total Bilirubin 0.6, Aspartate Amino Transf (AST/SGOT) 18, Alanine Aminotransferase (ALT/SGPT) 30, Alkaline Phosphatase 483, Total Protein 5.6, Albumin 2.0 07/19/21 10:11: Troponin I < 0.028 Discharge Home Medications: Active Scripts Active Novolog (Insulin Aspart) 100 Unit/1 Ml Susp 0 Unit SC ACHS 14 Days Polyethylene Glycol 3350 17 Gm Powd.pack 17 Gm PO BID 14 Days Stool Softener-Laxative Tablet (Sennosides/Docusate Sodium) 1 Each Tablet 2 Ea PO BID 14 Days Venlafaxine HCl ER (Venlafaxine HCl) 75 Mg Cap.er.24h 150 Mg PO DAILY@0700 14 Days Mirtazapine 15 Mg Tab.rapdis 15 Mg PO HS 14 Days HYDROcodone/APAP 5 MG/325 MG TAB (Acetaminophen/Hydrocodone Bitart) 1 Tab Tab 1 Ea PO Q4H PRN 7 Days Eliquis (Apixaban) 5 Mg Tablet 5 Mg PO BID 14 Days Venofer (Iron Sucrose Complex) 200 Mg/10 Ml Vial 200 Mg IV Q48H@09 Flomax (Tamsulosin HCl) 0.4 Mg Cap 0.4 Mg PO DAILY@1800 14 Days [Bethanechol Chl] 25 MG Tab 25 Mg PO ACHS 14 Days Nystatin 100,000 Unit/1 Ml Oral.susp 5 Ml PO QID 7 Days Reported Pantoprazole Sodium 40 Mg Tablet.dr 40 Mg PO DAILY Lisinopril-Hctz 20-12.5 mg Tab (Lisinopril/Hydrochlorothiazide) 1 Each Tablet 1 Ea PO DAILY Ventolin Hfa (Albuterol Sulfate) 18 Gm Hfa.aer.ad 2 Puff INH Q6H PRN Metformin HCl 500 Mg Tablet 500 Mg PO BID Sucralfate 1 Gm Tablet 1 Gm PO BID Pravastatin Sodium 40 Mg Tablet 40 Mg PO HS Coditussin AC Liquid (Guaifenesin/Codeine Phosphate) 473 Ml Liquid 5 Ml PO Q4H PRN Instructions to patient/family Please see electronic discharge instructions given to patient. NASRIN LAGUERRE DO Jul 19, 2021 09:54
--- NOTE | 2021-07-19 10:31 | Physical Therapy Daily Note ---
PT Daily Note-Current Subjective Patient agrees to PT. Mental Status Patient Orientation: Confused Attachments: Oxygen, Day Catheter Transfers SCALE: Activities may be completed with or without assistive devices. 8-Qqfwwzlqnw-lbfvcha completes the activity by him/herself with no assistance from a helper. 5-Set-up or Clean-up Assistance-helper sets up or cleans up; patient completes activity. [place] assists only prior to or following the activity. 4-Supervision or Touching Assistance-helper provides verbal cues and/or touching/steadying and/or contact guard assistance as patient completes activity. Assistance may be provided throughout the activity or intermittently. 3-Partial/Moderate Assistance-helper does LESS THAN HALF the effort. [place] lifts, holds or supports trunk or limbs, but provides less than half the effort. 2-Substantial/Maximal Assistance-helper does MORE THAN HALF the effort. [place] lifts or holds trunk or limbs and provides more than half the effort. 8-Amxecamai-qzltas does ALL the effort. Patient does none of the effort to complete the activity. Or, the assistance of 2 or more helpers is required for the patient to complete the activity. If activity was not attempted, code reason: 7-Patient Refused. 9-Not Applicable-not attempted and the patient did not perform the activity before the current illness, exacerbation or injury. 10-Not Attempted due to Environmental Limitations-(lack of equipment, weather restraints, etc.). 88-Not Attempted due to Medical Conditions or Safety Concerns. Sit to Lying (QC): 2 Lying to Sitting/Side of Bed(Q: 2 Sit to Stand (QC): 2 (x 4 sets with FWW use) Gait Training Gait Assistive Device: FWW Exercises Seated Therapy Exercises: Ankle pumps, Long arc quads Seated Reps: 12 (AAROM) Standing: Sit to Stand (x 4 sets max assist to FWW with attempt to side step) Assessment Patient tolerated treatment and returned to supine in bed with 4 rails up and bed alarm activated. Plan dismissal to OSH for continued care. PT Consulting Manager Goals Alf Goals PT Alf Goals Time Frame: Jul 25, 2021 Roll Left & Right (QC): 3 Sit to Lying (QC): 3 Lying-Sitting on Side/Bed(QC): 3 Sit to Stand (QC): 3 Chair/Kyl-ce-Psyfb Xfer(QC): 3 PT Plan Treatment/Plan Treatment Plan: Discontinue PT Treatment Plan: Bed Mobility, Education, Functional Activity [place], Functional Strength, Gait, Safety, Therapeutic Exercise, Transfers Treatment Duration: Jul 25, 2021 Frequency: 6 times per week Estimated Hrs Per Day: .25 hour per day Patient and/or Family Agrees t: Yes Time/GCodes Time In: 858 Time Out: 909 Total Billed Treatment Time: 11 Total Billed Treatment 1 visit EX 11 min JERMAINE MELO PT Jul 19, 2021 10:31
--- NOTE | 2021-07-19 10:41 | Progress Note ---
ROBIN DONOHUE MED STUDENT 07/19/21 1041: Progress Note Hospital Course: Rosalia Azul is a 70 y.o. F with history of DM2 and hospitalization at [facility] 06/17-06/27/[address] [facility] on 07/03 for escalation of symptoms from dehydrational JILL to pneumonia with hypoxia. The patient was intubated and given steroids and antibiotics. She experienced slow venous bleeding from her central line site causing anemia during her ICU stay. The bleeding was stabilized and the patient improved respiratory function, was extubated on 07/07/21 and brought to inpatient rehabilitation in [facility] on 07/12/21. A CTA was performed due to an elevated D-dimer and persistent oxygen demands of 3L, and a left lower lobe PE was found so her anticoagulation was increased. The patient had some urinary retention with increased post-void residual volume and urology was consulted on 07/13. She was started on Urecholine and Flomax but ultimately needed a Day catheter. The patient also began to show signs of apathy and depression related to physical weakness and debility and was started on Effexor on 07/14 and is also on Remeron. The patient began to experience left shoulder pain and motivation worsened. XR of the shoulder was unremarkable. Ortho was consulted and reported rotator cuff tendinopathy, but the patient refused steroid injections. She refused therapy on 07/15 and made statements that she was "giving up". Later that day Rosalia experienced respiratory distress requiring Vapotherm and was brought to the hospital floor as a comfort care patient, however her respiratory status rapidly improved. Rosalia recognized that her depression was related to COVID and agreed to transfer to [facility] to rehabilitate at a less aggressive pace. She agreed to speak with a internet database specialist while there. The patient was discharged to [facility] in stable condition. ANYA LAGUERRE DO 07/20/21 0544: Supervisory-Addendum Brief Verification & Attestation Participated in pt care: history, MDM, physical Personally performed: exam, history, MDM, supervision of care Care discussed with: Medical Student Procedures: n/a Results interpretation: Verified all documentation Verification and Attestation of Medical Student E/M Service A medical student performed and documented this service in my presence. I reviewed and verified all information documented by the medical student and made modifications to such information, when appropriate. I personally performed the physical exam and medical decision making. Anya Laguerre, Jul 20, 2021,05:44 ROBIN DONOHUE MED STUDENT Jul 19, 2021 10:41 ANYA LAGUERRE DO Jul 20, 2021 05:44
== END 2021-07-19 11:00 | disposition swing bed (61) | DRG 189 ==
LOC: 4TH 19:41
PROVIDERS: ADMIT Internal Medicine; ATTEND Internal Medicine
DX: J96.01 Acute respiratory failure with hypoxia (principal); R06.00 Dyspnea, unspecified; R00.0 Tachycardia, unspecified; B94.8 Sequelae of other specified infectious and parasitic diseases; Z87.01 Personal history of pneumonia (recurrent); E78.2 Mixed hyperlipidemia; R33.9 Retention of urine, unspecified; Z51.5 Encounter for palliative care; Z66 Do not resuscitate; I10 Essential (primary) hypertension; K21.9 Gastro-esophageal reflux disease without esophagitis; I44.4 Left anterior fascicular block; M79.7 Fibromyalgia; E11.65 Type 2 diabetes mellitus with hyperglycemia; F32.9 Major depressive disorder, single episode, unspecified; M75.102 Unspecified rotator cuff tear or rupture of left shoulder, not specified as traumatic; D64.9 Anemia, unspecified; Z79.84 Long term (current) use of oral hypoglycemic drugs; Z86.711 Personal history of pulmonary embolism; Z79.01 Long term (current) use of anticoagulants; Z79.82 Long term (current) use of aspirin; Z88.1 Allergy status to other antibiotic agents; Z88.0 Allergy status to penicillin; T38.0X5A Adverse effect of glucocorticoids and synthetic analogues, initial encounter
CPT/HCPCS: 36415; 80053; 82140; 82947; 84484; 85025; 93005; 93306